=== PATIENT | female | born 1955 | race Caucasian/White ===

== ENCOUNTER → 2020-01-24 12:54 | Outpatient (BNVA) | payer MEDICAID, SELFPAY | PROVIDERS: PCP Family Medicine; Referring Provider Family Medicine; Visit Provider Student in an Organized Health Care Education/Training Program | DX: M81.0 Age-related osteoporosis without current pathological fracture (principal) | CPT/HCPCS: 96402; 99212 ==

== ENCOUNTER 2020-01-28 13:35 | Outpatient (REF) | payer MEDICAID, SELFPAY ==
--- NOTE | 2020-01-28 13:49 | XR_ITS ---
EXAMINATION: BILATERAL HIP X-RAY CLINICAL INFORMATION: Age-related osteoporosis without current pathology COMPARISON: None TECHNIQUE: 2 views of each hip FINDINGS: Left: Bone alignment is normal. No fracture or dislocation is seen. The joint space is normal. Soft tissues are normal. Right: Bone alignment is normal. No fracture or dislocation is seen. The joint space is normal. Soft tissues are normal. XR/XR hip RT min 2V IMPRESSION: Unremarkable exam.
--- NOTE | 2020-01-28 13:49 | XR_ITS ---
EXAMINATION: BILATERAL HIP X-RAY CLINICAL INFORMATION: Age-related osteoporosis without current pathology COMPARISON: None TECHNIQUE: 2 views of each hip FINDINGS: Left: Bone alignment is normal. No fracture or dislocation is seen. The joint space is normal. Soft tissues are normal. Right: Bone alignment is normal. No fracture or dislocation is seen. The joint space is normal. Soft tissues are normal. XR/XR hip LT min 2V IMPRESSION: Unremarkable exam.
[2020-01-28 15:20] LABS: Alanine Aminotransferase 19 U/L (0-31); Albumin Level 4.1 g/dL (3.5-5.0); Alkaline Phosphatase 86 U/L (39-117); Anion Gap 12 (12-20); Aspartate Amino Transferase 18 U/L (5-31); Bilirubin Total 0.4 mg/dL (0.0-1.0); Blood Urea Nitrogen 14 mg/dL (9-16); Calcium 8.8 mg/dL (8.4-10.2); Carbon Dioxide 25 mmol/L (22-29); Chloride 107 mmol/L (96-108); Estimated Glomerular Filt Rate > 60; Glucose Random 86 mg/dL (60-115); Potassium 3.9 mmol/l (3.3-5.1); Sodium 140 mmol/L (135-145)
== END 2020-01-28 13:36 | disposition home or self-care (01) ==
LOC: HO.LAB 13:35
PROVIDERS: PCP Family Medicine; Visit Provider Student in an Organized Health Care Education/Training Program
DX: M81.0 Age-related osteoporosis without current pathological fracture (principal)
CPT/HCPCS: 73502; 80053

== ENCOUNTER 2020-01-31 13:03 | Outpatient (REF) | payer MEDICAID, SELFPAY ==
--- NOTE | 2020-01-31 13:08 | MM_ITS ---
EXAMINATION: BONE DENSITOMETRY CLINICAL INDICATION: Osteoporosis. COMPARISON: Previous BD dated 12/22/2017 and baseline BD dated 07/04/2009. TECHNIQUE: Using a Z Plane DXA System (software version: 13.1) manufactured by [employer], dual-energy x-ray absorptiometry was performed of the lumbar spine and left hip. The images are of good technical quality. Summary results are attached. FINDINGS: AP SPINE L1-L4: Current: BMD 0.996 g/cm2, Z-score 0.0, T-score -1.5, osteopenia, 0.2% decrease from previous, 0.0% change from baseline (<5% change is not significant). Prior: BMD 0.998 g/cm2. Baseline: BMD 0.996 g/cm2. LEFT FEMUR, NECK: Current: BMD 0.748 g/cm2, Z-score -0.7, T-score -2.1, osteopenia. Prior: BMD 0.680 g/cm2. Baseline: BMD 0.749 g/cm2. LEFT FEMUR, TOTAL: Current: BMD 0.811 g/cm2, Z-score -0.4, T-score -1.6, osteopenia, 4.6% increase from previous, 0.0% change from baseline (<5% change is not significant). Prior: BMD 0.775 g/cm2. Baseline: BMD 0.811 g/cm2. IDENTIFIED RISK FACTORS: Osteoporosis. HISTORY OF FRACTURE: None listed. MEDICATIONS: Calcium, vitamin D, Prolia. MM/XR DEXA axial skeleton IMPRESSION: 1. DIAGNOSIS: Osteopenia based on the lowest T-score value of -2.1 in the femoral neck applying World Health Organization criteria. 2. 10-YEAR FRACTURE RISK PREDICTION, FRAX: Major osteoporotic fracture (clinical spine, forearm, hip or shoulder) 6.0%. Hip fracture 0.9%. 3. Treatment Recommendations: NOF guidelines recommend consideration for treatment in postmenopausal women and men age 50 and older presenting with the following: -A hip or vertebral (clinical or morphometric) fracture. -T-score less than or equal to -2.5 at the femoral neck or spine after appropriate evaluation to exclude secondary causes. -Low bone mass at the hip or spine and a 10-year fracture probability by FRAX of greater than or equal to 3% for hip fracture or greater than or equal to 20% for major osteoporotic fracture based on the [place] adapted WHO algorithm. 4. Other Recommendations: All treatment decisions require clinical judgment and consideration of individual patient factors, including patient preferences, comorbidities, previous drug use, risk factors not captured in the FRAX model (e.g. frailty, falls, vitamin D deficiency, increased bone turnover, interval significant decline in bone density) and possible under or overestimation of fracture risk by FRAX. Additional medical evaluation for secondary cause of low bone mineral density may be appropriate. FUTURE SCAN RECOMMENDATION: People with diagnosed cases of osteoporosis or at high risk for fracture should have regular bone mineral density tests. For patients eligible for Medicare, routine testing is allowed once every 2 years. The testing frequency can be increased to one year for patients who have rapidly progressing disease, those who are receiving or discontinuing medical therapy to restore bone mass, or have additional risk factors.
== END 2020-01-31 13:04 | disposition home or self-care (01) ==
LOC: HO.MAMMO 13:03
PROVIDERS: PCP Family Medicine; Visit Provider Student in an Organized Health Care Education/Training Program
DX: M81.0 Age-related osteoporosis without current pathological fracture (principal)
CPT/HCPCS: 77080

== ENCOUNTER 2020-02-05 07:02 | Day surgery (SDC) | payer MEDICAID, SELFPAY ==
[2020-01-31 11:41] VITALS: BMI 27.3
--- NOTE | 2020-02-04 10:37 | P.CONAN_ITS ---
Documented by User: Maria Elena Lopezney 02/04/20 10:39 HPI - Anesthesia Eval Consult details Narrative: 64yo F for Upper Endoscopy and Colonoscopy PMFSH Past Medical History Medical History Anxiety Benign neoplastic disease Cyst of Bartholin's gland duct Depression Gastritis GERD (gastroesophageal reflux disease) HIV (human immunodeficiency virus infection) Hypertension Myositis Osteoporosis Renal calculi Surgical History Surgical History Hx of appendectomy Hx of cholecystectomy Hx of colonoscopy Hx of tubal ligation Social History Social History Alcohol intake: never Smoking Status: Former smoker Smoking Quit Date: 2009 Use of substances other than those prescribed or required for medical reasons: No Advance Directives: No Advance Directives Information Provided: No Advance Directives on File: No Meds Allergies Allergy/AdvReac Type Severity Reaction Status Date / Time No Known Allergies Allergy Verified 01/24/20 13:02 Home Medications Medication Instructions Recorded Confirmed Type amlodipine 5 mg tablet 5 mg PO DAILY 01/24/20 01/31/20 History bictegravir 50 mg-emtricitabine 1 tab PO QPM 01/24/20 01/31/20 History 200 mg-tenofovir alafenam 25 mg tablet carvedilol 3.125 mg tablet 3.125 mg PO DAILY tab 01/24/20 01/31/20 History cyclobenzaprine 10 mg tablet 10 mg PO BEDTIME PRN 01/24/20 01/31/20 History denosumab 60 mg/mL subcutaneous 60 mg SUBCUT [id number] 01/24/20 01/31/20 History syringe multivitamin 1 tab PO DAILY 01/24/20 01/31/20 History omeprazole 20 mg capsule,delayed 20 mg PO DAILY 01/24/20 01/31/20 History release acetaminophen [Mapap Arthritis 650 mg PO Q8H PRN 01/31/20 01/31/20 History Pain] albuterol sulfate 0.63 mg INHALATION Q4-6H PRN 01/31/20 01/31/20 History albuterol sulfate 2 puff INHALATION Q4-6H PRN 01/31/20 01/31/20 History Exam Exam Date and Time: February 04, 2020 1037 Height,Weight and Vital Signs: Height 5 ft 1 in Weight 65.771 kg Pertinent Lab Results Pertinent Lab Results: Laboratory Tests 01/28/20 13:44 Sodium 140 Potassium 3.9 Chloride 107 Carbon Dioxide 25 BUN 14 Creatinine 0.75 Assessment and Plan Assessment Anesthesia Assessment: Chart Reviewed Documented by User: Rodri Matos MD 02/05/20 08:02 [facility] Past Medical History Medical History Anxiety Benign neoplastic disease Cyst of Bartholin's gland duct Depression Gastritis GERD (gastroesophageal reflux disease) HIV (human immunodeficiency virus infection) Hypertension Myositis Osteoporosis Renal calculi Surgical History Surgical History Hx of appendectomy Hx of cholecystectomy Hx of colonoscopy Hx of tubal ligation Social History Social History Alcohol intake: never Smoking Status: Former smoker Smoking Quit Date: 2009 Use of substances other than those prescribed or required for medical reasons: No Advance Directives: No Advance Directives Information Provided: No Advance Directives on File: No Meds Allergies Allergy/AdvReac Type Severity Reaction Status Date / Time No Known Allergies Allergy Verified 01/24/20 13:02 Home Medications Medication Instructions Recorded Confirmed Type amlodipine 5 mg tablet 5 mg PO DAILY 01/24/20 01/31/20 History bictegravir 50 mg-emtricitabine 1 tab PO QPM 01/24/20 01/31/20 History 200 mg-tenofovir alafenam 25 mg tablet carvedilol 3.125 mg tablet 3.125 mg PO DAILY tab 01/24/20 01/31/20 History cyclobenzaprine 10 mg tablet 10 mg PO BEDTIME PRN 01/24/20 01/31/20 History denosumab 60 mg/mL subcutaneous 60 mg SUBCUT [id number] 01/24/20 01/31/20 History syringe multivitamin 1 tab PO DAILY 01/24/20 01/31/20 History omeprazole 20 mg capsule,delayed 20 mg PO DAILY 01/24/20 01/31/20 History release acetaminophen [Mapap Arthritis 650 mg PO Q8H PRN 01/31/20 01/31/20 History Pain] albuterol sulfate 0.63 mg INHALATION Q4-6H PRN 01/31/20 01/31/20 History albuterol sulfate 2 puff INHALATION Q4-6H PRN 01/31/20 01/31/20 History Exam Airway Mallampati Class: II TM Dist: >3cm Neck ROM: Full Loose/Missing/Broken Teeth: No Heart: rrr Lungs: nl Other: ao Assessment and Plan Assessment Anesthesia Assessment: Anesthesia Plan Discussed and Chart Reviewed Final Anesthetic Review NPO: Yes ASA Class: III Final Preanesthetic Review: No Changes in Pt Med Stat, Meds/Allgs Chart Reviewed, Consent Obtained/Reviewed and Anes Risks/Benef Reviewed Patient Risk: Low Procedure Risk: Low Anesthetic Plan Anesthetic Plan: MAC: Disposition: Standard PACU
[2020-02-05] MEDS: Lactated Ringers 1,000 ML 100 ML IVCONT (07:05)
[2020-02-05 07:15] VITALS: BP 121/68; PULSE 102; RESP 16; TEMP 36.2; O2SAT 96
--- NOTE | 2020-02-05 08:04 | MHC.SHP ---
Pre-Procedural Eval Section B Chief Complaint: Gastro-Esophageal Reflux Details of Present Illness: gerd,screening Relevant Family History (Specify if Yes): No Relevant Social History: None Present Medications: None Medical History: No relevant PMH History of Previous Operations: No relevant previous surgery Allergies: Allergies Allergy/AdvReac Type Severity Reaction Status Date / Time No Known Allergies Allergy Verified 01/24/20 13:02 Review of Systems Sugical H&P ROS: Negative: Constitution, Cardiovascular, Respiratory, Neurological, Psychiatric, Hem-Onc, Allergic/Immunologic, Gastrointestinal, Genitourinary, Musculoskeletal, Integumentary, Endocrine and Eyes/Ears/Nose/Throat Exam Surgical H&P Exam: Normal: HEENT, Normal: Heart, Normal: Lungs, Normal: Extremities, Normal: Abdomen, Normal: Skin and Normal: Neurological Plan Diagnosis/Plan: Unchanged Patient has been examined and remains a candidate for the planned procedure
[2020-02-05 08:41] VITALS: BP 99/46; PULSE 85; RESP 13; TEMP 36.4; O2SAT 97
--- NOTE | 2020-02-05 08:48 | PM.OP ---
Brief Operative Note Date of Service: 02/05/20 Pre-op diagnosis: GERD, change in bowels Post-op diagnosis: same Procedure: EGD colonoscopy Surgeon: Micah Olsen Anesthesia: MAC Estimated blood loss (mL): 5 Pathology: other (biopsies antrum, egj, sigmoid, polyps cecum and 45cm) Condition: stable Disposition: PACU
[2020-02-05 08:56] VITALS: BP 119/65; PULSE 73; RESP 15; TEMP 36.4; O2SAT 97
--- NOTE | 2020-02-05 09:12 | OP_ITS ---
SURGEON: Micah Olsen MD INDICATIONS: Gastroesophageal reflux disease without esophagitis and dysphagia, change in bowel function, rectal pain. PREOPERATIVE DIAGNOSIS: POSTOPERATIVE DIAGNOSIS: PROCEDURE PERFORMED: 1. Upper endoscopy with biopsy. 2. Colonoscopy to the terminal ileum with snare polypectomy and biopsy. ESTIMATED BLOOD LOSS: COMPLICATIONS: ANESTHESIA: ASSISTANTS: SPECIMENS: MEDICATIONS: Monitored anesthesia care. DESCRIPTION OF PROCEDURE: History and physical performed. The risks and benefits of the procedure were explained to the patient. Informed consent was obtained. The patient was placed in left lateral decubitus position. The Olympus video gastroscope was introduced into the esophagus, stomach, and duodenum. Examination was performed and the scope was removed. She was repositioned for colonoscopy. Digital rectal exam was performed and was found to be normal. The Olympus pediatric video colonoscope was introduced into the rectum and advanced to the cecum without difficulty. The cecum was identified by transillumination, palpation, and identification of the ileocecal valve. Examination was performed and the scope was removed. She tolerated both procedures well and returned to recovery area in stable condition. FINDINGS: UPPER ENDOSCOPY: 1. Esophagus: The esophagus showed very mild distal esophagitis and a small hiatal hernia. There was no stricture. There was no evidence of Jessica infection. Biopsies were obtained from the EG junction. 2. Stomach: The stomach showed no evidence of masses, ulcers, or polyps. Antral biopsies were obtained to rule out H. pylori. 3. Duodenum: The bulb and second portion were normal. COLONOSCOPY: The terminal ileum was normal. The visualized colonic mucosa was within normal limits without evidence of masses or ulcers. Two polyps were identified. The first was located at the ileocecal valve and measured 6 mm. This was removed with a snare and recovered via suction. The second was located at 45 cm and measured less than 5 mm. This was removed with a biopsy forceps. Random sigmoid biopsies were obtained. Retroflexed examination was normal. IMPRESSION: 1. Gastroesophageal reflux disease with esophagitis. 2. Colon polyps. RECOMMENDATION: Follow up the biopsy results. MD HARJEET Bradshaw/FRANCISCO / [id number]
== END 2020-02-05 09:50 | disposition home or self-care (01) ==
PROVIDERS: PCP Family Medicine; Visit Provider Internal Medicine Gastroenterology
PROC: (CPT 43239; principal; 2020-02-05 08:10)
DX: K21.00 Gastro-esophageal reflux disease with esophagitis, without bleeding (principal); K29.50 Unspecified chronic gastritis without bleeding; K44.9 Diaphragmatic hernia without obstruction or gangrene; R19.8 Other specified symptoms and signs involving the digestive system and abdomen; K62.89 Other specified diseases of anus and rectum; D12.6 Benign neoplasm of colon, unspecified; D12.0 Benign neoplasm of cecum; R58 Hemorrhage, not elsewhere classified; I10 Essential (primary) hypertension; Z21 Asymptomatic human immunodeficiency virus [HIV] infection status; Z79.899 Other long term (current) drug therapy; Z90.49 Acquired absence of other specified parts of digestive tract
CPT/HCPCS: 43239; 45380; 45385; 88305; 88342

== ENCOUNTER 2020-02-21 15:59 | Outpatient (REF) | payer MEDICAID, SELFPAY ==
[2020-02-21 17:23] LABS: C Reactive Protein 0.24 mg/dL (< or = 0.50); Rheumatoid Factor < 15.0 IU/mL (<15.0)
[2020-02-21 17:52] LABS: Erythrocyte Sedimentation Rate 10 MM/HR (0-20)
[2020-02-22 13:53] LABS: Anti Nuclear Antibody Screen NEGATIVE (NEGATIVE)
== END 2020-02-21 16:00 | disposition home or self-care (01) ==
LOC: HO.LAB 15:59
PROVIDERS: PCP Family Medicine; Visit Provider Registered Nurse
DX: R20.0 Anesthesia of skin (principal); R20.2 Paresthesia of skin
CPT/HCPCS: 36415; 85652; 86038; 86039; 86140; 86431

== ENCOUNTER 2020-04-14 10:15 | Outpatient (REF) | payer MEDICAID, SELFPAY ==
[2020-04-14 10:38] LABS: MANUAL DIFF FLAG NO
[2020-04-14 10:43] LABS: Basophils Percent Auto 0.2 % (0-2); Eosinophils Absolute Auto 0.1 X10*3/uL (0.0-0.4); Eosinophils Percent Auto 1.4 % (0-4); Hematocrit 41.8 % (37-47); Hemoglobin 14.1 g/dl (12.0-16.0); Imm Gran Abs Auto 0.01 X10*3/uL (0.00-0.03); Imm Gran Pct Auto 0.2 % (0.0-0.4); Lymphocytes Absolute Auto 2.3 X10*3/uL (1.2-4.9); Lymphocytes Percent Auto 35.2 % (20-40); Mean Corpuscular HGB Conc 33.7 g/dl (31.0-35.0); Mean Corpuscular Volume 91.9 fL (80-98); Mean Platelet Volume 9.9 fL (9.4-12.3); Monocytes Absolute Auto 0.4 X10*3/uL (0.1-1.2); Monocytes Percent Auto 6.8 % (2-11); Neutrophils Absolute Auto 3.6 X10*3/uL (2.0-8.3); Neutrophils Percent Auto 56.2 % (45-73); Platelet Count 296 X10*3/uL (160-400); Red Blood Count 4.55 X10*6/uL (4.20-5.50); Red Cell Distribution Width 12.1 % (11.0-16.0); White Blood Count 6.4 X10*3/uL (4.8-10.8)
[2020-04-14 11:19] LABS: Alanine Aminotransferase 18 U/L (0-31); Alkaline Phosphatase 79 U/L (39-117); Aspartate Amino Transferase 19 U/L (5-31); Bilirubin Total 0.6 mg/dL (0.0-1.0); Blood Urea Nitrogen 16 mg/dL (9-16); Calcium 8.9 mg/dL (8.4-10.2); Estimated Glomerular Filt Rate > 60; Glucose Random 98 mg/dL (60-115); Total Protein 6.9 g/dL (6.5-8.0)
[2020-04-14 11:28] LABS: Anion Gap 12 (12-20); Carbon Dioxide 26 mmol/L (22-29); Chloride 107 mmol/L (96-108); Sodium 141 mmol/L (135-145)
[2020-04-14 14:22] LABS: Syphilis Screen Nonreactive (Nonreactive)
[2020-04-15 14:22] LABS: Absolute CD3 Count 1536 cells/uL (840-3060); Absolute CD4 Count 1055 cells/uL (490-1740); Absolute CD8 Count 552 cells/uL (180-1170); Absolute Lymphocytes 2214 cells/uL (850-3900); CD4 CD8 Ratio 1.91 (0.86-5.00); Percent CD3 Cells 69 % (57-85); Percent CD4 Cells 48 % (30-61); Percent CD8 Cells 25 % (12-42)
[2020-04-16 22:37] LABS: HIV RNA PCR Qn Copies <20 NOT DETECTED copies/mL (NOT DETECTED); HIV RNA PCR Qn Log Copies <1.30 NOT DETECTED (NOT DETECTED)
[2020-04-17 17:57] LABS: TS Negative Control Passed; TS Panel A 0; TS Panel B 2; TS Positive Control Passed; TSpotTB Negative (SeeBelow)
== END 2020-04-14 10:16 | disposition home or self-care (01) ==
LOC: HO.LAB 10:15
PROVIDERS: PCP Family Medicine; Visit Provider Family Medicine
DX: B20 Human immunodeficiency virus [HIV] disease (principal)
CPT/HCPCS: 36415; 80053; 85025; 86359; 86360; 86481; 86780; 87536

== ENCOUNTER 2020-06-24 12:38 | Outpatient (REF) | payer MEDICAID, SELFPAY ==
[2020-06-24 13:15] LABS: COVID-19 Test Negative (Negative); IDNOW Serial# 55D5AD1C
== END 2020-06-24 12:39 | disposition home or self-care (01) ==
LOC: HO.LAB 12:38
PROVIDERS: Visit Provider Internal Medicine
DX: Z20.822 Contact with and (suspected) exposure to COVID-19 (principal)
CPT/HCPCS: 36415; 87635; C9803

== ENCOUNTER 2020-07-22 12:57 | Outpatient (REF) | payer MEDICAID, SELFPAY ==
[2020-07-22 14:38] LABS: Alanine Aminotransferase 20 U/L (0-31); Albumin Level 4.3 g/dL (3.5-5.0); Alkaline Phosphatase 102 U/L (39-117); Anion Gap 12 (12-20); Aspartate Amino Transferase 18 U/L (5-31); Bilirubin Total 0.3 mg/dL (0.0-1.0); Blood Urea Nitrogen 16 mg/dL (9-16); Calcium 10.2 mg/dL (8.4-10.2); Carbon Dioxide 29 mmol/L (22-29); Chloride 106 mmol/L (96-108); Estimated Glomerular Filt Rate > 60; Glucose Random 84 mg/dL (60-115); Potassium 4.3 mmol/L (3.3-5.1); Sodium 143 mmol/L (135-145); Total Protein 7.5 g/dL (6.5-8.0)
[2020-07-26 14:07] LABS: Vitamin D 25-OH, D2 <4 ng/mL; Vitamin D 25-OH, D3 34 ng/mL; Vitamin D 25-OH, Total 34 ng/mL (30-100)
== END 2020-07-22 12:58 | disposition home or self-care (01) ==
LOC: HO.LAB 12:57
PROVIDERS: PCP Family Medicine; Visit Provider Student in an Organized Health Care Education/Training Program
DX: M81.0 Age-related osteoporosis without current pathological fracture (principal); B20 Human immunodeficiency virus [HIV] disease; I10 Essential (primary) hypertension; F41.9 Anxiety disorder, unspecified; K21.9 Gastro-esophageal reflux disease without esophagitis; Z79.899 Other long term (current) drug therapy; Z87.891 Personal history of nicotine dependence
CPT/HCPCS: 36415; 80053; 82306; 96372; 99212; J0897

== ENCOUNTER → 2020-07-28 09:17 | Outpatient (REF) | payer MEDICAID, SELFPAY ==
--- NOTE | ~2020-07-28 | NM_ITS ---
Lexiscan Myocardial perfusion study Indication: Chest pain, assess for coronary disease and ischemia Technique: The patient was brought in for a Lexiscan perfusion study on 07/28/2020 and was injected 0.4 mg of Lexiscan intravenously. Within a minute of this injection 25 mCi of sestamibi was given intravenously. Images were obtained using the SPECT gamma camera interlaced with the gating device. Images were obtained in supine position. Resting perfusion study was performed on 07/29/2020. Patient was administered 25 mCi of sestamibi intravenously at rest. Images were then obtained in supine position. Total DLP 88mGy-cm. Images were processed with the software and compared side to side in short axis, horizontal long axis and vertical long axis views. Findings: Raw acquisition was reviewed. The stress perfusion study showed no significant perfusion abnormality. Both uncorrected as well as CT attenuation corrected images were reviewed. The gated study shows normal LV systolic function with calculated LVEF of > 70%. LV cavity is normal in size. The gated study shows normal wall thickening and contraction of segments. Resting study shows no significant perfusion abnormality. Gating at rest reveals normal wall motion with ejection fraction at > 70%. The findings are consistent with no reversible or fixed perfusion abnormality. NM/NM citlalli perf SPECT rest & str Impression: 1. Myocardial perfusion imaging study shows normal myocardial perfusion. No evidence of any ischemia or infarction. 2. Gated LVEF is > 70% during stress and rest. 3. Transient ischemic dilatation not present. EKG component of the test reported separately.
--- NOTE | 2020-07-28 09:30 | CA_ITS ---
Acquisition Time: 2020-07-28 09:47:08 Total Exercise Time: 00:02:00 Test Indications: HTN Medications: SEE CHART Protocol: LEXISCAN Max HR: 112 BPM 71% of Pred: 157 BPM Max BP: 128/074 mmHG Max Work Load: 1.0 METS Pharmacological stress test using Lexiscan while sitting and kicking her feet. Pt tolerated well, reports mild chest thightness after Lexiscan injection that resolves in recovery. EKG with no arrhythmias, non-diagnostic for ischemia. Nuclear images to follow. Normotensive response to test. Test reviewed with Dr. Hewitt. Referred By: Reji Jo Overread By: Trina Mar NP
== END ==
LOC: HO.CARD 09:17
PROVIDERS: Visit Provider Internal Medicine Cardiovascular Disease
DX: R07.9 Chest pain, unspecified (principal)
CPT/HCPCS: 78452; 93016; 93017; 93018; A9500; J0280; J2785

== ENCOUNTER 2020-10-17 11:08 | Outpatient (REF) | payer MEDICAID, SELFPAY ==
[2020-10-17 12:08] LABS: MANUAL DIFF FLAG NO
[2020-10-17 12:15] LABS: Basophils Percent Auto 0.3 % (0-2); Eosinophils Absolute Auto 0.1 X10*3/uL (0.0-0.4); Eosinophils Percent Auto 1.4 % (0-4); Hematocrit 42.5 % (37-47); Hemoglobin 14.4 g/dl (12.0-16.0); Imm Gran Abs Auto 0.01 X10*3/uL (0.00-0.03); Imm Gran Pct Auto 0.1 % (0.0-0.4); Lymphocytes Absolute Auto 2.2 X10*3/uL (1.2-4.9); Lymphocytes Percent Auto 31.2 % (20-40); Mean Corpuscular HGB Conc 33.9 g/dl (31.0-35.0); Mean Corpuscular Hemoglobin 30.8 pg (27.0-33.0); Mean Platelet Volume 10.2 fL (9.4-12.3); Monocytes Absolute Auto 0.4 X10*3/uL (0.1-1.2); Monocytes Percent Auto 6.2 % (2-11); Neutrophils Absolute Auto 4.2 X10*3/uL (2.0-8.3); Neutrophils Percent Auto 60.8 % (45-73); Platelet Count 289 X10*3/uL (160-400); Red Blood Count 4.67 X10*6/uL (4.20-5.50); Red Cell Distribution Width 12.2 % (11.0-16.0); White Blood Count 6.9 X10*3/uL (4.8-10.8)
[2020-10-17 12:27] LABS: Alanine Aminotransferase 19 U/L (0-31); Albumin Level 3.9 g/dL (3.5-5.0); Alkaline Phosphatase 91 U/L (39-117); Anion Gap 13 (12-20); Aspartate Amino Transferase 19 U/L (5-31); Bilirubin Total 0.3 mg/dL (0.0-1.0); Blood Urea Nitrogen 16 mg/dL (9-16); Carbon Dioxide 23 mmol/L (22-29); Chloride 108 mmol/L (96-108); Cholesterol 207 mg/dL; Estimated Glomerular Filt Rate > 60; Glucose Random 104 mg/dL (60-115); HDL Cholesterol 50 mg/dL; LDL Cholesterol Calculated 109 mg/dl; Potassium 3.9 mmol/L (3.3-5.1); Sodium 140 mmol/L (135-145); Total Protein 6.9 g/dL (6.5-8.0); Triglycerides 243 mg/dL
[2020-10-17 13:18] LABS: Glucose Urine UA NEG (NEG); Leukocyte Esterase Urine NEG (NEG); Nitrite Urine NEG (NEG); Urine Blood NEG (NEG); Urine Ketones NEG (NEG); Urine Protein NEG (NEG-TRACE)
[2020-10-17 13:21] LABS: Appearance Urine HAZY; Color Urine YELLOW
[2020-10-17 15:01] LABS: CT PCR NOT DETECTED (Not Detect.); NG PCR NOT DETECTED (Not Detect.)
[2020-10-18 22:17] LABS: HCV Log PCR <1.18 NOT DETECTED Log IU/mL (NOT DETECTED); HepC Viral Load <15 NOT DETECTED IU/mL (NOT DETECTED)
[2020-10-20 14:26] LABS: Absolute CD3 Count 1391 cells/uL (840-3060); Absolute CD4 Count 982 cells/uL (490-1740); Absolute CD8 Count 501 cells/uL (180-1170); Absolute Lymphocytes 2013 cells/uL (850-3900); CD4 CD8 Ratio 1.96 (0.86-5.00); Percent CD3 Cells 69 % (57-85); Percent CD4 Cells 49 % (30-61); Percent CD8 Cells 25 % (12-42)
[2020-10-21 11:51] LABS: HIV RNA PCR Qn Copies 25 copies/mL (NOT DETECTED)
== END 2020-10-17 11:09 | disposition home or self-care (01) ==
LOC: HO.LAB 11:08
PROVIDERS: PCP Family Medicine; Visit Provider Internal Medicine Infectious Disease
DX: B20 Human immunodeficiency virus [HIV] disease (principal)
CPT/HCPCS: 80053; 80061; 81003; 85025; 86359; 86360; 87491; 87522; 87536; 87591

== ENCOUNTER 2020-10-20 12:16 | Outpatient (REF) | payer MEDICAID, SELFPAY ==
--- NOTE | ~2020-10-20 | MM_ITS ---
EXAMINATION: MM SCREENING DIGITAL BREAST TOMOSYNTHESIS, BILATERAL CLINICAL INFORMATION: Screening. Asymptomatic. The lifetime risk of breast cancer based on the Tyrer-Cuzick Model is 4%. COMPARISON: Mammography: 10/15/2019, 10/09/2018, 09/22/2017 TECHNIQUE: Digital breast tomosynthesis is performed in both the craniocaudal and mediolateral oblique views along with computer-aided detection (CAD). Synthesized 2D images are generated from the tomosynthesis. FINDINGS: There are scattered areas of fibroglandular density (ACR BI-RADS breast composition Category b). Breast tissue composition borders on heterogeneously dense. Proximal pattern is similar to prior study. There is a stable smooth 1 cm mass mid central 3:00 left breast. There is no interval significant mass or architectural abnormality or abnormal calcifications. The axilla and skin contours are unremarkable. MM/MM tomosynthesis screening BI IMPRESSION: No significant changes from prior studies. ASSESSMENT: BI-RADS 2: Benign RECOMMENDATION: Routine annual mammography screening. This patient's information was entered into a reminder system with a target due date for their next mammogram.
== END 2020-10-20 12:17 | disposition home or self-care (01) ==
LOC: HO.MAMMO 12:16
PROVIDERS: PCP Family Medicine; Visit Provider Family Medicine
DX: Z12.31 Encounter for screening mammogram for malignant neoplasm of breast (principal)
CPT/HCPCS: 77063; 77067

== ENCOUNTER 2020-12-17 08:40 | Outpatient (REF) | payer MEDICAID, SELFPAY ==
[2020-12-17 09:43] LABS: Estimated Average Glucose 100 mg/dL; Hemoglobin A1c % 5.1 %
[2020-12-17 09:50] LABS: Anion Gap 9 (12-20); Blood Urea Nitrogen 11 mg/dL (9-16); Calcium 8.9 mg/dL (8.4-10.2); Carbon Dioxide 28 mmol/L (22-29); Chloride 107 mmol/L (96-108); Estimated Glomerular Filt Rate > 60; Glucose Random 88 mg/dL (60-115); Potassium 4.4 mmol/L (3.3-5.1); Sodium 140 mmol/L (135-145)
[2020-12-17 10:11] LABS: TSH reflex Free T4 1.58 uIU/mL (0.32-4.0)
[2020-12-17 10:43] LABS: Folate > 20.0 ng/mL (> or = 4.0); Vitamin B12 551 pg/mL (200-900)
== END 2020-12-17 08:41 | disposition home or self-care (01) ==
LOC: HO.LAB 08:40
PROVIDERS: Absent Provider Family Medicine; PCP Family Medicine; Visit Provider Internal Medicine
DX: R20.0 Anesthesia of skin (principal); R20.2 Paresthesia of skin
CPT/HCPCS: 36415; 80048; 82607; 82746; 83036; 84443

== ENCOUNTER → 2021-01-20 12:53 | Outpatient (BNVA) | payer MEDICAID, SELFPAY | PROVIDERS: PCP Family Medicine; Visit Provider Nurse Practitioner Family | DX: M81.0 Age-related osteoporosis without current pathological fracture (principal) | CPT/HCPCS: 96372; 99212; J0897 ==

== ENCOUNTER 2021-02-11 08:40 | Outpatient (REF) | payer MEDICAID, SELFPAY ==
--- NOTE | 2021-02-11 08:43 | EMG_ITS ---
A 65-year-old woman with more than 1 year history of pain, numbness, and tingling in both hands. She has a history of hypertension and takes amlodipine and carvedilol. PHYSICAL EXAMINATION: On examination, she is alert and oriented with normal intellectual functions. Cranial nerves II through XII are normal. Muscle tone and strength are normal in all 4 extremities. No Tinel or Phalen sign. IMPRESSION: Rule out carpal tunnel syndrome. Nerve conduction EMG study: Normal electrodiagnostic study of both upper extremities. No evidence of carpal tunnel syndrome or nerve entrapment. Normal EMG of the right C5-T1 innervated muscles. MD PHIL Arambula/FRANCISCO / [id number]
== END 2021-02-11 08:41 | disposition home or self-care (01) ==
LOC: HO.NEURO 08:40
PROVIDERS: Visit Provider Internal Medicine
DX: G56.03 Carpal tunnel syndrome, bilateral upper limbs (principal)
CPT/HCPCS: 95885; 95913

== ENCOUNTER 2021-04-28 09:03 | Outpatient (REF) | payer MEDICAID, SELFPAY ==
[2021-04-28 09:30] LABS: MANUAL DIFF FLAG NO
[2021-04-28 10:14] LABS: Basophils Percent Auto 0.3 % (0-2); Eosinophils Absolute Auto 0.1 X10*3/uL (0.0-0.4); Eosinophils Percent Auto 1.6 % (0-4); Hematocrit 43.2 % (37.0-47.0); Hemoglobin 14.4 g/dl (12.0-16.0); Imm Gran Abs Auto 0.02 X10*3/uL (0.00-0.03); Imm Gran Pct Auto 0.3 % (0.0-0.4); Lymphocytes Absolute Auto 2.5 X10*3/uL (1.2-4.9); Lymphocytes Percent Auto 35.8 % (20-40); Mean Corpuscular HGB Conc 33.3 g/dl (31.0-35.0); Mean Corpuscular Hemoglobin 30.4 pg (27.0-33.0); Mean Corpuscular Volume 91.1 fL (80.0-98.0); Mean Platelet Volume 10.1 fL (9.4-12.3); Monocytes Absolute Auto 0.5 X10*3/uL (0.1-1.2); Monocytes Percent Auto 6.6 % (2-11); Neutrophils Absolute Auto 3.9 x10*3/uL (2.0-8.3); Neutrophils Percent Auto 55.4 % (45-73); Platelet Count 292 X10*3/uL (160-400); Red Blood Count 4.74 X10*6/uL (4.20-5.50); Red Cell Distribution Width 12.3 % (11.0-16.0)
[2021-04-28 11:03] LABS: Alanine Aminotransferase 29 U/L (0-31); Albumin Level 3.9 g/dL (3.5-5.0); Alkaline Phosphatase 86 U/L (39-117); Anion Gap 13 (12-20); Aspartate Amino Transferase 23 U/L (5-31); Bilirubin Total 0.4 mg/dL (0.0-1.0); Blood Urea Nitrogen 11 mg/dL (9-16); Calcium 9.1 mg/dL (8.4-10.2); Carbon Dioxide 25 mmol/L (22-29); Chloride 108 mmol/L (96-108); Estimated Glomerular Filt Rate > 60; Glucose Random 96 mg/dL (60-115); Potassium 4.2 mmol/L (3.3-5.1); Sodium 142 mmol/L (135-145)
[2021-04-29 12:51] LABS: Absolute CD3 Count 1805 cells/uL (840-3060); Absolute CD4 Count 1230 cells/uL (490-1740); Absolute CD8 Count 707 cells/uL (180-1170); Absolute Lymphocytes 2610 cells/uL (850-3900); CD4 CD8 Ratio 1.74 (0.86-5.00); Percent CD3 Cells 69 % (57-85); Percent CD4 Cells 47 % (30-61); Percent CD8 Cells 27 % (12-42)
[2021-05-02 14:06] LABS: HIV RNA PCR Qn Copies <20 Copies/mL; HIV RNA PCR Qn Log Copies <1.30 Log cps/mL
== END 2021-04-28 09:04 | disposition home or self-care (01) ==
LOC: HO.LAB 09:03
PROVIDERS: Absent Provider Family Medicine; PCP Family Medicine; Visit Provider Internal Medicine
DX: B20 Human immunodeficiency virus [HIV] disease (principal)
CPT/HCPCS: 36415; 80053; 85025; 86359; 86360; 87536

== ENCOUNTER → 2021-08-25 12:42 | Outpatient (BNVA) | payer MEDICARE, MEDICAID, SELFPAY | PROVIDERS: PCP Family Medicine; Visit Provider Nurse Practitioner Family | DX: M81.0 Age-related osteoporosis without current pathological fracture (principal) | CPT/HCPCS: 96372; J0897 ==

== ENCOUNTER 2021-10-19 12:16 | Outpatient (REF) | payer MEDICARE, MEDICAID, SELFPAY ==
[2021-10-19 13:46] LABS: Blood Urea Nitrogen 11 mg/dL (9-16); Estimated Glomerular Filt Rate > 60
== END 2021-10-19 12:17 | disposition home or self-care (01) ==
LOC: HO.LAB 12:16
PROVIDERS: PCP Family Medicine; Visit Provider Family Medicine
DX: N20.0 Calculus of kidney (principal)
CPT/HCPCS: 36415; 82565; 84520

== ENCOUNTER 2021-10-21 13:04 | Outpatient (REF) | payer MEDICARE, MEDICAID, SELFPAY ==
--- NOTE | ~2021-10-21 | MM_ITS ---
EXAMINATION: MM SCREENING DIGITAL BREAST TOMOSYNTHESIS, BILATERAL CLINICAL INFORMATION: Screening. Asymptomatic. The lifetime risk of breast cancer based on the Tyrer-Cuzick Model is 4%. COMPARISON: Mammography: 10/20/2020, 10/15/2019, 10/09/2018 TECHNIQUE: Digital breast tomosynthesis is performed in both the craniocaudal and mediolateral oblique views along with computer-aided detection (CAD). Synthesized 2D images are generated from the tomosynthesis. FINDINGS: The breasts are heterogeneously dense, which may obscure small masses (ACR BI-RADS breast composition Category c). There are no significant masses, abnormal calcifications, or other abnormalities. There is a chronic smooth nodule central 3:00 left breast around 1 cm. No developing density. The axilla and skin contours are unremarkable. MM/MM tomosynthesis screening BI IMPRESSION: No mammographic evidence of malignancy. ASSESSMENT: BI-RADS 2: Benign RECOMMENDATION: Routine annual mammography screening. This patient's information was entered into a reminder system with a target due date for their next mammogram.
== END 2021-10-21 13:05 | disposition home or self-care (01) ==
LOC: HO.MAMMO 13:04
PROVIDERS: PCP Family Medicine; Visit Provider Family Medicine
DX: Z12.31 Encounter for screening mammogram for malignant neoplasm of breast (principal)
CPT/HCPCS: 77063; 77067

== ENCOUNTER 2021-10-22 13:17 | Outpatient (REF) | payer MEDICARE, MEDICAID, SELFPAY ==
--- NOTE | ~2021-10-22 | CT_ITS ---
EXAMINATION: CT ABDOMEN AND PELVIS WITH CONTRAST CLINICAL INFORMATION: Lower abdominal pain. COMPARISON: Previous CT of the abdomen and pelvis most recent December 2017, pelvic ultrasound May 2019 and abdominal ultrasound 2018. TECHNIQUE: Multidetector volumetric images were obtained from the superior aspect of the liver through the pubic symphysis following administration 85 mL of Omnipaque 350 intravenous contrast. Sagittal and coronal reformatted images were obtained on the technologist's workstation. Oral contrast: Yes This CT examination was performed using dose optimization techniques as appropriate, variously including the following: *Automated exposure control *Adjustment of mA and/or kV according to patient size (this includes techniques or standardized protocols for targeted exams where dose is matched to indication/reason for exam; i.e. extremities or head) *Use of iterative reconstruction technique DLP: 311 mGy-cm FINDINGS: LUNG BASES: The visualized lung bases are unremarkable. LIVER, GALLBLADDER, AND BILIARY TREE: The liver is normal in size, shape, and attenuation. There is a small 3 mm low-attenuation lesion high in the dome of the liver axial image 9 series 3. This is not seen on prior noncontrast enhanced CT scans. This is difficult to characterize due to small size but probably represents a small cyst. PANCREAS: Unremarkable. SPLEEN: Unremarkable. ADRENAL GLANDS: Unremarkable. KIDNEYS AND URETERS: The kidneys are normal in size, shape, and attenuation. No hydronephrosis, hydroureter, or calculi seen. No perinephric stranding. BLADDER: Unremarkable. GASTROINTESTINAL TRACT: The small and large bowel are unremarkable. The appendix is not seen. The stomach is unremarkable. ABDOMINAL WALL: Small umbilical hernia containing fat. LYMPH NODES: Normal. VASCULAR: Unremarkable. PELVIC VISCERA: There is a fibroid uterus. OSSEOUS STRUCTURES: Unremarkable. CT/CT abdomen pelvis w con IMPRESSION: Fibroid uterus. Probable small liver cyst. Fleischner guidelines were followed.
[2021-10-22] MEDS: iohexoL 350 MG/ML 100 ML INFUS..BTL IV (15:48)
[2021-10-22] MEDS: Barium Sulfate Oral (Berry) 450 ML ORAL.SUSP 900 ML PO (15:49)
== END 2021-10-22 13:18 | disposition home or self-care (01) ==
LOC: HO.CT 13:17
PROVIDERS: PCP Family Medicine; Visit Provider Internal Medicine
DX: R10.30 Lower abdominal pain, unspecified (principal)
CPT/HCPCS: 74177; Q9967

== ENCOUNTER → 2022-02-24 10:42 | Outpatient (BNVA) | payer MEDICARE, MEDICAID, SELFPAY | PROVIDERS: PCP Family Medicine; Visit Provider Nurse Practitioner Family | DX: M81.0 Age-related osteoporosis without current pathological fracture (principal) | CPT/HCPCS: 96372; J0897 ==

== ENCOUNTER 2022-03-05 09:03 | Outpatient (REF) | payer MEDICARE, MEDICAID, SELFPAY ==
--- NOTE | ~2022-03-05 | FL_ITS ---
EXAMINATION: FL BARIUM SWALLOW CLINICAL INFORMATION: Obesity, dysphagia. COMPARISON: None. TECHNIQUE: Barium swallow examination is performed using fluoroscopic evaluation in addition to multiple fluoroscopic spot views. The patient is imaged both upright and prone and using both thick and thin sulfate along with effervescent granules. Fluoroscopy time: 2.1 minutes DAP: 9.630 Gycm2 Images: 67 FINDINGS: Normal antegrade flow of thick barium and turkey-coated barium in upright view without any obstruction, narrowing or stricture. The course, caliber and the esophagus are normal. On placing patient supine, prone lying and oral administration of thin barium, there is normal propagation of bolus from the oral cavity through the pharynx and esophagus and into the stomach. There is a small sliding hiatal hernia with mild gastroesophageal reflux. FL/FL barium swallow IMPRESSION: Small sliding hiatal hernia with mild gastroesophageal reflux.
== END 2022-03-05 09:04 | disposition home or self-care (01) ==
LOC: HO.XRAY 09:03
PROVIDERS: Visit Provider Internal Medicine Gastroenterology
DX: Z01.818 Encounter for other preprocedural examination (principal); E66.9 Obesity, unspecified; R13.10 Dysphagia, unspecified
CPT/HCPCS: 74220

== ENCOUNTER 2022-08-18 10:27 | Outpatient (REF) | payer MEDICARE, MEDICAID, SELFPAY ==
[2022-08-18 12:08] LABS: Alanine Aminotransferase 22 U/L (0-31); Albumin Level 4.1 g/dL (3.5-5.0); Alkaline Phosphatase 104 U/L (39-117); Anion Gap 12 (12-20); Aspartate Amino Transferase 22 U/L (5-31); Bilirubin Total 0.5 mg/dL (0.0-1.0); Blood Urea Nitrogen 11 mg/dL (9-16); Calcium 9.7 mg/dL (8.4-10.2); Carbon Dioxide 26 mmol/L (22-29); Chloride 109 mmol/L (96-108); Estimated Glomerular Filt Rate > 60; Glucose Random 89 mg/dL (60-115); Phosphorus 2.5 mg/dL (2.7-4.5); Potassium 4.3 mmol/L (3.3-5.1); Sodium 143 mmol/L (135-145); Total Protein 7.3 g/dL (6.5-8.0)
[2022-08-18 12:24] LABS: Vitamin D 25-OH Total 51.9 ng/mL (>30)
== END 2022-08-18 10:28 | disposition home or self-care (01) ==
LOC: HO.LAB 10:27
PROVIDERS: PCP Family Medicine; Visit Provider Nurse Practitioner Family
DX: M81.0 Age-related osteoporosis without current pathological fracture (principal)
CPT/HCPCS: 36415; 80053; 82306; 84100

== ENCOUNTER 2022-08-19 08:27 | Outpatient (REF) | payer MEDICARE, MEDICAID, SELFPAY ==
--- NOTE | ~2022-08-19 | MM_ITS ---
EXAMINATION: BONE DENSITOMETRY CLINICAL INDICATION: Age-related osteoporosis without current pathological fracture. COMPARISON: Previous BD dated 01/31/2020 and baseline BD dated 07/04/2009. TECHNIQUE: Using a [employer] DXA System (software version: 13.1) manufactured by [employer], dual-energy x-ray absorptiometry was performed of the lumbar spine and left hip. The images are of good technical quality. Summary results are attached. FINDINGS: AP SPINE L1-L4: Current: BMD 1.058 g/cm2, Z-score 0.5, T-score -1.0, normal, 6.2% increase from previous, 6.2% increase from baseline (<5% change is not significant). Prior: BMD 0.996 g/cm2. Baseline: BMD 0.996 g/cm2. LEFT FEMUR, NECK: Current: BMD 0.709 g/cm2, Z-score -0.9, T-score -2.4, osteopenia. Prior: BMD 0.748 g/cm2. Baseline: BMD 0.749 g/cm2. LEFT FEMUR, TOTAL: Current: BMD 0.754 g/cm2, Z-score -0.8, T-score -2.0, osteopenia, 7.0% decrease from previous, 7.0% decrease from baseline (<5% change is not significant). Prior: BMD 0.811 g/cm2. Baseline: BMD 0.811 g/cm2. IDENTIFIED RISK FACTORS: Menopause, osteoporosis. HISTORY OF FRACTURE: None listed. MEDICATIONS: Calcium supplements or multivitamin, vitamin D, Prolia. MM/XR DEXA axial skeleton IMPRESSION: 1. DIAGNOSIS: Osteopenia based on the lowest T-score value of -2.4 in the femoral neck applying World Health Organization criteria. 2. 10-YEAR FRACTURE RISK PREDICTION, FRAX: Not performed in this patient on estrogen or bone building treatments. 3. Treatment Recommendations: NOF guidelines recommend consideration for treatment in postmenopausal women and men age 50 and older presenting with the following: -A hip or vertebral (clinical or morphometric) fracture. -T-score less than or equal to -2.5 at the femoral neck or spine after appropriate evaluation to exclude secondary causes. -Low bone mass at the hip or spine and a 10-year fracture probability by FRAX of greater than or equal to 3% for hip fracture or greater than or equal to 20% for major osteoporotic fracture based on the [place] adapted WHO algorithm. 4. Other Recommendations: All treatment decisions require clinical judgment and consideration of individual patient factors, including patient preferences, comorbidities, previous drug use, risk factors not captured in the FRAX model (e.g. frailty, falls, vitamin D deficiency, increased bone turnover, interval significant decline in bone density) and possible under or overestimation of fracture risk by FRAX. Additional medical evaluation for secondary cause of low bone mineral density may be appropriate. FUTURE SCAN RECOMMENDATION: People with diagnosed cases of osteoporosis or at high risk for fracture should have regular bone mineral density tests. For patients eligible for Medicare, routine testing is allowed once every 2 years. The testing frequency can be increased to one year for patients who have rapidly progressing disease, those who are receiving or discontinuing medical therapy to restore bone mass, or have additional risk factors.
== END 2022-08-19 08:28 | disposition home or self-care (01) ==
LOC: HO.MAMMO 08:27
PROVIDERS: PCP Family Medicine; Visit Provider Nurse Practitioner Family
DX: Z13.820 Encounter for screening for osteoporosis (principal); Z78.0 Asymptomatic menopausal state; M81.0 Age-related osteoporosis without current pathological fracture
CPT/HCPCS: 77080

== ENCOUNTER → 2022-08-26 11:09 | Outpatient (BNVA) | payer MEDICARE, MEDICAID, SELFPAY | PROVIDERS: PCP Family Medicine; Visit Provider Internal Medicine Rheumatology | DX: M81.0 Age-related osteoporosis without current pathological fracture (principal) | CPT/HCPCS: 96372; 99211; J0897 ==

== ENCOUNTER 2022-10-27 12:58 | Outpatient (REF) | payer MEDICARE, MEDICAID, SELFPAY | END 2022-10-27 12:59 | disposition home or self-care (01) | LOC: HO.MAMMO 12:58 | PROVIDERS: PCP Family Medicine; Visit Provider Family Medicine | DX: Z12.31 Encounter for screening mammogram for malignant neoplasm of breast (principal) | CPT/HCPCS: 77063; 77067 ==

== ENCOUNTER → 2022-10-27 13:15 | Outpatient (BNV) | payer MEDICARE, MEDICAID, SELFPAY | PROVIDERS: PCP Family Medicine; Visit Provider Radiology Diagnostic Radiology | DX: Z12.31 Encounter for screening mammogram for malignant neoplasm of breast (principal) | CPT/HCPCS: 77063; 77067 ==

== ENCOUNTER 2022-11-17 14:37 | Outpatient (REF) | payer MEDICARE, MEDICAID, SELFPAY ==
--- NOTE | ~2022-11-17 | XR_ITS ---
EXAMINATION: XR LUMBOSACRAL SPINE CLINICAL INFORMATION: Low back pain radiating to both legs COMPARISON: CT abdomen and pelvis 10/22/2021; lumbar radiographs 01/29/2016 TECHNIQUE: 5 views of the lumbosacral spine. FINDINGS: The vertebral bodies and posterior elements are normal. The disc spaces are preserved and the vertebral alignment is normal. The paraspinal soft tissues are normal. There is a probable an enostosis in the left superior lateral L2 vertebral body. XR/XR lumbar spine 4V min IMPRESSION: Unremarkable examination. EXAMINATION: XR BILATERAL HIPS WITH AP PELVIS CLINICAL INFORMATION: Back pain radiating to both lower extremities COMPARISON: Abdominal CT 10/22/2021, hip radiographs 01/28/2020 TECHNIQUE: AP view of the pelvis and and AP and frog lateral views of each hip were obtained. FINDINGS: No fracture. Hip joint spaces are maintained. Alignment is anatomic. Sacroiliac joints and pubic symphysis are normal. No abnormal soft tissue calcifications. IMPRESSION: Normal pelvis and hips.
--- NOTE | ~2022-11-17 | US_ITS ---
EXAMINATION: US VENOUS ULTRASOUND WITH DOPPLER LOWER EXTREMITY, LEFT CLINICAL INFORMATION: Left leg edema evaluate for DVT COMPARISON: None available. TECHNIQUE: Ultrasound of the deep veins is performed from the hip to the calf with compression sonography and color and pulse Doppler assessment. Spectral analysis with color-flow imaging is performed. FINDINGS: There is normal venous compression and respiratory variation and augmented flow. The visualized common femoral vein, superficial femoral vein, profunda femoral vein, popliteal vein, and the trifurcation region shows no evidence of deep venous thrombosis. There is no significant popliteal fossa cyst. If the patient's symptoms persist, followup ultrasound in 5 days 7 days might be of value to exclude proximal propagation from a non-visualized calf vein. US/US venous duplex LE IMPRESSION: No DVT demonstrated in the left lower extremity.
--- NOTE | ~2022-11-17 | XR_ITS ---
EXAMINATION: XR LUMBOSACRAL SPINE CLINICAL INFORMATION: Low back pain radiating to both legs COMPARISON: CT abdomen and pelvis 10/22/2021; lumbar radiographs 01/29/2016 TECHNIQUE: 5 views of the lumbosacral spine. FINDINGS: The vertebral bodies and posterior elements are normal. The disc spaces are preserved and the vertebral alignment is normal. The paraspinal soft tissues are normal. There is a probable an enostosis in the left superior lateral L2 vertebral body. XR/XR hip BI w PEL1V IMPRESSION: Unremarkable examination. EXAMINATION: XR BILATERAL HIPS WITH AP PELVIS CLINICAL INFORMATION: Back pain radiating to both lower extremities COMPARISON: Abdominal CT 10/22/2021, hip radiographs 01/28/2020 TECHNIQUE: AP view of the pelvis and and AP and frog lateral views of each hip were obtained. FINDINGS: No fracture. Hip joint spaces are maintained. Alignment is anatomic. Sacroiliac joints and pubic symphysis are normal. No abnormal soft tissue calcifications. IMPRESSION: Normal pelvis and hips.
== END 2022-11-17 14:38 | disposition home or self-care (01) ==
LOC: HO.US 14:37
PROVIDERS: Absent Provider Family Medicine; PCP Family Medicine; Visit Provider Emergency Medicine
DX: M54.50 Low back pain, unspecified (principal); M79.604 Pain in right leg; M79.605 Pain in left leg; M25.551 Pain in right hip; M25.552 Pain in left hip; M25.472 Effusion, left ankle; R80.0 Isolated proteinuria
CPT/HCPCS: 72110; 73521; 93971

== ENCOUNTER 2022-11-22 12:45 | Outpatient (REF) | payer MEDICARE, MEDICAID, SELFPAY ==
[2022-11-22 14:33] LABS: Anion Gap 9 (12-20); Blood Urea Nitrogen 12 mg/dL (9-16); Calcium 9.3 mg/dL (8.4-10.2); Carbon Dioxide 26 mmol/L (22-29); Chloride 111 mmol/L (96-108); Estimated Glomerular Filt Rate > 60; Glucose Random 96 mg/dL (60-115); Potassium 3.7 mmol/L (3.3-5.1); Sodium 142 mmol/L (135-145)
[2022-11-28 15:29] LABS: Vitamin D 25-OH, D2 <4 ng/mL; Vitamin D 25-OH, D3 42 ng/mL; Vitamin D 25-OH, Total 42 ng/mL (30-100)
== END 2022-11-22 12:46 | disposition home or self-care (01) ==
LOC: HO.LAB 12:45
PROVIDERS: PCP Family Medicine; Visit Provider Internal Medicine Rheumatology
DX: M81.0 Age-related osteoporosis without current pathological fracture (principal)
CPT/HCPCS: 36415; 80048; 82306

== ENCOUNTER 2022-11-29 14:06 | Outpatient (AMB) | payer MEDICARE, MEDICAID, SELFPAY ==
--- NOTE | 2022-11-29 14:58 | MHC.OFFVIS ---
Intake Vital Signs 11/29/22 14:59 Weight 150 lb 9.211 oz BP 136/72 Blood Pressure Location Lt brachial Position Sitting Pulse 73 Pulse Source Pulse Oximeter Temp 97.7 F Temp Source Skin Pulse Oximetry (%) 98 Oxygen Delivery Method Room Air Intake Visit Reasons: Osteoporosis Intake Note: Patient here to follow up on osteoporosis. Would like to discuss continuation of prolia injections. 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 Name: Danielle [id number] Information Interpreted: clinical only Allergies No Known Allergies Allergy (Verified 11/29/22 15:01) Medication List - Last Reconciled 11/29/22 by Shahram Bush MD acetaminophen ER (Mapap Arthritis Pain) 650 mg PO Q8H PRN albuterol sulfate 90 mcg/actuation 2 puffs inhalation Q4-6H PRN albuterol sulfate 0.63 mg inhalation Q4-6H PRN amlodipine 5 mg PO DAILY [id number] ala 50-200-25 mg (Biktarvy) 1 tab PO QPM carvedilol 6.25 mg PO DAILY cyclobenzaprine 10 mg PO BEDTIME PRN denosumab (Prolia) 60 mg subcut [id number] dicyclomine 10 mg PO Q6H PRN duloxetine 20 mg PO BID esomeprazole magnesium 20 mg PO DAILY fluticasone propionate 50 mcg/actuation sprays intranasal multivitamin (One Daily Multivitamin tablet) 1 tab PO DAILY omeprazole 20 mg PO DAILY HPI HPI Comments History of Present Illness Details The patient returns for evaluation of her osteoporosis and fibromyalgia. She continues to receive Prolia injections every 6 months and they have been without complications. She was be due again in mid February for the next injection. She remains with multiple areas of pain attributed to fibromyalgia. It seems most of her discomfort is in the lower back region with radiation to the buttocks and lateral hips. This is worse when she stands up for a while or walks. She does take acetaminophen for this with questionable improvement. She also uses cyclobenzaprine at night. She thinks the primary doctor started her on something new but is not exactly sure what it is. It starts with the letters DU so we are thinking it may be duloxetine. It does not sound like she had any trials of Lyrica or gabapentin in the past. PFSH Medical History (Updated 11/29/22 @ 16:00 by Shahram Bush MD) Benign neoplastic disease Myositis Cyst of Bartholin's gland duct Renal calculi Gastritis Anxiety Hypertension HIV (human immunodeficiency virus infection) Depression GERD (gastroesophageal reflux disease) Osteoporosis Surgical History Hx of tubal ligation Hx of cholecystectomy Hx of colonoscopy Hx of appendectomy Social History (Updated 11/29/22 @ 15:03 by ASHANTI Mcghee) Alcohol intake: former Patient Tobacco Use Status: Former Tobacco user Years Smoked: quit 11 years ago Review of Systems Const Details: Some fatigue. Negative for appetite change, weight change, fever, chills, malaise Eyes Details: Occasional headache. Negative for vision change, dry eyes and dizziness GI Details: Occasional heartburn. Negative nausea, abdominal pain, bowel changes, diarrhea, constipation and bloody stool. Endo Details: Negative for polyuria and polydypsia Shilo/Lymph Details: Negative for excessive bruising or bleeding. Physical Exam Vital Signs: Last Vital Signs Temp 97.7 F 11/29/22 14:59 Pulse 73 11/29/22 14:59 BP 136/72 11/29/22 14:59 Pulse Ox 98 11/29/22 14:59 Oxygen Delivery Method Room Air 11/29/22 14:59 APPEARANCE: Patient in no acute distress EYES no redness, pupils equal and reactive to light, eyelids normal. No temporal artery tenderness, redness or swelling EXTREMITIES: No edema, no calf tenderness, normal peripheral pulses. NEURO: Oriented and alert x3. No focal weakness. Reflexes symmetric. Gait normal. SKIN: No inflammatory or neoplastic lesions. Normal color and turgor JOINT EXAM:.?? Cervical Spine:.? Full range of motion without pain; no tenderness. Thoracic Spine:.? No scoliosis.? No tenderness on palpation. Lumbar Spine:.? Alignment normal.? Mild lumbar pain with flexion at 60 degrees with some paraspinal muscle tenderness. Chest Wall:.? No tenderness, swelling, increased warmth or erythema. Hands:.? Normal pain-free range of motion without tenderness, swelling, increased warmth or erythema. Able to make a full fist and has a good memorial mason strength. Wrists:.? Normal pain-free range of motion without tenderness, swelling, increased warmth or erythema. Elbows:. Normal pain-free range of motion without tenderness, swelling, increased warmth or erythema. Shoulders:.?? Full range of motion with slight discomfort at the extremes of motion. There is minimal anterior and trapezial tenderness but no adenopathy, weakness, swelling, increased warmth or erythema. Hips:? Right: Mild lumbar, lateral and groin pain with the extremes of normal flexion, internal rotation or external rotation. Left: Slight lateral and buttock pain with extremes of internal and external rotation. No groin pain with motion. No adenopathy or tenderness in the groin. Hip bursa: Mild bilateral trochanteric tenderness. Knees:.?? Normal pain-free range of motion with mild patellofemoral crepitus but no effusion, tenderness, swelling, increased warmth or erythema.? Ankles:.? Normal pain-free range of motion without tenderness. There is some bogginess medially in both medial ankles. No increased warmth or erythema. Feet:.? Normal pain-free range of motion without tenderness, swelling, increased warmth or erythema. Tender points:.? Mild tenderness to digital palpation at the both trapezius, both, lateral epicondyle, both knees, greater trochanter area bilaterally. ? Results Reviewed Results Reviewed: Laboratory Tests 02/21/20 16:12 ESR 10 Rheumatoid Factor < 15.0 ERIC Screen NEGATIVE [place] [id number] XRay Report Signed Patient: Ana Grimm MR#: [id number] : 1955 Acct:[id number] Age/Sex: 67 / F ADM Date: 11/17/[address]: Ravi Villalobos NP Ordering Physician: RAVI VILLALOBOS NP Date of Service: 11/17/22 Procedure(s): XR lumbar spine 4V min Accession Number(s): [id number] cc: Adele Brooks MD; RAVI VILLALOBOS NP~ EXAMINATION: XR LUMBOSACRAL SPINE CLINICAL INFORMATION: Low back pain radiating to both legs COMPARISON: CT abdomen and pelvis 10/22/2021; lumbar radiographs 01/29/2016 TECHNIQUE: 5 views of the lumbosacral spine. FINDINGS: The vertebral bodies and posterior elements are normal. The disc spaces are preserved and the vertebral alignment is normal. The paraspinal soft tissues are normal. There is a probable an enostosis in the left superior lateral L2 vertebral body. XR/XR lumbar spine 4V min IMPRESSION: Unremarkable examination. EXAMINATION: XR BILATERAL HIPS WITH AP PELVIS CLINICAL INFORMATION: Back pain radiating to both lower extremities COMPARISON: Abdominal CT 10/22/2021, hip radiographs 01/28/2020 TECHNIQUE: AP view of the pelvis and and AP and frog lateral views of each hip were obtained. FINDINGS: No fracture. Hip joint spaces are maintained. Alignment is anatomic. Sacroiliac joints and pubic symphysis are normal. No abnormal soft tissue calcifications. IMPRESSION: Normal pelvis and hips. Dictated By: Da Allen MD Signed By: <Electronically signed by Da Allen MD in OV> Assessment & Plan Assessment & Plan (1) Osteoporosis: Comment: Alendronate [id number], stopped due to GERD 12/2018 T score fem neck -2.6, Prolia started Code(s): M81.0 - Age-related osteoporosis without current pathological fracture Qualifiers: Osteoporosis type: age-related Presence of current pathological fracture: without current pathological fracture Qualified Code(s): M81.0 - Age-related osteoporosis without current pathological fracture (2) Lumbar degenerative disc disease: Code(s): M51.36 - Other intervertebral disc degeneration, lumbar region (3) Fibromyalgia: Code(s): M79.7 - Fibromyalgia Plan The patient seems to be tolerating the Prolia so we will set her up for another injection in February. That will be preceded by a BMP to check her calcium and creatinine and a vitamin D level. Her overall pain syndrome fits with fibromyalgia but there is significant more pain up in the lower back with standing or walking. The LS spine films showed some minimal signs of degenerative disease but I suspect she has more disc disease that is not evident on that study. The picture is more of a spinal stenosis type picture with pain down the legs with walking. I suggested referral to Pain Management to see if they might consider epidural corticosteroids but she did not want to go that route. She says she wants to go with the recent medicine prescribed by the primary doctor. I would presume that was duloxetine. That could be increased if tolerated up to 90 mg a day to see if they might be some improvement in her pain syndrome. One could also add some gabapentin 100 mg to 300 mg t.i.d. in gradually increasing doses. Light aerobic activity is encouraged. We will see her before her next Prolia injection. Orders: Orders Basic Metabolic Panel Today M81.0 - Age-related osteoporosis without current pathological fracture Vitamin D 25-OH (D2 and D3) Today M81.0 - Age-related osteoporosis without current pathological fracture Coding Level of Care Code Est Pt Level 3 (83612) Diagnoses Age-related osteoporosis without current pathological fracture M81.0 Osteoporosis type: age-related Presence of current pathological fracture: without current pathological fracture Lumbar degenerative disc disease M51.36 Fibromyalgia M79.7
[2022-11-29 14:59] VITALS: BP 136/72; PULSE 73; TEMP 36.5; O2SAT 98
== END 2022-11-29 15:32 | disposition home or self-care (01) ==
PROVIDERS: PCP Family Medicine; Visit Provider Internal Medicine Rheumatology
DX: M81.0 Age-related osteoporosis without current pathological fracture (principal); M51.36 Other intervertebral disc degeneration, lumbar region; M79.7 Fibromyalgia
CPT/HCPCS: 99213

== ENCOUNTER → 2022-11-29 14:06 | Outpatient (BNVA) | payer MEDICARE, MEDICAID, SELFPAY | PROVIDERS: PCP Family Medicine; Visit Provider Internal Medicine Rheumatology | DX: M81.0 Age-related osteoporosis without current pathological fracture (principal); M51.36 Other intervertebral disc degeneration, lumbar region; M79.7 Fibromyalgia | CPT/HCPCS: 99212 ==

== ENCOUNTER 2023-01-17 | Outpatient (REF) | payer MEDICARE, MEDICAID, SELFPAY | END 2023-01-17 00:01 | disposition home or self-care (01) | LOC: HO.LNP | PROVIDERS: Visit Provider Advanced Practice Midwife | DX: B20 Human immunodeficiency virus [HIV] disease (principal) | CPT/HCPCS: 88112 ==

== ENCOUNTER 2023-01-17 13:08 | Emergency (ER) | payer MEDICARE, MEDICAID, SELFPAY ==
--- NOTE | 2023-01-17 13:15 | ED_ITS ---
HPI - General Adult General Chief complaint: Abdominal Pain Stated complaint: bacteria in stomach? Related Data Home Medications Medication Instructions Recorded Confirmed amlodipine 5 mg tablet 5 mg PO DAILY 01/24/20 11/29/22 bictegravir 50 mg-emtricitabine 1 tab PO QPM 01/24/20 11/29/22 200 mg-tenofovir alafenam 25 mg tablet (Biktarvy) cyclobenzaprine 10 mg tablet 10 mg PO BEDTIME PRN Muscle Spasm 01/24/20 11/29/22 denosumab 60 mg/mL subcutaneous 60 mg subcut [id number] 01/24/20 11/29/22 syringe (Prolia) multivitamin (One Daily 1 tab PO DAILY 01/24/20 11/29/22 Multivitamin tablet) omeprazole 20 mg capsule,delayed 20 mg PO DAILY 01/24/20 11/29/22 release acetaminophen 650 mg 650 mg PO Q8H PRN Pain 01/31/20 11/29/22 tablet,extended release (Mapap Arthritis Pain) albuterol sulfate 0.63 mg/3 mL 0.63 mg inhalation Q4-6H PRN 01/31/20 11/29/22 solution for nebulization Shortness Of Breath Or Wheezing albuterol sulfate 90 mcg/actuation 2 puff inhalation Q4-6H PRN 01/31/20 11/29/22 aerosol inhaler Shortness Of Breath Or Wheezing carvedilol 6.25 mg tablet 6.25 mg PO DAILY 11/26/22 11/29/22 dicyclomine 10 mg capsule 10 mg PO Q6H PRN 11/26/22 11/29/22 esomeprazole magnesium 20 mg 20 mg PO DAILY 11/26/22 11/29/22 capsule,delayed release fluticasone propionate 50 spray intranasal 11/26/22 11/29/22 mcg/actuation nasal spray,suspension duloxetine 20 mg capsule,delayed 20 mg PO BID 11/29/22 11/29/22 release Allergies Allergy/AdvReac Type Severity Reaction Status Date / Time No Known Allergies Allergy Verified 11/29/22 15:01 [facility] Past Medical History Medical History (Updated 02/25/23 @ 01:54 by Hubert Ley) Benign neoplastic disease Myositis Cyst of Bartholin's gland duct Renal calculi Gastritis Anxiety Hypertension HIV (human immunodeficiency virus infection) Depression GERD (gastroesophageal reflux disease) Osteoporosis Surgical History Hx of tubal ligation Hx of cholecystectomy Hx of colonoscopy Hx of appendectomy Social History Social History (Updated 11/29/22 @ 15:03 by ASHANTI Mcghee) Alcohol intake: former Patient Tobacco Use Status: Former Tobacco user Years Smoked: quit 11 years ago Physical Exam ED Vital Signs: BMI result Body Mass Index 28.0 Course Course Course Narrative: JASMEET- 67 year old female presents for evaluation of left upper abdominal pain, nausea and diarrhea for the last 3 days after drinking spoiled milk. Plan for labs, UA Medical Decision Making Lab Data 01/17/23 13:51 01/17/23 13:51 Labs: Lab Results 01/17/23 01/17/23 Range/Units 13:51 14:14 WBC 6.4 (4.8-10.8) X10*3/uL RBC 4.95 (4.20-5.50) X10*6/uL Hgb 14.8 (12.0-16.0) g/dl Hct 44.4 (37.0-47.0) % MCV 89.7 (80.0-98.0) fL MCH 29.9 (27.0-33.0) pg MCHC 33.3 (31.0-35.0) g/dl RDW 12.4 (11.0-16.0) % Plt Count 307 (160-400) X10*3/uL MPV 9.6 (9.4-12.3) fL Immature Gran % (Auto) 0.5 H (0.0-0.4) % Neut % (Auto) 55.6 (45-73) % Lymph % (Auto) 37.7 (20-40) % [place] % (Auto) 5.1 (2-11) % Eos % (Auto) 0.8 (0-4) % Baso % (Auto) 0.3 (0-2) % Lymph # (Auto) 2.4 (1.2-4.9) X10*3/uL [place] # (Auto) 0.3 (0.1-1.2) X10*3/uL Eos # (Auto) 0.1 (0.0-0.4) X10*3/uL Baso # (Auto) 0.0 (0.0-0.2) X10*3/uL Abs Immat Gran (auto) 0.03 (0.00-0.03) X10*3/uL Absolute Neuts (auto) 3.6 (2.0-8.3) x10*3/uL Absolute Nucleated RBC 0.000 (0.0-0.012) X10*3/uL Nucleated RBC % (auto) 0.0 (0.0-0.2) /100WBC Sodium 142 (135-145) mmol/L Potassium 3.2 L (3.3-5.1) mmol/L Chloride 109 H (96-108) mmol/L Carbon Dioxide 26 (22-29) mmol/L Anion Gap 10 L (12-20) BUN 9 (9-16) mg/dL Creatinine 0.78 (0.5-1.4) mg/dL Estim Creat Clear Calc 62.1 Estimated GFR > 60 Random Glucose 150 H (60-115) mg/dL Calcium 8.7 D (8.4-10.2) mg/dL Total Bilirubin 0.6 (0.0-1.0) mg/dL AST 20 (5-31) U/L ALT 17 (0-31) U/L Alkaline Phosphatase 83 (39-117) U/L Total Protein 7.1 (6.5-8.0) g/dL Albumin 4.0 (3.5-5.0) g/dL Lipase 12 (8-78) U/L Urine Color Yellow Urine Appearance Clear Urine pH 5.5 (5.0-9.0) Ur Specific [place] 1.025 (1.005-1.025) Urine Protein Negative (Neg-Trace) mg/dL Urine Glucose (UA) Negative (Negative) mg/dL Urine Ketones Trace (Negative) mg/dL Urine Blood Trace H (Negative) Urine Nitrite Negative (Negative) Ur Leukocyte Esterase Negative (Negative) Urine RBC 0-2 (0-2) /HPF Urine WBC 0-5 (0-5) /HPF Ur Squamous Epith Cells 6-10 (0-2) /HPF Urine Bacteria 1+ (None Seen) Hyaline Casts 3-5 (0-2) /LPF Discharge Plan Discharge Clinical Impression: Abdominal pain Patient Disposition: Left W/O Completing Treatment Prescriptions: No Action albuterol sulfate 0.63 mg/3 mL Solution For Nebulization 0.63 mg INHALATION Q4-6H PRN (Reason: Shortness Of Breath Or Wheezing) acetaminophen [Mapap Arthritis Pain] 650 mg Tablet Extended Release 650 mg PO Q8H PRN (Reason: Pain) albuterol sulfate 90 mcg/actuation Hfa Aerosol Inhaler 2 puff INHALATION Q4-6H PRN (Reason: Shortness Of Breath Or Wheezing) Prolia 60 mg/mL syringe 60 mg subcut [id number] cyclobenzaprine 10 mg tablet 10 mg PO BEDTIME PRN (Reason: Muscle Spasm) amlodipine 5 mg tablet 5 mg PO DAILY Biktarvy 50-200-25 mg tablet 1 tab PO QPM multivitamin [One Daily Multivitamin] Tablet 1 tab PO DAILY omeprazole 20 mg capsule,delayed release(DR/EC) 20 mg PO DAILY carvedilol 6.25 mg tablet 6.25 mg PO DAILY esomeprazole magnesium 20 mg capsule,delayed release(DR/EC) 20 mg PO DAILY dicyclomine 10 mg capsule 10 mg PO Q6H PRN fluticasone propionate 50 mcg/actuation spray,suspension intranasal duloxetine 20 mg capsule,delayed release(DR/EC) 20 mg PO BID Discharge Date/Time: 01/17/23 19:30
[2023-01-17 13:16] VITALS: BP 154/56; PULSE 88; RESP 18; TEMP 36.8; O2SAT 98; BMI 28.0
[2023-01-17 13:58] LABS: MANUAL DIFF FLAG NO
[2023-01-17 14:00] LABS: Basophils Percent Auto 0.3 % (0-2); Eosinophils Absolute Auto 0.1 X10*3/uL (0.0-0.4); Eosinophils Percent Auto 0.8 % (0-4); Hematocrit 44.4 % (37.0-47.0); Hemoglobin 14.8 g/dl (12.0-16.0); Imm Gran Abs Auto 0.03 X10*3/uL (0.00-0.03); Imm Gran Pct Auto 0.5 % (0.0-0.4); Lymphocytes Absolute Auto 2.4 X10*3/uL (1.2-4.9); Lymphocytes Percent Auto 37.7 % (20-40); Mean Corpuscular HGB Conc 33.3 g/dl (31.0-35.0); Mean Corpuscular Hemoglobin 29.9 pg (27.0-33.0); Mean Corpuscular Volume 89.7 fL (80.0-98.0); Mean Platelet Volume 9.6 fL (9.4-12.3); Monocytes Absolute Auto 0.3 X10*3/uL (0.1-1.2); Monocytes Percent Auto 5.1 % (2-11); Neutrophils Absolute Auto 3.6 x10*3/uL (2.0-8.3); Neutrophils Percent Auto 55.6 % (45-73); Platelet Count 307 X10*3/uL (160-400); Red Blood Count 4.95 X10*6/uL (4.20-5.50); Red Cell Distribution Width 12.4 % (11.0-16.0); White Blood Count 6.4 X10*3/uL (4.8-10.8)
[2023-01-17 14:23] LABS: Alanine Aminotransferase 17 U/L (0-31); Alkaline Phosphatase 83 U/L (39-117); Anion Gap 10 (12-20); Aspartate Amino Transferase 20 U/L (5-31); Bilirubin Total 0.6 mg/dL (0.0-1.0); Blood Urea Nitrogen 9 mg/dL (9-16); Calcium 8.7 mg/dL (8.4-10.2); Carbon Dioxide 26 mmol/L (22-29); Chloride 109 mmol/L (96-108); Creatinine Clr Calc Pharmacy 62.1; Estimated Glomerular Filt Rate > 60; Glucose Random 150 mg/dL (60-115); Lipase 12 U/L (8-78); Potassium 3.2 mmol/L (3.3-5.1); Sodium 142 mmol/L (135-145); Total Protein 7.1 g/dL (6.5-8.0)
[2023-01-17 14:25] LABS: Appearance Urine Clear; Color Urine Yellow; Glucose Urine UA Negative (Negative); Leukocyte Esterase Urine Negative (Negative); Nitrite Urine Negative (Negative); PH 5.5 (5.0-9.0); Specific Gravity - Urine 1.025 (1.005-1.025); UMIC TRIGGER UACC YES; Urine Blood Trace (Negative); Urine Ketones Trace mg/dL (Negative); Urine Protein Negative (Neg-Trace)
[2023-01-17 14:28] LABS: Bacteria Urine 1+ (None Seen); RBC Urine 0-2 /HPF (0-2); WBC Urine 0-5 /HPF (0-5)
== END 2023-01-17 19:30 | disposition left against medical advice (07) ==
LOC: HO.ED 19:46
PROVIDERS: Physician Assistant; Emergency Provider Emergency Medicine; PCP Family Medicine
DX: R10.12 Left upper quadrant pain (principal); R11.2 Nausea with vomiting, unspecified; R19.7 Diarrhea, unspecified; Z79.899 Other long term (current) drug therapy
CPT/HCPCS: 36415; 80053; 81001; 83690; 85025; 88112; 88142; 99282; 99283

== ENCOUNTER 2023-01-17 18:21 | Outpatient (REF) | payer MEDICARE, MEDICAID, SELFPAY | END 2023-01-17 18:22 | disposition home or self-care (01) | LOC: HO.HHCLNP 18:21 | PROVIDERS: Visit Provider Advanced Practice Midwife | DX: Z13.89 Encounter for screening for other disorder (principal) | CPT/HCPCS: 88142 ==

== ENCOUNTER 2023-01-21 11:42 | Outpatient (REF) | payer MEDICARE, MEDICAID, SELFPAY ==
[2023-01-21 13:19] LABS: MANUAL DIFF FLAG NO
[2023-01-21 13:34] LABS: Basophils Percent Auto 0.5 % (0-2); Eosinophils Absolute Auto 0.1 X10*3/uL (0.0-0.4); Eosinophils Percent Auto 1.1 % (0-4); Hematocrit 46.3 % (37.0-47.0); Hemoglobin 15.5 g/dl (12.0-16.0); Imm Gran Abs Auto 0.01 X10*3/uL (0.00-0.03); Imm Gran Pct Auto 0.2 % (0.0-0.4); Lymphocytes Absolute Auto 2.8 X10*3/uL (1.2-4.9); Lymphocytes Percent Auto 42.2 % (20-40); Mean Corpuscular HGB Conc 33.5 g/dl (31.0-35.0); Mean Corpuscular Hemoglobin 30.3 pg (27.0-33.0); Mean Corpuscular Volume 90.6 fL (80.0-98.0); Mean Platelet Volume 10.6 fL (9.4-12.3); Monocytes Absolute Auto 0.4 X10*3/uL (0.1-1.2); Neutrophils Absolute Auto 3.3 x10*3/uL (2.0-8.3); Platelet Count 331 X10*3/uL (160-400); Red Blood Count 5.11 X10*6/uL (4.20-5.50); Red Cell Distribution Width 12.4 % (11.0-16.0); White Blood Count 6.5 X10*3/uL (4.8-10.8)
[2023-01-21 13:51] LABS: Alanine Aminotransferase 15 U/L (0-31); Albumin Level 4.1 g/dL (3.5-5.0); Alkaline Phosphatase 88 U/L (39-117); Anion Gap 9 (12-20); Aspartate Amino Transferase 20 U/L (5-31); Bilirubin Total 0.5 mg/dL (0.0-1.0); Blood Urea Nitrogen 11 mg/dL (9-16); Calcium 9.3 mg/dL (8.4-10.2); Carbon Dioxide 29 mmol/L (22-29); Chloride 108 mmol/L (96-108); Estimated Glomerular Filt Rate > 60; Glucose Random 120 mg/dL (60-115); Potassium 3.4 mmol/L (3.3-5.1); Sodium 143 mmol/L (135-145); Total Protein 7.4 g/dL (6.5-8.0)
[2023-01-23 11:13] LABS: Absolute CD3 Count 1991 cells/uL (840-3060); Absolute CD4 Count 1408 cells/uL (490-1740); Absolute CD8 Count 772 cells/uL (180-1170); Absolute Lymphocytes 2855 cells/uL (850-3900); CD4 CD8 Ratio 1.82 (0.86-5.00); Percent CD3 Cells 70 % (57-85); Percent CD4 Cells 49 % (30-61); Percent CD8 Cells 27 % (12-42)
[2023-01-24 12:08] LABS: TS Negative Control Passed; TS Panel A 0; TS Panel B 1; TS Positive Control Passed; TSpotTB Negative (Negative)
[2023-01-24 15:24] LABS: HIV RNA PCR Qn Copies 166 copies/mL (NOT DETECTED); HIV RNA PCR Qn Log Copies 2.22 (NOT DETECTED)
== END 2023-01-21 11:43 | disposition home or self-care (01) ==
LOC: HO.HHCL 11:42
PROVIDERS: Visit Provider Internal Medicine
DX: B20 Human immunodeficiency virus [HIV] disease (principal)
CPT/HCPCS: 36415; 80053; 85025; 86359; 86360; 86481; 87536

== ENCOUNTER 2023-01-27 12:20 | Outpatient (REF) | payer MEDICARE, MEDICAID, SELFPAY | END 2023-01-27 12:21 | disposition home or self-care (01) | LOC: HO.LNP 12:20 | PROVIDERS: Visit Provider Internal Medicine | DX: R10.13 Epigastric pain (principal) | CPT/HCPCS: 87338 ==

== ENCOUNTER 2023-03-18 10:12 | Outpatient (REF) | payer MEDICARE, MEDICAID, SELFPAY ==
[2023-03-18 12:10] LABS: Anion Gap 10 (12-20); Blood Urea Nitrogen 14 mg/dL (9-16); Calcium 9.3 mg/dL (8.4-10.2); Carbon Dioxide 27 mmol/L (22-29); Chloride 110 mmol/L (96-108); Estimated Glomerular Filt Rate > 60; Glucose Random 87 mg/dL (60-115); Potassium 3.7 mmol/L (3.3-5.1); Sodium 143 mmol/L (135-145)
[2023-03-23 12:53] LABS: Vitamin D 25-OH, D2 <4 ng/mL; Vitamin D 25-OH, D3 44 ng/mL; Vitamin D 25-OH, Total 44 ng/mL (30-100)
== END 2023-03-18 10:13 | disposition home or self-care (01) ==
LOC: HO.LAB 10:12
PROVIDERS: PCP Family Medicine; Visit Provider Internal Medicine Rheumatology
DX: M81.0 Age-related osteoporosis without current pathological fracture (principal)
CPT/HCPCS: 36415; 80048; 82306

== ENCOUNTER 2023-03-31 13:56 | Outpatient (AMB) | payer MEDICARE, MEDICAID, SELFPAY ==
[2023-03-31 14:05] VITALS: BP 106/70; PULSE 93; TEMP 36.1; O2SAT 97; BMI 27.9
--- NOTE | 2023-03-31 14:05 | MHC.OFFVIS ---
Intake Vital Signs 03/31/23 14:05 Height 5 ft 1 in Weight 147 lb 7.828 oz BMI 27.9 BP 106/70 Blood Pressure Location Lt brachial Position Sitting Pulse 93 Pulse Source Pulse Oximeter Temp 97 F Temp Source Skin Pulse Oximetry (%) 97 Intake Visit Reasons: Follow up/PROLIA INJECTION Intake Note: Patient last seen 11/29/[address] Bush, presents today for follow up and test results. Prolia injection due today, Buy and Bill. c-o right sided neck pain, upper extremity limited ROM Market Research Coordinator Required: Yes Market Research Coordinator Language: Helper Coordinator Name: Odell [id number] Accompanied by: Self / Same As Patient Allergies No Known Allergies Allergy (Verified 03/31/23 14:08) HPI HPI Comments History of Present Illness Details Ms. Perez 67 yoF returns for evaluation of her osteoporosis and fibromyalgia. She continues to receive Prolia injections every 6 months and they have been without complications. She remains with multiple areas of pain attributed to fibromyalgia. It seems most of her discomfort is in the lower back region with radiation to the buttocks and lateral hips. This is worse when she stands up for a while or walks. She does take acetaminophen for this with questionable improvement. She also uses cyclobenzaprine at night. She also takes duloxetine. [facility] Medical History (Updated 04/04/23 @ 08:49 by JOHN Garcia-) Right shoulder pain Benign neoplastic disease Myositis Cyst of Bartholin's gland duct Renal calculi Gastritis Anxiety Hypertension HIV (human immunodeficiency virus infection) Depression GERD (gastroesophageal reflux disease) Osteoporosis Surgical History Hx of tubal ligation Hx of cholecystectomy Hx of colonoscopy Hx of appendectomy Social History Alcohol intake: former Patient Tobacco Use Status: Former Tobacco user Years Smoked: quit 11 years ago Review of Systems Const All systems reviewed & are unremarkable except as noted in HPI and below Physical Exam Vital Signs: Last Vital Signs Temp 97 F 03/31/23 14:05 Pulse 93 03/31/23 14:05 BP 106/70 03/31/23 14:05 Pulse Ox 97 03/31/23 14:05 BMI result Body Mass Index 27.9 APPEARANCE: Patient in no acute distress, groomed and nourished EYES no redness No temporal artery tenderness, redness or swelling EXTREMITIES: No edema, no calf tenderness, normal peripheral pulses. NEURO: Oriented and alert x3. No focal weakness. Reflexes symmetric. Gait normal. SKIN: No inflammatory or neoplastic lesions. Normal color and turgor JOINT EXAM:.?? Cervical Spine:.? Full range of motion without pain; no tenderness. Thoracic Spine:.? No scoliosis.? No tenderness on palpation. Lumbar Spine:.? Alignment normal.? Mild lumbar pain with flexion at 60 degrees with some paraspinal muscle tenderness. Chest Wall:.? No tenderness, swelling, increased warmth or erythema. Hands:.? Normal pain-free range of motion without tenderness, swelling, increased warmth or erythema. Able to make a full fist and has a good wheel installer strength. Wrists:.? Normal pain-free range of motion without tenderness, swelling, increased warmth or erythema. Elbows:. Normal pain-free range of motion without tenderness, swelling, increased warmth or erythema. Shoulders:.?? Full range of motion with slight discomfort at the extremes of motion. There is minimal anterior and trapezial tenderness but no adenopathy, weakness, swelling, increased warmth or erythema. Hips:? Right: Mild lumbar, lateral and groin pain with the extremes of normal flexion, internal rotation or external rotation. Left: Slight lateral and buttock pain with extremes of internal and external rotation. No groin pain with motion. No adenopathy or tenderness in the groin. Hip bursa: Mild bilateral trochanteric tenderness. Knees:.?? Normal pain-free range of motion with mild patellofemoral crepitus but no effusion, tenderness, swelling, increased warmth or erythema.? Ankles:.? Normal pain-free range of motion without tenderness. There is some bogginess medially in both medial ankles. No increased warmth or erythema. Feet:.? Normal pain-free range of motion without tenderness, swelling, increased warmth or erythema. Tender points:.? Mild tenderness to digital palpation at the both trapezius, both, lateral epicondyle, both knees, greater trochanter area bilaterally. Office Meds Prolia 60 mg/mL subcutaneous syringe Performing Provider: JACOBO Garcia Performing Location: [facility] [place] Rheumatology Administered by: RUDY GarciaBC on 03/31/23 11:21 Dose Route Admin Location Dispensed Lot Number Expiration Date NDC Tin Whiz Machine Operator 60 mg subcut 1 mL Results Reviewed Results Reviewed: Laboratory Tests 03/18/23 10:21 BUN 14 Creatinine 0.76 Estimated GFR > 60 Calcium 9.3 25-OH Vitamin D Total 44 Assessment & Plan Assessment & Plan (1) Osteoporosis: Comment: Alendronate , stopped due to GERD 12/2018 T score fem neck -2.6, Prolia started Code(s): M81.0 - Age-related osteoporosis without current pathological fracture Qualifiers: Osteoporosis type: age-related Presence of current pathological fracture: without current pathological fracture Qualified Code(s): M81.0 - Age-related osteoporosis without current pathological fracture (2) Fibromyalgia: Code(s): M79.7 - Fibromyalgia (3) Right shoulder pain: Code(s): M25.511 - Pain in right shoulder Qualifiers: Chronicity: chronic Qualified Code(s): M25.511 - Pain in right shoulder; G89.29 - Other chronic pain Plan #Osteoporosis:Ms. Perez 67 yoF seems to be tolerating the Prolia and is due for one today. We will also order BMP to check her calcium and creatinine and a vitamin D level for next visit #Right Shoulder Pain:She describes pain times one month. decreased ROM on exam. I think Ibuprofen 600 mg will be helpful. I will obtain xrays if not improved with Ibuprofen X 1MONTH #Fibromyalgia:Her overall pain syndrome fits with fibromyalgia but there is significant more pain up in the lower back with standing or walking. The LS spine films showed some minimal signs of degenerative disease but I suspect she has more disc disease that is not evident on that study. The picture is more of a spinal stenosis type picture with pain down the legs with walking. She does not want epidural corticosteroids. She continues with duloxetine and Tylenol ER. Light aerobic activity is encouraged. fOLLOW-UP 1 MONTH Orders: Orders Calcium 6 Months M81.0 - Age-related osteoporosis without current pathological fracture AMB Denosumab Injection Practice Supplied 03/31/23 M81.0 - Age-related osteoporosis without current pathological fracture Creatinine 6 Months M81.0 - Age-related osteoporosis without current pathological fracture Basic Metabolic Panel 6 Months M81.0 - Age-related osteoporosis without current pathological fracture XR shoulder RT min 2V 03/31/23 M25.511 - Pain in right shoulder Medications: New ibuprofen 600 mg PO Q8H 30 tabs 0RF pain 10 days M25.511 - Pain in right shoulder Coding Level of Care Code Est Pt Level 3 (07576) Diagnoses Age-related osteoporosis without current pathological fracture M81.0 Osteoporosis type: age-related Presence of current pathological fracture: without current pathological fracture Fibromyalgia M79.7 Chronic right shoulder pain M25.511; G89.29 Chronicity: chronic
== END 2023-03-31 15:22 | disposition home or self-care (01) ==
PROVIDERS: PCP Family Medicine; Visit Provider Nurse Practitioner Family
DX: M81.0 Age-related osteoporosis without current pathological fracture (principal); M79.7 Fibromyalgia; M25.511 Pain in right shoulder; G89.29 Other chronic pain
CPT/HCPCS: 99213

== ENCOUNTER 2023-03-31 13:56 | Outpatient (REF) | payer MEDICARE, MEDICAID, SELFPAY ==
--- NOTE | ~2023-03-31 | XR_ITS ---
EXAMINATION: XR SHOULDER, RIGHT CLINICAL INFORMATION: Pain in right shoulder, decreased range of motion COMPARISON: None available. TECHNIQUE: AP external rotation, Grashey, scapular Y, and axillary views of the right shoulder. FINDINGS: The bones and soft tissues are normal. No fracture. Glenohumeral and acromioclavicular alignment is anatomic with normal glenohumeral joint space. Minimal degenerative change of the acromioclavicular joint. No abnormal soft tissue calcifications. XR/XR shoulder RT min 2V IMPRESSION: Minimal degenerative change of the acromioclavicular joint.
== END 2023-03-31 13:57 | disposition home or self-care (01) ==
LOC: HO.XRAY 13:56
PROVIDERS: PCP Family Medicine; Visit Provider Nurse Practitioner Family
DX: M25.511 Pain in right shoulder (principal); M81.0 Age-related osteoporosis without current pathological fracture; M79.7 Fibromyalgia; G89.29 Other chronic pain
CPT/HCPCS: 73030; 96372; 99212; J0897

== ENCOUNTER 2023-04-14 12:47 | Outpatient (REF) | payer MEDICARE, MEDICAID, SELFPAY | END 2023-04-14 12:48 | disposition home or self-care (01) | LOC: HO.LNP 12:47 | PROVIDERS: PCP Family Medicine; Visit Provider Obstetrics & Gynecology | DX: N84.1 Polyp of cervix uteri (principal) | CPT/HCPCS: 57500; 88305; 99202 ==

== ENCOUNTER 2023-04-14 12:47 | Outpatient (AMB) | payer MEDICARE, MEDICAID, SELFPAY ==
--- NOTE | 2023-04-14 13:02 | A.OFFVIS_ITS ---
Intake Vital Signs 04/14/23 13:06 Height 5 ft 1 in Weight 148 lb BMI 28.0 BP 120/70 Intake Visit Reasons: Cervical polyp Water Pump Assembler Required: Yes Water Pump Assembler Language: Tan Room Supervisor Name: Allie Gomez Information Interpreted: non-clinical & clinical Affiliate Marketing Coordinator: Affiliate Marketing Coordinator Present (Allie) Allergies No Known Allergies Allergy (Verified 04/14/23 13:11) Is last menstrual period known: No Post menopausal: Yes Patient : No HPI HPI Comments History of Present Illness Details The patient is referred from [facility] for endocervical polyp identified on pelvic exam. No history of vaginal bleeding or any other concerns. Last co testing was in 02/03 was negative [facility] Medical History Right shoulder pain Benign neoplastic disease Myositis Cyst of Bartholin's gland duct Renal calculi Gastritis Anxiety Hypertension HIV (human immunodeficiency virus infection) Depression GERD (gastroesophageal reflux disease) Osteoporosis Surgical History Hx of tubal ligation Hx of cholecystectomy Hx of colonoscopy Hx of appendectomy Social History Alcohol intake: former Patient Tobacco Use Status: Former Tobacco user Years Smoked: quit 11 years ago Patient : No Female Reproductive History Menstrual Age of Menarche: 14 control method: permanent sterilization Total pregnancies: 4 Full term: 3 Number of Living Children: 3 Ab induced: 1 Date of last pap smear: 01/18/23 (negative) Date of Mammogram: 10/27/22 Date of last Bone Density Screenin01/31/20 Review of Systems Const All systems reviewed & are unremarkable except as noted in HPI and below Physical Exam Vital Signs: Last Vital Signs BP 120/70 04/14/23 13:06 BMI result Body Mass Index 28.0 General: Yes no CVA tenderness External Female Exam: normal external appearance and normal appearance of the urethra Speculum Exam - Vagina: normal appearance of the vagina, normal palpation, no lesions and no masses Speculum Exam - Cervix: normal appearance of the cervix, normal palpation, no lesions, no masses, nontender and Other cervical findings present (Endocervical polyp) Bimanual exam- vagina & uterus: normal bimanual exam, normal palpation, uterine size normal, normal palpation, uterine shape normal, No Cervical tenderness present and non-tender Bimanual Exam- Adnexa, other: normal adnexae Back/Spine/Pelvis Back: no CVA tenderness Office Procedures GREASE RENDERER Biopsy Before the procedure was started, discussed with the patient the procedure technique, alternatives & all the risks associated with the procedure including but not limited to: bleeding , infection, uterine perforation, injury to bladder, vessels, bowels, possible need for transfusion with all its risks, and others. All questions were answered, the patient verbalized understanding and signed the consent. Urine test done in the office was negative Using a long Maki Clamp the endocervical polyp was grasped and twisted around till it came off, hemostasis was secured using pressure. The patient tolerated the procedure well. Instructions were given to the patient to call if bleeding, temp>100.4 occur. The patient verbalized understanding and agreed with the plan. This note was generated with a voice recognition program. Some errors may have been overlooked during the review of this note. Sometimes these errors may affect the content or meaning of a given sentence. 35180-Wdvecb of Cervix Procedure code (CPT) selection complete Assessment & Plan Assessment & Plan (1) Endocervical polyp: Code(s): N84.1 - Polyp of cervix uteri Plan: Discussed with the patient the finding on pelvic exam showing endocervical polyp, recommended endocervical polypectomy, the patient agreed, polypectomy done see procedure Orders: Orders AMB GREASE RENDERER Biopsy Today N84.1 - Polyp of cervix uteri Coding Level of Care Code New Pt Level 3 (04006) Procedure Only Diagnoses Endocervical polyp N84.1 CPT Codes GREASE RENDERER Biopsy - CPT: 71465-Fqaerm of Cervix ([id number])
[2023-04-14 13:06] VITALS: BP 120/70; BMI 28.0
== END 2023-04-14 13:33 | disposition home or self-care (01) ==
LOC: HO.HWS 12:47
PROVIDERS: PCP Family Medicine; Visit Provider Obstetrics & Gynecology
DX: N84.1 Polyp of cervix uteri (principal)
CPT/HCPCS: 57500; 99203

== ENCOUNTER 2023-05-05 13:39 | Outpatient (AMB) | payer MEDICARE, MEDICAID, SELFPAY ==
--- NOTE | 2023-05-05 13:53 | MHC.OFFVIS ---
Intake Vital Signs 05/05/23 13:54 Height 5 ft 1 in Weight 148 lb BMI 28.0 BP 122/72 Intake Visit Reasons: biopsy results Heater Mechanic Required: Yes Heater Mechanic Language: Cellular Equipment Repairer Name: Allie BURRELL Information Interpreted: non-clinical & clinical Accompanied by: Self / Same As Patient Allergies No Known Allergies Allergy (Verified 05/05/23 13:56) Post menopausal: Yes HPI HPI Comments History of Present Illness Details Presenting post endocervical polypectomy with no complaints. The Pathology showed the following: Benign cervical/endocervical polyp with endocervical glandular cysts and abundant mucus. [facility] Medical History Right shoulder pain Benign neoplastic disease Myositis Cyst of Bartholin's gland duct Renal calculi Gastritis Anxiety Hypertension HIV (human immunodeficiency virus infection) Depression GERD (gastroesophageal reflux disease) Osteoporosis Surgical History Hx of tubal ligation Hx of cholecystectomy Hx of colonoscopy Hx of appendectomy Social History Alcohol intake: former Patient Tobacco Use Status: Former Tobacco user Years Smoked: quit 11 years ago Female Reproductive History Menstrual Age of Menarche: 14 Review of Systems Const All systems reviewed & are unremarkable except as noted in HPI and below Reports as per HPI and Reports no additional complaints GI Reports no additional complaints Reports no additional complaints Physical Exam Vital Signs: Last Vital Signs BP 122/72 05/05/23 13:54 BMI result Body Mass Index 28.0 Assessment & Plan Assessment & Plan (1) Endocervical polyp: Comment: Status post polypectomy Code(s): N84.1 - Polyp of cervix uteri Plan: Discussed with the patient the results of the pathology, all questions answered, the patient verbalized understanding. Coding Level of Care Code Est Pt Level 3 (08098) Diagnoses Endocervical polyp N84.1
[2023-05-05 13:54] VITALS: BP 122/72; BMI 28.0
== END 2023-05-05 14:04 | disposition home or self-care (01) ==
LOC: HO.HWS 13:44
PROVIDERS: PCP Family Medicine; Visit Provider Obstetrics & Gynecology
DX: N84.1 Polyp of cervix uteri (principal)
CPT/HCPCS: 99213

== ENCOUNTER → 2023-05-05 13:39 | Outpatient (BNVA) | payer MEDICARE, MEDICAID, SELFPAY | PROVIDERS: PCP Family Medicine; Visit Provider Obstetrics & Gynecology | DX: N84.1 Polyp of cervix uteri (principal) | CPT/HCPCS: 99212 ==

== ENCOUNTER 2023-06-16 12:00 | Outpatient (RCR) | payer MEDICARE, MEDICAID, SELFPAY ==
[2023-05-16 14:54] VITALS: BP 146/68; PULSE 82
--- NOTE | 2023-05-18 09:09 | MHC.PT.EP ---
[facility] [place] Office [place] Office [place] Office [address] Edwin Melgar [address] [phone] F: [phone] F: [phone] F: [phone] F: [phone] Physical Therapy Plan of Care Date of Evaluation: 05/16/23 Date of Surgery: Diagnosis: R shoulder px Assessment: Ana is a pleasant 67 yo female presenting to skilled physical therapy evaluation and treatment with c/o R shoulder and neck pain. Pt reports gradual onset of anterior R shoulder/neck stabbing px beginning ~2 months ago. She reports intermittent radicular numbness/tingling to R hand along with worsening fibromyalgia s/s since new px onset. Pt received R shoulder x-rays on 03/31/23, indicating minimal AC jt degeneration. Pt has the most functional difficulty with sleeping, reaching OH/behind back, ADLs, and household activities. Upon evaluation, pt presents with pain, decreased cervical/R shoulder ROM, and decreased UE/quality technician fiberglass strength. Pt demonstrates postural deficits contributing to decreased periscapular stability, along with significant R UE guarding and fear-avoidance tendencies placing her at risk for developing adhesive capsulitis. Pt may benefit from cervical spine imaging due to reports of recent hand weakness and reports of dropping items in combination with gross radicular s/s that do not follow a specific myotomal pattern. Ana would benefit from skilled PT services to centralize s/s, increase shoulder/cervical ROM, and provide postural re-education for improved functional mobility toward PLOF. Pt is recommended to attend PT 2x/week for 4 weeks. Frequency and Duration: The patient will be seen 2x/week for 4 weeks Short Term Goals: Pt will demonstrate independence with initial HEP through teach-back method showing proper adherence to PT Pt will increase R shoulder ROM by 10 deg in all planes of motion Pt will report no radicular s/s inferior to R elbow for 1 consecutive week, indicating centralization of s/s Academic Tutor Goals: Pt will achieve pain-free R shoulder and cervical ROM WFL, allowing sleep without interruption Pt will achieve 5/5 R shoulder strength, allowing for improved functional reaching Pt will report no radicular s/s inferior to R shoulder for 1 consecutive week, indicating centralization of s/s Pt will improve functional mobility as noted through increased postural awareness throughout activity Treatment Plan: Modalities to reduce pain, spasms and effusion. Manual therapy to restore motion and function. Therapeutic exercise to improve strength and flexibility. Neuromuscular re-education for posture and balance. Therapeutic activities to return to functional activities of daily living. Electronically signed by: Erika العراقي, PT, DPT Please sign and return to therapist. Thank you for your referral.
--- NOTE | 2023-06-16 14:04 | MHC.PT.DC ---
[facility] [place] Office [place] Office [place] Office [address] Edwin Melgar [address] [phone] F: [phone] F: [phone] F: [phone] F: [phone] Physical Therapy Discharge Report Diagnosis: R shoulder px Date of Surgery: Date of Evaluation: 05/16/23 Date of Discharge: 06/16/23 Treatments to Date: 7 Cancellations to Date: No Shows to Date: Discharge Status: Improved Function Independent with HEP Discharge Summary: Pt has made good progress since SOC. She has had a decrease in pain, improvement in ROM and improvement in strength. She is I with HEP. Pt is being D/C from PT to HEP at this time. Provided pt with printed, updated copy of HEP and green theraband and pt verbalized understanding. Pt reports no further questions or concerns for PT at this time Electronically signed by: Erika العراقي, PT, DPT Please sign and return to therapist. Thank you for your referral.
== END 2023-06-16 14:05 | disposition home or self-care (01) ==
LOC: HO.PT 12:00
PROVIDERS: PCP Family Medicine; Visit Provider Nurse Practitioner Family
DX: M25.511 Pain in right shoulder (principal); G89.29 Other chronic pain
CPT/HCPCS: 97110; 97112; 97140; 97162

== ENCOUNTER 2023-08-09 10:05 | Outpatient (REF) | payer MEDICARE, MEDICAID, SELFPAY ==
[2023-08-09 11:42] LABS: MANUAL DIFF FLAG NO
[2023-08-09 11:52] LABS: Basophils Percent Auto 0.2 % (0-2); Eosinophils Absolute Auto 0.1 X10*3/uL (0.0-0.4); Eosinophils Percent Auto 1.7 % (0-4); Hemoglobin 15.9 g/dl (12.0-16.0); Imm Gran Abs Auto 0.03 X10*3/uL (0.00-0.03); Imm Gran Pct Auto 0.5 % (0.0-0.4); Lymphocytes Absolute Auto 2.4 X10*3/uL (1.2-4.9); Lymphocytes Percent Auto 37.6 % (20-40); Mean Corpuscular HGB Conc 33.1 g/dl (31.0-35.0); Mean Corpuscular Hemoglobin 30.5 pg (27.0-33.0); Mean Platelet Volume 10.4 fL (9.4-12.3); Monocytes Absolute Auto 0.4 X10*3/uL (0.1-1.2); Monocytes Percent Auto 5.6 % (2-11); Neutrophils Absolute Auto 3.4 x10*3/uL (2.0-8.3); Neutrophils Percent Auto 54.4 % (45-73); Platelet Count 312 X10*3/uL (160-400); Red Blood Count 5.22 X10*6/uL (4.20-5.50); Red Cell Distribution Width 12.6 % (11.0-16.0); White Blood Count 6.3 X10*3/uL (4.8-10.8)
[2023-08-09 12:04] LABS: Alanine Aminotransferase 16 U/L (0-31); Albumin Level 4.2 g/dL (3.5-5.0); Alkaline Phosphatase 88 U/L (39-117); Anion Gap 11 (12-20); Aspartate Amino Transferase 19 U/L (5-31); Bilirubin Total 0.5 mg/dL (0.0-1.0); Blood Urea Nitrogen 12 mg/dL (9-16); Calcium 9.1 mg/dL (8.4-10.2); Carbon Dioxide 27 mmol/L (22-29); Chloride 109 mmol/L (96-108); Estimated Glomerular Filt Rate > 60; Glucose Random 93 mg/dL (60-115); Potassium 3.8 mmol/L (3.3-5.1); Sodium 143 mmol/L (135-145); Total Protein 7.6 g/dL (6.5-8.0)
[2023-08-09 14:15] LABS: CT PCR NOT DETECTED (Not Detect.); NG PCR NOT DETECTED (Not Detect.)
[2023-08-10 09:01] LABS: ~HepC Num1 0.16 S/CO (0.00-0.79); ~Hepatitis C Antibody Nonreactive (Nonreactive)
[2023-08-10 09:11] LABS: Syphilis Screen Nonreactive (Nonreactive)
[2023-08-12 04:09] LABS: Absolute CD3 Count 1642 cells/uL (840-3060); Absolute CD4 Count 1203 cells/uL (490-1740); Absolute CD8 Count 559 cells/uL (180-1170); Absolute Lymphocytes 2427 cells/uL (850-3900); CD4 CD8 Ratio 2.15 (0.86-5.00); Percent CD3 Cells 68 % (57-85); Percent CD4 Cells 50 % (30-61); Percent CD8 Cells 23 % (12-42)
[2023-08-12 14:38] LABS: HIV RNA PCR Qn Copies NOT DETECTED copies/mL (NOT DETECTED); HIV RNA PCR Qn Log Copies NOT DETECTED (NOT DETECTED)
== END 2023-08-09 10:06 | disposition home or self-care (01) ==
LOC: HO.HHCL 10:05
PROVIDERS: Visit Provider Internal Medicine
DX: B20 Human immunodeficiency virus [HIV] disease (principal); E78.5 Hyperlipidemia, unspecified; Z20.2 Contact with and (suspected) exposure to infections with a predominantly sexual mode of transmission
CPT/HCPCS: 0353U; 36415; 80053; 85025; 86359; 86360; 86780; 86803; 87536

== ENCOUNTER 2023-08-30 07:35 | Outpatient (REF) | payer MEDICARE, MEDICAID, SELFPAY ==
--- NOTE | ~2023-08-30 | FL_ITS ---
EXAMINATION: XR FLUOROSCOPY UPPER GI WITH AIR CLINICAL INFORMATION: Reflux. Dysphagia COMPARISON: 03/05/2022, 06/07/2018. TECHNIQUE: Fluoroscopic air contrast upper GI examination was performed utilizing standard techniques with thin and thick barium and effervescent granules. Numerous spot images were obtained. FINDINGS: Lateral cine images of the oropharynx and hypopharynx demonstrate normal swallow mechanism with normal epiglottic inversion and soft palate elevation. No tracheal penetration, glottic or subglottic aspiration identified. No nasopharyngeal reflux present. Hypopharyngeal structures appear normal without evidence of mass or diverticulum. There was no significant cricopharyngeal achalasia. Dual and single contrast images of the esophagus demonstrate patulous caliber, normal contour, and mildly granular appearing mucosal pattern in the distal one half. No evidence of mass, or large ulcerations identified. Not well visualized, is a probable Schatzki's ring (RF1-13, 226/242). Esophageal peristalsis was normal. The patient swallowed the barium tablet without any difficulty. The tablet passed into the stomach without any stasis. A small type I hiatal hernia is present. Gastroesophageal reflux is seen up to the midesophagus. Dual contrast and single contrast images of the stomach demonstrated normal contour without evidence of mass or large ulceration. Mild prominence of the areae gastricae mucosal markings may indicate mild gastritis. Antral folds appear mildly prominent. Contrast freely passed into the gastric antrum and duodenal bulb without delay. Single and air-contrast images of the duodenal bulb demonstrate no abnormality. The duodenal sweep has a normal appearance, course, and mucosal fold appearance. No malrotation. The imaged proximal jejunum has a normal fold pattern and caliber. There is rapid transit of the barium column, with the right colon opacified at the examination. There are cholecystectomy clips present. FLUOROSCOPY TIME: 4 minutes 22 seconds Number of Spot Images: 12 Number of Cine: 14 DOSE AREA PRODUCT: 2263 uGy-m2 (microgray-meter squared) FL/FL barium swallow with air IMPRESSION: 1. Mildly patulous esophagus. 13 mm barium tablet passed without issue. 2. Small type I hiatal hernia. 3. Mild to moderate gastroesophageal reflux. Findings of granular appearing mucosa within the distal one half of the esophagus, suggesting erosive esophagitis. 4. Above findings which may indicate mild gastritis. 5. Rapid transit of the barium column, with the right colon opacified at the mid examination. Etiology is unknown. Correlate for history of any cathartics. Small bowel mucosa appears normal. This procedure was performed by Hubert Alanis PA-C, and supervised by Dr. Dia
== END 2023-08-30 07:36 | disposition home or self-care (01) ==
LOC: HO.XRAY 07:35
PROVIDERS: Visit Provider Internal Medicine Gastroenterology
DX: K21.9 Gastro-esophageal reflux disease without esophagitis (principal)
CPT/HCPCS: 74221

== ENCOUNTER → 2023-08-30 07:38 | Outpatient (BNV) | payer MEDICARE, MEDICAID, SELFPAY | PROVIDERS: Visit Provider Physician Assistant Surgical | DX: R13.10 Dysphagia, unspecified (principal); K21.9 Gastro-esophageal reflux disease without esophagitis | CPT/HCPCS: 74246 ==

== ENCOUNTER 2023-09-26 08:07 | Outpatient (REF) | payer MEDICARE, MEDICAID, SELFPAY ==
[2023-09-26 09:13] LABS: Calcium 9.1 mg/dL (8.4-10.2)
[2023-09-26 09:18] LABS: Anion Gap 11 (12-20); Blood Urea Nitrogen 13 mg/dL (9-16); Carbon Dioxide 28 mmol/L (22-29); Chloride 110 mmol/L (96-108); Cholesterol 255 mg/dL (<200); Estimated Glomerular Filt Rate > 60; Glucose Random 96 mg/dL (60-115); HDL Cholesterol 66 mg/dL (>40); LDL Cholesterol Calculated 164 mg/dL (<100); Sodium 145 mmol/L (135-145); Triglycerides 128 mg/dL (<150)
== END 2023-09-26 08:08 | disposition home or self-care (01) ==
LOC: HO.LAB 08:07
PROVIDERS: Absent Provider Nurse Practitioner Family; PCP Family Medicine; Visit Provider Family Medicine
DX: Z01.419 Encounter for gynecological examination (general) (routine) without abnormal findings (principal); E78.5 Hyperlipidemia, unspecified; M81.0 Age-related osteoporosis without current pathological fracture
CPT/HCPCS: 36415; 80048; 80061; 82310; G0101

== ENCOUNTER 2023-09-26 12:41 | Outpatient (AMB) | payer MEDICARE, MEDICAID, SELFPAY ==
[2023-09-26 13:11] VITALS: BP 122/70; BMI 28.0
--- NOTE | 2023-09-26 13:11 | MHC.OFFVIS ---
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 No complaints. Last Pap was done 02/03 no Pap, preceded by normal Pap smear in 2015 and 2014 Last Mammogram was BI-RADS 1 in 11/03 Last Colonoscopy was done in 01/31 Last DEXA scan was done in 11/03, there was no evidence of osteoporosis PFSH Medical History Right shoulder pain Benign neoplastic disease Myositis Cyst of Bartholin's gland duct Renal calculi Gastritis Anxiety Hypertension HIV (human immunodeficiency virus infection) Depression GERD (gastroesophageal reflux disease) Osteoporosis Surgical History Hx of tubal ligation Hx of cholecystectomy Hx of colonoscopy Hx of appendectomy Social History Alcohol intake: former Patient Tobacco Use Status: Former Tobacco user Years Smoked: quit 11 years ago Female Reproductive History Menstrual Age of Menarche: 14 control method: permanent sterilization Date of last pap smear: 01/18/23 Date of Mammogram: 10/27/22 Physical Exam Vital Signs: Last Vital Signs BP 122/70 09/26/23 13:11 BMI result Body Mass Index 28.0 Assessment & Plan Assessment & Plan (1) Well woman exam: Code(s): Z01.419 - Encounter for gynecological examination (general) (routine) without abnormal findings Category: Medical Plan: Co testing not indicated this year Counseled the patient about the recommended dietary allowance of 1200 mg of Calcium & 800 IU of vitamin D. Mammogram ordered. The patient was instructed to ask her GI when she is next due for her screening colonoscopy . The patient was instructed to perform monthly self-breast exams and to schedule a 2 week DEXA scan follow-up appointment and an annual exam in a year; All questions answered and the patient verbalized understanding. Orders: Orders MM tomosynthesis screening BI Today Z12.31 - Encounter for screening mammogram for malignant neoplasm of breast Coding Level of Care Code Est Pt Prev Care >65y(33516) Diagnoses Well woman exam Z01.419
== END 2023-09-26 13:39 | disposition home or self-care (01) ==
LOC: HO.HWS 12:41
PROVIDERS: PCP Family Medicine; Visit Provider Obstetrics & Gynecology
DX: Z01.419 Encounter for gynecological examination (general) (routine) without abnormal findings (principal)
CPT/HCPCS: G0101

== ENCOUNTER 2023-09-27 06:28 | Day surgery (SDC) | payer MEDICARE, MEDICAID, SELFPAY ==
--- NOTE | 2023-09-26 11:56 | HO.ANESPROP2 ---
Documented by User: Maria Elena Day NP 09/26/23 11:56 HPI - Anesthesia Eval Consult details Narrative: 68yo F for Upper Endoscopy PMFSH Active Problems Active Problems: All Active Problems Endocervical polyp (Acute) Right shoulder pain (Acute) Fibromyalgia (Acute) Lumbar degenerative disc disease (Acute) Hypertension (Acute) HIV (human immunodeficiency virus infection) (Acute) Osteoporosis (Acute) Past Medical History Medical History Right shoulder pain Benign neoplastic disease Myositis Cyst of Bartholin's gland duct Renal calculi Gastritis Anxiety Hypertension HIV (human immunodeficiency virus infection) Depression GERD (gastroesophageal reflux disease) Osteoporosis Surgical History Surgical History Hx of tubal ligation Hx of cholecystectomy Hx of colonoscopy Hx of appendectomy Social History Social History Alcohol intake: former Patient Tobacco Use Status: Former Tobacco user Years Smoked: quit 11 years ago Use of substances other than those prescribed or required for medical reasons: No Are you DNR?: No Advance Directives: No Advance Directives Information Provided: Yes Meds Allergies Allergy/AdvReac Type Severity Reaction Status Date / Time No Known Allergies Allergy Verified 09/27/23 07:14 Home Medications ?Medication ?Instructions ?Recorded ?Confirmed ?Last Taken ?Type amlodipine 5 mg tablet 5 mg PO DAILY 01/24/20 09/27/23 Unknown History bictegravir 50 mg-emtricitabine 1 tab PO QPM 01/24/20 09/27/23 Unknown History 200 mg-tenofovir alafenam 25 mg tablet (Biktarvy) denosumab 60 mg/mL subcutaneous 60 mg subcut [id number] 01/24/20 09/27/23 Unknown History syringe (Prolia) multivitamin (One Daily 1 tab PO DAILY 01/24/20 09/27/23 Unknown History Multivitamin tablet) acetaminophen 650 mg 650 mg PO Q8H PRN Pain 01/31/20 09/27/23 Unknown History tablet,extended release (Mapap Arthritis Pain) albuterol sulfate 0.63 mg/3 mL 0.63 mg inhalation Q4-6H PRN 01/31/20 09/27/23 Unknown History solution for nebulization Shortness Of Breath Or Wheezing albuterol sulfate 90 mcg/actuation 2 puff inhalation Q4-6H PRN 01/31/20 09/27/23 Unknown History aerosol inhaler Shortness Of Breath Or Wheezing esomeprazole magnesium 20 mg 20 mg PO DAILY 11/26/22 11/29/22 Unknown History capsule,delayed release Exam Pertinent Lab Results Pertinent Lab Results: Laboratory Tests 08/09/23 09/26/23 10:07 08:17 WBC 6.3 Hgb 15.9 Hct 48.0 H Plt Count 312 Sodium 145 Potassium 4.0 Chloride 110 H Carbon Dioxide 28 BUN 13 Creatinine 0.80 Assessment and Plan Assessment Anesthesia Assessment: Chart Reviewed Documented by User: Rodri Matos MD 09/27/23 08:19 PMF Past Medical History Medical History Right shoulder pain Benign neoplastic disease Myositis Cyst of Bartholin's gland duct Renal calculi Gastritis Anxiety Hypertension HIV (human immunodeficiency virus infection) Depression GERD (gastroesophageal reflux disease) Osteoporosis Family History Family history of problems with anesthesia: No Surgical History Surgical History Hx of tubal ligation Hx of cholecystectomy Hx of colonoscopy Hx of appendectomy History of Problems with Anesthesia: No Social History Social History Alcohol intake: former Patient Tobacco Use Status: Former Tobacco user Years Smoked: quit 11 years ago Use of substances other than those prescribed or required for medical reasons: No Are you DNR?: No Advance Directives: No Advance Directives Information Provided: Yes Meds Allergies Allergy/AdvReac Type Severity Reaction Status Date / Time No Known Allergies Allergy Verified 09/27/23 07:14 Home Medications ?Medication ?Instructions ?Recorded ?Confirmed ?Last Taken ?Type amlodipine 5 mg tablet 5 mg PO DAILY 01/24/20 09/27/23 Unknown History bictegravir 50 mg-emtricitabine 1 tab PO QPM 01/24/20 09/27/23 Unknown History 200 mg-tenofovir alafenam 25 mg tablet (Biktarvy) denosumab 60 mg/mL subcutaneous 60 mg subcut [id number] 01/24/20 09/27/23 Unknown History syringe (Prolia) multivitamin (One Daily 1 tab PO DAILY 01/24/20 09/27/23 Unknown History Multivitamin tablet) acetaminophen 650 mg 650 mg PO Q8H PRN Pain 01/31/20 09/27/23 Unknown History tablet,extended release (Mapap Arthritis Pain) albuterol sulfate 0.63 mg/3 mL 0.63 mg inhalation Q4-6H PRN 01/31/20 09/27/23 Unknown History solution for nebulization Shortness Of Breath Or Wheezing albuterol sulfate 90 mcg/actuation 2 puff inhalation Q4-6H PRN 01/31/20 09/27/23 Unknown History aerosol inhaler Shortness Of Breath Or Wheezing esomeprazole magnesium 20 mg 20 mg PO DAILY 11/26/22 11/29/22 Unknown History capsule,delayed release Exam Airway Mallampati Class: III TM Dist: >3cm Neck ROM: Full Loose/Missing/Broken Teeth: Yes Assessment and Plan Assessment Anesthesia Assessment: Anesthesia Plan Discussed Final Anesthetic Review Family History of Problems with Anesthesia: No History of Problems with Anesthesia: No NPO: Yes ASA Class: III Final Preanesthetic Review: No Changes in Pt Med Stat, Meds/Allgs Chart Reviewed, Consent Obtained/Reviewed and Anes Risks/Benef Reviewed Patient Risk: Intermediate Procedure Risk: Low Anesthetic Plan Anesthetic Plan: MAC: Disposition: Standard PACU
[2023-09-27 07:18] VITALS: BP 150/75; PULSE 82; RESP 18; TEMP 36.1; O2SAT 97; BMI 28.3
[2023-09-27] MEDS: Lactated Ringers 1,000 ML 100 ML IVCONT (07:42)
--- NOTE | 2023-09-27 08:28 | MHC.SHP ---
Pre-Procedural Eval Section A - 24 Hr Update-Section A only Date of Service: 09/27/23 Section B - Complete if H&P > 30 days Chief Complaint: Ulcer of esophagus without bleeding Details of Present Illness: see H&P no changes Relevant Family History (Specify if Yes): No Present Medications: see Short Stay Collaborative assessment Medical History: No relevant PMH History of Previous Operations: No relevant previous surgery Allergies: Allergies Allergy/AdvReac Type Severity Reaction Status Date / Time No Known Allergies Allergy Verified 09/27/23 07:14 Review of Systems Sugical H&P ROS: Negative: Constitution, Cardiovascular, Respiratory, Neurological, Psychiatric, Hem-Onc, Allergic/Immunologic, Gastrointestinal, Genitourinary, Musculoskeletal, Integumentary, Endocrine and Eyes/Ears/Nose/Throat Exam Surgical H&P Exam: Normal: HEENT, Normal: Heart, Normal: Lungs, Normal: Extremities, Normal: Abdomen, Normal: Skin and Normal: Neurological Plan Diagnosis/Plan: Unchanged I have reviewed the history and physical and performed a pertinent physical examination on my patient. No changes have occurred unless specified. Time Spent With Patient Time: Total time managing care of this patient today ____ minutes.
[2023-09-27 08:51] VITALS: BP 99/40; PULSE 83; RESP 17; TEMP 36.6; O2SAT 94
[2023-09-27 09:00] VITALS: BP 110/55; PULSE 75; RESP 15; O2SAT 97
--- NOTE | 2023-09-27 09:14 | OP_ITS ---
DATE OF SERVICE: 09/27/2023 SURGEON: Micah Olsen MD INDICATIONS: Abnormal upper GI series. PREOPERATIVE DIAGNOSIS: POSTOPERATIVE DIAGNOSIS: PROCEDURE PERFORMED: Upper endoscopy with biopsy. ESTIMATED BLOOD LOSS: COMPLICATIONS: ANESTHESIA: Monitored anesthesia care. ASSISTANTS: SPECIMENS: DESCRIPTION OF PROCEDURE: A history and physical performed, the risks and benefits of the procedure were explained to the patient. Informed consent was obtained. The patient was placed in left lateral decubitus position. The Olympus video gastroscope was introduced into the esophagus, stomach, and duodenum. Examination was performed. The scope was removed. She tolerated the procedure well and was taken to the recovery in stable condition. FINDINGS: Esophagus. The esophagus was normal. There was no esophagitis. The EG junction was slightly irregular. This was biopsied. There was a small sliding hiatal hernia. Stomach. The stomach showed no evidence of masses or ulcers. There were multiple benign-appearing polyps in the body and fundus consistent with fundic gland polyps. Duodenum. The bulb and second portion were normal. Antral biopsies were obtained to evaluate for H pylori. IMPRESSION: Normal upper endoscopy. RECOMMENDATIONS: Follow up with the biopsy results. MD HARJEET Bradshaw/GIULIAL / [id number]
[2023-09-27 09:15] VITALS: BP 128/72; PULSE 77; RESP 16; TEMP 36.6; O2SAT 96
== END 2023-09-27 09:41 | disposition home or self-care (01) ==
PROVIDERS: PCP Family Medicine; Visit Provider Internal Medicine Gastroenterology
PROC: 0DJ08ZZ Inspection of Upper Intestinal Tract, Via Natural or Artificial Opening Endoscopic (ICD-10-PCS; CPT 43235; principal; 2023-09-27 08:20)
DX: R10.13 Epigastric pain (principal); K31.7 Polyp of stomach and duodenum; K21.9 Gastro-esophageal reflux disease without esophagitis; K44.9 Diaphragmatic hernia without obstruction or gangrene; N20.0 Calculus of kidney; I10 Essential (primary) hypertension; B20 Human immunodeficiency virus [HIV] disease; M60.9 Myositis, unspecified; F41.8 Other specified anxiety disorders; Z79.899 Other long term (current) drug therapy; Z98.890 Other specified postprocedural states; Z87.891 Personal history of nicotine dependence
CPT/HCPCS: 43239; 88305; 88313; 88342; J2704

== ENCOUNTER 2023-10-06 09:24 | Outpatient (AMB) | payer MEDICARE, MEDICAID, SELFPAY ==
--- NOTE | 2023-10-06 09:27 | MHC.OFFVIS ---
Vital Signs 10/06/23 09:36 Height 5 ft 1 in Weight 150 lb 5.684 oz BMI 28.4 BP 122/74 Blood Pressure Location Lt brachial Position Sitting Respiration 16 Pulse 91 Pulse Source Pulse Oximeter Pulse Oximetry (%) 95 Oxygen Delivery Method Room Air Intake Visit Reasons: Osteoporosis with Prolia Injection Intake Note: Patient presents for Osteoporosis and Prolia Injection. Feeling much more pain and numbness on right side of body from neck to the knee. Allergies No Known Allergies Allergy (Verified 10/06/23 09:35) Medication List - Last Reconciled 10/06/23 by Noni Oro MD acetaminophen ER (Mapap Arthritis Pain) 650 mg PO Q8H PRN albuterol sulfate 90 mcg/actuation 2 puffs inhalation Q4-6H PRN albuterol sulfate 0.63 mg inhalation Q4-6H PRN amlodipine 5 mg PO DAILY nlqsbhxur-[id number]-ebnlkfp ala 50-200-25 mg (Biktarvy) 1 tab PO QPM denosumab (Prolia) 60 mg subcut [id number] esomeprazole magnesium 20 mg PO DAILY ibuprofen 600 mg PO Q8H 10 days multivitamin (One Daily Multivitamin tablet) 1 tab PO DAILY HPI Comments Details: This is a 68-year-old female with osteoporosis presents for follow-up. This is her 1st visit with me. Patient states that been having right-sided neck pain with radiation to both upper extremities, worse on the right. She also has numbness affecting her right leg. She stated that she has had physical therapy for her neck without much improvement. she is here for Prolia injection as well PFSH Medical History Right shoulder pain Benign neoplastic disease Myositis Cyst of Bartholin's gland duct Renal calculi Gastritis Anxiety Hypertension HIV (human immunodeficiency virus infection) Depression GERD (gastroesophageal reflux disease) Osteoporosis Surgical History Hx of tubal ligation Hx of cholecystectomy Hx of colonoscopy Hx of appendectomy Social History Alcohol intake: former Patient Tobacco Use Status: Former Tobacco user Years Smoked: quit 11 years ago Female Reproductive History Menstrual Age of Menarche: 14 Review of Systems ENT Reports neck pain Musc Reports neck pain, Reports numbness and Reports radiating pain into limb Neuro Reports numbness Physical Exam Vital Signs: Last Vital Signs Pulse 91 10/06/23 09:36 Resp 16 10/06/23 09:36 BP 122/74 10/06/23 09:36 Pulse Ox 95 10/06/23 09:36 Oxygen Delivery Method Room Air 10/06/23 09:36 BMI result Body Mass Index 28.4 Const General: cooperative, healthy appearing, comfortable and no acute distress Nutritional Appearance: overweight Limitations: no limitations HEENT Head: Yes normocephalic and Yes atraumatic Mouth: moist mucous membranes Resp Effort & Inspection: normal respiratory effort and able to speak in complete sentences Skin General skin exam: no rashes or lesions noted Extrem Other: Normal range of motion of neck in all directions Negative Spurling's test bilaterally Positive Durkan's test bilaterally and negative Tinel sign bilaterally Office Meds Prolia 60 mg/mL subcutaneous syringe Performing Provider: Noni Oro MD Performing Location: [facility] [place] Rheumatology Administered by: Carmen Abarca RN on 10/06/23 09:55 Dose Route Admin Location Dispensed Lot Number Expiration Date [facility] [place] 60 mg subcut left upper extremity 1 mL [id number] 11/11/25 11167-192-56 AMGEN Comments: Consent for signed. Pt tolerated well. Pt denies any adverse reactions to previous injections. Assessment & Plan Assessment & Plan (1) Osteoporosis: Comment: Alendronate , stopped due to GERD 12/2018 T score fem neck -2.6, Prolia started Code(s): M81.0 - Age-related osteoporosis without current pathological fracture Category: Medical Qualifiers: Osteoporosis type: age-related Presence of current pathological fracture: without current pathological fracture Qualified Code(s): M81.0 - Age-related osteoporosis without current pathological fracture Plan: This is a 68-year-old female with osteoporosis who presents for follow-up. Is her 1st visit with me. She is here for Prolia injection. Patient received Prolia injection in clinic today. Next Prolia injection 03/2024. Plan to repeat DEXA 08/2024 Check vitamin-D level before next visit (2) Cervical radiculopathy: Code(s): M54.12 - Radiculopathy, cervical region Category: Medical Plan: Right-sided neck pain with intermittent radiation to both upper extremities associated with numbness. Will check a neck x-ray. Patient did not improve with PT. Will refer patient to pain management (3) Bilateral hand numbness: Code(s): R20.0 - Anesthesia of skin Category: Medical Plan: Check bilateral upper extremity EMG/NCV to evaluate for CTS/radiculopathy Plan I spent 26 minutes reviewing patient's chart, evaluating patient, ordering diagnostic workup, counseling patient and documenting in the chart Orders: Orders XR cervical spine 4V Today M54.2 - Cervicalgia Basic Metabolic Panel 6 Months M81.0 - Age-related osteoporosis without current pathological fracture Collagen Type I C-Telopeptide 6 Months M81.0 - Age-related osteoporosis without current pathological fracture NE electromyogram (EMG) Today R20.0 - Anesthesia of skin AMB Denosumab Injection Practice Supplied Today M81.0 - Age-related osteoporosis without current pathological fracture Vitamin D 25-OH (D2 and D3) 6 Months E55.9 - Vitamin D deficiency, unspecified Referrals Pain Management Referral M54.12 - Radiculopathy, cervical region Medications: New Prolia (denosumab) 60 mg subcut ONCE 1 mL 0RF NS M81.0 - Age-related osteoporosis without current pathological fracture Coding Level of Care Code Est Pt Level 4 (24883) Diagnoses Age-related osteoporosis without current pathological fracture M81.0 Osteoporosis type: age-related Presence of current pathological fracture: without current pathological fracture Cervical radiculopathy M54.12 Bilateral hand numbness R20.0
[2023-10-06 09:36] VITALS: BP 122/74; PULSE 91; RESP 16; O2SAT 95; BMI 28.4
== END 2023-10-06 09:55 | disposition home or self-care (01) ==
PROVIDERS: PCP Family Medicine; Visit Provider Student in an Organized Health Care Education/Training Program
DX: M81.0 Age-related osteoporosis without current pathological fracture (principal); M54.12 Radiculopathy, cervical region; R20.0 Anesthesia of skin
CPT/HCPCS: 99214

== ENCOUNTER 2023-10-06 09:24 | Outpatient (REF) | payer MEDICARE, MEDICAID, SELFPAY ==
--- NOTE | ~2023-10-06 | XR_ITS ---
EXAMINATION: XR CERVICAL SPINE CLINICAL INFORMATION: Cervicalgia. COMPARISON: None available. TECHNIQUE: 5 views of the cervical spine were obtained. FINDINGS: Vertebral body heights are maintained. There is minimal posterior subluxation of C4 over C5 and of C5 over C6. Moderate disc space narrowing is noted at C5-C6 and C6-C7 with marginal endplate osteophytes. Multilevel bilateral facet arthropathy, left greater than right. Atlantoaxial distance is normal. No evidence of prevertebral soft tissue swelling. The airway is patent. Moderate left neural foraminal stenosis is noted at C3-C4, C4-C5. Severe left neural foraminal stenosis at C5-C6 and [id number] left neural foraminal stenosis at C6-C7. Moderate right neural foraminal stenosis is noted from C3 to C7. No evidence of cervical ribs. Open-mouth view is unremarkable. Visualized lung apices are unremarkable. XR/XR cervical spine 4V IMPRESSION: Diffuse cervical spondylosis, with bilateral neural foraminal stenosis at multiple levels, left greater than right. Severe left neural foraminal stenosis is noted at C5-C6.
== END 2023-10-06 09:25 | disposition home or self-care (01) ==
LOC: HO.XRAY 09:24
PROVIDERS: PCP Family Medicine; Visit Provider Student in an Organized Health Care Education/Training Program
DX: M81.0 Age-related osteoporosis without current pathological fracture (principal); M54.2 Cervicalgia; M54.12 Radiculopathy, cervical region; R20.0 Anesthesia of skin
CPT/HCPCS: 72050; 96372; 99212; J0897

== ENCOUNTER 2023-10-14 10:32 | Outpatient (REF) | payer MEDICARE, MEDICAID, SELFPAY ==
--- NOTE | 2023-10-14 10:35 | EMG_ITS ---
Chief complaint: Right-sided neck pain, bilateral hand numbness right worse than left Reason for referral: Evaluate for Carpal Tunnel Syndrome versus radiculopathy Referred by: Dr. Oro Procedure done: Bilateral upper extremities NCS/EMG Precautions and/or limitations: None The limb temperature was monitored continuously and remained between 32-36 degrees C during the performance of the NCS. Nerve Conduction Studies Anti Sensory Summary Table ?Stim Site NR Onset (ms) Norm Onset (ms) Peak (ms) Norm Peak (ms) O-P Amp (?V) Norm O-P Amp Site1 Site2 Delta-0 (ms) Dist (cm) Jett (m/s) Norm Jett (m/s) Left Median Anti Sensory (2nd Digit) Wrist ? 2.8 3.6 <3.6 32.8 >10 Wrist 2nd Digit 2.8 14.0 50 Right Median Anti Sensory (2nd Digit) Wrist ? 3.0 4.0 <3.6 25.9 >10 Wrist 2nd Digit 3.0 14.0 47 Right Radial Anti Sensory (Thumb) Forearm ? 1.5 2.0 <3.1 22.1 Forearm Thumb 1.5 0.0 Left Ulnar Anti Sensory (5th Digit) Wrist ? 2.3 2.9 <3.7 15.5 >15.0 Wrist 5th Digit 2.3 14.0 61 Right Ulnar Anti Sensory (5th Digit) Wrist ? 2.1 2.9 <3.7 27.0 >15.0 Wrist 5th Digit 2.1 14.0 67 Motor Summary Table ?Stim Site NR Onset (ms) Norm Onset (ms) O-P Amp (mV) Norm O-P Amp iAmp (mV) Amp (1st) (%) Site1 Site2 Delta-0 (ms) Dist (cm) Jett (m/s) Norm Jett (m/s) Left Median Motor (Abd Poll Brev) Wrist ? 3.8 <3.9 8.9 >4.5 10.1 100.0 Elbow Wrist 3.5 21.5 61 >45 Elbow ? 7.3 8.4 9.6 94.4 Right Median Motor (Abd Poll Brev) Wrist ? 4.1 <3.9 11.8 >4.5 13.8 100.0 Elbow Wrist 3.5 20.0 57 >45 Elbow ? 7.6 11.8 13.7 100.0 Left Ulnar Motor (Abd Dig Minimi) Wrist ? 2.4 <3.0 5.0 >5 6.4 100.0 B Elbow Wrist 2.9 19.0 66 >45 B Elbow ? 5.3 4.5 5.8 90.0 A Elbow B Elbow 1.7 10.0 59 >45 A Elbow ? 7.0 4.3 5.6 86.0 Right Ulnar Motor (Abd Dig Minimi) Wrist ? 2.5 <3.0 7.6 >5 8.8 100.0 B Elbow Wrist 3.2 18.0 56 >45 B Elbow ? 5.7 6.9 8.0 90.8 A Elbow B Elbow 1.3 10.0 77 >45 A Elbow ? 7.0 6.7 7.9 88.2 Comparison Summary Table ?Stim Site NR Peak (ms) Norm Peak (ms) P-T Amp (?V) Site1 Site2 Delta-P (ms) Norm Delta (ms) Left Median/Radial Dig I Comparison (Digit 1 - 10cm) Median ? 2.8 <2.9 217.0 Median Radial 0.6 Radial ? 2.2 <2.8 24.1 EMG ?Side Muscle Nerve Root Ins Act Fibs Psw Amp Dur Poly Recrt Int Pat Comment Right 1stDorInt Ulnar C8-T1 Nml Nml Nml Nml Nml 0 Nml Complete Right FlexCarRad Median C6-7 Nml Nml Nml Nml Nml 0 Nml Complete Right Biceps Musculocut C5-6 Nml Nml Nml Nml Nml 0 Nml Complete Right Triceps Radial C6-7-8 Nml Nml Nml Nml Nml 0 Nml Complete Right Deltoid Axillary C5-6 Nml Nml Nml Nml Nml 0 Nml Complete Left 1stDorInt Ulnar C8-T1 Nml Nml Nml Nml Nml 0 Nml Complete Left FlexCarRad Median C6-7 Nml Nml Nml Nml Nml 0 Nml Complete Left Biceps Musculocut C5-6 Nml Nml Nml Nml Nml 0 Nml Complete Left Triceps Radial C6-7-8 Nml Nml Nml Nml Nml 0 Nml Complete Left Deltoid Axillary C5-6 Nml Nml Nml Nml Nml 0 Nml Complete FINDINGS: Right median motor nerve showed prolonged distal latency, normal amplitude and normal conduction velocity. Right median sensory nerve showed prolonged peak latencies. Interlatency difference between left median and radial sensory nerves was 0.6. All other nerves tested were within normal. Concentric needle EMG was performed in selected muscles of the bilateral upper extremities. Study did not reveal signs of electric abnormalities as shown in the table above. IMPRESSION: 1. This is an abnormal study. 2. There is electrodiagnostic evidence for right moderate-severe and left borderline/mild median neuropathy at the wrist, consistent with carpal tunnel syndrome. 3. There is no electrodiagnostic evidence for ulnar neuropathy, brachial plexopathy, or cervical radiculopathy. Thank you for your kind referral. Lore Kaur MD, WILI Board Certified, [place] [employer] and Rehabilitation (ABPMR) Board Certified, [place] Board of Electrodiagnostic Medicine (ABEM) CODIN 59040 x 2 MTDD
== END 2023-10-14 10:33 | disposition home or self-care (01) ==
LOC: HO.NEURO 10:32
PROVIDERS: PCP Family Medicine; Visit Provider Student in an Organized Health Care Education/Training Program
DX: R20.0 Anesthesia of skin (principal)
CPT/HCPCS: 95886; 95911

== ENCOUNTER → 2023-10-14 10:35 | Outpatient (BNV) | payer MEDICARE, MEDICAID, SELFPAY | PROVIDERS: PCP Family Medicine; Visit Provider Physical Medicine & Rehabilitation | DX: G56.03 Carpal tunnel syndrome, bilateral upper limbs (principal) | CPT/HCPCS: 95886; 95911 ==

== ENCOUNTER 2023-10-19 08:25 | Outpatient (REF) | payer MEDICARE, MEDICAID, SELFPAY ==
[2023-10-19 10:21] LABS: Alanine Aminotransferase 14 U/L (0-31); Albumin Level 4.2 g/dL (3.5-5.0); Alkaline Phosphatase 114 U/L (39-117); Aspartate Amino Transferase 17 U/L (5-31); Bilirubin Direct 0.2 mg/dL (0.0-0.5); Bilirubin Total 0.5 mg/dL (0.0-1.0); Cholesterol 147 mg/dL (<200); HDL Cholesterol 56 mg/dL (>40); LDL Cholesterol Calculated 66 mg/dL (<100); Total Protein 7.4 g/dL (6.5-8.0); Triglycerides 127 mg/dL (<150)
== END 2023-10-19 08:26 | disposition home or self-care (01) ==
LOC: HO.LAB 08:25
PROVIDERS: PCP Family Medicine; Visit Provider Family Medicine
DX: E78.5 Hyperlipidemia, unspecified (principal)
CPT/HCPCS: 36415; 80061; 80076

== ENCOUNTER 2023-10-24 13:42 | Outpatient (AMB) | payer MEDICARE, MEDICAID, SELFPAY ==
--- NOTE | 2023-10-24 13:54 | MHC.OFFVIS ---
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 Neck pain radiates into bilateral upper extremities, on the left to the elbow and all fingers and on the right to the wrist and right thumb, 2nd and 3rd fingers. Neck pain is worse with flexion and extension and left lateral rotation. Patient reports cervicogenic headaches and muscle spasms in both of her neck and shoulder muscles. Reports bilateral hand pain and paresthesias with repetitive hand activities. She was referred to us by Rheumatology services. Patient completed physical therapy in April 2023 at [facility] with minimal improvement. She recently completed cervical spine x-ray and neurodiagnostic studies with pending referral to Hand Surgery services for bilateral CTS. Cervical spine xray showed diffuse cervical spondylosis, with bilateral neural foraminal stenosis at multiple levels, left greater than right. Severe left neural foraminal stenosis is noted at C5-C6. Pain affects her daily activities and functioning, sleep, mood, and social interactions. Denies previous spine injections or surgery. Pain is rated 10/10 in the morning, 8/10 lifting or pulling, minimal pain when no movement. Denies any fever, chills, dizziness, visual disturbances, shortness of breath, chest pain, gait disturbance, foot drop, bladder or bowel dysfunction or saddle anesthesia. Location: Neck, right shoulder, bilateral hand numbness, right>left Duration: Chronic pain, worsening for >1 year Characteristics of symptom or complaint: Aching, tingling, sharp, shooting, stabbing, tiring, heavy, sore Aggravating or associated factors: Movements, lifting, pulling, cold weather, pain interferes w/ ADLs/sleep Relieving factors: Ibuprofen, rest, heat therapy, shaking hands Treatment: PT, massage, xrays, EMG/NVC [facility] Medical History (Updated 10/24/23 @ 14:46 by JOHN Lopez) Right shoulder pain Benign neoplastic disease Myositis Cyst of Bartholin's gland duct Renal calculi Gastritis Anxiety Hypertension HIV (human immunodeficiency virus infection) Depression GERD (gastroesophageal reflux disease) Osteoporosis Surgical History Hx of tubal ligation Hx of cholecystectomy Hx of colonoscopy Hx of appendectomy Social History Alcohol intake: former Patient Tobacco Use Status: Former Tobacco user Years Smoked: quit 11 years ago Female Reproductive History Menstrual Age of Menarche: 14 Review of Systems Const All systems reviewed & are unremarkable except as noted in HPI and below Physical Exam Vital Signs: Last Vital Signs Pulse 76 10/24/23 14:01 BP 125/60 10/24/23 14:01 Pulse Ox 98 10/24/23 14:01 Oxygen Delivery Method Room Air 10/24/23 14:01 BMI result Body Mass Index 28.2 General: Appears afebrile. Alert and oriented. Mood and affect appropriate. Follows and participates in conversation appropriately. Respiratory effort is unlabored. No cough. Able to transition from sit to stand unassisted. Ambulates with bilaterally normal heel strike and toe off. Neck Other: Patient with mildly decreased cervical ROM in all planes/especially with left lateral rotation. Reports increased pain with cervical extension and flexion. Spurling compression test negative. Pain is unchanged by Spurling maneuver with retraction. Elvey's tension test positive bilaterally, with radiation of pain from neck to wrist to thumb, 2-3rd fingers on right, neck to left shoulder and elbow and all fingers on the left. Lhermitte's test was negative. DTR intact, +1 bilaterally. Patient demonstrated 5/5 left and 4/5 right motor strength of bilateral upper extremities. 2 + radial pulses. Significant tightness throughout left upper trapezius as well as TTP throughout bilateral upper trapezius muscles. No paravertebral tenderness over facet joints bilaterally. Repetitive wrist flexion or hand elevation reproduces moderate pain, right>left. 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 Able to make fists bilaterally. +Phalen's test on the right. Neck: Yes normal visual inspection, Yes no lymphadenopathy, Yes supple, No anterior neck swelling, Yes no JVD, No prominent supraclavicular fat pad and Yes prominent dorsocervical fat pad General: Yes no CVA tenderness Back/Spine/Pelvis Back: no CVA tenderness Cervical Spine: loss of normal cervical lordosis, cervical muscular tenderness, pain with cervical ROM, cervical spasm, No Cervical spine tenderness and No step off deformity Thoracic/Lumbar Spine: thoracic and lumbar spine normal to inspection, pain with thoraco-lumbar ROM, No thoracic spinal tenderness and lumbar spinal tenderness at L4 and at L5 Extrem General: Yes capillary refill normal, Yes no clubbing, cyanosis or edema and Yes no calf tenderness Right upper extremity: shoulder/upper arm Details: normal to inspection, tenderness Location: of the A-C joint and over the biceps tendon and normal ROM; no swelling Left upper extremity: shoulder/upper arm Details: inspection abnormal and normal ROM; no tenderness and no swelling Results Reviewed Results Reviewed: NE electromyogram (EMG); NE nerve conduction velocity 10/14/23 IMPRESSION: 1. This is an abnormal study. 2. There is electrodiagnostic evidence for right moderate-severe and left borderline/mild median neuropathy at the wrist, consistent with carpal tunnel syndrome. 3. There is no electrodiagnostic evidence for ulnar neuropathy, brachial plexopathy, or cervical radiculopathy. XR CERVICAL SPINE 10/06/23 CLINICAL INFORMATION: Cervicalgia. COMPARISON: None available. TECHNIQUE: 5 views of the cervical spine were obtained. FINDINGS: Vertebral body heights are maintained. There is minimal posterior subluxation of C4 over C5 and of C5 over C6. Moderate disc space narrowing is noted at C5-C6 and C6-C7 with marginal endplate osteophytes. Multilevel bilateral facet arthropathy, left greater than right. Atlantoaxial distance is normal. No evidence of prevertebral soft tissue swelling. The airway is patent. Moderate left neural foraminal stenosis is noted at C3-C4, C4-C5. Severe left neural foraminal stenosis at C5-C6 and [id number] left neural foraminal stenosis at C6-C7. Moderate right neural foraminal stenosis is noted from C3 to C7. No evidence of cervical ribs. Open-mouth view is unremarkable. Visualized lung apices are unremarkable. IMPRESSION: Diffuse cervical spondylosis, with bilateral neural foraminal stenosis at multiple levels, left greater than right. Severe left neural foraminal stenosis is noted at C5-C6. XR SHOULDER, RIGHT 03/31/23 CLINICAL INFORMATION: Pain in right shoulder, decreased range of motion COMPARISON: None available. TECHNIQUE: AP external rotation, Grashey, scapular Y, and axillary views of the right shoulder. FINDINGS: The bones and soft tissues are normal. No fracture. Glenohumeral and acromioclavicular alignment is anatomic with normal glenohumeral joint space. Minimal degenerative change of the acromioclavicular joint. No abnormal soft tissue calcifications. IMPRESSION: Minimal degenerative change of the acromioclavicular joint. MM/XR DEXA axial skeleton 08/19/22 IMPRESSION: 1. DIAGNOSIS: Osteopenia based on the lowest T-score value of -2.4 in the femoral neck applying World Health Organization criteria. Assessment & Plan Assessment & Plan (1) Neural foraminal stenosis of cervical spine: Code(s): M48.02 - Spinal stenosis, cervical region Category: Medical (2) Cervical spondylosis: Code(s): M47.812 - Spondylosis without myelopathy or radiculopathy, cervical region Category: Medical (3) Bilateral carpal tunnel syndrome: Code(s): G56.03 - Carpal tunnel syndrome, bilateral upper limbs Category: Medical (4) Fibromyalgia: Code(s): M79.7 - Fibromyalgia Category: Medical (5) Right shoulder pain: Code(s): M25.511 - Pain in right shoulder Category: Medical Qualifiers: Chronicity: chronic Qualified Code(s): M25.511 - Pain in right shoulder; G89.29 - Other chronic pain Plan MRI of the cervical spine to assess for neural integrity and compression and follow up on recent xray findings. Pending Hand Surgery evaluation for bilateral CTS per recent Neurodiagnostic studies. Continue Tylenol, NSAIDs, heat therapy, avoid pain producing activities. Discussed importance of good posture, adequate hydration, gentle stretching exercises, sleep hygiene, and well-balanced diet. Script provided for gabapentin for neuropathic pain. Side effects and precautions discussed with patient and family. All questions and concerns have been answered and patient agreed with the treatment plan. Follow-up for MRI results and sooner as needed. Orders: Orders MR cervical spine wo con 10/24/23 M47.812 - Spondylosis without myelopathy or radiculopathy, cervical region, M48.02 - Spinal stenosis, cervical region, M54.12 - Radiculopathy, cervical region Medications: New gabapentin 300 mg PO BEDTIME 30 caps 0RF pain 30 days G56.03 - Carpal tunnel syndrome, bilateral upper limbs, M48.02 - Spinal stenosis, cervical region, M79.7 - Fibromyalgia Coding Level of Care Code New Pt Level 4 (68169) Diagnoses Neural foraminal stenosis of cervical spine M48.02 Cervical spondylosis M47.812 Bilateral carpal tunnel syndrome G56.03 Fibromyalgia M79.7 Chronic right shoulder pain M25.511; G89.29 Chronicity: chronic
[2023-10-24 14:01] VITALS: BP 125/60; PULSE 76; O2SAT 98; BMI 28.2
== END 2023-10-24 15:00 | disposition home or self-care (01) ==
PROVIDERS: PCP Family Medicine; Visit Provider Nurse Practitioner Family
DX: M48.02 Spinal stenosis, cervical region (principal); M47.812 Spondylosis without myelopathy or radiculopathy, cervical region; G56.03 Carpal tunnel syndrome, bilateral upper limbs; M79.7 Fibromyalgia; M25.511 Pain in right shoulder; G89.29 Other chronic pain
CPT/HCPCS: 99204; 99214

== ENCOUNTER → 2023-10-24 13:42 | Outpatient (BNVA) | payer MEDICARE, MEDICAID, SELFPAY | PROVIDERS: PCP Family Medicine; Visit Provider Nurse Practitioner Family | DX: M48.02 Spinal stenosis, cervical region (principal); M47.812 Spondylosis without myelopathy or radiculopathy, cervical region; M79.7 Fibromyalgia; M25.511 Pain in right shoulder; G56.03 Carpal tunnel syndrome, bilateral upper limbs; G89.29 Other chronic pain | CPT/HCPCS: 99202 ==

== ENCOUNTER 2023-11-02 12:35 | Outpatient (REF) | payer MEDICARE, MEDICAID, SELFPAY ==
--- NOTE | ~2023-11-02 | MM_ITS ---
EXAMINATION: MM SCREENING DIGITAL BREAST TOMOSYNTHESIS, BILATERAL CLINICAL INFORMATION: Screening. Asymptomatic. COMPARISON: Mammography: Comparison is made with available priors. TECHNIQUE: Digital breast tomosynthesis is performed in both the craniocaudal and mediolateral oblique views along with computer-aided detection (CAD). Synthesized 2D images are generated from the tomosynthesis. FINDINGS: There are scattered areas of fibroglandular density (ACR BI-RADS breast composition Category b). Bilateral circumscribed oval masses which wax and wane consistent with benign fibrocystic changes. There are no significant masses, abnormal calcifications, or other abnormalities. MM/MM tomosynthesis screening BI IMPRESSION: No mammographic evidence of malignancy. ASSESSMENT: BI-RADS BI-RADS 2 - Benign Findings RECOMMENDATION: Routine annual mammography screening. 1 year F/U This examination should not preclude the clinical evaluation of a suspicious palpable abnormality. This patient's information was entered into a reminder system with a target due date for their next mammogram. Electronically signed by: Maria Guadalupe Graham DO 11/30/2023 09:17 PM EDT
== END 2023-11-02 12:36 | disposition home or self-care (01) ==
LOC: HO.MAMMO 12:35
PROVIDERS: PCP Family Medicine; Visit Provider Family Medicine
DX: Z12.31 Encounter for screening mammogram for malignant neoplasm of breast (principal)
CPT/HCPCS: 77063; 77067

== ENCOUNTER → 2023-11-02 13:00 | Outpatient (BNV) | payer MEDICARE, MEDICAID, SELFPAY | PROVIDERS: PCP Family Medicine; Visit Provider Internal Medicine | DX: Z12.31 Encounter for screening mammogram for malignant neoplasm of breast (principal) | CPT/HCPCS: 77063; 77067 ==

== ENCOUNTER 2023-11-22 10:41 | Outpatient (AMB) | payer MEDICARE, MEDICAID, SELFPAY ==
--- NOTE | 2023-11-22 11:10 | MHC.OFFVIS ---
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 Patient reports numbness and tingling that is constant and daily, making it difficult to bilingual operator and squeeze. She reports she has a hard time opening jars or bottles. Denies locking on finger. Patient states her left hand is worse. Has tried braces for many years and uses them PRN. Denies any prior injuries or surgeries to the hands. 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 She complains of numbness in the median nerve distribution, L>R. She complains of constant tingling, worse with daily activites. She says she is limited in her ability to bilingual operator things due to her numbness. She denies any prior treatment options but has been wearing wrist braces prn for several years. She has Fibromyalgia & cervical stenosis. She follows with pain management for this. She has HIV & is on medication for this, and she says that she is ?undetectable?. [facility] Medical History (Updated 11/22/23 @ 11:40 by Dustin Red) Right shoulder pain Benign neoplastic disease Myositis Cyst of Bartholin's gland duct Renal calculi Gastritis Anxiety Hypertension HIV (human immunodeficiency virus infection) Depression GERD (gastroesophageal reflux disease) Osteoporosis Surgical History Hx of tubal ligation Hx of cholecystectomy Hx of colonoscopy Hx of appendectomy Social History (Updated 11/22/23 @ 11:38 by ASHANTI Mireles) Alcohol intake: former Patient Tobacco Use Status: Former Tobacco user Years Smoked: quit 11 years ago Current occupational status: disabled Current occupation: rt handed Female Reproductive History Menstrual Age of Menarche: 14 Review of Systems Const All systems reviewed & are unremarkable except as noted in HPI and below Physical Exam Vital Signs: BMI result Body Mass Index 28.2 Const General: cooperative, healthy appearing and no acute distress Orientation/consciousness: patient oriented x3 HEENT Head: Yes normocephalic and Yes atraumatic Eyes EOM: EOMs intact bilaterally Resp Effort & Inspection: normal respiratory effort and able to speak in complete sentences Cardio Jugular venous distension: no JVD Skin General skin exam: turgor normal Rashes: no rashes Neuro General: patient oriented x3 Extrem Other: Evaluation of Bilateral Upper Extremity: The patient is alert, oriented, and in no acute distress Neuro: Decreased sensation in the median nerve distribution bilaterally. Normal sensation to the ulnar nerve distribution No thenar or intrinsic wasting Good APB muscle belly firing and good finger cross Vascular: Cap refill brisk ROM: She can make a fist and extend all her digits No locking or catching Skin: No lacerations or abrasions. General: No Ecchymosis. No Erythema or evidence of infection. Nerve Conduction Study IMPRESSION: 1. This is an abnormal study. 2. There is electrodiagnostic evidence for right moderate-severe and left borderline/mild median neuropathy at the wrist, consistent with carpal tunnel syndrome. 3. There is no electrodiagnostic evidence for ulnar neuropathy, brachial plexopathy, or cervical radiculopathy. Lore Kaur MD, WILI 10/14/23 Psych Appearance: grossly normal Affect: normal affect Attitude: cooperative Assessment & Plan Assessment & Plan (1) Carpal tunnel syndrome of right wrist: Code(s): G56.01 - Carpal tunnel syndrome, right upper limb Category: Medical (2) Carpal tunnel syndrome of left wrist: Code(s): G56.02 - Carpal tunnel syndrome, left upper limb Category: Medical (3) HIV (human immunodeficiency virus infection): Comment: on tx Code(s): B20 - Human immunodeficiency virus [HIV] disease Category: Medical (4) Fibromyalgia: Code(s): M79.7 - Fibromyalgia Category: Medical Plan Assessment & Plan: 1. Left carpal tunnel syndrome, mild with constant tingling, worse with daily activities 2. Right carpal tunnel syndrome, moderate-severe with constant tingling, worse with daily activities I educated her about this condition I discussed operative and non-operative treatment options The patient would like to proceed with surgery, beginning with her left side We can discuss treatment for her right side when she has recovered from surgery The risks and benefits of operative treatment were discussed with the patient and the patient wishes to proceed with surgery. These risks include, but are not limited to risk of damage to blood vessels, nerves, tendons, infection, recurrence, incomplete relief of preoperative symptoms, persistent pain, possible need for further surgery and the risks associated with regional blocks and anesthesia. The plan is to take the patient to the operating room sometime in the next few weeks for the following procedures: 1. Left carpal tunnel release, under local All of the preoperative paperwork including the consent was reviewed today. All the patient's questions were answered. The patient understands that they will be contacted by our clinic scheduler soon to schedule this procedure She denies Diabetes, blood thinners, asthma, heart, lung, kidney issues She has Fibromyalgia & HIV, and is on medication for this and reports it is now ?undetectable? Scribed for Anabela Musa MD by Dustin Red, outside medical sales representative, on 11/22/23 at 11:50 AM, EST. Coding Level of Care Code New Pt Level 4 (33612) Diagnoses Carpal tunnel syndrome of right wrist G56.01 Carpal tunnel syndrome of left wrist G56.02 HIV (human immunodeficiency virus infection) B20 Fibromyalgia M79.7
[2023-11-22 11:29] VITALS: BMI 28.2
== END 2023-11-22 12:00 | disposition home or self-care (01) ==
PROVIDERS: PCP Family Medicine; Visit Provider Orthopaedic Surgery
DX: G56.03 Carpal tunnel syndrome, bilateral upper limbs (principal); B20 Human immunodeficiency virus [HIV] disease; M79.7 Fibromyalgia
CPT/HCPCS: 99204

== ENCOUNTER → 2023-11-22 10:41 | Outpatient (BNVA) | payer MEDICARE, MEDICAID, SELFPAY | PROVIDERS: PCP Family Medicine; Visit Provider Orthopaedic Surgery | DX: G56.03 Carpal tunnel syndrome, bilateral upper limbs (principal); M79.7 Fibromyalgia; B20 Human immunodeficiency virus [HIV] disease | CPT/HCPCS: 99202 ==

== ENCOUNTER 2023-12-24 14:16 | Outpatient (REF) | payer MEDICARE, MEDICAID, SELFPAY ==
--- NOTE | ~2023-12-24 | MR_ITS ---
EXAMINATION: MR CERVICAL SPINE WITHOUT CONTRAST CLINICAL INFORMATION: Radiculopathy, spondylosis COMPARISON: Cervical spine x-ray on 10/06/2023 TECHNIQUE: MRI of the cervical spine was obtained using routine sequences without contrast. FINDINGS: Alignment is maintained. Vertebral body heights are preserved. Bone marrow is unremarkable in signal. The posterior fossa is unremarkable in signal. The cervical spinal cord is unremarkable in signal. Prevertebral and paraspinal soft tissues are unremarkable. SIGNIFICANT FINDINGS BY LEVEL: C2-C3: No disc bulge or herniation. No significant spinal canal or foraminal stenosis. C3-C4: Mild disc bulge. No significant spinal canal or foraminal stenosis. C4-C5: Mild disc bulge. No significant spinal canal or foraminal stenosis. C5-C6: Disc bulge eccentric to the left resulting in effacement of the ventral thecal sac and moderate left foraminal stenosis and mild right foraminal stenosis C6-C7: Broad-based disc bulge resulting in effacement of the ventral thecal sac and mild bilateral foraminal stenosis C7-T1: No disc bulge or herniation. No significant spinal canal or foraminal stenosis. MR/MR cervical spine wo con IMPRESSION: Degenerative disease of the cervical spine most prominent at C5-C6 where there is moderate left foraminal stenosis and mild right foraminal stenosis. Electronically signed by: Molly Briggs MD 12/24/2023 08:04 PM EDT
== END 2023-12-24 14:17 | disposition home or self-care (01) ==
LOC: HO.MRI 14:16
PROVIDERS: PCP Family Medicine; Visit Provider Nurse Practitioner Family
DX: M54.12 Radiculopathy, cervical region (principal); M48.02 Spinal stenosis, cervical region; M47.812 Spondylosis without myelopathy or radiculopathy, cervical region
CPT/HCPCS: 72141

== ENCOUNTER 2024-01-13 13:14 | Outpatient (AMB) | payer MEDICARE, MEDICAID, SELFPAY ==
--- NOTE | 2024-01-13 13:15 | MHC.OFFVIS ---
Vital Signs 01/13/24 13:23 Height 5 ft 1 in Weight 149 lb BMI 28.2 BP 140/66 H Blood Pressure Location Lt brachial Position Sitting Respiration 16 Pulse 88 Pulse Source Pulse Oximeter Pulse Oximetry (%) 97 Oxygen Delivery Method Room Air Intake Visit Reasons: Follow up MRI results Intake Note: Patient comes in to discuss MRI results. She is accompanied by sister Lula. Reports pain 4/10. Engineering Technician Required: Yes Engineering Technician Services: Engineering Technician Offered & Declined Engineering Technician Name: Patient sister Lula Accompanied by: Sister Allergies No Known Allergies Allergy (Verified 11/22/23 11:38) HPI Comments Details: Patient presents today for follow up to discuss cervical spine MRI results. Denies any recent cough, cold, infection, fever or other significant changes in medical history since last office visit. PRIOR: Patient is a pleasant 68-year-old Citizen Of [place]-speaking female is history of osteoporosis (on Prolia since July 2018), osteopenia (per bone scan 2022), h/o HIV (on HAART therapy), fibromyalgia, right shoulder pain, chronic low back pain and left hip pain, anxiety and depression, presents today for initial evaluation of right-sided neck pain with bilateral hand numbness, right worse than left. Neck pain radiates into bilateral upper extremities, on the left to the elbow and all fingers and on the right to the wrist and right thumb, 2nd and 3rd fingers. Neck pain is worse with flexion and extension and left lateral rotation. Patient reports cervicogenic headaches and muscle spasms in both of her neck and shoulder muscles. Reports bilateral hand pain and paresthesias with repetitive hand activities. She was referred to us by Rheumatology services. Patient completed physical therapy in April 2023 at [facility] with minimal improvement. She recently completed cervical spine x-ray and neurodiagnostic studies with pending referral to Hand Surgery services for bilateral CTS. Cervical spine xray showed diffuse cervical spondylosis, with bilateral neural foraminal stenosis at multiple levels, left greater than right. Severe left neural foraminal stenosis is noted at C5-C6. Pain affects her daily activities and functioning, sleep, mood, and social interactions. Denies previous spine injections or surgery. Pain is rated 10/10 in the morning, 8/10 lifting or pulling, minimal pain when no movement. Denies any fever, chills, dizziness, visual disturbances, shortness of breath, chest pain, gait disturbance, foot drop, bladder or bowel dysfunction or saddle anesthesia. Location: Neck, right shoulder, bilateral hand numbness, right>left Duration: Chronic pain, worsening for >1 year Characteristics of symptom or complaint: Aching, tingling, sharp, shooting, stabbing, tiring, heavy, sore Aggravating or associated factors: Movements, lifting, pulling, cold weather, pain interferes w/ ADLs/sleep Relieving factors: Ibuprofen, rest, heat therapy, shaking hands Treatment: PT, massage, xrays, EMG/NVC [facility] Medical History Right shoulder pain Benign neoplastic disease Myositis Cyst of Bartholin's gland duct Renal calculi Gastritis Anxiety Hypertension HIV (human immunodeficiency virus infection) Depression GERD (gastroesophageal reflux disease) Osteoporosis Surgical History Hx of tubal ligation Hx of cholecystectomy Hx of colonoscopy Hx of appendectomy Social History Alcohol intake: former Patient Tobacco Use Status: Former Tobacco user Years Smoked: quit 11 years ago Current occupational status: disabled Current occupation: rt handed Female Reproductive History Menstrual Age of Menarche: 14 Review of Systems Const All systems reviewed & are unremarkable except as noted in HPI and below Physical Exam Vital Signs: Last Vital Signs Pulse 88 01/13/24 13:23 Resp 16 01/13/24 13:23 BP 140/66 H 01/13/24 13:23 Pulse Ox 97 01/13/24 13:23 Oxygen Delivery Method Room Air 01/13/24 13:23 BMI result Body Mass Index 28.2 General: Appears afebrile. Alert and oriented. Mood and affect appropriate. Follows and participates in conversation appropriately. Respiratory effort is unlabored. No cough. Able to transition from sit to stand unassisted. Ambulates with bilaterally normal heel strike and toe off. Neck Other: Patient with mildly decreased cervical ROM in all planes/especially with left lateral rotation. Reports increased pain with cervical extension and flexion. Spurling compression test negative. Pain is unchanged by Spurling maneuver with retraction. Elvey's tension test positive bilaterally, with radiation of pain from neck to wrist to thumb, 2-3rd fingers on right, neck to left shoulder and elbow and all fingers on the left. Lhermitte's test was negative. DTR intact, +1 bilaterally. Patient demonstrated 5/5 left and 4/5 right motor strength of bilateral upper extremities. 2 + radial pulses. Significant tightness throughout left upper trapezius as well as TTP throughout bilateral upper trapezius muscles. No paravertebral tenderness over facet joints bilaterally. Repetitive wrist flexion or hand elevation reproduces moderate pain, right>left. 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 Able to make fists bilaterally. +Phalen's test on the right. Neck: Yes normal visual inspection, Yes no lymphadenopathy, Yes supple, No anterior neck swelling, Yes no JVD, No prominent supraclavicular fat pad and Yes prominent dorsocervical fat pad General: Yes no CVA tenderness Back/Spine/Pelvis Back: no CVA tenderness Cervical Spine: loss of normal cervical lordosis, cervical muscular tenderness, pain with cervical ROM, cervical spasm, No Cervical spine tenderness and No step off deformity Thoracic/Lumbar Spine: thoracic and lumbar spine normal to inspection, pain with thoraco-lumbar ROM, No thoracic spinal tenderness and lumbar spinal tenderness at L4 and at L5 Extrem General: Yes capillary refill normal, Yes no clubbing, cyanosis or edema and Yes no calf tenderness Right upper extremity: shoulder/upper arm Details: normal to inspection, tenderness Location: of the A-C joint and over the biceps tendon and normal ROM; no swelling Left upper extremity: shoulder/upper arm Details: inspection abnormal and normal ROM; no tenderness and no swelling Results Reviewed Results Reviewed: NE electromyogram (EMG); NE nerve conduction velocity 10/14/23 IMPRESSION: 1. This is an abnormal study. 2. There is electrodiagnostic evidence for right moderate-severe and left borderline/mild median neuropathy at the wrist, consistent with carpal tunnel syndrome. 3. There is no electrodiagnostic evidence for ulnar neuropathy, brachial plexopathy, or cervical radiculopathy. XR CERVICAL SPINE 10/06/23 CLINICAL INFORMATION: Cervicalgia. FINDINGS: Vertebral body heights are maintained. There is minimal posterior subluxation of C4 over C5 and of C5 over C6. Moderate disc space narrowing is noted at C5-C6 and C6-C7 with marginal endplate osteophytes. Multilevel bilateral facet arthropathy, left greater than right. Atlantoaxial distance is normal. No evidence of prevertebral soft tissue swelling. The airway is patent. Moderate left neural foraminal stenosis is noted at C3-C4, C4-C5. Severe left neural foraminal stenosis at C5-C6 and [id number] left neural foraminal stenosis at C6-C7. Moderate right neural foraminal stenosis is noted from C3 to C7. No evidence of cervical ribs. Open-mouth view is unremarkable. Visualized lung apices are unremarkable. IMPRESSION: Diffuse cervical spondylosis, with bilateral neural foraminal stenosis at multiple levels, left greater than right. Severe left neural foraminal stenosis is noted at C5-C6. XR SHOULDER, RIGHT 03/31/23 CLINICAL INFORMATION: Pain in right shoulder, decreased range of motion FINDINGS: The bones and soft tissues are normal. No fracture. Glenohumeral and acromioclavicular alignment is anatomic with normal glenohumeral joint space. Minimal degenerative change of the acromioclavicular joint. No abnormal soft tissue calcifications. IMPRESSION: Minimal degenerative change of the acromioclavicular joint. MM/XR DEXA axial skeleton 08/19/22 IMPRESSION: 1. DIAGNOSIS: Osteopenia based on the lowest T-score value of -2.4 in the femoral neck applying World Health Organization criteria. MR CERVICAL SPINE WITHOUT CONTRAST 12/25/23 CLINICAL INFORMATION: Radiculopathy, spondylosis COMPARISON: Cervical spine x-ray on 10/06/2023 FINDINGS: Alignment is maintained. Vertebral body heights are preserved. Bone marrow is unremarkable in signal. The posterior fossa is unremarkable in signal. The cervical spinal cord is unremarkable in signal. Prevertebral and paraspinal soft tissues are unremarkable. SIGNIFICANT FINDINGS BY LEVEL: C2-C3: No disc bulge or herniation. No significant spinal canal or foraminal stenosis. C3-C4: Mild disc bulge. No significant spinal canal or foraminal stenosis. C4-C5: Mild disc bulge. No significant spinal canal or foraminal stenosis. C5-C6: Disc bulge eccentric to the left resulting in effacement of the ventral thecal sac and moderate left foraminal stenosis and mild right foraminal stenosis C6-C7: Broad-based disc bulge resulting in effacement of the ventral thecal sac and mild bilateral foraminal stenosis C7-T1: No disc bulge or herniation. No significant spinal canal or foraminal stenosis. IMPRESSION: Degenerative disease of the cervical spine most prominent at C5-C6 where there is moderate left foraminal stenosis and mild right foraminal stenosis. Assessment & Plan Assessment & Plan (1) Neural foraminal stenosis of cervical spine: Code(s): M48.02 - Spinal stenosis, cervical region Category: Medical (2) Cervical spondylosis: Code(s): M47.812 - Spondylosis without myelopathy or radiculopathy, cervical region Category: Medical (3) Bilateral carpal tunnel syndrome: Code(s): G56.03 - Carpal tunnel syndrome, bilateral upper limbs Category: Medical (4) Fibromyalgia: Code(s): M79.7 - Fibromyalgia Category: Medical (5) Carpal tunnel syndrome of right wrist: Code(s): G56.01 - Carpal tunnel syndrome, right upper limb Category: Medical (6) Carpal tunnel syndrome of left wrist: Code(s): G56.02 - Carpal tunnel syndrome, left upper limb Category: Medical Plan MRI of the cervical spine imaging results and interventional treatments for axial and radicular neck symptoms were discussed with patient today. Schedule Bilateral Diagnostic C4-C5-C6 MBB with local and fluoroscopy for potential RFA or Sprint PNS trial if positive response to injections. Expectations, risks and benefits were reviewed. Patient is aware she will be contacted to schedule this procedure. Follow up with Hand Specialist as planned for pending carpal tunnel release procedure. Continue Tylenol, NSAIDs, heat therapy, avoid pain producing activities. Discussed importance of good posture, adequate hydration, gentle stretching exercises, sleep hygiene, and well-balanced diet. All questions and concerns have been answered and patient agreed with the treatment plan. Follow-up after injections and sooner as needed. Coding Level of Care Code Est Pt Level 4 (96692) Complex EM visit Add On G2211 Diagnoses Neural foraminal stenosis of cervical spine M48.02 Cervical spondylosis M47.812 Bilateral carpal tunnel syndrome G56.03 Fibromyalgia M79.7 Carpal tunnel syndrome of right wrist G56.01 Carpal tunnel syndrome of left wrist G56.02
[2024-01-13 13:23] VITALS: BP 140/66; PULSE 88; RESP 16; O2SAT 97; BMI 28.2
== END 2024-01-13 14:07 | disposition home or self-care (01) ==
LOC: HO.PMC 13:14
PROVIDERS: PCP Family Medicine; Visit Provider Nurse Practitioner Family
DX: M48.02 Spinal stenosis, cervical region (principal); M47.812 Spondylosis without myelopathy or radiculopathy, cervical region; G56.03 Carpal tunnel syndrome, bilateral upper limbs; M79.7 Fibromyalgia
CPT/HCPCS: 99214; G2211

== ENCOUNTER → 2024-01-13 13:14 | Outpatient (BNVA) | payer MEDICARE, MEDICAID, SELFPAY | PROVIDERS: PCP Family Medicine; Visit Provider Nurse Practitioner Family | DX: M48.02 Spinal stenosis, cervical region (principal); M47.812 Spondylosis without myelopathy or radiculopathy, cervical region; M79.7 Fibromyalgia; G56.03 Carpal tunnel syndrome, bilateral upper limbs | CPT/HCPCS: 99212 ==

== ENCOUNTER 2024-01-25 12:59 | Outpatient (REF) | payer MEDICARE, MEDICAID, SELFPAY ==
[2024-01-25 16:16] LABS: MANUAL DIFF FLAG NO
[2024-01-25 16:19] LABS: Appearance Urine Clear; Color Urine Yellow; Glucose Urine UA Negative (Negative); Leukocyte Esterase Urine Negative (Negative); Nitrite Urine Negative (Negative); Specific Gravity - Urine 1.015 (1.005-1.025); Urine Blood Negative (Negative); Urine Ketones Negative (Negative); Urine Protein Negative (Neg-Trace)
[2024-01-25 16:22] LABS: Bacteria Urine None Seen (None Seen); Hyaline Casts Urine 0-2 /LPF (0-2); RBC Urine 0-2 /HPF (0-2); Squamous Epithelial Cell Urine 0-2 /HPF (0-2); WBC Urine 0-5 /HPF (0-5)
[2024-01-25 16:36] LABS: Basophils Percent Auto 0.4 % (0-2); Eosinophils Absolute Auto 0.1 X10*3/uL (0.0-0.4); Eosinophils Percent Auto 1.5 % (0-4); Hematocrit 44.3 % (37.0-47.0); Hemoglobin 14.5 g/dl (12.0-16.0); Imm Gran Abs Auto 0.02 X10*3/uL (0.00-0.03); Imm Gran Pct Auto 0.3 % (0.0-0.4); Lymphocytes Absolute Auto 2.6 X10*3/uL (1.2-4.9); Lymphocytes Percent Auto 38.2 % (20-40); Mean Corpuscular HGB Conc 32.7 g/dl (31.0-35.0); Mean Corpuscular Volume 91.7 fL (80.0-98.0); Mean Platelet Volume 10.5 fL (9.4-12.3); Monocytes Absolute Auto 0.5 X10*3/uL (0.1-1.2); Monocytes Percent Auto 7.6 % (2-11); Neutrophils Absolute Auto 3.5 x10*3/uL (2.0-8.3); Platelet Count 300 X10*3/uL (160-400); Red Blood Count 4.83 X10*6/uL (4.20-5.50); Red Cell Distribution Width 12.5 % (11.0-16.0); White Blood Count 6.7 X10*3/uL (4.8-10.8)
[2024-01-25 16:53] LABS: Alanine Aminotransferase 17 U/L (0-31); Albumin Level 3.8 g/dL (3.5-5.0); Alkaline Phosphatase 82 U/L (39-117); Anion Gap 13 (12-20); Aspartate Amino Transferase 23 U/L (5-31); Bilirubin Total 0.3 mg/dL (0.0-1.0); Blood Urea Nitrogen 15 mg/dL (9-16); Calcium 9.6 mg/dL (8.4-10.2); Carbon Dioxide 26 mmol/L (22-29); Chloride 108 mmol/L (96-108); Estimated Glomerular Filt Rate > 60; Glucose Random 88 mg/dL (60-115); Potassium 4.6 mmol/L (3.3-5.1); Sodium 142 mmol/L (135-145); Total Protein 7.2 g/dL (6.5-8.0)
[2024-01-27 08:58] LABS: HIV RNA PCR Qn Copies 390 copies/mL (NOT DETECTED); HIV RNA PCR Qn Log Copies 2.59 (NOT DETECTED)
[2024-01-28 04:58] LABS: TS Negative Control Passed; TS Panel A 0; TS Panel B 0; TS Positive Control Passed; TSpotTB Negative (Negative)
[2024-01-30 22:44] LABS: Absolute CD3 Count 1854 cells/uL (840-3060); Absolute CD4 Count 1332 cells/uL (490-1740); Absolute CD8 Count 671 cells/uL (180-1170); Absolute Lymphocytes 2577 cells/uL (850-3900); CD4 CD8 Ratio 1.98 (0.86-5.00); Percent CD3 Cells 72 % (57-85); Percent CD4 Cells 52 % (30-61); Percent CD8 Cells 26 % (12-42)
== END 2024-01-25 13:00 | disposition home or self-care (01) ==
LOC: HO.HHCL 12:59
PROVIDERS: Visit Provider Internal Medicine
DX: Z21 Asymptomatic human immunodeficiency virus [HIV] infection status (principal)
CPT/HCPCS: 36415; 80053; 81001; 85025; 86359; 86360; 86481; 87536

== ENCOUNTER 2024-03-01 11:18 | Outpatient (REF) | payer MEDICARE, MEDICAID, SELFPAY ==
[2024-03-01 13:43] LABS: Estimated Glomerular Filt Rate > 60
[2024-03-02 13:49] LABS: HIV RNA PCR Qn Copies 41 copies/mL (NOT DETECTED); HIV RNA PCR Qn Log Copies 1.61 (NOT DETECTED)
== END 2024-03-01 11:19 | disposition home or self-care (01) ==
LOC: HO.HHCL 11:18
PROVIDERS: Nurse Practitioner Family; Visit Provider Internal Medicine
DX: Z21 Asymptomatic human immunodeficiency virus [HIV] infection status (principal); M81.0 Age-related osteoporosis without current pathological fracture
CPT/HCPCS: 36415; 82565; 87536

== ENCOUNTER 2024-03-20 13:19 | Inpatient (IN) | payer MEDICARE, MEDICAID, SELFPAY ==
--- NOTE | ~2024-03-20 | CT_ITS ---
EXAMINATION: CT CERVICAL SPINE WITHOUT CONTRAST CLINICAL INFORMATION: Chronic posterior neck pain. COMPARISON: No prior CT. Correlated to MRI dated December 24, 2023. TECHNIQUE: Contiguous axial images through the cervical spine using 3 mm collimation with bone and soft tissue algorithm. Sagittal and coronal reformatted images acquired. This CT examination was performed using dose optimization techniques as appropriate, variously including the following: *Automated exposure control *Adjustment of mA and/or kV according to patient size (this includes techniques or standardized protocols for targeted exams where dose is matched to indication/reason for exam; i.e. extremities or head) *Use of iterative reconstruction technique. Total dose: 302 mGy centimeter FINDINGS: Craniocervical junction is intact. C1 is intact. C2 is intact. C3 is intact. C4 is intact. C5 is intact. C6 is intact. C7 is intact. Grade 1 retrolisthesis C5-6 likely degenerative. Marginal osteophyte formation, endplate sclerosis, subchondral cyst formation and decreased intervertebral disc height at C5-6 and C6-7 levels. Reverse curvature apex at C5. Indications of the nuchal ligament at C4-5. Dystrophic calcification at the posterior aspect of the posterior spinous processes of C7. Facet joint hypertrophy bilaterally, C5-6 and C6-7 levels. No gross prevertebral compartment hematoma. Multiple punctate calcifications in the palatine tonsils and the left vallecula. CT/CT cervical spine wo IV con IMPRESSION: Multilevel spondylosis, C5-6 and C6-7 resulting in grade 1 retrolisthesis C5-6 without acute fracture. Tonsillith, bilateral palatine tonsils. Fleischner guidelines were followed. Electronically signed by: Marco Antonio Delgado MD 03/20/2024 02:19 PM [facility]
--- NOTE | ~2024-03-20 | MR_ITS ---
EXAMINATION: MR BRAIN WITHOUT CONTRAST CLINICAL INFORMATION: Dizziness. Vertigo-like. Concerning acute stroke. COMPARISON: Correlated to CT brain and CT angiogram head dated March 20, 2024. TECHNIQUE: MRI of the brain was obtained using routine sequences without contrast. FINDINGS: No restricted diffusion. No acute intracranial hemorrhage, mass effect, midline shift, hydrocephalus or herniation. Lord-white matter differentiation is normal. Bilateral, multifocal, patchy and punctate, deep periventricular white matter hyperintense T2 FLAIR signal abnormality involving centrum semiovale and ramos radiata. Old lacunar infarcts in the basal ganglia and ramos radiata. Posterior cranial fossa contents demonstrated no acute intracranial hemorrhage or mass effect. Flow-void signal within the main cerebral vessels is normal. Sellar/suprasellar region is normal. Craniocervical junction is normal. Midline structures are normal. There is a questionable 7 mm intra-axial isointense T1 and T2 FLAIR round signal within the medial aspect of the left precentral gyrus. MR/MR head/brain wo con IMPRESSION: No acute stroke/nonhemorrhagic ischemia. Small vessel occlusive disease. Questionable 7 mm intra-axial lesion, medial left precentral gyrus. Recommend IV contrast enhanced MRI brain.. Electronically signed by: Marco Antonio Delgado MD 03/22/2024 09:59 AM EST
--- NOTE | ~2024-03-20 | CT_ITS ---
CLINICAL HISTORY: YUSUF, blurred visio, gait ataxia r o clot, aneurysm CT angiography head and neck with contrast. 3D Postprocessing. Comparison: None Findings: Aortic arch and cervical great vessels are patent. Intracranial arteries are patent. No aneurysm, dissection, or occlusion. Mild narrowing of the mid left posterior cerebral artery. No abnormal intracranial enhancement. The visualized thyroid gland is unremarkable. No cervical mass or fluid collection. Lung apices clear. No acute fracture. IMPRESSION: Patent head and neck CTA. This document has been electronically signed by: Lazarus Vega MD, PHD on 03/21/2024 00:28:56
--- NOTE | ~2024-03-20 | MR_ITS ---
EXAMINATION: MR BRAIN WITH CONTRAST CLINICAL INFORMATION: Dizziness, vertigo. Rule out posterior stroke COMPARISON: MRI brain performed earlier on 10/31/2024. TECHNIQUE: MRI of the brain was obtained using routine sequences with contrast. Intravenous contrast: 7 mL of gadavist was injected FINDINGS: The area of concern along the left frontal precentral gyrus exhibits no focal enhancement, mass effect or edema. There is no intra-axial or extra-axial mass or enhancement seen. Normal enhancement of major vascular structures are seen. MR/MR head/brain w con IMPRESSION: No abnormal enhancement seen in the intraparenchymal and extraparenchymal soft tissues. Especially no focal abnormal exams enhancement seen in the left precentral frontal gyrus. Electronically signed by: Yeyo Collado MD 03/22/2024 04:15 PM [facility]
--- NOTE | ~2024-03-20 | CT_ITS ---
EXAMINATION: CT HEAD WITHOUT CONTRAST CLINICAL INFORMATION: Headache dizziness blurry vision since 03/10 COMPARISON: CT brain dated 06/11/2018. TECHNIQUE: Contiguous axial imaging was performed from the skull base to vertex without intravenous administration of contrast. This CT examination was performed using dose optimization techniques as appropriate, variously including the following: *Automated exposure control *Adjustment of mA and/or kV according to patient size (this includes techniques or standardized protocols for targeted exams where dose is matched to indication/reason for exam; i.e. extremities or head) *Use of iterative reconstruction technique DLP: 646 mGy-cm FINDINGS: Bony calvarium is intact. Skull base is intact. No acute intracranial hemorrhage, mass effect, midline shift, hydrocephalus or herniation. Lord-white matter differentiation is normal. Posterior cranial fossa contents demonstrated no gross hemorrhage or mass effect. Sellar/suprasellar region demonstrated no gross masses. Calcified plaques in the cavernous segments both ICA. No air-fluid levels in the included paranasal sinuses. Tympanic cavities and mastoid cells are aerated. No lytic or blastic lesions. No gross masses in the intraconal or extraconal compartments of the orbits.. CT/CT head/brain wo IV con IMPRESSION: No acute intracranial hemorrhage or acute brain abnormality by CT. Electronically signed by: Marco Antonio Delgado MD 03/20/2024 02:12 PM [facility]
[2024-03-20 13:26] VITALS: BP 171/89; PULSE 115; RESP 18; TEMP 36.6; O2SAT 95; BMI 28.4
--- NOTE | 2024-03-20 13:34 | ECG_ITS ---
Test Reason : DIZZINESS Blood Pressure : */* mmHG Vent. Rate : 98 BPM Atrial Rate : 98 BPM P-R Int : 156 ms QRS Dur : 78 ms QT Int : 356 ms P-R-T Axes : 55 0 24 degrees QTcB Int : 454 ms Normal sinus rhythm Possible Left atrial enlargement Inferior infarct , age undetermined Abnormal ECG When compared with ECG of 07-Sep-2019 14:02, No significant changes seen Referred By: Alvarez Parker Electronically Signed By: MERLIN DIMAS
--- NOTE | 2024-03-20 13:36 | ED.GENADULT ---
HPI - General Adult General Chief complaint: General Medical Stated complaint: Blurry vision, Headache, Weakness Time Seen by Provider: 03/20/24 19:47 Source: patient Mode of arrival: ambulatory Limitations: language barrier (Malawian speaking only [facility] assistant child care teacher used) History of Present Illness ED Provider: Dr. Lorenzo Dubon HPI narrative: 68-year-old female with a history of hypertension, fibromyalgia, HIV, chronic neck pain who presents emergency department for evaluation of dizziness, feeling off balance, blurred vision x2 days and neck pain times months. Patient states that her problems started on 03/13/2024. She states that time she was having pain on the right side of her head, face, neck and right shoulder. Says she was having difficulty opening her mouth and chewing. She went to see your her dentist and was told that she had a tooth infection on the right and was started on amoxicillin. Patient states that after taking the amoxicillin for proximally 4 days she started to feel worse. She went to the [facility] and was advised to stop taking antibiotics. Two days she was felt dizzy and balance. She states she was having difficulty walking secondary to being off balance. She was also complaining of a right-sided headache and blurred vision. She states that the blurred vision is intermittent and seems to come on with the dizziness. Related Data Home Medications ?Medication ?Instructions ?Recorded ?Confirmed bictegravir 50 mg-emtricitabine 1 tab PO DAILY 01/24/20 03/20/24 200 mg-tenofovir alafenam 25 mg tablet (Biktarvy) albuterol sulfate 90 mcg/actuation 2 puff inhalation Q4-6H PRN 01/31/20 03/20/24 aerosol inhaler Shortness Of Breath Or Wheezing omeprazole 40 mg capsule,delayed 40 mg PO DAILY 10/24/23 03/20/24 release atorvastatin 20 mg tablet 20 mg PO DAILY 03/20/24 03/20/24 carvedilol 3.125 mg tablet 3.125 mg PO BID 03/20/24 03/20/24 chlorhexidine gluconate 0.12 % 15 ml PO BID 03/20/24 03/20/24 mouthwash cholecalciferol (vitamin D3) 25 25 mcg PO DAILY 03/20/24 03/20/24 mcg (1,000 unit) tablet losartan 25 mg tablet 25 mg PO DAILY 03/20/24 03/20/24 ondansetron 4 mg disintegrating 4 mg PO Q8H PRN Nausea And Vomiting 03/20/24 03/20/24 tablet Allergies Allergy/AdvReac Type Severity Reaction Status Date / Time No Known Allergies Allergy Verified 03/20/24 13:33 Review of Systems Review of Systems: Yes all other systems are reviewed and are negative [facility] Past Medical History Medical History Right shoulder pain Benign neoplastic disease Myositis Cyst of Bartholin's gland duct Renal calculi Gastritis Anxiety Hypertension HIV (human immunodeficiency virus infection) Depression GERD (gastroesophageal reflux disease) Osteoporosis Surgical History Hx of tubal ligation Hx of cholecystectomy Hx of colonoscopy Hx of appendectomy Social History Social History Household Members: None Housing: Apartment Do you presently have visiting nurse or other home services: No Alcohol intake: never Patient Tobacco Use Status: Former Tobacco user Years Smoked: quit 11 years ago Second Hand Smoke Exposure: No Current occupational status: disabled Current occupation: rt handed Physical Exam ED Vital Signs: Vital Signs - 24 hr 03/20/24 13:26 03/20/24 19:32 03/20/24 21:01 Temperature 97.8 F 98.3 F Pulse Rate 115 H 88 76 Respiratory Rate 18 18 Blood Pressure 171/89 H 164/66 H 162/77 H Pulse Oximetry 95 98 Oxygen Delivery Method Room Air Room Air 03/20/24 21:03 03/20/24 21:04 03/20/24 23:14 Temperature 97.8 F Pulse Rate 81 84 83 Respiratory Rate 16 Blood Pressure 170/79 H 160/79 H 160/71 H Pulse Oximetry 96 Oxygen Delivery Method Room Air 03/21/24 01:14 Temperature 97.8 F Pulse Rate 83 Respiratory Rate 16 Blood Pressure 151/71 H Pulse Oximetry 96 Oxygen Delivery Method Room Air BMI result Body Mass Index 28.4 Vital signs revealed an elevated blood pressure of 171/80 Exam: General: Awake, alert in no distress Head: Normocephalic, atraumatic no tenderness palpation over the temporal areas of her scalp EENT: PERRL, Lids normal, sclera normal, conjunctiva normal, nose normal , ears normal, throat without erythema or exudates Neck: Supple, no adenopathy, patient does have tenderness palpation of her right trapezius muscle and right shoulder with spasm of the right trapezius muscle Lung: breath sounds symmetric, no wheezing, rales or rhonchi Chest: symmetric movement, nontender Heart: regular rate and rhythm, normal S1, S2 no murmurs or rubs Abdomen: soft, non-tender, nondistended, normal bowel sounds Back: no vertebral tenderness, no CVAT Extremities: no deformities, moves all extremities symmetrically Neuro: General Awake, alert, oriented, normal speech Cranial nerves: cranial nerves intact Strength: Patient was able to hold all extremities up against gravity, strain is diminished but symmetric bilaterally Cerebellar: Good [id number]-finger, normal rapid finger movement, normal heel to lie[place]rman. Patient's gait is abnormal and ataxic, she had to hold onto the bed and wall in order to walk Psych: Pleasant, cooperative NIH Stroke Scale Internal: Initial- Upon Arrival Level of Consciousness: Alert Level of Consciousness Questions: Answers both questions correctly Level of Consciousness Commands: Performs both tasks correctly Best Gaze: Normal Visual: No visual loss Facial Palsy: Normal Motor Arm (Right): No drift Motor Arm (Left): No drift Motor Leg (Right): No drift Motor Leg (Left): No drift Limb Ataxia: Absent Sensory: Normal Best Language: No aphasia Dysarthia: Normal Extinction and Inattention: No abnormality Score: 0 Course Course Course Narrative: RME: 68-year-old female presents to ED for headache, dizziness described as a room spinning and blurry vision since March 10 of last year. Patient denies any head trauma. Patient denied any slurred speech, facial droop, loss of vision or paralysis of extremities. NIH score is 0. Labs imaging EKG ordered. Medications Administered Generic Name Dose Route Start Last Admin Trade Name Freq PRN Reason Stop Dose Admin Atorvastatin Calcium 20 mg 03/21/24 09:00 03/21/24 07:36 Atorvastatin Calcium 20 Mg Tablet PO 20 mg DAILY RADHA Administration Bictegravir/Emtricitabine/Tenofovir 1 tab 03/21/24 09:00 03/21/24 08:32 Bictegrav/Emtricit/Tenofov Ala Tablet PO 1 tab DAILY RADHA Administration Calcium Carbonate 750 mg 03/21/24 01:40 03/21/24 07:36 Calcium Carbonate 750 Mg Tab.Chew PO 750 mg Q4H PRN Administration Heartburn Carvedilol 3.125 mg 03/21/24 09:00 03/21/24 07:40 Carvedilol 3.125 Mg Tablet PO Not Given BID [facility] Protocol Losartan Potassium 25 mg 03/21/24 09:00 03/21/24 07:37 Losartan Potassium 25 Mg Tablet PO 25 mg DAILY RADHA Administration Protocol Meclizine HCl 12.5 mg 03/21/24 09:00 03/21/24 07:37 Meclizine Hcl 12.5 Mg Tablet PO 12.5 mg TID [facility] Administration Omeprazole 40 mg 03/21/24 06:30 03/21/24 06:34 Omeprazole 40 Mg Capsule.Dr PO Not Given DAILY@0630 [facility] Sodium Chloride 3 ml 03/21/24 08:00 03/21/24 07:37 0.9 % Sodium Chloride Flush 3 Ml Syringe IVFLUSH 3 ml QSHIFT [facility] Administration Vitamin D 25 mcg 03/21/24 09:00 03/21/24 07:36 Cholecalciferol (Vitamin D3) 25 Mcg Tablet PO 25 mcg DAILY [facility] Administration Discontinued Medications Generic Name Dose Route Start Last Admin Trade Name Freq PRN Reason Stop Dose Admin Acetaminophen 975 mg 03/21/24 01:39 03/21/24 01:47 Acetaminophen 325 Mg Tablet PO 03/21/24 01:40 975 mg ONCE STA Administration Cyclobenzaprine HCl 5 mg 03/21/24 01:42 03/21/24 02:41 Cyclobenzaprine Hcl 5 Mg Tablet PO 03/21/24 01:43 5 mg ONCE STA Administration Iohexol 70 ml 03/20/24 23:35 03/20/24 23:36 Iohexol 350 Mg/Ml 100 Ml Infus..Btl IV 03/20/24 23:36 70 ml ONCE ONE Administration Ketorolac Tromethamine 15 mg 03/21/24 01:39 03/21/24 01:47 Ketorolac Tromethamine 15 Mg/Ml Vial IVPUSH 03/21/24 01:40 15 mg ONCE STA Administration Meclizine HCl 50 mg 03/21/24 01:39 03/21/24 01:47 Meclizine Hcl 25 Mg Tablet PO 01/08/25 01:40 50 mg ONCE STA Administration Medical Decision Making Medical Decision Making [facility] Narrative: 68-year-old female with a history of hypertension, fibromyalgia, HIV, chronic neck pain who presents emergency department for evaluation of dizziness, feeling off balance, blurred vision x2 days and neck pain times months. Patient's vital signs revealed an elevated blood pressure of 171/89 and elevated heart rate of 115. Patient had no tenderness palpation over her temporal region of her scalp. She did have tenderness and spasm of the right trapezius muscle and tenderness palpation of her right shoulder. Neurologic exam was concerning for gait ataxia. Differential diagnosis: ?Includes but is not limited to cerebellar stroke, vertigo, giant cell arteritis, electrolyte abnormalities, Course: 21:05 My independent interpretation patient's laboratory evaluation is as follows: CBC was normal. CMP was normal. Troponin was below detectable limits. CRP was normal at 0.21. Given the normal CRP . ESR is pending collection I doubt the patient has giant cell arteritis it is she was no temporal artery tenderness.CT scan of the head without contrast revealed no acute findings. CT scan of the neck was consistent with spondylosis/DJD. The patient's ataxia and blurred vision in his concerning for possible cerebellar stroke and the patient will need admission for further evaluation. I did discuss the patient's presentation over tiger text with the covering hospitalist, Dr. Garnica. She requested a CT angiogram of the head and neck for further evaluation. Also she was concerned about the patient's blurred vision. The patient told me that the blurred vision is associated with her dizziness. I did order a visual acuity on the patient. Patient was admission will be put on hold until these studies are available care. Therefore at the end of my shift, the patient's care was turned over to my colleague, Dr. Chandler. Admission/Observation Consideration of admission/observation: Escalation of care including admission/observation considered (Yes) Consult Healthcare Provider Management of the patient was discussed with: Hospitalist (Dr. Garnica) Lab Data [facility] Lab Attestation statement: I reviewed the patient's lab results. 03/21/24 04:34 03/21/24 04:34 Labs: Lab Results 03/20/24 03/20/24 Range/Units 14:42 22:34 WBC 7.2 (4.8-10.8) X10*3/uL RBC 4.90 (4.20-5.50) X10*6/uL Hgb 15.0 (12.0-16.0) g/dl Hct 44.4 (37.0-47.0) % MCV 90.6 (80.0-98.0) fL MCH 30.6 (27.0-33.0) pg MCHC 33.8 (31.0-35.0) g/dl RDW 12.3 (11.0-16.0) % Plt Count 303 (160-400) X10*3/uL MPV 9.7 (9.4-12.3) fL Immature Gran % (Auto) 0.3 (0.0-0.4) % Neut % (Auto) 57.6 (45-73) % Lymph % (Auto) 34.6 (20-40) % [place] % (Auto) 6.4 (2-11) % Eos % (Auto) 0.8 (0-4) % Baso % (Auto) 0.3 (0-2) % Lymph # (Auto) 2.5 (1.2-4.9) X10*3/uL [place] # (Auto) 0.5 (0.1-1.2) X10*3/uL Eos # (Auto) 0.1 (0.0-0.4) X10*3/uL Baso # (Auto) 0.0 (0.0-0.2) X10*3/uL Abs Immat Gran (auto) 0.02 (0.00-0.03) X10*3/uL Absolute Neuts (auto) 4.1 (2.0-8.3) x10*3/uL Absolute Nucleated RBC 0.000 (0.0-0.012) X10*3/uL Nucleated RBC % (auto) 0.0 (0.0-0.2) /100WBC ESR 7 (0-20) MM/HR PT 10.8 L (10.9-12.4) SEC INR 0.9 (0.9-1.1) APTT 32.6 (26.0-36.8) SEC Sodium 144 (135-145) mmol/L Potassium 4.0 (3.3-5.1) mmol/L Chloride 109 H (96-108) mmol/L Carbon Dioxide 28 (22-29) mmol/L Anion Gap 11 L (12-20) BUN 17 H (9-16) mg/dL Creatinine 0.76 (0.5-1.4) mg/dL Estim Creat Clear Calc 63.4 Estimated GFR > 60 Random Glucose 98 (60-115) mg/dL Calcium 9.7 (8.4-10.2) mg/dL Magnesium 2.2 (1.6-2.6) mg/dL Total Bilirubin 0.3 (0.0-1.0) mg/dL AST 24 (5-31) U/L ALT 20 (0-31) U/L Alkaline Phosphatase 94 (39-117) U/L Troponin I High Sens < 2.7 (<3.5-17.0) ng/L C-Reactive Protein 0.21 (< or = 0.50) mg/dL Total Protein 7.6 (6.5-8.0) g/dL Albumin 4.2 (3.5-5.0) g/dL Urine Color Yellow Urine Appearance Clear Urine pH 5.5 (5.0-9.0) Ur Specific [place] 1.020 (1.005-1.025) Urine Protein Negative (Neg-Trace) mg/dL Urine Glucose (UA) Negative (Negative) mg/dL Urine Ketones Trace (Negative) mg/dL Urine Blood Negative (Negative) Urine Nitrite Negative (Negative) Ur Leukocyte Esterase Negative (Negative) Urine RBC 0-2 (0-2) /HPF Urine WBC 0-5 (0-5) /HPF Ur Squamous Epith Cells 0-2 (0-2) /HPF Urine Bacteria None Seen (None Seen) Hyaline Casts 0-2 (0-2) /LPF Radiology Impression Discussion of test interpretation with radiology: I have reviewed the radiologist's reading. Radiologist Impression: CT cervical spine wo IV con IMPRESSION: Multilevel spondylosis, C5-6 and C6-7 resulting in grade 1 retrolisthesis C5-6 without acute fracture. Tonsillith, bilateral palatine tonsils. Fleischner guidelines were followed. Electronically signed by: Marco Antonio Delgado MD 03/20/2024 02:[address] head/brain wo IV con IMPRESSION: No acute intracranial hemorrhage or acute brain abnormality by CT. Electronically signed by: Marco Antonio Delgado MD 03/20/2024 02:12 PM External Record Review External record reviewed: Office record Chronic Conditions Patient?s care impacted by: Hypertension and Other (HIV) Discharge Plan Discharge Clinical Impression: Ataxia, Blurred vision Patient Disposition: Admitted As Inpatient Interventions: Admission Worksheet (ED) Last Done: 03/21/24 04:55 Discharge Date/Time: 03/21/24 06:44
[2024-03-20 14:48] LABS: MANUAL DIFF FLAG NO
[2024-03-20 14:49] LABS: Basophils Percent Auto 0.3 % (0-2); Eosinophils Absolute Auto 0.1 X10*3/uL (0.0-0.4); Eosinophils Percent Auto 0.8 % (0-4); Hematocrit 44.4 % (37.0-47.0); Imm Gran Abs Auto 0.02 X10*3/uL (0.00-0.03); Imm Gran Pct Auto 0.3 % (0.0-0.4); Lymphocytes Absolute Auto 2.5 X10*3/uL (1.2-4.9); Lymphocytes Percent Auto 34.6 % (20-40); Mean Corpuscular HGB Conc 33.8 g/dl (31.0-35.0); Mean Corpuscular Hemoglobin 30.6 pg (27.0-33.0); Mean Corpuscular Volume 90.6 fL (80.0-98.0); Mean Platelet Volume 9.7 fL (9.4-12.3); Monocytes Absolute Auto 0.5 X10*3/uL (0.1-1.2); Monocytes Percent Auto 6.4 % (2-11); Neutrophils Absolute Auto 4.1 x10*3/uL (2.0-8.3); Neutrophils Percent Auto 57.6 % (45-73); Platelet Count 303 X10*3/uL (160-400); Red Cell Distribution Width 12.3 % (11.0-16.0); White Blood Count 7.2 X10*3/uL (4.8-10.8)
[2024-03-20 14:56] LABS: INTERNATIONAL NORM RATIO 0.9 (0.9-1.1); Prothrombin Time 10.8 SEC (10.9-12.4)
[2024-03-20 14:58] LABS: Partial Thromboplastin Time 32.6 SEC (26.0-36.8)
[2024-03-20 15:27] LABS: Alanine Aminotransferase 20 U/L (0-31); Albumin Level 4.2 g/dL (3.5-5.0); Alkaline Phosphatase 94 U/L (39-117); Anion Gap 11 (12-20); Aspartate Amino Transferase 24 U/L (5-31); Bilirubin Total 0.3 mg/dL (0.0-1.0); Blood Urea Nitrogen 17 mg/dL (9-16); Calcium 9.7 mg/dL (8.4-10.2); Carbon Dioxide 28 mmol/L (22-29); Chloride 109 mmol/L (96-108); Creatinine Clr Calc Pharmacy 63.4; Estimated Glomerular Filt Rate > 60; Glucose Random 98 mg/dL (60-115); Magnesium 2.2 mg/dL (1.6-2.6); Sodium 144 mmol/L (135-145); Total Protein 7.6 g/dL (6.5-8.0)
[2024-03-20 15:28] LABS: Troponin-I High Sensitivity < 2.7 ng/L (<3.5-17.0)
[2024-03-20 19:32] VITALS: BP 164/66; PULSE 88; RESP 18; TEMP 36.8; O2SAT 98
[2024-03-20 20:31] LABS: C Reactive Protein 0.21 mg/dL (< or = 0.50)
[2024-03-20 21:01] VITALS: BP 162/77; PULSE 76
[2024-03-20 21:03] VITALS: BP 170/79; PULSE 81
[2024-03-20 21:04] VITALS: BP 160/79; PULSE 84
--- NOTE | 2024-03-20 21:53 | PHA.MEDREC ---
Pharmacy Consult ? Medication Reconciliation Pharmacy has completed the medication reconciliation.
[2024-03-20 22:41] LABS: Appearance Urine Clear; Color Urine Yellow; Glucose Urine UA Negative (Negative); Leukocyte Esterase Urine Negative (Negative); Nitrite Urine Negative (Negative); PH 5.5 (5.0-9.0); Urine Blood Negative (Negative); Urine Ketones Trace mg/dL (Negative); Urine Protein Negative (Neg-Trace)
[2024-03-20 22:46] LABS: Bacteria Urine None Seen (None Seen); Hyaline Casts Urine 0-2 /LPF (0-2); RBC Urine 0-2 /HPF (0-2); Squamous Epithelial Cell Urine 0-2 /HPF (0-2); WBC Urine 0-5 /HPF (0-5)
[2024-03-20 23:14] VITALS: BP 160/71; PULSE 83; RESP 16; TEMP 36.6; O2SAT 96
[2024-03-20 23:17] LABS: Erythrocyte Sedimentation Rate 7 MM/HR (0-20)
[2024-03-20] MEDS: iohexoL 350 MG/ML 100 ML INFUS..BTL 70 ML IV (23:36)
[2024-03-21] VITALS (11 sets, daily range): BP systolic 120–151; BP diastolic 57–71; PULSE 70–104; RESP 14–18; TEMP 36–36.7; O2SAT 93–98; BMI 28.4
--- NOTE | 2024-03-21 01:43 | P.HPHOSP_ITS ---
History of Present Illness Date of Service: 03/21/24 Attending physician on admission: Jonel Can Chief Complaint: Headache and dizziness Ana Sparks is a 68 years old woman with past medical history significant for hyperlipidemia, hypertension and HIV presents to the emergency department complaining of one-week history of severe posterior neck and shoulder pain associated with dizziness (spinning sensation) upon changing of positions and loss of balance. She also reported some associated intermittent blurry vision and nausea without events of vomiting. She did not report fevers chills. She denied double vision, focal weakness, loss of consciousness, speech difficulty or palpitations. Patient mentioned that last week she developed toothache for which she was receiving treatment with antibiotics. The antibiotic was stopped because she was developing dizziness. She currently denied having toothache. Did not report any acute cardiopulmonary, gastrointestinal genitourinary symptoms. She denied tobacco smoking or alcohol abuse. She denied history of strokes or diabetes. In the ED, she was found to have hypertension (max 171/89). Last blood pressure is 151/71. Blood workup including CBC, CRP and CMP are unremarkable. Head CT scan without contrast showed no acute intracranial abnormality. Head and neck CTA showed patent vessels. ECG showed normal sinus rhythm with a heart rate of 98 bpm w/o ischemic changes. ED tx: None. Review of Systems 2 Review of Systems: All 12 systems were reviewed and normal except as noted in HPI. [facility] Medical History Right shoulder pain Benign neoplastic disease Myositis Cyst of Bartholin's gland duct Renal calculi Gastritis Anxiety Hypertension HIV (human immunodeficiency virus infection) Depression GERD (gastroesophageal reflux disease) Osteoporosis Surgical History Hx of tubal ligation Hx of cholecystectomy Hx of colonoscopy Hx of appendectomy Social History Alcohol intake: never Patient Tobacco Use Status: Former Tobacco user Years Smoked: quit 11 years ago Smoked in Last 30 Days: No Use of substances other than those prescribed or required for medical reasons: No Advance Directives: No Advance Directives Information Provided: Yes Current occupational status: disabled Current occupation: rt handed Meds Allergies Allergy/AdvReac Type Severity Reaction Status Date / Time No Known Allergies Allergy Verified 03/20/24 13:33 Active Medications: Current Medications Acetaminophen (Acetaminophen 325 Mg Tablet) 975 mg PO Q6H PRN PRN Reason: Pain, Mild 1-3,fever,headache Calcium Carbonate (Calcium Carbonate 750 Mg Tab.Chew) 750 mg PO Q4H PRN PRN Reason: Heartburn Magnesium Hydroxide (Milk Of Magnesia 30 Ml Oral.Susp) 30 ml PO DAILY PRN PRN Reason: Constipation Melatonin (Melatonin 3 Mg Tablet) 6 mg PO BEDTIME PRN PRN Reason: Insomnia Ondansetron HCl (Ondansetron Hcl 4 Mg/2 Ml Vial) 4 mg IVPUSH Q8H PRN PRN Reason: Nausea and Vomiting Sodium Chloride (0.9 % Sodium Chloride Flush 3 Ml Syringe) [facility]ations ?Medication ?Instructions ?Recorded ?Confirmed ?Last Taken ?Type bictegravir 50 mg-emtricitabine 1 tab PO DAILY 01/24/20 03/20/24 Unknown History 200 mg-tenofovir alafenam 25 mg tablet (Biktarvy) albuterol sulfate 90 mcg/actuation 2 puff inhalation Q4-6H PRN 01/31/20 03/20/24 Unknown History aerosol inhaler Shortness Of Breath Or Wheezing omeprazole 40 mg capsule,delayed 40 mg PO DAILY 10/24/23 03/20/24 Unknown History release atorvastatin 20 mg tablet 20 mg PO DAILY 03/20/24 03/20/24 Unknown History carvedilol 3.125 mg tablet 3.125 mg PO BID 03/20/24 03/20/24 Unknown History chlorhexidine gluconate 0.12 % 15 ml PO BID 03/20/24 03/20/24 Unknown History mouthwash cholecalciferol (vitamin D3) 25 25 mcg PO DAILY 03/20/24 03/20/24 Unknown History mcg (1,000 unit) tablet losartan 25 mg tablet 25 mg PO DAILY 03/20/24 03/20/24 Unknown History ondansetron 4 mg disintegrating 4 mg PO Q8H PRN Nausea And Vomiting 03/20/24 03/20/24 Unknown History tablet Physical Exam 2 Vital Signs and Narrative: Vital Signs: Last Vital Signs Temp 97.8 F 03/21/24 01:14 Pulse 83 03/21/24 01:14 Resp 16 03/21/24 01:14 BP 151/71 H 03/21/24 01:14 Pulse Ox 96 03/21/24 01:14 O2 Del Method Room Air 03/21/24 01:14 BMI result Body Mass Index 28.4 Constitutional - Awake and Alert, No apparent distress. Pleasant. Cooperative. HEENT - PERRL, EOMI Heart - RRR, No murmurs. Lungs - Normal lung expansion, Normal respiratory effort, No respiratory distress, CTA bilaterally Abdomen - NT / ND; +BS; No rebound or guarding Extremities - no calf tenderness bilaterally, no swelling Musculoskeletal - Normal inspection, normal ROM Skin - Warm/Dry Neurological - Alert & oriented x3, CN II-XII in tact, 5/5 strength BUE and BLE. No nystagmus. Psychological - Appropriate affect Results Labs 03/20/24 14:42 03/20/24 14:42 Labs: Laboratory Results - last 24 hr 03/20/24 03/20/24 14:42 22:34 MCV 90.6 MCH 30.6 MCHC 33.8 RDW 12.3 Plt Count 303 MPV 9.7 Immature Gran % (Auto) 0.3 Neut % (Auto) 57.6 Lymph % (Auto) 34.6 [place] % (Auto) 6.4 Eos % (Auto) 0.8 Baso % (Auto) 0.3 Lymph # (Auto) 2.5 [place] # (Auto) 0.5 Eos # (Auto) 0.1 Baso # (Auto) 0.0 Abs Immat Gran (auto) 0.02 Absolute Neuts (auto) 4.1 Absolute Nucleated RBC 0.000 Nucleated RBC % (auto) 0.0 ESR 7 PT 10.8 L INR 0.9 APTT 32.6 Anion Gap 11 L Estim Creat Clear Calc 63.4 Estimated GFR > 60 Random Glucose 98 Calcium 9.7 Magnesium 2.2 Total Bilirubin 0.3 AST 24 ALT 20 Alkaline Phosphatase 94 Troponin I High Sens < 2.7 C-Reactive Protein 0.21 Total Protein 7.6 Albumin 4.2 Urine Color Yellow Urine Appearance Clear Urine pH 5.5 Ur Specific [place] 1.020 Urine Protein Negative Urine Glucose (UA) Negative Urine Ketones Trace Urine Blood Negative Urine Nitrite Negative Ur Leukocyte Esterase Negative Urine RBC 0-2 Urine WBC 0-5 Ur Squamous Epith Cells 0-2 Urine Bacteria None Seen Hyaline Casts 0-2 Imaging Radiologist's Impressions: Impressions Cervical Spine CT 03/20/24 13:39 IMPRESSION: Multilevel spondylosis, C5-6 and C6-7 resulting in grade 1 retrolisthesis C5-6 without acute fracture. Tonsillith, bilateral palatine tonsils. Fleischner guidelines were followed. Electronically signed by: Marco Antonio Delgado MD 03/20/2024 02:19 PM EST RP Head CT 03/20/24 13:44 IMPRESSION: No acute intracranial hemorrhage or acute brain abnormality by CT. Electronically signed by: Marco Antonio Delgado MD 03/20/2024 02:12 PM EST RP Assessment and Plan (1) Vertigo: Status: Acute (2) Headache: Qualifiers: Headache type: unspecified Headache chronicity pattern: acute headache Intractability: not intractable Qualified Code(s): R51.9 - Headache, unspecified Status: Acute (3) Neck pain: Status: Acute Plan Ana Sparks is a 68 y/o presents with: * Dizziness, vertigo-like. Suspecting BPPV, occurs with head position changes. Rule out posterior stroke. Keep in observation under hospitalist service. Telemetry. Fall precautions. Brain MRI w/o contrast. Symptomatic therapy with Antivert. Check RSV/COVID/Flu. * Blurry vision, intermittent. Denied having blurry vision at this time. * Posterior headache + neck pain, likely muscular. Start treatment with Flexeril, Toradol IV and Tylenol. * Hyperlipidemia. Atorvastatin. * HIV. Continue Bictergrav/Emtricit/Tenofov. * Essential hypertension. Continue losartan and carvedilol. Quality Stroke Does the patient have a stroke diagnosis?: No VTE Prior VTE?: No VTE Risk Level:: Medical - moderate - high VTE Device Contraindication: Treatment Not Indicated VTE Drug Contraindication: Treatment Not Indicated
[2024-03-21] MEDS: Ketorolac Tromethamine 15 MG/ML VIAL IVPUSH (01:47)
[2024-03-21] MEDS: Meclizine HCl 25 MG TABLET 50 MG PO (01:47)
[2024-03-21] MEDS: Acetaminophen 325 MG TABLET 975 MG PO ×2 (01:47→20:16)
[2024-03-21] MEDS: Cyclobenzaprine HCl 5 MG TABLET PO (02:41)
[2024-03-21 03:36] LABS: Influenza A PCR NEGATIVE (Negative); Influenza B PCR NEGATIVE (Negative); Resp Syncy Virus RNA Qual PCR NEGATIVE (Negative); SARS COV2 PCR INHOUSE NEGATIVE (Negative)
[2024-03-21] MEDS: Calcium Carbonate 750 MG TAB.CHEW PO ×2 (03:59→07:36)
--- NOTE | 2024-03-21 04:39 | PC.NURSE ---
pt is 68 y/o female, norwegian speaking only, who presents from home with dizziness, neck pain, feeling off balance for a couple months and blurred vision x 2 days. Pt denies any head trauma, any slurred speech, facial droop, loss of vision or paralysis of extremities. NIH score is 0. Pt is a&o x4, able to make her needs known, and uses bedside commode with 1 assist. Pt has 20G IV in RAC and has been medicated per mar. pt being admitted for r/o stroke and MRI in the am. Imaging report: CT angiography head and neck with contrast. 3D Postprocessing. Findings: Aortic arch and cervical great vessels are patent. Intracranial arteries are patent. No aneurysm, dissection, or occlusion. Mild narrowing of the mid left posterior cerebral artery. No abnormal intracranial enhancement. The visualized thyroid gland is unremarkable. No cervical mass or fluid collection. Lung apices clear. No acute fracture. IMPRESSION: Patent head and neck CTA. CT cervical spine wo IV con IMPRESSION: Multilevel spondylosis, C5-6 and C6-7 resulting in grade 1 retrolisthesis C5-6 without acute fracture. Tonsillith, bilateral palatine tonsils. CT head/brain wo IV con IMPRESSION: No acute intracranial hemorrhage or acute brain abnormality by CT.
[2024-03-21 04:52] LABS: MANUAL DIFF FLAG NO
[2024-03-21 04:56] LABS: Basophils Percent Auto 0.2 % (0-2); Eosinophils Absolute Auto 0.1 X10*3/uL (0.0-0.4); Eosinophils Percent Auto 1.5 % (0-4); Hematocrit 40.9 % (37.0-47.0); Hemoglobin 13.8 g/dl (12.0-16.0); Imm Gran Abs Auto 0.02 X10*3/uL (0.00-0.03); Imm Gran Pct Auto 0.2 % (0.0-0.4); Lymphocytes Absolute Auto 3.2 X10*3/uL (1.2-4.9); Lymphocytes Percent Auto 35.9 % (20-40); Mean Corpuscular HGB Conc 33.7 g/dl (31.0-35.0); Mean Corpuscular Hemoglobin 30.2 pg (27.0-33.0); Mean Corpuscular Volume 89.5 fL (80.0-98.0); Monocytes Absolute Auto 0.7 X10*3/uL (0.1-1.2); Monocytes Percent Auto 7.6 % (2-11); Neutrophils Absolute Auto 4.8 x10*3/uL (2.0-8.3); Neutrophils Percent Auto 54.6 % (45-73); Platelet Count 270 X10*3/uL (160-400); Red Blood Count 4.57 X10*6/uL (4.20-5.50); Red Cell Distribution Width 12.2 % (11.0-16.0); White Blood Count 8.9 X10*3/uL (4.8-10.8)
[2024-03-21 05:12] LABS: Anion Gap 9 (12-20); Blood Urea Nitrogen 13 mg/dL (9-16); Calcium 8.7 mg/dL (8.4-10.2); Carbon Dioxide 24 mmol/L (22-29); Chloride 111 mmol/L (96-108); Creatinine Clr Calc Pharmacy 59.4; Estimated Glomerular Filt Rate > 60; Glucose Random 90 mg/dL (60-115); Potassium 3.3 mmol/L (3.3-5.1); Sodium 141 mmol/L (135-145)
[2024-03-21] MEDS: Cholecalciferol (Vitamin D3) 25 MCG TABLET PO (07:36)
[2024-03-21] MEDS: Atorvastatin Calcium 20 MG TABLET PO (07:36)
[2024-03-21] MEDS: Losartan Potassium 25 MG TABLET PO (07:37)
[2024-03-21] MEDS: 0.9 % Sodium Chloride Flush 3 ML SYRINGE IVFLUSH ×3 (07:37→20:16)
[2024-03-21] MEDS: Meclizine HCl 12.5 MG TABLET PO ×2 (07:37→20:16)
[2024-03-21] MEDS: Bictegrav/Emtricit/Tenofov Ala TABLET 1 TAB PO (08:32)
--- NOTE | 2024-03-21 15:21 | MHC.CM.PN ---
PATO 03/21/23, EMR PAMELA, PT W/DIZZINESS, CM MET W/PT VIA [employer], PT LIVES ALONE, REPORTS SHE IS FULLY INDEP AND DENIES USE OF DME/SERVICES, HOME NO SERVICES IS GOAL. PT VERIFIES PCP ON FILE IS CORRECT AND PT HAS BEEN EDUCATED ON AND DECLINES TO COMPLETE A HCP AT THIS TIME.
--- NOTE | 2024-03-21 15:43 | HO.PM.IMPN ---
Subjective Subjective Date of Service: 03/21/24 Interval History: dizziness /bppv Review of Systems symptoms seems to be improving Physical Exam Vital Signs: Vital Signs: Last Vital Signs Temp 97.8 F 03/21/24 15:14 Pulse 91 03/21/24 15:14 Resp 18 03/21/24 15:14 BP 137/62 03/21/24 15:14 Pulse Ox 93 03/21/24 15:14 O2 Del Method Room Air 03/21/24 15:14 BMI result Body Mass Index 28.4 Appearance: Alert.? Oriented X3.? cvs: rrr, [id number]. res: clear to auscultation ,no rhonchii or wheezing abd: no rebound or guarding ,nt, bs present. ext pulses present , no cyanosis . neuro: axo3 , nonfocal. Objective Data Active Medications Acetaminophen (Acetaminophen 325 Mg Tablet) 975 mg PO Q6H PRN PRN Reason: Pain, Mild 1-3,fever,headache Atorvastatin Calcium (Atorvastatin Calcium 20 Mg Tablet) 20 mg PO DAILY [facility] Last Admin: 03/21/24 07:36 Dose: 20 mg Documented By: KALPANA Bictegravir/Emtricitabine/Tenofovir (Bictegrav/Emtricit/Tenofov Ala Tablet) 1 tab PO DAILY [facility] Last Admin: 03/21/24 08:32 Dose: 1 tab Documented By: KALPANA Calcium Carbonate (Calcium Carbonate 750 Mg Tab.Chew) 750 mg PO Q4H PRN PRN Reason: Heartburn Last Admin: 03/21/24 07:36 Dose: 750 mg Documented By: KALPANA Carvedilol (Carvedilol 3.125 Mg Tablet) 3.125 mg PO BID [facility]; Protocol Last Admin: 03/21/24 07:40 Dose: Not Given Documented By: KALPANA Non-Admin Reason: Patient Refused Losartan Potassium (Losartan Potassium 25 Mg Tablet) 25 mg PO DAILY [facility]; Protocol Last Admin: 03/21/24 07:37 Dose: 25 mg Documented By: KALPANA Magnesium Hydroxide (Milk Of Magnesia 30 Ml Oral.Susp) 30 ml PO DAILY PRN PRN Reason: Constipation Meclizine HCl (Meclizine Hcl 12.5 Mg Tablet) 12.5 mg PO TID [facility] Last Admin: 03/21/24 07:37 Dose: 12.5 mg Documented By: KALPANA Melatonin (Melatonin 3 Mg Tablet) 6 mg PO BEDTIME PRN PRN Reason: Insomnia Omeprazole (Omeprazole 40 Mg Capsule.Dr) 40 mg PO DAILY@0630 [facility] Last Admin: 03/21/24 06:34 Dose: Not Given Documented By: ZEN Non-Admin Reason: Patient Refused Ondansetron HCl (Ondansetron Hcl 4 Mg/2 Ml Vial) 4 mg IVPUSH Q8H PRN PRN Reason: Nausea and Vomiting Sodium Chloride (0.9 % Sodium Chloride Flush 3 Ml Syringe) 3 ml IVFLUSH QSHIFT [facility] Last Admin: 03/21/24 07:37 Dose: 3 ml Documented By: KALPANA Vitamin D (Cholecalciferol (Vitamin D3) 25 Mcg Tablet) 25 mcg PO DAILY [facility] Last Admin: 03/21/24 07:36 Dose: 25 mcg Documented By: KALPANA Labs 03/21/24 04:34 03/21/24 04:34 Labs: Laboratory Results - last 24 hr 03/20/24 03/20/24 03/21/24 14:42 22:34 02:56 MCV MCH MCHC RDW Plt Count MPV Immature Gran % (Auto) Neut % (Auto) Lymph % (Auto) [place] % (Auto) Eos % (Auto) Baso % (Auto) Lymph # (Auto) [place] # (Auto) Eos # (Auto) Baso # (Auto) Abs Immat Gran (auto) Absolute Neuts (auto) Absolute Nucleated RBC Nucleated RBC % (auto) ESR 7 Anion Gap Estim Creat Clear Calc Estimated GFR Random Glucose Calcium C-Reactive Protein 0.21 Urine Color Yellow Urine Appearance Clear Urine pH 5.5 Ur Specific [place] 1.020 Urine Protein Negative Urine Glucose (UA) Negative Urine Ketones Trace Urine Blood Negative Urine Nitrite Negative Ur Leukocyte Esterase Negative Urine RBC 0-2 Urine WBC 0-5 Ur Squamous Epith Cells 0-2 Urine Bacteria None Seen Hyaline Casts 0-2 Influenza Type A (PCR) NEGATIVE Influenza Type B (PCR) NEGATIVE RSV RNA Qual (PCR) NEGATIVE SARS-CoV-2 RNA (RT-PCR) NEGATIVE 03/21/24 04:34 MCV 89.5 MCH 30.2 MCHC 33.7 RDW 12.2 Plt Count 270 MPV 10.0 Immature Gran % (Auto) 0.2 Neut % (Auto) 54.6 Lymph % (Auto) 35.9 [place] % (Auto) 7.6 Eos % (Auto) 1.5 Baso % (Auto) 0.2 Lymph # (Auto) 3.2 [place] # (Auto) 0.7 Eos # (Auto) 0.1 Baso # (Auto) 0.0 Abs Immat Gran (auto) 0.02 Absolute Neuts (auto) 4.8 Absolute Nucleated RBC 0.000 Nucleated RBC % (auto) 0.0 ESR Anion Gap 9 L Estim Creat Clear Calc 59.4 Estimated GFR > 60 Random Glucose 90 Calcium 8.7 D C-Reactive Protein Urine Color Urine Appearance Urine pH Ur Specific [place] Urine Protein Urine Glucose (UA) Urine Ketones Urine Blood Urine Nitrite Ur Leukocyte Esterase Urine RBC Urine WBC Ur Squamous Epith Cells Urine Bacteria Hyaline Casts Influenza Type A (PCR) Influenza Type B (PCR) RSV RNA Qual (PCR) SARS-CoV-2 RNA (RT-PCR) Assessment and Plan (1) Vertigo: Status: Acute Plan 68 y/o presents with: Dizziness, vertigo-like. Suspecting BPPV, occurs with head position changes. Brain MRI w/o contrast pending Check RSV/COVID/Flu-negative Symptomatic therapy with Antivert. Posterior headache + neck pain, likely muscular. improved with flexril/toradol added ibuprofen. Hyperlipidemia. Atorvastatin. HIV. Continue Bictergrav/Emtricit/Tenofov. Essential hypertension. Continue losartan and carvedilol dizziness/vertiago -workup with mri pending. Quality Stroke Does the patient have a stroke diagnosis?: No VTE Prior VTE?: No VTE Risk Level:: Medical - moderate - high VTE Device Contraindication: Treatment Not Indicated VTE Drug Contraindication: Treatment Not Indicated
[2024-03-22 03:29] VITALS: BP 120/58; PULSE 84; RESP 18; TEMP 36; O2SAT 92
[2024-03-22] MEDS: Omeprazole 40 MG CAPSULE.DR PO (06:04)
[2024-03-22 07:37] VITALS: BP 140/65; PULSE 75; RESP 18; TEMP 36.4; O2SAT 94
[2024-03-22] MEDS: Bictegrav/Emtricit/Tenofov Ala TABLET 1 TAB PO (09:35)
[2024-03-22] MEDS: Meclizine HCl 12.5 MG TABLET PO ×2 (09:35→15:32)
[2024-03-22] MEDS: Cholecalciferol (Vitamin D3) 25 MCG TABLET PO (09:36)
[2024-03-22] MEDS: Losartan Potassium 25 MG TABLET PO (09:36)
[2024-03-22] MEDS: 0.9 % Sodium Chloride Flush 3 ML SYRINGE IVFLUSH ×2 (09:36→15:33)
[2024-03-22 11:05] VITALS: BP 150/76; PULSE 100; RESP 16; TEMP 36.4; O2SAT 97
--- NOTE | 2024-03-22 12:34 | MHC.CM.PN ---
Pt has been medically cleared for DC, she talisha go home via private transport, plan is self care.
[2024-03-22] MEDS: gadobutroL 7.5 ML VIAL IVPUSH (13:42)
[2024-03-22] MEDS: carvediloL 3.125 MG TABLET PO (14:03)
--- NOTE | 2024-03-22 15:08 | PM.NEUROCN ---
History of Present Illness Data of Consult Service Date: 03/22/24 Primary Care Provider: Adele Brooks MD [facility] Reason for consult: Headache and dizzy 68 years old woman with past medical history significant for hyperlipidemia, hypertension and HIV presents to the emergency department complaining of one-week history of severe posterior neck and shoulder pain associated with dizziness (spinning sensation) upon changing of positions and loss of balance. She said that these symptoms were going on for a year and she had seen a doctor in the past but was not given any medicine. During last couple of weeks this symptoms got worse. There was no recent cold or flu-like illness fever or chills. She had a scan done that apparently revealed a possible abnormality and this consultation was requested. I reviewed her MRI of brain with and without contrast. Review of Systems Review of Systems: No recent cold or flu-like illness no seizure-like episode PMFSH Past Medical History Medical History Right shoulder pain Benign neoplastic disease Myositis Cyst of Bartholin's gland duct Renal calculi Gastritis Anxiety Hypertension HIV (human immunodeficiency virus infection) Depression GERD (gastroesophageal reflux disease) Osteoporosis Surgical History Surgical History Hx of tubal ligation Hx of cholecystectomy Hx of colonoscopy Hx of appendectomy Social History Social History Household Members: None Housing: Apartment Do you presently have visiting nurse or other home services: No Alcohol intake: never Patient Tobacco Use Status: Former Tobacco user Years Smoked: quit 11 years ago Smoked in Last 30 Days: No Patient Interested in Nicotine Replacement: No Patient Given Instructions on How to Stop Smoking: No Second Hand Smoke Exposure: No Use of substances other than those prescribed or required for medical reasons: No Currently Displaying Signs/Symptoms of Drug Intoxication Withdrawal: No Any prior treatment program specific to substance use: No Have you been hit, kicked, punched, or otherwise hurt by someone within the past year? If so, by whom?: No Do you feel safe in your current relationship?: No Current Relationship Is there a partner from a previous relationship who is making you feel unsafe now?: No Are you made to feel afraid or neglected: No Advance Directives: No Advance Directives Information Provided: Yes Advance Directives on File: No Do you have a plan to hurt others: No Plan Recently lost weight without trying: No Eating poorly because of decreased appetite: No Nutrition Risks: No Nutritional Risk Patient : No : No Poor oral hygiene: No service: No Current occupational status: disabled Current occupation: rt handed Meds Allergies Allergy/AdvReac Type Severity Reaction Status Date / Time No Known Allergies Allergy Verified 03/20/24 13:33 Active Medications: Current Medications Acetaminophen (Acetaminophen 325 Mg Tablet) 975 mg PO Q6H PRN PRN Reason: Pain, Mild 1-3,fever,headache Last Admin: 03/21/24 20:16 Dose: 975 mg Atorvastatin Calcium (Atorvastatin Calcium 20 Mg Tablet) 20 mg PO DAILY [facility] Last Admin: 03/22/24 09:36 Dose: Not Given Bictegravir/Emtricitabine/Tenofovir (Bictegrav/Emtricit/Tenofov Ala Tablet) 1 tab PO DAILY [facility] Last Admin: 03/22/24 09:35 Dose: 1 tab Calcium Carbonate (Calcium Carbonate 750 Mg Tab.Chew) 750 mg PO Q4H PRN PRN Reason: Heartburn Last Admin: 03/21/24 07:36 Dose: 750 mg Carvedilol (Carvedilol 3.125 Mg Tablet) 3.125 mg PO BID [facility]; Protocol Last Admin: 03/22/24 09:36 Dose: Not Given Ibuprofen (Ibuprofen 400 Mg Tablet) 400 mg PO Q6H PRN PRN Reason: Pain, Moderate(Pain Scale 4-6) Losartan Potassium (Losartan Potassium 25 Mg Tablet) 25 mg PO DAILY [facility]; Protocol Last Admin: 03/22/24 09:36 Dose: 25 mg Magnesium Hydroxide (Milk Of Magnesia 30 Ml Oral.Susp) 30 ml PO DAILY PRN PRN Reason: Constipation Meclizine HCl (Meclizine Hcl 12.5 Mg Tablet) 12.5 mg PO TID [facility] Last Admin: 03/22/24 09:35 Dose: 12.5 mg Melatonin (Melatonin 3 Mg Tablet) 6 mg PO BEDTIME PRN PRN Reason: Insomnia Omeprazole (Omeprazole 40 Mg Capsule.Dr) 40 mg PO DAILY@0630 [facility] Last Admin: 03/22/24 06:04 Dose: 40 mg Ondansetron HCl (Ondansetron Hcl 4 Mg/2 Ml Vial) 4 mg IVPUSH Q8H PRN PRN Reason: Nausea and Vomiting Sodium Chloride (0.9 % Sodium Chloride Flush 3 Ml Syringe) 3 ml IVFLUSH QSHIFT [facility] Last Admin: 03/22/24 09:36 Dose: 3 ml Vitamin D (Cholecalciferol (Vitamin D3) 25 Mcg Tablet) 25 mcg PO DAILY [facility] Last Admin: 03/22/24 09:36 Dose: 25 mcg Home Medications ?Medication ?Instructions ?Recorded ?Confirmed ?Last Taken ?Type bictegravir 50 mg-emtricitabine 1 tab PO DAILY 01/24/20 03/20/24 Unknown History 200 mg-tenofovir alafenam 25 mg tablet (Biktarvy) albuterol sulfate 90 mcg/actuation 2 puff inhalation Q4-6H PRN 01/31/20 03/20/24 Unknown History aerosol inhaler Shortness Of Breath Or Wheezing omeprazole 40 mg capsule,delayed 40 mg PO DAILY 10/24/23 03/20/24 Unknown History release atorvastatin 20 mg tablet 20 mg PO DAILY 03/20/24 03/20/24 Unknown History carvedilol 3.125 mg tablet 3.125 mg PO BID 03/20/24 03/20/24 Unknown History chlorhexidine gluconate 0.12 % 15 ml PO BID 03/20/24 03/20/24 Unknown History mouthwash cholecalciferol (vitamin D3) 25 25 mcg PO DAILY 03/20/24 03/20/24 Unknown History mcg (1,000 unit) tablet losartan 25 mg tablet 25 mg PO DAILY 03/20/24 03/20/24 Unknown History ondansetron 4 mg disintegrating 4 mg PO Q8H PRN Nausea And Vomiting 03/20/24 03/20/24 Unknown History tablet Physical Exam Vital Signs: Vital Signs: Last Vital Signs Temp 97.6 F 03/22/24 11:05 Pulse 100 03/22/24 11:05 Resp 16 03/22/24 11:05 BP 150/76 H 03/22/24 11:05 Pulse Ox 97 03/22/24 11:05 O2 Del Method Room Air 03/22/24 11:05 BMI result Body Mass Index 28.4 Neuro: Other: She he is alert and awake with normal spontaneity of speech fluency comprehension and affect. Into was performed with the help of an hourly sign language interpreter. There was no sign of distress. Face was symmetrical. Visual escoto are full. There was no focal weakness. Results Labs 03/21/24 04:34 03/21/24 04:34 Labs: [id number] chronic microvascular ischemic type of changes were noted on brain MRI. No enhancing lesion was seen. Assessment and Plan (1) Headache: Qualifiers: Headache type: unspecified Headache chronicity pattern: acute headache Intractability: not intractable Qualified Code(s): R51.9 - Headache, unspecified Status: Acute Chronic headache and dizziness syndrome. It might be related to the medication she was taking, especially anti-retroviral. Migraine is another possibility. Iatrogenic headaches are not easy to treat. I suggest starting her on topiramate 25 mg at night to see if that would help. She has microvascular disease that was not unusual for her diagnosis. I do not see any significant lesion or enhancing lesion otherwise. Procedures Date of Service Date of Service: 03/22/24
[2024-03-22 15:19] VITALS: BP 140/78; PULSE 108; RESP 18; TEMP 36.8; O2SAT 93
--- NOTE | 2024-03-22 16:25 | P.DS_ITS ---
DS: Providers Provider Date of Service: 03/22/24 Date of admission: 03/22/24 14:37 Date of discharge: 03/22/24 Primary care physician: Adele Brooks MD Consults: 03/22/24 11:16 Consult to Neurology Routine Consulting Provider: [facility] Reason for consultation: dizziness /vertiago/ brain lesion Has provider been notified: No Attending physician on discharge: Thai Hernandez Discharging clinician: Thai Hernandez DS: Diagnosis Discharge Diagnosis (1) Headache: Status: Acute DS: Summary Hospital Course Hospital Course: HPI:68 years old woman with past medical history significant for hyperlipidemia, hypertension and HIV presents to the emergency department complaining of one- week history of severe posterior neck and shoulder pain associated with dizziness (spinning sensation) upon changing of positions and loss of balance. She also reported some associated intermittent blurry vision and nausea without events of vomiting. She did not report fevers chills. She denied double vision, focal weakness, loss of consciousness, speech difficulty or palpitations. Patient mentioned that last week she developed toothache for which she was receiving treatment with antibiotics. The antibiotic was stopped because she was developing dizziness. She currently denied having toothache. Did not report any acute cardiopulmonary, gastrointestinal genitourinary symptoms. She denied tobacco smoking or alcohol abuse. She denied history of strokes or diabetes. In the ED, she was found to have hypertension (max 171/89). Last blood pressure is 151/71. Blood workup including CBC, CRP and CMP are unremarkable. Head CT scan without contrast showed no acute intracranial abnormality. Head and neck CTA showed patent vessels. ECG showed normal sinus rhythm with a heart rate of 98 bpm w/o ischemic changes. Hospital course: patient came with dizziness Dizziness, vertigo-like : recieved meclizine ,flexril,toradol-symptoms improved,seen by neurology mri with and w/o contrast reviewed -No enhancing lesion was seen. : patient has possible Chronic headache and dizziness syndrome. It might be related to the medication she was taking, especially anti-retroviral. Migraine is another possibility. Iatrogenic headaches are not easy to treat. neuro suggestedstarting her on topiramate 25 mg at night to see if that would help. She has microvascular disease that was not unusual for her diagnosis. as per neurology revciew: do not see any significant lesion or enhancing lesion otherwise. plan: trial topiramate 25 mg at night to see if that would help. Follow-up with PCP and Neurology outpatient. Above management discussed with the patient in detail length she understand and in agreement with the above plan, time spent 40 minutes . Time Attestation Total time managing care of this patient today: 40 mintues. Discharge Coordination Time (in mins): 40 min Quality: Safe Use of Opioids Does Pt have an Active Cancer Diagnosis on the Problem List?: No Quality: Stroke Does the patient have a stroke diagnosis?: No Physical Exam Vital Signs: Vital Signs: Last Vital Signs Temp 98.2 F 03/22/24 15:19 Pulse 108 H 03/22/24 15:19 Resp 18 03/22/24 15:19 BP 140/78 H 03/22/24 15:19 Pulse Ox 93 03/22/24 15:19 O2 Del Method Room Air 03/22/24 15:19 BMI result Body Mass Index 28.4 Appearance: Alert.? Oriented X3.? cvs: rrr, [id number]. res: clear to auscultation ,no rhonchii or wheezing abd: no rebound or guarding ,nt, bs present. ext pulses present , no cyanosis . neuro: axo3 , nonfocal. DS: Data Imaging Chest x-ray: Radiologist's impression: ITS Impressions Cervical Spine CT 03/20/24 13:39 IMPRESSION: Multilevel spondylosis, C5-6 and C6-7 resulting in grade 1 retrolisthesis C5-6 without acute fracture. Tonsillith, bilateral palatine tonsils. Fleischner guidelines were followed. Electronically signed by: Marco Antonio Delgado MD 03/20/2024 02:19 PM EST RP Head CT 03/20/24 13:44 IMPRESSION: No acute intracranial hemorrhage or acute brain abnormality by CT. Electronically signed by: Marco Antonio Delgado MD 03/20/2024 02:12 PM EST RP Brain MRI 03/21/24 18:02 IMPRESSION: No acute stroke/nonhemorrhagic ischemia. Small vessel occlusive disease. Questionable 7 mm intra-axial lesion, medial left precentral gyrus. Recommend IV contrast enhanced MRI brain.. Electronically signed by: Marco Antonio Delgado MD 03/22/2024 09:59 AM EST RP Brain MRI 03/22/24 13:10 IMPRESSION: No abnormal enhancement seen in the intraparenchymal and extraparenchymal soft tissues. Especially no focal abnormal exams enhancement seen in the left precentral frontal gyrus. Electronically signed by: Yeyo Collado MD 03/22/2024 04:15 PM EST Discharge Plan Discharge Anticipated Discharge Date/Time: 03/22/24 15:20 Patient Disposition: Home, Self-Care Discharge Diagnosis: Chronic headache and dizziness syndrome Referrals: Adele Brooks MD [Primary Care Provider] - 1 Week Discharge Medications: New topiramate 25 mg Tablet 25 mg PO BEDTIME Qty: 30 0RF Continued albuterol sulfate 90 mcg/actuation Hfa Aerosol Inhaler 2 puff INHALATION Q4-6H PRN (Reason: Shortness Of Breath Or Wheezing) atorvastatin 20 mg tablet 20 mg PO DAILY carvedilol 3.125 mg tablet 3.125 mg PO BID losartan 25 mg tablet 25 mg PO DAILY chlorhexidine gluconate 0.12 % mouthwash 15 ml PO BID cholecalciferol (vitamin D3) 25 mcg (1,000 unit) tablet 25 mcg PO DAILY ondansetron 4 mg tablet,disintegrating 4 mg PO Q8H PRN (Reason: Nausea And Vomiting) Biktarvy 50-200-25 mg tablet 1 tab PO DAILY omeprazole 40 mg capsule,delayed release(DR/EC) 40 mg PO DAILY Discharge Orders: Discharge Order (Routine); Ordered 03/22/24 Ordered By: Thai Hernandez Diet: Advance to usual diet Activity on Discharge: As tolerated Stand Alone Forms: Patient Portal Discharge page Print Language: Greenlandic Care Plan Goals: patient came with dizziness Dizziness, vertigo-like :seen by neurology mri reviewed -No enhancing lesion was seen. : patient has possible Chronic headache and dizziness syndrome. It might be related to the medication she was taking, especially anti-retroviral. Migraine is another possibility. Iatrogenic headaches are not easy to treat. neuro suggestedstarting her on topiramate 25 mg at night to see if that would help. She has microvascular disease that was not unusual for her diagnosis. as per neurology revciew: do not see any significant lesion or enhancing lesion otherwise. Health Concerns: as above. Plan of Treatment: added ibuprofen for ms pain toprimate 25 mg qhs limited supply follow up outpatient with pcp and neurology. Assessment: as above.
== END 2024-03-22 15:00 | disposition home or self-care (01) | DRG 103 ==
LOC: HO.ED 22:23 → HO.EDOVER 03-21 01:46 → HO.IMC 03-21 04:53
PROVIDERS: Emergency Medicine Emergency Medical Services; Physician Assistant; Admitting Provider Internal Medicine; Emergency Provider Internal Medicine; PCP Family Medicine; Visit Provider Internal Medicine
DX: R51.9 Headache, unspecified (principal); E78.5 Hyperlipidemia, unspecified; I10 Essential (primary) hypertension; R42 Dizziness and giddiness; Z21 Asymptomatic human immunodeficiency virus [HIV] infection status; Z20.822 Contact with and (suspected) exposure to COVID-19
CPT/HCPCS: 0241U; 36415; 70450; 70496; 70498; 70551; 70552; 72125; 80048; 80053; 81001; 83735; 84484; 85025; 85610; 85652; 85730; 86140; 93005; 97161; 99222; 99285; A9585; J1885; Q9967

== ENCOUNTER → 2024-03-20 13:34 | Outpatient (BNV) | payer MEDICARE, MEDICAID, SELFPAY | PROVIDERS: PCP Family Medicine; Visit Provider Radiology Diagnostic Radiology | DX: M54.2 Cervicalgia (principal); R51.9 Headache, unspecified; R42 Dizziness and giddiness; H53.9 Unspecified visual disturbance | CPT/HCPCS: 70450; 72125 ==

== ENCOUNTER → 2024-03-20 13:34 | Outpatient (BNV) | payer MEDICARE, MEDICAID, SELFPAY | PROVIDERS: Emergency Provider Emergency Medicine Emergency Medical Services; PCP Family Medicine; Visit Provider Internal Medicine | DX: R94.31 Abnormal electrocardiogram [ECG] [EKG] (principal) | CPT/HCPCS: 93010 ==

== ENCOUNTER 2024-03-21 01:40 | Outpatient (BNV) | payer MEDICARE, MEDICAID, SELFPAY | END 2024-03-21 07:00 | PROVIDERS: Admitting Provider Internal Medicine; Emergency Provider Internal Medicine; PCP Family Medicine; Visit Provider Radiology Diagnostic Radiology | DX: R42 Dizziness and giddiness (principal) | CPT/HCPCS: 70551 ==

== ENCOUNTER → 2024-03-21 01:40 | Outpatient (BNV) | payer MEDICARE, MEDICAID, SELFPAY | PROVIDERS: Admitting Provider Internal Medicine; Emergency Provider Internal Medicine; PCP Family Medicine; Visit Provider Internal Medicine | DX: R51.9 Headache, unspecified (principal) | CPT/HCPCS: 99222; 99239; 99499 ==

== ENCOUNTER → 2024-03-22 13:10 | Outpatient (BNV) | payer MEDICARE, MEDICAID, SELFPAY | PROVIDERS: Admitting Provider Internal Medicine; Emergency Provider Internal Medicine; PCP Family Medicine; Visit Provider Radiology Diagnostic Radiology | DX: R42 Dizziness and giddiness (principal) | CPT/HCPCS: 70552 ==

== ENCOUNTER → 2024-03-22 14:37 | Outpatient (BNV) | payer MEDICARE, MEDICAID, SELFPAY | PROVIDERS: Admitting Provider Internal Medicine; Emergency Provider Internal Medicine; PCP Family Medicine; Visit Provider Psychiatry & Neurology Neurology | DX: G44.59 Other complicated headache syndrome (principal) | CPT/HCPCS: 99222 ==

== ENCOUNTER 2024-04-13 11:11 | Outpatient (REF) | payer MEDICARE, MEDICAID, SELFPAY ==
[2024-04-18 15:24] LABS: Vitamin D 25-OH, D2 <4 ng/mL; Vitamin D 25-OH, D3 36 ng/mL; Vitamin D 25-OH, Total 36 ng/mL (30-100)
== END 2024-04-13 11:12 | disposition home or self-care (01) ==
LOC: HO.LAB 11:11
PROVIDERS: Visit Provider Student in an Organized Health Care Education/Training Program
DX: E55.9 Vitamin D deficiency, unspecified (principal)
CPT/HCPCS: 36415; 82306

== ENCOUNTER 2024-04-14 07:52 | Outpatient (REF) | payer MEDICARE, MEDICAID, SELFPAY ==
[2024-04-14 08:49] LABS: Alanine Aminotransferase 22 U/L (0-31); Albumin Level 4.1 g/dL (3.5-5.0); Alkaline Phosphatase 91 U/L (39-117); Anion Gap 13 (12-20); Aspartate Amino Transferase 20 U/L (5-31); Bilirubin Direct 0.2 mg/dL (0.0-0.5); Bilirubin Total 0.7 mg/dL (0.0-1.0); Blood Urea Nitrogen 14 mg/dL (9-16); Carbon Dioxide 24 mmol/L (22-29); Chloride 110 mmol/L (96-108); Cholesterol 192 mg/dL (<200); Estimated Glomerular Filt Rate > 60; Glucose Random 93 mg/dL (60-115); HDL Cholesterol 56 mg/dL (>40); LDL Cholesterol Calculated 101 mg/dL (<100); Potassium 3.7 mmol/L (3.3-5.1); Sodium 143 mmol/L (135-145); Total Protein 7.6 g/dL (6.5-8.0); Triglycerides 176 mg/dL (<150)
[2024-04-14 10:06] LABS: Microalbum/Creatinine Ratio Ur 6.6 ug/mg cr (<30)
[2024-04-18 14:57] LABS: Collagen Type I C-Telopeptide 413 pg/mL (see note)
== END 2024-04-14 07:53 | disposition home or self-care (01) ==
LOC: HO.LAB 07:52
PROVIDERS: Absent Provider Student in an Organized Health Care Education/Training Program; PCP Family Medicine; Visit Provider Family Medicine
DX: M81.0 Age-related osteoporosis without current pathological fracture (principal); I10 Essential (primary) hypertension
CPT/HCPCS: 36415; 80048; 80061; 80076; 82043; 82523; 82570

== ENCOUNTER 2024-04-17 14:44 | Outpatient (AMB) | payer MEDICARE, MEDICAID, SELFPAY ==
--- NOTE | 2024-04-17 14:49 | A.OFFVIS_ITS ---
Vital Signs 04/17/24 14:57 Height 5 ft 1 in Weight 151 lb 0.266 oz BMI 28.5 BP 144/82 H Blood Pressure Location Rt brachial Position Sitting Respiration 18 Pulse 87 Pulse Source Pulse Oximeter Pulse Oximetry (%) 97 Oxygen Delivery Method Room Air Intake Visit Reasons: Osteoporosis follow up &prolia inj Intake Note: Patient presents for Osteoporosis follow up and Prolia injection. Furnace Attendant Required: Yes Furnace Attendant Language: Chief Inspector Services: Furnace Attendant Offered & Declined Furnace Attendant Name: Lula Castillo Information Interpreted: non-clinical & clinical Voip Network Technician: Voip Network Technician offered & declined Accompanied by: Sister Allergies No Known Allergies Allergy (Verified 04/17/24 14:54) Medication List - Last Reconciled 04/17/24 by Sharifa Funez MD albuterol sulfate 90 mcg/actuation 2 puffs inhalation Q4-6H PRN atorvastatin 20 mg PO DAILY fermrmdaj-qnlacybh-cgnkhff ala 50-200-25 mg (Biktarvy) 1 tab PO DAILY chlorhexidine gluconate 0.12% 15 mL PO BID cholecalciferol (vitamin D3) 25 mcg PO DAILY losartan 25 mg PO DAILY ondansetron 4 mg PO Q8H PRN topiramate 25 mg PO BEDTIME HPI Comments Details: Patient is a 68-year-old female with HIV on Biktarvy, hyperlipidemia, hypertension, osteoporosis and fibromyalgia here today for follow up. Interval History: Patient last seen 10/06/[address] Oro. At that time she was complaining of right-sided neck pain with radiation to both upper extremities worse on the right. She was status post physical therapy for her neck without much improvement and she received her Prolia injection. She was sent to pain management Today patient reports whole-body pain especially involving her neck radiating down to her hands as previously mentioned. She also complains of bilateral hand pain and bilateral elbow pain. Rheumatologic History: Osteoporosis: Alendronate [id number], stopped due to GERD 12/2018 T score fem neck -2.6, Prolia started Fibromyalgia Current Rheumatology Medication(s): Prolia 60 mg every 6 months SC REPLACED BY [facility] Medical History (Updated 04/17/24 @ 15:59 by Sharifa Funez MD) Polyarticular osteoarthritis Encounter for monitoring denosumab therapy Right shoulder pain Benign neoplastic disease Myositis Cyst of Bartholin's gland duct Renal calculi Gastritis Anxiety Hypertension HIV (human immunodeficiency virus infection) Depression GERD (gastroesophageal reflux disease) Osteoporosis Surgical History Hx of tubal ligation Hx of cholecystectomy Hx of colonoscopy Hx of appendectomy Social History Household Members: None Housing: Apartment Do you presently have visiting nurse or other home services: No Alcohol intake: never Patient Tobacco Use Status: Former Tobacco user Years Smoked: quit 11 years ago Second Hand Smoke Exposure: No service: No Current occupational status: disabled Current occupation: rt handed Female Reproductive History Menstrual Age of Menarche: 14 Review of Systems Const Details: Review of Systems Constitutional: Denies fever, chills, weight loss ENT: Denies vision changes, eye pain or eye redness, dental caries, dry mouth GI: Denies nausea, vomiting, diarrhea, abdominal pain, change in BM Pulm: Denies SOB, HINTON, hemoptysis, wheezing Cards: Denies chest pain, palpitations Skin: Denies Raynaud's, rash, nail changes, photosensitivity, SURGICAL INSTRUMENTS INSPECTOR: Denies headaches, weakness, paresthesias, recurrent falls MSK: as per HPI All other systems reviewed and are unremarkable except noted above Physical Exam Vital Signs: Last Vital Signs Pulse 87 04/17/24 14:57 Resp 18 04/17/24 14:57 BP 144/82 H 04/17/24 14:57 Pulse Ox 97 04/17/24 14:57 Oxygen Delivery Method Room Air 04/17/24 14:57 BMI result Body Mass Index 28.5 Vital signs reviewed Physical Examination CONSTITUITIONAL Patient alert and cooperative. Well appearing and in no apparent painful distress HEENT Conjunctiva and sclera clear. ?Pupils equal round and reactive to light. ?No lymphadenopathy. ? CHEST/RESPIRATORY SYSTEM Normal respiratory effort and able to speak in complete sentences. ?Clear to auscultation bilaterally. ?No crackles, rales, rhonchi, wheezes heard. CARDIAC SYSTEM Regular rate and rhythm. ?S1 and S2 heard no murmurs. ?Radial pulses intact bilaterally MSK Hands: ?Good preparation operator strength bilaterally. No deformities noted. ?No synovitis noted to the MCPs, PIPs or DIPs. ?No tenderness to palpation of these joints. Prominent Heberden's nodes noted. Wrists: ?Full range of motion at the wrists without pain. ?No tenderness to palpation or synovitis noted to the wrists. Elbows: Full range of motion without pain. No tenderness, weakness, swelling, increased warmth or erythema. Shoulders: Decreased range of motion with active and passive movement. Tenderness to palpation of bilateral AC joints. Unable to move the arm past 90 degrees. Hips: Full range of motion without pain. Hip bursa: No tenderness to palpation Knees: ?Full range of motion. ?No tenderness, swelling, increased warmth or erythema.?No effusion or crepitations Ankles: Full range of motion. ?No tenderness, swelling, increased warmth or erythema.? Feet: ?Negative squeeze test. ?No tenderness to palpation or swelling of the MTPs. Tender points:?No tenderness to palpation of the bilateral trapezius, supraspinatus, greater trochanters, anterior costochondral junctions, bilateral gluteal areas, bilateral suboccipital muscle insertions SKIN Skin intact without rashes. Office Meds Prolia 60 mg/mL subcutaneous syringe Performing Provider: Sharifa Funez MD Performing Location: [facility] Administered by: Ivonne Young RN on 04/17/24 15:16 Dose Route Admin Location Dispensed Lot Number Expiration Date [facility] Glass Production Machine Operator 60 mg subcut Left posterior arm 1 mL [id number] 10/11/26 20570-991-46 AMGEN Comments: Patient arrived along with her daughter who is interpreting for the patient. She has had no adverse reactions to previous and is in her usual state of health and feeling well today. Injection given in left posterior arm and pt tolerated injection well. No adverse effects noted. Reinforced the importance of taking Vitamin D regularly. Pt and daughter expressed understanding and ongoing compliance with plan. All questions answered to patient's expressed satisfaction. It was a pleasure to participate in this patient's care. Results Reviewed Results Reviewed: Laboratory Tests 02/21/20 03/20/24 03/21/24 16:12 22:34 04:34 WBC 8.9 RBC 4.57 Hgb 13.8 Hct 40.9 Plt Count 270 ESR 7 Sodium Potassium Chloride Carbon Dioxide BUN Creatinine Random Glucose Calcium Total Bilirubin Direct Bilirubin AST ALT Alkaline Phosphatase Rheumatoid Factor < 15.0 ERIC Screen NEGATIVE 04/14/24 08:04 WBC RBC Hgb Hct Plt Count ESR Sodium 143 Potassium 3.7 Chloride 110 H Carbon Dioxide 24 BUN 14 Creatinine 0.72 Random Glucose 93 Calcium 9.0 D Total Bilirubin 0.7 Direct Bilirubin 0.2 AST 20 ALT 22 Alkaline Phosphatase 91 Rheumatoid Factor ERIC Screen C spine CT 03/2024 FINDINGS: Craniocervical junction is intact. C1 is intact. C2 is intact. C3 is intact. C4 is intact. C5 is intact. C6 is intact. C7 is intact. Grade 1 retrolisthesis C5-6 likely degenerative. Marginal osteophyte formation, endplate sclerosis, subchondral cyst formation and decreased intervertebral disc height at C5-6 and C6-7 levels. Reverse curvature apex at C5. Indications of the nuchal ligament at C4-5. Dystrophic calcification at the posterior aspect of the posterior spinous processes of C7. Facet joint hypertrophy bilaterally, C5-6 and C6-7 levels. No gross prevertebral compartment hematoma. Multiple punctate calcifications in the palatine tonsils and the left vallecula. C Spine MRI 12/24/23 FINDINGS: Alignment is maintained. Vertebral body heights are preserved. Bone marrow is unremarkable in signal. The posterior fossa is unremarkable in signal. The cervical spinal cord is unremarkable in signal. Prevertebral and paraspinal soft tissues are unremarkable. SIGNIFICANT FINDINGS BY LEVEL: C2-C3: No disc bulge or herniation. No significant spinal canal or foraminal stenosis. C3-C4: Mild disc bulge. No significant spinal canal or foraminal stenosis. C4-C5: Mild disc bulge. No significant spinal canal or foraminal stenosis. C5-C6: Disc bulge eccentric to the left resulting in effacement of the ventral thecal sac and moderate left foraminal stenosis and mild right foraminal stenosis C6-C7: Broad-based disc bulge resulting in effacement of the ventral thecal sac and mild bilateral foraminal stenosis C7-T1: No disc bulge or herniation. No significant spinal canal or foraminal stenosis. DEXA 08/2022 FINDINGS: AP SPINE L1-L4: Current: BMD 1.058 g/cm2, Z-score 0.5, T-score -1.0, normal, 6.2% increase from previous, 6.2% increase from baseline (<5% change is not significant). Prior: BMD 0.996 g/cm2. Baseline: BMD 0.996 g/cm2. LEFT FEMUR, NECK: Current: BMD 0.709 g/cm2, Z-score -0.9, T-score -2.4, osteopenia. Prior: BMD 0.748 g/cm2. Baseline: BMD 0.749 g/cm2. LEFT FEMUR, TOTAL: Current: BMD 0.754 g/cm2, Z-score -0.8, T-score -2.0, osteopenia, 7.0% decrease from previous, 7.0% decrease from baseline (<5% change is not significant). Prior: BMD 0.811 g/cm2. Baseline: BMD 0.811 g/cm2. Assessment & Plan Assessment & Plan (1) Osteoporosis: Comment: Alendronate [id number], stopped due to GERD 12/2018 T score fem neck -2.6, Prolia started DEXA 08/2022: AP spine -1.0, Left femur neck -2.4, Left femur total -2.0 Code(s): M81.0 - Age-related osteoporosis without current pathological fracture Category: Medical Qualifiers: Osteoporosis type: age-related Presence of current pathological fracture: without current pathological fracture Qualified Code(s): M81.0 - Age- related osteoporosis without current pathological fracture Plan: #Osteoporosis Patient with osteoporosis without pathological fracture. Status post Prolia injection today. Plan - Continue vitamin D supplementation - Encourage weight bearing exercises and stretches - RTC 6 months - Labs before visit: CMP, Vitamin D (2) Fibromyalgia: Code(s): M79.7 - Fibromyalgia Category: Medical Plan: #Fibromyalgia Symptoms stable today no evidence of tender points but patient does report whole-body pains. Discussed the importance stretching and activity with patient Of note patient did have bilateral tender medial epicondyles consistent with medial epicondylitis and I discussed that this is likely related to her lack of stretching and recommended stretching for this. I also recommended topical diclofenac that can be applied to the areas. Plan - Topical diclofenac to desired areas - Light movement and exercise (3) Polyarticular osteoarthritis: Code(s): M15.9 - Polyosteoarthritis, unspecified Category: Medical Plan: #Polyarticular OA Patient with polyarticular OA which is contributing to her widespread pains. I discussed this with her and recommended topical diclofenac up to 4 times a day for the affected joints Plan - Topical diclofenac 1% qid (4) Encounter for monitoring denosumab therapy: Code(s): Z51.81 - Encounter for therapeutic drug level monitoring; Z79.620 - terminal operations supervisor (current) use of immunosuppressive biologic Category: Medical Plan: #Long-term use of Denosumab Discussed with patient the risks and benefits of denosumab (Prolia) for the management of their osteoporosis Benefits include improved bone density, decreased fracture risk Risks include rapid bone loss if denosumab stopped, osteonecrosis of the jaw especially in patients with poor oral hygiene/diabetes/use of glucocorticoids/age greater than 65 years, atypical femoral fractures, injection site reactions. Mild increased risk of infections due to RANKL on T helper cells, increased risk of hypocalcemia especially in CKD patients Keep vitamin-D at least 35 ng/mL Advised to delay non emergent dental procedures to toward the end of the 6 month cycle and if they plan to stop denosumab would need to continue antiresorptive to maintain the effects of denosumabe Plan I spent 20 minutes reviewing the record and labs, taking a history, examining the patient, discussing the treatment plan and documenting in the medical record Orders: Orders AMB Denosumab Injection Practice Supplied Today M81.0 - Age-related osteoporosis without current pathological fracture Comprehensive Met. Panel 6 Months E55.9 - Vitamin D deficiency, unspecified, M81.0 - Age-related osteoporosis without current pathological fracture, Z51.81 - Encounter for therapeutic drug level monitoring, Z79.620 - terminal operations supervisor (current) use of immunosuppressive biologic Vitamin D 25-OH Total 6 Months E55.9 - Vitamin D deficiency, unspecified, M81.0 - Age-related osteoporosis without current pathological fracture, Z51.81 - Encounter for therapeutic drug level monitoring, Z79.620 - residential (current) use of immunosuppressive biologic Collagen Type I C-Telopeptide 6 Months E55.9 - Vitamin D deficiency, unspecified, M81.0 - Age-related osteoporosis without current pathological fracture, Z51.81 - Encounter for therapeutic drug level monitoring, Z79.620 - residential (current) use of immunosuppressive biologic Coding Level of Care Code Est Pt Level 3 (71833) Diagnoses Age-related osteoporosis without current pathological fracture M81.0 Osteoporosis type: age-related Presence of current pathological fracture: without current pathological fracture Fibromyalgia M79.7 Polyarticular osteoarthritis M15.9 Encounter for monitoring denosumab therapy Z51.81; Z79.620
[2024-04-17 14:57] VITALS: BP 144/82; PULSE 87; RESP 18; O2SAT 97; BMI 28.5
== END 2024-04-17 15:33 | disposition home or self-care (01) ==
PROVIDERS: PCP Family Medicine; Visit Provider Student in an Organized Health Care Education/Training Program
DX: M81.0 Age-related osteoporosis without current pathological fracture (principal); M79.7 Fibromyalgia; M15.9 Polyosteoarthritis, unspecified; Z51.81 Encounter for therapeutic drug level monitoring; Z79.620 Long term (current) use of immunosuppressive biologic
CPT/HCPCS: 99213

== ENCOUNTER → 2024-04-17 14:44 | Outpatient (BNVA) | payer MEDICARE, MEDICAID, SELFPAY | PROVIDERS: PCP Family Medicine; Visit Provider Student in an Organized Health Care Education/Training Program | DX: M81.0 Age-related osteoporosis without current pathological fracture (principal); M79.7 Fibromyalgia; M15.9 Polyosteoarthritis, unspecified; Z51.81 Encounter for therapeutic drug level monitoring; Z79.620 Long term (current) use of immunosuppressive biologic | CPT/HCPCS: 96372; 99212; J0897 ==

== ENCOUNTER 2024-04-19 06:39 | Outpatient (REF) | payer MEDICARE, MEDICAID, SELFPAY ==
--- NOTE | ~2024-04-19 | FL_ITS ---
EXAMINATION: FL GUIDANCE ONLY HISTORY: M54.2 - Cervicalgia COMPARISON: None available. TECHNIQUE: Fluoroscopy time: Less than 1 minute. Cumulative Dose: 0.346 mGy. DAP: [id number] [id number] Images: 1. FINDINGS: A single fluoroscopic spot film of the cervical spine in the lateral projection was obtained. No needle or hardware is identified. FL/FL guidance in treatment room IMPRESSION: Fluoroscopy during procedure. Please see procedure report for additional information. Electronically signed by: Juan Manuel Javier MD 04/19/2024 01:14 PM MARION CLEMENT
== END 2024-04-19 06:40 | disposition home or self-care (01) ==
LOC: CF 06:39
PROVIDERS: Visit Provider Internal Medicine
DX: M47.812 Spondylosis without myelopathy or radiculopathy, cervical region (principal); Z53.29 Procedure and treatment not carried out because of patient's decision for other reasons
CPT/HCPCS: 64490; J2795; Q9967

== ENCOUNTER → 2024-04-19 12:04 | Outpatient (AMB) | payer MEDICARE, MEDICAID, SELFPAY ==
--- NOTE | 2024-04-19 12:15 | A.OFFVIS_ITS ---
Vital Signs 04/19/24 12:16 Height 5 ft 1 in Weight 151 lb BMI 28.5 BP 144/66 H Blood Pressure Location Lt brachial Position Sitting Pulse 95 Pulse Source Pulse Oximeter Pulse Oximetry (%) 95 Oxygen Delivery Method Room Air Intake Visit Reasons: BILATERAL DIAGNOSTIC C4, C5, C6 MBB Foreign Broadcast Specialist Services: Foreign Broadcast Specialist Offered & Declined Foreign Broadcast Specialist Name: Sister interpreted Lula Information Interpreted: non-clinical & clinical Allergies No Known Allergies Allergy (Verified 04/19/24 12:16) Medication List - Last Reconciled 04/19/24 by Emiliana Houston, ELECTRICAL PRODUCTS SALES ENGINEER albuterol sulfate 90 mcg/actuation 2 puffs inhalation Q4-6H PRN atorvastatin 20 mg PO DAILY hsfexvcdh-vyhecqtm-kjkwbpr ala 50-200-25 mg (Biktarvy) 1 tab PO DAILY chlorhexidine gluconate 0.12% 15 mL PO BID cholecalciferol (vitamin D3) 25 mcg PO DAILY losartan 25 mg PO DAILY ondansetron 4 mg PO Q8H PRN HPI HPI BILATERAL DIAGNOSTIC C4, C5, C6 MBB: Details: Patient presented for scheduled diagnostic cervical medial branch blocks. Procedure was attempted and needles were placed overlying the C4 and C5 articular pillars. At this point the patient requested the procedure be aborted due to discomfort associated with the needle placement. The needles were removed and the patient was discharged in stable condition. [facility] Medical History (Updated 04/17/24 @ 15:59 by Sharifa Funez MD) Polyarticular osteoarthritis Encounter for monitoring denosumab therapy Right shoulder pain Benign neoplastic disease Myositis Cyst of Bartholin's gland duct Renal calculi Gastritis Anxiety Hypertension HIV (human immunodeficiency virus infection) Depression GERD (gastroesophageal reflux disease) Osteoporosis Surgical History Hx of tubal ligation Hx of cholecystectomy Hx of colonoscopy Hx of appendectomy Social History Household Members: None Housing: Apartment Do you presently have visiting nurse or other home services: No Alcohol intake: never Patient Tobacco Use Status: Former Tobacco user Years Smoked: quit 11 years ago Second Hand Smoke Exposure: No service: No Current occupational status: disabled Current occupation: rt handed Female Reproductive History Menstrual Age of Menarche: 14 Physical Exam Vital Signs: Last Vital Signs Pulse 95 04/19/24 12:16 BP 144/66 H 04/19/24 12:16 Pulse Ox 95 04/19/24 12:16 Oxygen Delivery Method Room Air 04/19/24 12:16 BMI result Body Mass Index 28.5 Assessment & Plan Assessment & Plan (1) Cervical spondylosis: Code(s): M47.812 - Spondylosis without myelopathy or radiculopathy, cervical region Category: Medical Plan Patient unable to tolerate procedural discomfort. Procedure aborted upon patient request. Follow-up in clinic as needed to discuss next steps. Orders: Orders FL guidance in treatment room Today M54.2 - Cervicalgia, R51.9 - Headache, unspecified Coding Level of Care Code Est Pt Level 2 (30341) Diagnoses Cervical spondylosis M47.812
== END | disposition home or self-care (01) ==
PROVIDERS: PCP Family Medicine; Visit Provider Internal Medicine
DX: M47.812 Spondylosis without myelopathy or radiculopathy, cervical region (principal)
CPT/HCPCS: 64490

== ENCOUNTER 2024-04-23 08:46 | Outpatient (AMB) | payer MEDICARE, MEDICAID, SELFPAY ==
--- NOTE | 2024-04-23 08:49 | MHC.OFFVIS ---
Vital Signs 04/23/24 08:53 Height 5 ft 1 in Weight 148 lb BMI 28.0 BP 142/65 H Blood Pressure Location Lt brachial Position Sitting Pulse 103 H Pulse Source Pulse Oximeter Intake Visit Reasons: s/p bilateral cervical MBB Intake Note: Pain today 04/23 Prenatal Genetic Counselor Required: Yes Prenatal Genetic Counselor Language: Green Building Engineer Services: Prenatal Genetic Counselor Offered & Declined Prenatal Genetic Counselor Name: Sister Pat Accompanied by: Friend Allergies No Known Allergies Allergy (Verified 04/23/24 08:54) HPI Comments Details: Patient presents today to assess response diagnostic bilateral C4-C5-C6 MBB on 04/19/[address] Matos. Unfortunately patient was not able to complete injections due to pain and procedure was cancelled. She reports her axial neck pain has been minimal. Reports increased right shoulder pain with limited range range of motion, difficulty with overhead reaches or lifting. She also suffers from carpal tunnel syndrome, worse on the left but declined surgery. Patient is interested to undergo right shoulder steroid injection with oral Ativan. Patient also reports dizziness and vertigo with intermittent loss of balance. She was admitted last month with dizziness and was seen by Neurology. Her brain MRI showed no enhancing lesion. She was started on topiramate for chronic headaches with minimal relief. Patient is interested to undergo Vestibular therapy. Denies any recent cough, cold, infection, fever or any other significant changes in medical history since last office visit. PRIOR: Patient is a pleasant 68-year-old Latvian-speaking female is history of osteoporosis (on Prolia since July 2018), osteopenia (per bone scan 2022), h/o HIV (on HAART therapy), fibromyalgia, right shoulder pain, chronic low back pain and left hip pain, anxiety and depression, presents today for initial evaluation of right-sided neck pain with bilateral hand numbness, right worse than left. Neck pain radiates into bilateral upper extremities, on the left to the elbow and all fingers and on the right to the wrist and right thumb, 2nd and 3rd fingers. Neck pain is worse with flexion and extension and left lateral rotation. Patient reports cervicogenic headaches and muscle spasms in both of her neck and shoulder muscles. Reports bilateral hand pain and paresthesias with repetitive hand activities. She was referred to us by Rheumatology services. Patient completed physical therapy in April 2023 at [facility] with minimal improvement. She recently completed cervical spine x-ray and neurodiagnostic studies with pending referral to Hand Surgery services for bilateral CTS. Cervical spine xray showed diffuse cervical spondylosis, with bilateral neural foraminal stenosis at multiple levels, left greater than right. Severe left neural foraminal stenosis is noted at C5-C6. Pain affects her daily activities and functioning, sleep, mood, and social interactions. Denies previous spine injections or surgery. Pain is rated 10/10 in the morning, 8/10 lifting or pulling, minimal pain when no movement. Denies any fever, chills, dizziness, visual disturbances, shortness of breath, chest pain, gait disturbance, foot drop, bladder or bowel dysfunction or saddle anesthesia. Location: Neck, right shoulder, bilateral hand numbness, right>left Duration: Chronic pain, worsening for >1 year Characteristics of symptom or complaint: Aching, tingling, sharp, shooting, stabbing, tiring, heavy, sore Aggravating or associated factors: Movements, lifting, pulling, cold weather, pain interferes w/ ADLs/sleep Relieving factors: Ibuprofen, rest, heat therapy, shaking hands Treatment: PT, massage, xrays, EMG/NVC [facility] Medical History Polyarticular osteoarthritis Encounter for monitoring denosumab therapy Right shoulder pain Benign neoplastic disease Myositis Cyst of Bartholin's gland duct Renal calculi Gastritis Anxiety Hypertension HIV (human immunodeficiency virus infection) Depression GERD (gastroesophageal reflux disease) Osteoporosis Surgical History Hx of tubal ligation Hx of cholecystectomy Hx of colonoscopy Hx of appendectomy Social History Household Members: None Housing: Apartment Do you presently have visiting nurse or other home services: No Alcohol intake: never Patient Tobacco Use Status: Former Tobacco user Years Smoked: quit 11 years ago Second Hand Smoke Exposure: No service: No Current occupational status: disabled Current occupation: rt handed Female Reproductive History Menstrual Age of Menarche: 14 Review of Systems Const All systems reviewed & are unremarkable except as noted in HPI and below Physical Exam Vital Signs: Last Vital Signs Pulse 103 H 04/23/24 08:53 BP 142/65 H 04/23/24 08:53 BMI result Body Mass Index 28.0 General: Appears afebrile. Alert and oriented. Mood and affect appropriate. Follows and participates in conversation appropriately. Respiratory effort is unlabored. No cough. Wears face mask. Able to transition from sit to stand unassisted. Ambulates with bilaterally normal heel strike and toe off. Eyes General: appearance normal, both eyes and all related structures Visual Escoto: normal visual escoto by confrontation Pupils: Equal, round and reactive pupils present Neck Other: Limited neck range of motion due to pain. Neck: Yes normal visual inspection, Yes no lymphadenopathy, Yes supple, No anterior neck swelling, Yes no JVD, No prominent supraclavicular fat pad and Yes prominent dorsocervical fat pad Back/Spine/Pelvis Cervical Spine: loss of normal cervical lordosis, cervical muscular tenderness, pain with cervical ROM, cervical spasm, No Cervical spine tenderness and No step off deformity Thoracic/Lumbar Spine: thoracic and lumbar spine normal to inspection, pain with thoraco-lumbar ROM, No thoracic spinal tenderness and lumbar spinal tenderness at L4 and at L5 Neuro Cranial nerves: Yes Equal, round and reactive pupils present Extrem General: Yes capillary refill normal, Yes no clubbing, cyanosis or edema and Yes no calf tenderness Right upper extremity: shoulder/upper arm Details: normal to inspection, tenderness Location: of the A-C joint and over the biceps tendon and normal ROM; no swelling Left upper extremity: shoulder/upper arm (Limited ROM due to pain.) Details: inspection abnormal and crepitus; no tenderness, no swelling and no unsual warmth Results Reviewed Results Reviewed: NE electromyogram (EMG); NE nerve conduction velocity 10/14/23 IMPRESSION: 1. This is an abnormal study. 2. There is electrodiagnostic evidence for right moderate-severe and left borderline/mild median neuropathy at the wrist, consistent with carpal tunnel syndrome. 3. There is no electrodiagnostic evidence for ulnar neuropathy, brachial plexopathy, or cervical radiculopathy. XR CERVICAL SPINE 10/06/23 CLINICAL INFORMATION: Cervicalgia. FINDINGS: Vertebral body heights are maintained. There is minimal posterior subluxation of C4 over C5 and of C5 over C6. Moderate disc space narrowing is noted at C5-C6 and C6-C7 with marginal endplate osteophytes. Multilevel bilateral facet arthropathy, left greater than right. Atlantoaxial distance is normal. No evidence of prevertebral soft tissue swelling. The airway is patent. Moderate left neural foraminal stenosis is noted at C3-C4, C4-C5. Severe left neural foraminal stenosis at C5-C6 and dzlvyloc-bm-vgfvge left neural foraminal stenosis at C6-C7. Moderate right neural foraminal stenosis is noted from C3 to C7. No evidence of cervical ribs. Open-mouth view is unremarkable. Visualized lung apices are unremarkable. IMPRESSION: Diffuse cervical spondylosis, with bilateral neural foraminal stenosis at multiple levels, left greater than right. Severe left neural foraminal stenosis is noted at C5-C6. XR SHOULDER, RIGHT 03/31/23 CLINICAL INFORMATION: Pain in right shoulder, decreased range of motion FINDINGS: The bones and soft tissues are normal. No fracture. Glenohumeral and acromioclavicular alignment is anatomic with normal glenohumeral joint space. Minimal degenerative change of the acromioclavicular joint. No abnormal soft tissue calcifications. IMPRESSION: Minimal degenerative change of the acromioclavicular joint. MM/XR DEXA axial skeleton 08/19/22 IMPRESSION: 1. DIAGNOSIS: Osteopenia based on the lowest T-score value of -2.4 in the femoral neck applying World Health Organization criteria. MR CERVICAL SPINE WITHOUT CONTRAST 12/25/23 CLINICAL INFORMATION: Radiculopathy, spondylosis COMPARISON: Cervical spine x-ray on 10/06/2023 FINDINGS: Alignment is maintained. Vertebral body heights are preserved. Bone marrow is unremarkable in signal. The posterior fossa is unremarkable in signal. The cervical spinal cord is unremarkable in signal. Prevertebral and paraspinal soft tissues are unremarkable. SIGNIFICANT FINDINGS BY LEVEL: C2-C3: No disc bulge or herniation. No significant spinal canal or foraminal stenosis. C3-C4: Mild disc bulge. No significant spinal canal or foraminal stenosis. C4-C5: Mild disc bulge. No significant spinal canal or foraminal stenosis. C5-C6: Disc bulge eccentric to the left resulting in effacement of the ventral thecal sac and moderate left foraminal stenosis and mild right foraminal stenosis C6-C7: Broad-based disc bulge resulting in effacement of the ventral thecal sac and mild bilateral foraminal stenosis C7-T1: No disc bulge or herniation. No significant spinal canal or foraminal stenosis. IMPRESSION: Degenerative disease of the cervical spine most prominent at C5-C6 where there is moderate left foraminal stenosis and mild right foraminal stenosis. Assessment & Plan Assessment & Plan (1) Cervical spondylosis: Code(s): M47.812 - Spondylosis without myelopathy or radiculopathy, cervical region Category: Medical (2) Neck pain: Code(s): M54.2 - Cervicalgia Category: Medical (3) Vertigo: Code(s): R42 - Dizziness and giddiness Category: Medical (4) Dizziness: Code(s): R42 - Dizziness and giddiness Category: Medical (5) Right shoulder pain: Code(s): M25.511 - Pain in right shoulder Category: Medical Qualifiers: Chronicity: chronic Qualified Code(s): M25.511 - Pain in right shoulder; G89.29 - Other chronic pain (6) Osteoarthritis of right shoulder: Code(s): M19.011 - Primary osteoarthritis, right shoulder Category: Medical (7) Fibromyalgia: Code(s): M79.7 - Fibromyalgia Category: Medical Plan Patient was not able to tolerate diagnostic cervical medial branch blocks last week due to pain and discomfort associated with injections. She reports minimal neck pain today. Patient is interested in PT and establishing home exercise program. For chronic right shoulder pain, we will proceed with Right intra-articular shoulder steroid injection with local, oral Ativan and US guidance. Expectations, risks and benefits were reviewed. Patient is aware she will be contacted to schedule this procedure. Continue Tylenol, NSAIDs, heat therapy, avoid pain producing activities. Discussed importance of good posture, adequate hydration, gentle stretching exercises, sleep hygiene, and well-balanced diet. Referral to PT for Vestribular therapy for ongoing dizziness and vertigo with occasional loss of balance. All questions and concerns have been answered and patient agreed with the treatment plan. Follow-up after injections and sooner as needed. Orders: Orders PT Evaluation and Treatment Today M47.812 - Spondylosis without myelopathy or radiculopathy, cervical region, M54.2 - Cervicalgia PT Evaluation and Treatment Today R42 - Dizziness and giddiness Coding Level of Care Code Est Pt Level 4 (16129) Complex EM visit Add On G2211 Diagnoses Cervical spondylosis M47.812 Neck pain M54.2 Vertigo R42 Dizziness R42 Chronic right shoulder pain M25.511; G89.29 Chronicity: chronic Osteoarthritis of right shoulder M19.011 Fibromyalgia M79.7
[2024-04-23 08:53] VITALS: BP 142/65; PULSE 103; BMI 28.0
== END 2024-04-23 09:17 | disposition home or self-care (01) ==
PROVIDERS: PCP Family Medicine; Visit Provider Nurse Practitioner Family
DX: M47.812 Spondylosis without myelopathy or radiculopathy, cervical region (principal); M54.2 Cervicalgia; R42 Dizziness and giddiness; M25.511 Pain in right shoulder; G89.29 Other chronic pain; M19.011 Primary osteoarthritis, right shoulder; M79.7 Fibromyalgia
CPT/HCPCS: 99214; G2211

== ENCOUNTER → 2024-04-23 08:46 | Outpatient (BNVA) | payer MEDICARE, MEDICAID, SELFPAY | PROVIDERS: PCP Family Medicine; Visit Provider Nurse Practitioner Family | DX: M47.812 Spondylosis without myelopathy or radiculopathy, cervical region (principal); R42 Dizziness and giddiness; M19.011 Primary osteoarthritis, right shoulder; M79.7 Fibromyalgia; G89.29 Other chronic pain | CPT/HCPCS: 99212 ==

== ENCOUNTER 2024-05-07 11:50 | Outpatient (AMB) | payer MEDICARE, MEDICAID, SELFPAY ==
--- NOTE | 2024-05-07 12:13 | MHC.OFFVIS ---
Vital Signs 05/07/24 12:15 Height 5 ft 1 in Weight 150 lb BMI 28.3 BP 140/75 H Blood Pressure Location Lt brachial Position Sitting Pulse 91 Pulse Oximetry (%) 96 Oxygen Delivery Method Room Air Intake Visit Reasons: Intrarticular shoulder inj Sanding Machine Operator Or Tender Required: Yes Sanding Machine Operator Or Tender Services: Sanding Machine Operator Or Tender Offered & Declined Sanding Machine Operator Or Tender Name: Lula - sister Information Interpreted: non-clinical & clinical Allergies No Known Allergies Allergy (Verified 05/07/24 12:14) Medication List - Last Reconciled 05/07/24 by Emiliana Houston, RADIAL DRILL OPERATOR FOR PLASTIC albuterol sulfate 90 mcg/actuation 2 puffs inhalation Q4-6H PRN atorvastatin 20 mg PO DAILY snotovkue-vbwdegja-ymfyqvz ala 50-200-25 mg (Biktarvy) 1 tab PO DAILY chlorhexidine gluconate 0.12% 15 mL PO BID cholecalciferol (vitamin D3) 25 mcg PO DAILY diclofenac sodium 1% topical losartan 25 mg PO DAILY ondansetron 4 mg PO Q8H PRN PFSH Medical History Polyarticular osteoarthritis Encounter for monitoring denosumab therapy Right shoulder pain Benign neoplastic disease Myositis Cyst of Bartholin's gland duct Renal calculi Gastritis Anxiety Hypertension HIV (human immunodeficiency virus infection) Depression GERD (gastroesophageal reflux disease) Osteoporosis Surgical History Hx of tubal ligation Hx of cholecystectomy Hx of colonoscopy Hx of appendectomy Social History Household Members: None Housing: Apartment Do you presently have visiting nurse or other home services: No Alcohol intake: never Patient Tobacco Use Status: Former Tobacco user Years Smoked: quit 11 years ago Second Hand Smoke Exposure: No service: No Current occupational status: disabled Current occupation: rt handed Female Reproductive History Menstrual Age of Menarche: 14 Physical Exam Vital Signs: Last Vital Signs Pulse 91 05/07/24 12:15 BP 140/75 H 05/07/24 12:15 Pulse Ox 96 05/07/24 12:15 Oxygen Delivery Method Room Air 05/07/24 12:15 BMI result Body Mass Index 28.3 Office Procedures AMB Joint Injection/Aspiration Joint Injection/Aspiration Primary Site: right shoulder (GH and AC joint) Prep: site was prepped using sterile technique Injected: 20 mg of (in GH and AC joint, each), Kenalog, with 1 mL of (ropivacaine 0.25%) and in the joint (both joints) Approach Used: posterolateral Procedure: The patient tolerated the procedure well Coding Details: US images saved - Acromioclavicular with ultrasound guidance - Glenohumeral with ultrasound guidance Procedure code (CPT) selection complete Assessment & Plan Assessment & Plan (1) Osteoarthritis of right shoulder: Code(s): M19.011 - Primary osteoarthritis, right shoulder Category: Medical (2) Acromioclavicular joint arthritis: Code(s): M19.019 - Primary osteoarthritis, unspecified shoulder Category: Medical Plan Patient is status post GH and AC joint injections under US. Patient tolerated procedure well and was discharged home in stable condition with discharge instructions. All questions were answered. Coding Level of Care Code Procedure Only Diagnoses Osteoarthritis of right shoulder M19.011 Acromioclavicular joint arthritis M19.019 CPT Codes Coding - Joint 6: 09519 - Acromioclavicular with ultrasound guidance ([id number]) Coding - Joint 8: 43370 - Glenohumeral with ultrasound guidance ([id number])
[2024-05-07 12:15] VITALS: BP 140/75; PULSE 91; O2SAT 96; BMI 28.3
--- OUTSIDE RECORDS SUMMARY | 2024-05-07 13:41 | XMS_ITS ---
Author Organization [facility] Address [address] [place] [address] Care Team Providers Care Dredge Master Name Role Phone Adele Brooks MD Primary Care Provider Negrita asadilamarcello Olsen Jr, Micah Unavailable REASON FOR VISIT barium swallow Encounters Encounter Location Date Provider Diagnosis [facility] [address] [place] [address] 09/01/2023 Micah Olsen Jr PLAN OF TREATMENT Next Appt Details Provider Name:Micah low Jr, 11/19/2024 01:35:00 PM, [address], [address], [place], [address],
--- OUTSIDE RECORDS SUMMARY | 2024-05-07 13:41 | XMS_ITS ---
Author Organization [facility] Address [address] [place] [address] Care Team Providers Care Matlab Developer Name Role Phone Adele Brooks MD Primary Care Provider Negrita asadilamarcello Olsen Jr, Micah Unavailable REASON FOR VISIT Abdominal pain/ one yr office recall Encounters Encounter Location Date Provider Diagnosis [facility] [address] [place] [address] 09/30/2023 Micah Olsen Jr PLAN OF TREATMENT Next Appt Details Provider Name:Micah low Jr, 11/19/2024 01:35:00 PM, [address], [address], [place], [address],
--- OUTSIDE RECORDS SUMMARY | 2024-05-07 13:41 | XMS_ITS ---
Author Organization [facility] Address [address] [place] [address] Care Team Providers Care Coiler Operator Name Role Phone Adele Brooks MD Primary Care Provider Negrita asadilamarcello Olsen Jr, Micah Unavailable [phone] REASON FOR VISIT erosive esophagitis Encounters Encounter Location Date Provider Diagnosis [facility] [address] [place], [place] [id number] 09/27/2023 Micah Olsen Jr Abn findings-GI tract R93.3 ASSESSMENTS Encounter Date Diagnosis Assessment Notes Treatment Notes Treatment Clinical Notes 09/27/2023 Abn findings-GI tract (ICD-10 - R93.3) PLAN OF TREATMENT Next Appt Details Provider Name:Micah low Jr, 11/19/2024 01:35:00 PM, [address], [address], [place], [address],
--- OUTSIDE RECORDS SUMMARY | 2024-05-07 13:41 | XMS_ITS | Patient Health Record ---
Author Organization [facility] Address [address] [place] [address] Care Team Providers Care Cane Pusher Name Role Phone Hawkeye Adele UMAÑA Primary Care Provider Negrita Micah Shirley Jr Unavailable ALLERGIES No Known Allergies RESULTS Component Value Reference Range Notes FL barium swallow with air Reviewed date:09/01/2023 10:49:43 AM Interpretation: Performing Lab: Notes/Report: [facility] [address] [place] [address] Fluoroscopy Report Signed Patient: Robert Grimm MR# : [id number] : 1955 Acct:[id number] Age/Sex: 68 / F ADM Date: 08/30/23 Loc: AISHWARYA Attending Dr: Micah Olsen MD Ordering Physician: Micah Olsen MD Date of Service: 08/30/23 Procedure(s): FL barium swallow with air Accession Number(s): [id number] cc: Micah Olsen MD EXAMINATION: XR FLUOROSCOPY UPPER GI WITH AIR CLINICAL INFORMATION: Reflux. Dysphagia COMPARISON: 03/05/2022, 06/07/2018. TECHNIQUE: Fluoroscopic air contrast upper GI examination was performed utilizing standard techniques with thin and thick barium and effervescent granules. Numerous spot images were obtained. FINDINGS: Lateral cine images of the oropharynx and hypopharynx demonstrate normal swallow mechanism with normal epiglottic inversion and soft palate elevation. No tracheal penetration, glottic or subglottic aspiration identified. No nasopharyngeal reflux present. Hypopharyngeal structures appear normal without evidence of mass or diverticulum. There was no significant cricopharyngeal achalasia. Dual and single contrast images of the esophagus demonstrate patulous caliber, normal contour, and mildly granular appearing mucosal pattern in the distal one half. No evidence of mass, or large ulcerations identified. Not well visualized, is a probable Schatzki's ring (RF1-13, 226/242). Esophageal peristalsis was normal. The patient swallowed the barium tablet without any difficulty. The tablet passed into the stomach without any stasis. A small type I hiatal hernia is present. Gastroesophageal reflux is seen up to the midesophagus. Dual contrast and single contrast images of the stomach demonstrated normal contour without evidence of mass or large ulceration. Mild prominence of the areae gastricae mucosal markings may indicate mild gastritis. Antral folds appear mildly prominent. Contrast freely passed into the gastric antrum and duodenal bulb without delay. Single and air-contrast images of the duodenal bulb demonstrate no abnormality. The duodenal sweep has a normal appearance, course, and mucosal fold appearance. No malrotation. The imaged proximal jejunum has a normal fold pattern and caliber. There is rapid transit of the barium column, with the right colon opacified at the examination. There are cholecystectomy clips present. FLUOROSCOPY TIME: 4 minutes 22 seconds Number of Spot Images: 12 Number of Cine: 14 DOSE AREA PRODUCT: 2263 uGy-m2 (microgray-meter squared) FL/FL barium swallow with air IMPRESSION: 1. Mildly patulous esophagus. 13 mm barium tablet passed without issue. 2. Small type I hiatal hernia. 3. Mild to moderate gastroesophageal reflux. Findings of granular appearing mucosa within the distal one half of the esophagus, suggesting erosive esophagitis. 4. Above findings which may indicate mild gastritis. 5. Rapid transit of the barium column, with the right colon opacified at the mid examination. Etiology is unknown. Correlate for history of any cathartics. Small bowel mucosa appears normal. This procedure was performed by Hubert Alanis PA-C, and supervised by Dr. Dia Dictated By: Hubert Alanis Signed By: <Electronically signed by Hubert Alanis in OV> 08/31/230 <Electronically signed by Mahendra Dia MD in OV> 08/31/23 165 DD/ 0820 TD/TT: Psychotherapist: Pathology Reviewed date:09/30/2023 09:20:37 AM Interpretation: Performing Lab:[facility], [address] [place] [address], [place] [address] Notes/Report: REASON FOR REFERRAL No Information MEDICATIONS Medication SIG (Take, Route, Frequency, Duration) Notes Start Date End Date Status Flonase 50 MCG/DOSE 1 spray in each nost ril Nasally Once a day for 30 day(s) Active Omeprazole 40 MG TOME 1 CAPSULA POR V IA ORAL TODOS LOS GASPAR 30 MINUTOS BEFORE MORNING MEAL FOR 30 DAYS for 90 Active Tylenol PRN Active Albuterol Sulfate HFA Active Albuterol Sulfate Ac tive Calcium & Vit D3 Bone Health Active Prolia 60 MG/ML as directed Subcutan eous 1 injection every 6 months Active Biktarvy 50-200-25 MG TOME NEGRITA TABLETA T ODOS LOS D? Oral Once a day Active Cyclobenzaprine HCl 10 MG 1 tablet as ne eded Orally Three times a day Active amLODIPine Besylate 2.5 MG 1 tablet Oral ly Once a day Active IMMUNIZATIONS Vaccine Route Administration Date Status Comme nts Influenza Unknown 12/21/2017 Administered Influenza Unknown 12/19/2019 Administered Influenza Unknown 01/13/2022 Administered SOCIAL HISTORY Tobacco Use: Social History Observation Description Date Details (start date - stop date) Former Smoker NA - NA Sex Assigned At : Social History Observation Description Sex Assigned At Unknown Tobacco Use/Smoking Question Answer Notes Patient is a former smoker How long has it been since you last smoked? > 10 years Alcohol Screen Question Answer Notes Did you have a drink containing alcohol in the p ast year? No Points 0 Interpretation Negative PROBLEMS Problem Type ICD Code Onset Dates Problem Status W/U Status Risk SNOMED Code Notes Problem Colon cancer screening (Z12.11) Active confirmed 525540661 Problem Generalized abdominal pain (R10.84) Active confirmed 796292154 Problem Rectal pain (K62.89) Active confirmed 59852655 Problem Dysphagia, unspecified type (R13.10) Active confirmed 36282580 Problem GERD without esophagitis (K21.9) Active confirmed 827614492 Problem Change in bowel function (R19.8) Active confirmed 10701177 VITAL SIGNS Blood pressure diastolic 00 mm Hg 08/25/2023 Height 61 in 08/25/2023 Blood pressure systolic 00 mm Hg 08/25/2023 Weight 150 lbs 08/25/2023 BMI 28.34 kg/m2 08/25/2023 Encounters Encounter Location Date Provider Diagnosis [facility] Outpatient [address] [place], [place] [phone] 09/27/2023 Micah Olsen Jr Abn findings-GI tract R93.3 [facility] [address] [facility] [address] [facility] [address] [facility] [address] [place] [address] 08/25/2023 Micah Olsen Jr GERD without esophagitis K21.9 [facility] [address] [facility] [address] [place] [address] 09/01/2023 Micah Olsen Jr [facility] [address] [place] [address] 09/30/2023 Micah Olsen Jr ASSESSMENTS Encounter Date Diagnosis Assessment Notes Treatment Notes Treatment Clinical Notes 09/27/2023 Abn findings-GI tract (ICD-10 - R93.3) 08/25/2023 GERD without esophagitis (ICD-10 - K21.9) PLAN OF TREATMENT Pending Test Test Name Order Date LIVER PROFILE 03/10/2022 LIPASE 03/10/2022 CRP 03/10/2022 CBC w/o DIFF 03/10/2022 SED RATE (ESR) 03/10/2022 XR BARIUM SWALLOW-ESOPHAGUS 07/21/2011 XR BARIUM SWALLOW-ESOPHAGUS 05/24/2018 XR BARIUM SWALLOW-ESOPHAGUS 01/20/2022 XR BARIUM SWALLOW-ESOPHAGUS 08/25/2023 Future Test Test Name Order Date COLONOSCOPY 07/21/2011 UPPER GI ENDOSCOPY 08/02/2012 UPPER GI ENDOSCOPY 04/01/2017 COLONOSCOPY 04/01/2017 UPPER GI ENDOSCOPY 01/02/2020 COLONOSCOPY 01/02/2020 Next Appt Details Provider Name:Micah low Jr, 11/19/2024 01:35:00 PM, [address] [facility], [address], [place], [address], Insurance Providers Payer Name Payer Address Payer Phone Subscriber Number Group Number Insured Name Patient Relationship to Insured Coverage Start Date Coverage End Date MEDICARE OF [place] [address] [place] [address] [id number] ROBERT CARIAS Self - patient is the insured MEDICAID OF [facility] [address] [place] [address] [id number] ROBERT CARIAS Self - patient is the insured MEDICAL (GENERAL) HISTORY Medical History History ICD Code Gastroesophageal reflux dise ase, EGD 02/05/20, no H. pylori or Rosenberg's esophagus. Anxiety/depression HIV infection hypertension kidney stones myositis Colonoscopy 02/01/20, tubular adenomas x 2, five-year followup Surgical History Surgery Date(Month/Year) appendectomy 06/01/2012 cholecystectomy 06/01/2012 tubal ligation 06/01/2012 left breast lumpectomy 1995
== END 2024-05-07 12:56 | disposition home or self-care (01) ==
PROVIDERS: PCP Family Medicine; Visit Provider Internal Medicine
DX: M19.011 Primary osteoarthritis, right shoulder (principal); M19.019 Primary osteoarthritis, unspecified shoulder
CPT/HCPCS: 20606; 20611

== ENCOUNTER → 2024-05-07 11:50 | Outpatient (BNVA) | payer MEDICARE, MEDICAID, SELFPAY | PROVIDERS: PCP Family Medicine; Visit Provider Internal Medicine | DX: M19.011 Primary osteoarthritis, right shoulder (principal) | CPT/HCPCS: 20606; 20611 ==

== ENCOUNTER 2024-07-23 10:07 | Outpatient (REF) | payer OTHER, SELFPAY ==
--- OUTSIDE RECORDS SUMMARY | 2024-07-23 10:33 | XMS_ITS ---
Author Organization [facility] Address [address] [place] [address] Care Team Providers Care Real Estate Assistant Name Role Phone Adele Brooks MD Primary Care Provider Negrita vailamarcello Olsen Jr, Micah Unavailable [phone] REASON FOR VISIT barium swallow Encounters Encounter Location Date Provider Diagnosis [facility] [address] [place] [address] 09/01/2023 Micah Olsen Jr Plan Of Treatment Next Appt Details Provider Name:Micah low Jr, 11/19/2024 01:35:00 PM, [address], [address], [place], [address], Progress Notes * ANGELITO CARIASB:[birth year] (68 yo F)Acc No.[id number]:09/01/2023 Patient:?ROBERT CARIAS :1955???Age:68 Y???Sex:Female Address:[address] , [place] [address] * true * Date:? Generated for Printi roberto/Nader/eTransmitting on:?07/23/2024 10:33 AM EDT
--- OUTSIDE RECORDS SUMMARY | 2024-07-23 10:34 | XMS_ITS ---
Author Organization [facility] Address [address] [place] [address] Care Team Providers Care Ultrasonographer Name Role Phone Adele Brooks MD Primary Care Provider Negrita asadilamarcello Olsen Jr, Micah Unavailable REASON FOR VISIT Abdominal pain/ one yr office recall Encounters Encounter Location Date Provider Diagnosis [facility] [address] [place] [address] 09/30/2023 Micah Olsen Jr Plan Of Treatment Next Appt Details Provider Name:Micah low Jr, 11/19/2024 01:35:00 PM, [address], [address], [place], [address], Progress Notes * ANNE CARIASADOB:[birth year] (68 yo F)Acc No.[id number]:09/30/2023 Patient:?ROBERT CARIAS :1955???Age:68 Y???Sex:Female Address:[address] , [place] [address] * true * Date:? Generated for Printi roberto/Nader/eTransmitting on:?07/23/2024 09:17 AM EDT
--- OUTSIDE RECORDS SUMMARY | 2024-07-23 10:34 | XMS_ITS | Patient Health Record ---
Author Organization [facility] Address [address] [place] [address] Care Team Providers Care Instrument Maker Name Role Phone Cecilia Adele UMAÑA Primary Care Provider Negrita Micah Shirley Jr Unavailable [phone] Allergies No Known Allergies Results Component Value Reference Range Notes FL barium swallow with air Reviewed date:09/01/2023 10:49:43 AM Interpretation: Performing Lab: Notes/Report: [facility] [address] [place] [address] Fluoroscopy Report Signed Patient: Ana Grimm MR# : [id number] : 1955 Acct:[id number] Age/Sex: 68 / F ADM Date: 08/30/23 Loc: AISHWARYA Attending Dr: Micah Olsen MD Ordering Physician: Micah Olsen MD Date of Service: 08/30/23 Procedure(s): FL barium swallow with air Accession Number(s): [id number] cc: Micah Olsen MD EXAMINATION: XR FLUOROSCOPY [...] <Electronically signed by Hubert Alanis in OV> 08/31/23 1650 <Electronically signed by Mahendra Dia MD in OV> 08/31/23 165 DD/ 0820 TD/TT: Driver Salesman: [address] [address] Fluoroscopy Report Signed Patient: Ana Grimm MR# : [id number] : 1955 Acct:[id number] Age/Sex: 68 / F ADM Date: 08/30/23 Loc: HO.XRAY Attending Dr: Deena Olsen MD Ordering Physician: Micah Olsen MD Date of Service: 08/30/23 Procedure(s): FL bar ium swallow with air Accession Number(s): [id number] cc: Micah Olsen MD EXAMINATION: XR FLUOROSCOPY UPPER GI WITH AIR CLINICAL INFORMATION: Reflux. Dysphagia COMPARISON: 03/05/2022, 06/07/2018. TECHNIQUE: Fluoroscopic air con trast upper GI examination was performed utilizing standard techniques with thin and thick barium and effervescent granules. Numerous s pot images were obtained. FINDINGS: Lateral cine images of the oropharynx and hypopharynx demonstrate normal swallow mecha nism with normal epiglottic inversion and soft palate elevation. No tracheal penetration, glottic or subglottic aspiration identifie d. No nasopharyngeal reflux present. Hypopharyngeal structures appear no rmal without evidence of mass or diverticulum. There was no signifi cant cricopharyngeal achalasia. Dual and single cont rast images of the esophagus demonstrate patulous caliber, normal cont our, and mildly granular appearing mucosal pattern in the distal one stevens lf. No evidence of mass, or large ulcerations identified. Not well visualized, is a probable Schatzki's ring (RF1-13, 226/242). Esophageal peristalsis was normal. The patient swallowed the barium tablet withou t any difficulty. The tablet passed into the stomach without any stasis. A small type I hiata l hernia is present. Gastroesophageal reflux is seen up to the midesophagus. Dual contrast and si ngle contrast images of the stomach demonstrated normal contour witho ut evidence of mass or large ulceration. Mild prominence of the ar eae gastricae mucosal markings may indicate mild gastritis. Antral fo lds appear mildly prominent. Contrast freely passed into the gastric ant rum and duodenal bulb without delay. Single and air-contr ast images of the duodenal bulb demonstrate no abnormality. The duo denal sweep has a normal appearance, course, and mucosal fold appeara nce. No malrotation. The imaged proximal jejunum has a normal fold pa ttern and caliber. There is rapid transit of the barium column, with the right colon opacified at the examination. There are cholecyste ctomy clips present. FLUOROSCOPY TIME: 4 minutes 22 seconds Number of Spot Images: 12 Number of Cine: 14 DOSE AREA PRODUCT: 2263 uGy-m2 (microgr ay-meter squared) F L/FL barium swallow with air IMPRESSION: 1. Mildly patulous e sophagus. 13 mm barium tablet passed without issue. 2. Small type I hiatal hernia. 3. Mild to moderate gastroesophageal reflux. Findings of granular appearing mucosa wit hin the distal one half of the esophagus, suggesting erosive esophagitis. 4. Above findings wh ich may indicate mild gastritis. 5. Rapid transit of the barium column, with the right colon opacified at the mid examinati on. Etiology is unknown. Correlate for history of any cathartics. Smal l bowel mucosa appears normal. This procedure was p erformed by Hubert Alanis PA-C, and supervised by Dr. Dia Dictated By: Hubert Alanis Signed By: <Electron icalllevar signed by Hubert Alanis in OV> 08/31/23 1650 <Electronically sign ed by Mahendra Dia MD in OV> 08/31/23 1653 DD/ 0820 TD/TT: Driver Salesman: Pathology Reviewed date:09/30/2023 09:20:37 AM Interpretation: Performing Lab:[facility], [address] [place] [address] Notes/Report: Name: Julián rossAna Age/Sex: 68/F : 1955 Unit#: [id number] Attend Dr: Micah Olsen MD Re09/27/23 Status : [facility] Location: [facility] Disch: SPEC : [id number] RECD : 09/27/23 STATUS: YANDEL LANE NUM: [id number] KRISTOPHER: 09/27/[address] [facility] [address]: Micah Olsen MD ENTERED: 09/27/23 50 SP TYPE: Surgical OTHR DR: Adele Brooks MD ORDERED: HE Stain/6, Gross Micro L4/2, IHC, Special st. 2/2, H. pylori, AB/PAS/2 Diagnosis A. Stomach, antrum, biopsy: Antral-type mucosa with moderate chronic inactive inflammation; no Hel icobacter organisms seen. B. EG junction, biopsy: - Cardiac-type mucos a with moderate chronic inactive inflammation; no intestinal metaplasia seen. - Active esophagitis (few eosinophils). Clinical History Pre-Op Dx: Ulcer of esophagus without bleeding Post-Op Dx: Normal EGD Microscopic Description A, B. Microscopic se ctions examined. No metaplastic changes are seen, supported by AB/PAS stains (A and B); no Helicobacter organisms are seen, supported by H. pylori immunostain (A). Material Received A. Antral bx's B. EG junction Gross Description Received in two parts. Part A: Received in formalin labeled ?antral bx's? are 2 de león-pink irregular and rectangular tissue fragments sandoval suring 0.25 and 0.3 cm, submitted in toto in a cassette labeled A. Part B: Received in formalin labeled ?EG junction? are 5 obrien-pink irregular and rectangular tissue f ragments ranging from 0.15-0.3 cm, submitted in toto in a cassette labeled B. CEDS Special studies orde red and performed: Immunostain for H. pylori on A; AB/PAS stains on A and B CONTINUED ON NEXT PAGE Name: Ana Victor Age/Sex: 68/F : 1955 Unit#: [id number] Attend Dr: Micah Olsen MD Re09/27/23 Status : [facility] Location: [facility] Disch: SPEC : [id number] RECD : 09/27/23 STATUS: YANDEL RERene NUM: [id number] KRISTOPHER: 09/27/[address] [facility] [address]: Micah Olsen MD ENTERED: 09/27/23-09 50 SP TYPE: Surgical OTHR DR: Adele Brooks MD ORDERED: HE Stain/6, Gross Micro L4/2, IHC, Special st. 2/2, H. pylori, AB/PAS/2 Copies To: Adele Brooks MD [address] [address] Micah Olsen MD [facility] [address] [place] [address] Signed (si gnature on file) Chaitanya Price MD 09/29/23911 END OF REPORT Reason For Referral No Information Medications Medication SIG (Take, Route, Frequency, Duration) Notes [...] tablet Oral ly Once a day Active Immunizations Vaccine Route Administration Date Status Comme nts Influenza Unknown 12/21/2017 Administered Influenza Unknown 12/19/2019 Administered Influenza Unknown 01/13/2022 Administered Social History Tobacco Use: Social History Observation Description Date Details (start date - stop date) Former Smoker NA - NA Tobacco Use/Smoking Question Answer Notes Patient is a former smoker How long has it been since you last smoked? > 10 years Alcohol Screen Question Answer Notes Did you have a drink containing alcohol in the p ast year? No Points 0 Interpretation Negative Problems Problem Type SNOMED Code ICD Code Onset Dates Problem Status W/U Status Risk Notes Problem 394431770 Colon cancer screening (Z12.11) Active confirmed Problem 283841181 Generalized abdominal pain (R10.84) Active confirmed Problem 60375234 Rectal pain (K62.89) Active confirmed Problem 66674119 Dysphagia, unspecified type (R13.10) Active confirmed Problem 733883355 GERD without esophagitis (K21.9) Active confirmed Problem 49067465 Change in bowel function (R19.8) Active confirmed Vital Signs Blood pressure diastolic 00 mm Hg 08/25/2023 Height 61 in 08/25/2023 Blood pressure systolic 00 mm Hg 08/25/2023 Weight 150 lbs 08/25/2023 BMI 28.34 kg/m2 08/25/2023 Encounters Encounter Location Date Provider Diagnosis [facility] Out[facility] [address] [place] [phone] 09/27/2023 Micah Olsen Jr Abn findings-GI tract R93.3 [facility] [address] [place] [address] 08/25/2023 Micah Olsen Jr GERD without esophagitis K21.9 [facility] [address] [place] [address] 09/01/2023 Micah Olsen Jr [facility] [address] [place] [address] 09/30/2023 Micah Olsen Jr Assessments Encounter Date Diagnosis (ICD Code) Assessment Notes Treatment Notes Treatment Clinical Notes Section Notes 09/27/2023 Abn findings-GI tract (ICD-10 - R93.3) 08/25/2023 GERD without esophagitis (ICD-10 - K21.9) We discussed her symptoms today. We have recommended she begin using omeprazole 40 mg daily on a regular basis. She will continue this. A barium swallow will be obtained with a tablet to assess for her mechanics of swallowing. She may need further evaluation with upper endoscopy pending these results. We discussed this today. Plan Of Treatment Pending Test Test Name Order Date LIVER [...] COLONOSCOPY 01/02/2020 Next Appt Details Provider Name:Micah iqbald , 11/19/2024 01:35:00 PM, [address], [address], [place], [address], Insurance Providers Payer Name Payer Address Payer Phone Subscriber Number Group Number Insured Name Patient Relationship to Insured Coverage Start Date Coverage End Date [place] [address] [place] [address] [id number] ANA CARIAS Self - patient is the insured MEDICAID [facility] [address] [place] [address] [id number] CARIASANA Ross Self - patient is the insured Medical (General) History Medical History History ICD Code Gastroesophageal reflux dise ase, EGD 02/05/20, no H. pylori or Rosenberg's esophagus. Anxiety/depression HIV infection hypertension kidney stones myositis Colonoscopy 02/01/20, tubular adenomas x 2, five-year followup Surgical History Surgery Date(Month/Year) appendectomy 06/01/2012 cholecystectomy 06/01/2012 tubal ligation 06/01/2012 left breast lumpectomy 1995
--- OUTSIDE RECORDS SUMMARY | 2024-07-23 10:34 | XMS_ITS ---
Author Organization [facility] Address [address] [place] [address] Care Team Providers Care Mobile Equipment Servicer Name Role Phone Cecilia UMAÑA, Adele Primary Care Provider Negrita asadilaMicah Sun Jr Unavailable REASON FOR VISIT erosive esophagitis Encounters Encounter Location Date Provider Diagnosis [facility] [address] [place], [place] [phone] 09/27/2023 Micah Olsen Jr Abn findings-GI tract R93.3 Assessments Encounter Date Diagnosis (ICD Code) Assessment Notes Treatment Notes Treatment Clinical Notes Section Notes 09/27/2023 Abn findings-GI tract (ICD-10 - R93.3) Plan Of Treatment Next Appt Details Provider Name:Micah low Jr, 11/19/2024 01:35:00 PM, [address], [address], [place], [address], Progress Notes * ANNE CARIASADOB:[birth year] (68 yo F)Acc No.[id number]:09/27/2023 EGD/MAC Patient:?ROBERT CARIAS Provider:?Micah Olsen MD :1955???Age:68 Y???Sex:Female D ate:09/27/2023 Address:[address] [place] [address] , [place], [place] Pcp:Adele Brooks MD Subjective: * Chief Complaints: * ???1. Erosive esophagitis. * Medical History:? Objective: * Vitals:? Assessment: * Assessment: 1.?Abn findings-GI tract - R 93.3 (Primary)??? Plan: * Treatment: * Procedure Codes:?20371 COLON OSCOPY AND BIOPSY * * The named appointment provid er may or may not be the originator of this progress note, and it is not deemed complete until electronically signed by the appointment provider. Sign off status: Pending * Provider:?Micah Olsen MD Date:?0 09/27/2023 Generated for Chelsey mejia/Nader/Laurenitting on:?07/23/2024 10:33 AM EDT
[2024-07-23 11:45] LABS: MANUAL DIFF FLAG NO
[2024-07-23 11:51] LABS: Basophils Percent Auto 0.3 % (0-2); Eosinophils Absolute Auto 0.1 X10*3/uL (0.0-0.4); Eosinophils Percent Auto 1.2 % (0-4); Hemoglobin 14.6 g/dl (12.0-16.0); Imm Gran Abs Auto 0.02 X10*3/uL (0.00-0.03); Imm Gran Pct Auto 0.3 % (0.0-0.4); Lymphocytes Absolute Auto 2.5 X10*3/uL (1.2-4.9); Mean Corpuscular HGB Conc 33.2 g/dl (31.0-35.0); Mean Corpuscular Hemoglobin 30.3 pg (27.0-33.0); Mean Corpuscular Volume 91.3 fL (80.0-98.0); Mean Platelet Volume 11.1 fL (9.4-12.3); Monocytes Absolute Auto 0.4 X10*3/uL (0.1-1.2); Monocytes Percent Auto 5.6 % (2-11); Neutrophils Absolute Auto 3.5 x10*3/uL (2.0-8.3); Neutrophils Percent Auto 54.6 % (45-73); Platelet Count 270 X10*3/uL (160-400); Red Blood Count 4.82 X10*6/uL (4.20-5.50); Red Cell Distribution Width 12.4 % (11.0-16.0); White Blood Count 6.5 X10*3/uL (4.8-10.8)
[2024-07-23 12:13] LABS: Alanine Aminotransferase 27 U/L (0-31); Albumin Level 3.8 g/dL (3.5-5.0); Anion Gap 12 (12-20); Aspartate Amino Transferase 19 U/L (5-31); Bilirubin Total 0.3 mg/dL (0.0-1.0); Blood Urea Nitrogen 19 mg/dL (9-16); Calcium 8.9 mg/dL (8.4-10.2); Carbon Dioxide 26 mmol/L (22-29); Chloride 109 mmol/L (96-108); Estimated Glomerular Filt Rate > 60; Glucose Random 99 mg/dL (60-115); Potassium 3.6 mmol/L (3.3-5.1); Sodium 143 mmol/L (135-145); Total Protein 6.8 g/dL (6.5-8.0)
[2024-07-23 12:16] LABS: Alkaline Phosphatase 86 U/L (39-117)
[2024-07-24 07:36] LABS: ~HepC Num1 0.15 S/CO (0.00-0.79); ~Hepatitis C Antibody Nonreactive (Nonreactive)
[2024-07-24 14:09] LABS: HIV RNA PCR Qn Copies 110 copies/mL (NOT DETECTED); HIV RNA PCR Qn Log Copies 2.04 (NOT DETECTED)
[2024-07-27 15:14] LABS: Absolute CD3 Count 1679 cells/uL (840-3060); Absolute CD4 Count 1185 cells/uL (490-1740); Absolute CD8 Count 639 cells/uL (180-1170); Absolute Lymphocytes 2489 cells/uL (850-3900); CD4 CD8 Ratio 1.85 (0.86-5.00); Percent CD3 Cells 67 % (57-85); Percent CD4 Cells 48 % (30-61); Percent CD8 Cells 26 % (12-42)
== END 2024-07-23 10:08 | disposition home or self-care (01) ==
LOC: HO.HHCL 10:07
PROVIDERS: Visit Provider Internal Medicine
DX: Z21 Asymptomatic human immunodeficiency virus [HIV] infection status (principal)
CPT/HCPCS: 36415; 80053; 85025; 86359; 86360; 86803; 87536

== ENCOUNTER 2024-10-03 10:20 | Outpatient (REF) | payer OTHER, SELFPAY ==
--- OUTSIDE RECORDS SUMMARY | 2023-09-27 08:20 | XMS_ITS ---
Author Organization [facility] Address 10 [facility] [address] [place] [address] Care Team Providers Care Real Estate Transaction Manager Name Role Phone Cecilia UMAÑA, Adele Primary Care Provider Negrita Micah Shirley Jr Unavailable REASON FOR VISIT erosive esophagitis Encounters Encounter Location Date Provider Diagnosis [facility] [place] Out[place] [address] [place], [place] [phone] 09/27/2023 Micah Olsen Jr Abn findings-GI tract R93.3 Assessments Encounter Date Diagnosis (ICD Code) Assessment Notes Treatment Notes Treatment Clinical Notes Section Notes 09/27/2023 Abn findings-GI tract (ICD-10 - R93.3) Plan Of Treatment Next Appt Details Provider Name:Micah low Jr, 11/19/2024 01:35:00 PM, [address] [facility], Suite [facility], [place], [address], Progress Notes * ANNE CARIASADOB:[birth year] (69 yo F)Acc No.[id number]:09/27/2023 EGD/MAC Patient: ROBERT OROSCO Provider: Reji Olsen MD :1955 A ge:68 Y S ex:Female Date:09/27/2023 Address:[address] [place] [address] Pcp:Adele Brooks MD Subjective: * Chief Complaints: [...] 0 09/27/2023 Generated for Chelsey mejia/Nader/Laurenitting on: 10/03/2024 11:24 AM EDT
--- OUTSIDE RECORDS SUMMARY | 2024-10-03 11:25 | XMS_ITS | Encounter Summary ---
Author Organization [facility] Address [address] [place] [address] Phone Care Team Providers Care Napkin Machine Operator Name Role Phone Unknown, Unknown Primary Care Provider Liam east Encounter Details Date Type Department Care Team (Latest Contact Info) Description 03/28/2019 Ancillary Orders [facility] [address] [place] [address] Reji Jo, DO [address] [place] [address] Chest pain, unspecified type; Dizziness Social History Tobacco Use Types Packs/Day Years Used Date Smoking Tobacco: Never Assessed Comments Unknown Sex and Gender Information Value Date Recorded Sex Assigned at Not on file Legal Sex Female 10:40 AM EST Gender Identity Not on file Sexual Orientation Not on file documented as of this encounter Plan of Treatment Not on file documented as of this encounter Results * Holter Monitor 24 Hours (03/28/2019 2:15 PM EST) Anatomical Region Laterality Modality Heart Other Narrative 03/28/2019 2:28 PM EST 24-hour monitor: The baseline rhythm is sinus with a minimum heart rate of 64, maximum of 128, average 87 bpm. There are no long pauses. Occasional PACs and PVCs present. There is no diary submitted. There are no patient event markers. Impression: Normal 24-hour monitor. No diary submitted. No patient event markers. Procedure Note Shahram Crews MD - 03/28/2019 24-hour monitor: The baseline rhythm is sinus with a minimum heart rate of64, maximum of 128, average 87 bpm. There are no long pauses. OccasionalPACs and PVCs present. There is no diary submitted. There are no patientevent markers. Impression: Normal 24-hour monitor. No diary submitted. No patient eventmarkers. Reji Jo DO [facility] ORDER[facility] S Final Result documented in this encounter Visit Diagnoses Diagnosis Chest pain, unspecified type Dizziness Dizziness and giddiness Chest pain, unspecified type Dizziness Dizziness and giddiness documented in this encounter Care Teams Napkin Machine Operator Relationship Specialty Start Date End Date Unknown, Unknown, MD PCP - General 03/28/19 documented as of this encounter Additional Source Comments The information contained in this document represents components of the legal health record. It is not the complete legal health record.[facility]
[2024-10-03 12:14] LABS: Alanine Aminotransferase 22 U/L (0-31); Albumin Level 4.2 g/dL (3.5-5.0); Alkaline Phosphatase 93 U/L (39-117); Anion Gap 8 (12-20); Aspartate Amino Transferase 20 U/L (5-31); Blood Urea Nitrogen 16 mg/dL (9-16); Calcium 9.1 mg/dL (8.4-10.2); Carbon Dioxide 27 mmol/L (22-29); Chloride 112 mmol/L (96-108); Estimated Glomerular Filt Rate > 60; Potassium 3.6 mmol/L (3.3-5.1); Sodium 143 mmol/L (135-145); Total Protein 7.2 g/dL (6.5-8.0)
== END 2024-10-03 10:21 | disposition home or self-care (01) ==
LOC: HO.LAB 10:20
PROVIDERS: PCP Family Medicine; Visit Provider Student in an Organized Health Care Education/Training Program
DX: Z51.81 Encounter for therapeutic drug level monitoring (principal); Z79.620 Long term (current) use of immunosuppressive biologic; M81.0 Age-related osteoporosis without current pathological fracture; E55.9 Vitamin D deficiency, unspecified
CPT/HCPCS: 36415; 80053; 82306

== ENCOUNTER 2024-10-04 08:31 | Outpatient (REF) | payer OTHER, SELFPAY ==
--- OUTSIDE RECORDS SUMMARY | 2023-09-27 08:20 | XMS_ITS ---
Author Organization [facility] Address 10 [facility] [address] [place] [address] Care Team Providers Care Funeral Assistant Name Role Phone Cecilia UMAÑA, Adele Primary Care Provider Negrita Micah Shirley Jr Unavailable [phone] REASON FOR VISIT erosive esophagitis Encounters Encounter Location Date Provider Diagnosis [facility] [place] [address] [place], [place] [phone] 09/27/2023 Micah Olsen Jr Abn findings-GI tract R93.3 Assessments Encounter Date Diagnosis (ICD Code) Assessment Notes Treatment Notes Treatment Clinical Notes Section Notes 09/27/2023 Abn findings-GI tract (ICD-10 - R93.3) Plan Of Treatment Next Appt Details Provider Name:Micah low Jr, 11/19/2024 01:35:00 PM, [address] [facility], Suite [facility], [place], [address], Progress Notes * ANNE CARIASADOB:[birth year] (69 yo F)Acc No.[id number]:09/27/2023 EGD/MAC Patient: ROBERT OROSCO Provider: Reji Olsen MD :1955 A ge:68 Y S ex:Female Date:09/27/2023 Address:[address] [place] [address] Pcp:Adele Brooks MD Subjective: * Chief Complaints: [...] Pending * Provider: Reji Olsen MD Date: 09/27/2023 Generated for Chelsey mejia/Nader/Laurenitting on: 10/04/2024 08:54 AM EDT
--- OUTSIDE RECORDS SUMMARY | 2024-10-04 08:54 | XMS_ITS | Encounter Summary ---
Author Organization [facility] Address [address] [place] [address] Phone Care Team Providers Care Water Sponger Name Role Phone Unknown, Unknown Primary Care Provider Liam east Encounter Details Date Type Department Care Team (Latest Contact Info) Description 03/28/2019 Ancillary Orders [facility] [address] [place] [address] Reji Jo, DO [address] [place] [address] Chest pain, unspecified type; Dizziness Social History [...] giddiness documented in this encounter Care Teams Water Sponger Relationship Specialty Start Date End Date Unknown, Unknown, MD PCP - General 03/28/19 documented as of this encounter Additional Source Comments The information contained in this document represents components of the legal health record. It is not the complete legal health record.[facility]
[2024-10-09 23:33] LABS: Collagen Type I C-Telopeptide 281 pg/mL (see note)
== END 2024-10-04 08:32 | disposition home or self-care (01) ==
LOC: HO.LAB 08:31
PROVIDERS: PCP Family Medicine; Visit Provider Student in an Organized Health Care Education/Training Program
DX: Z51.81 Encounter for therapeutic drug level monitoring (principal); M81.0 Age-related osteoporosis without current pathological fracture; E55.9 Vitamin D deficiency, unspecified; Z79.620 Long term (current) use of immunosuppressive biologic
CPT/HCPCS: 36415; 82523

== ENCOUNTER 2024-10-09 13:03 | Outpatient (AMB) | payer OTHER, SELFPAY ==
--- OUTSIDE RECORDS SUMMARY | 2023-09-27 08:20 | XMS_ITS ---
Author Organization [facility] Address 10 [facility] [address] [place] [address] Care Team Providers Care Drug Worker Name Role Phone Cecilia UMAÑA, Adele Primary Care Provider Negrita Micah Shirley Jr Unavailable REASON FOR VISIT erosive esophagitis Encounters Encounter Location Date Provider Diagnosis [facility] [place] [place] Out[place] [address] [place], [place] [phone] 09/27/2023 Micah Olsen Jr Abn findings-GI tract R93.3 Assessments Encounter Date Diagnosis (ICD Code) Assessment Notes Treatment Notes Treatment Clinical Notes Section Notes 09/27/2023 Abn findings-GI tract (ICD-10 - R93.3) Plan Of Treatment Next Appt Details Provider Name:Micah low Jr, 11/19/2024 01:35:00 PM, 10 [facility], Suite [facility], [place], [address], Progress Notes * ANGELITO CARIASB:[birth year] (69 yo F)Acc No.[id number]:09/27/2023 EGD/MAC Patient: ROBERT OROSCO Provider: Reji Olsen MD :1955 A ge:68 Y S ex:Female Date:09/27/2023 Address:[address] [place] [address] Pcp:Adele Brooks MD Subjective: * Chief Complaints: [...] Date: 09/27/2023 Generated for Chelsey mejia/Nader/Laurenitting on: 10/09/2024 01:50 PM EDT
--- NOTE | 2024-10-09 13:14 | A.OFFVIS_ITS ---
Intake Visit Reasons: pelvic pain Information Interpreted: non-clinical & clinical (soto/ macarena) Allergies No Known Allergies Allergy (Verified 05/07/24 12:14) HPI Comments Details: Presenting complaining pelvic cramping of 2 weeks' duration associated with vaginal discharge with no itching or odor no vaginal bleeding, urine frequency and incontinence but no GI symptoms. [facility] Medical History Polyarticular osteoarthritis Encounter for monitoring denosumab therapy Right shoulder pain Benign neoplastic disease Myositis Cyst of Bartholin's gland duct Renal calculi Gastritis Anxiety Hypertension HIV (human immunodeficiency virus infection) Depression GERD (gastroesophageal reflux disease) Osteoporosis Surgical History Hx of tubal ligation Hx of cholecystectomy Hx of colonoscopy Hx of appendectomy Social History Household Members: None Housing: Apartment Do you presently have visiting nurse or other home services: No Alcohol intake: never Patient Tobacco Use Status: Former Tobacco user Years Smoked: quit 11 years ago Second Hand Smoke Exposure: No service: No Current occupational status: disabled Current occupation: rt handed Female Reproductive History Menstrual Age of Menarche: 14 Review of Systems Const All systems reviewed & are unremarkable except as noted in HPI and below Physical Exam General: Yes no CVA tenderness External Female Exam: normal external appearance and normal appearance of the urethra Speculum Exam - Vagina: normal appearance of the vagina, normal palpation, no lesions and no masses Speculum Exam - Cervix: normal appearance of the cervix, normal palpation, no lesions, no masses and nontender Bimanual exam- vagina & uterus: normal bimanual exam, normal palpation, uterine size normal, normal palpation, uterine shape normal, No Cervical tenderness present and non-tender Bimanual Exam- Adnexa, other: normal adnexae Back/Spine/Pelvis Back: no CVA tenderness Assessment & Plan Assessment & Plan (1) Pelvic pain: Comment: Vaginal discharge Code(s): R10.2 - Pelvic and perineal pain Category: Medical Plan: Urine dip was negative. Urine culture sent. GC/CT with BV panel taken. Pelvic ultrasound ordered. If GC/CT and BV panel is negative and vaginal discharge is persistent, will consider endometrial sampling to rule out endometrial pathology. Instructions given the patient is schedule an ultrasound follow-up appointment within 2 weeks. All questions answered, the patient verbalized understanding Orders: Orders US pelvic and transvaginal Today R10.2 - Pelvic and perineal pain Coding Level of Care Code Est Pt Level 3 (30800) Diagnoses Pelvic pain R10.2
--- OUTSIDE RECORDS SUMMARY | 2024-10-09 13:50 | XMS_ITS | Encounter Summary ---
Author Organization [facility] Address [address] [place] [address] Phone Care Team Providers Care Blending Technician Name Role Phone Unknown, Unknown Primary Care Provider Liam east Encounter Details Date Type Department Care Team (Latest Contact Info) Description 03/28/2019 Ancillary Orders [facility] [address] [place] [address] Reji Jo, DO [address] [place] [address] Chest pain, unspecified type; Dizziness Social History [...] giddiness documented in this encounter Care Teams Blending Technician Relationship Specialty Start Date End Date Unknown, Unknown, MD PCP - General 03/28/19 documented as of this encounter Additional Source Comments The information contained in this document represents components of the legal health record. It is not the complete legal health record.[facility]
== END 2024-10-09 13:44 | disposition home or self-care (01) ==
LOC: HO.HWS 13:03
PROVIDERS: PCP Family Medicine; Visit Provider Obstetrics & Gynecology
DX: R10.2 Pelvic and perineal pain (principal)
CPT/HCPCS: 99213

== ENCOUNTER 2024-10-09 13:03 | Outpatient (REF) | payer OTHER, SELFPAY ==
[2024-10-09 15:29] LABS: Bacterial Vaginosis PCR NEGATIVE (Negative); Candida Group PCR NOT DETECTED (Not Detect); Candida glab krusei PCR NOT DETECTED (Not Detect); Trichomonas vaginalis PCR NOT DETECTED (Not Detect)
[2024-10-09 15:59] LABS: CT PCR NOT DETECTED (Not Detect.); NG PCR NOT DETECTED (Not Detect.)
== END 2024-10-09 13:04 | disposition home or self-care (01) ==
LOC: HO.LNP 13:03
PROVIDERS: PCP Family Medicine; Visit Provider Obstetrics & Gynecology
DX: R10.2 Pelvic and perineal pain (principal); N89.8 Other specified noninflammatory disorders of vagina; Z11.3 Encounter for screening for infections with a predominantly sexual mode of transmission; Z11.8 Encounter for screening for other infectious and parasitic diseases; Z98.51 Tubal ligation status
CPT/HCPCS: 58100; 81515; 87491; 87591; 99212

== ENCOUNTER 2024-10-10 09:20 | Outpatient (REF) | payer OTHER, SELFPAY ==
--- OUTSIDE RECORDS SUMMARY | 2023-09-27 08:20 | XMS_ITS ---
Author Organization [facility] Address 10 [facility] [address] [place] [address] Care Team Providers Care Scrap Carrier Name Role Phone Cecilia UMAÑA, Adele Primary Care Provider Negrita Micah Shirley Jr Unavailable [phone] REASON FOR VISIT erosive esophagitis Encounters Encounter Location Date Provider Diagnosis [facility] [place] Out[place] [address] [place], [place] [phone] 09/27/2023 Micah Olsen Jr Abn findings-GI tract R93.3 Assessments Encounter Date Diagnosis (ICD Code) Assessment Notes Treatment Notes Treatment Clinical Notes Section Notes 09/27/2023 Abn findings-GI tract (ICD-10 - R93.3) Plan Of Treatment Next Appt Details Provider Name:Micah low Jr, 11/19/2024 01:35:00 PM, [address] [facility], Suite [facility], [place], [address], Progress Notes * ANGELITO CARIASB:[birth year] (69 yo F)Acc No.[id number]:09/27/2023 EGD/MAC Patient: ROBERT OROSCO Provider: Reji Olsen MD :1955 A ge:68 Y S ex:Female Date:09/27/2023 Address:[address] [place] [address] Pcp:Adele Brooks MD Subjective: * Chief Complaints: [...] 0 09/27/2023 Generated for Chelsey mejia/Nader/Laurenitting on: 10/10/2024 11:42 AM EDT
--- OUTSIDE RECORDS SUMMARY | 2024-10-10 11:42 | XMS_ITS | Encounter Summary ---
Author Organization [facility] Address [address] [place] [address] Phone Care Team Providers Care Automatic Developer Name Role Phone Unknown, Unknown Primary Care Provider Liam east Encounter Details Date Type Department Care Team (Latest Contact Info) Description 03/28/2019 Ancillary Orders [facility] [address] [place] [address] Reji Jo, DO [address] [place] [address] Chest pain, unspecified type; Dizziness Social History [...] giddiness documented in this encounter Care Teams Automatic Developer Relationship Specialty Start Date End Date Unknown, Unknown, MD PCP - General 03/28/19 documented as of this encounter Additional Source Comments The information contained in this document represents components of the legal health record. It is not the complete legal health record.[facility]
== END 2024-10-10 09:21 | disposition home or self-care (01) ==
LOC: HO.LNP 09:20
PROVIDERS: Visit Provider Obstetrics & Gynecology
DX: R10.2 Pelvic and perineal pain (principal)
CPT/HCPCS: 87086

== ENCOUNTER 2024-10-17 14:32 | Outpatient (AMB) | payer OTHER, SELFPAY ==
--- OUTSIDE RECORDS SUMMARY | 2023-09-27 08:20 | XMS_ITS ---
Author Organization [facility] Address 10 [facility] [address] [place] [address] Care Team Providers Care Sole Dyer Name Role Phone Cecilia UMAÑA, Adele Primary Care Provider Negrita Micah Shirley Jr Unavailable REASON FOR VISIT erosive esophagitis Encounters Encounter Location Date Provider [place] [facility] [address] [place], [place] [phone] 09/27/2023 Micah Olsen Jr Abn findings-GI tract R93.3 Assessments Encounter Date Diagnosis (ICD Code) Assessment Notes Treatment Notes Treatment Clinical Notes Section Notes 09/27/2023 Abn findings-GI tract (ICD-10 - R93.3) Plan Of Treatment Next Appt Details Provider Name:Micah low Jr, 11/19/2024 01:35:00 PM, [address] [facility], Suite [facility], [place], [address], Progress Notes * ANNE CARIASADOB:[birth year] (69 yo F)Acc No.[id number]:09/27/2023 EGD/MAC Patient: ROBERT OROSCO Provider: Reji Olsen MD :1955 A ge:68 Y S ex:Female Date:09/27/2023 Address:[address] [place] [address] Pcp:Adele Brooks MD Subjective: * Chief Complaints: [...] 09/27/2023 Generated for Chelsey mejia/Nader/Laurenitting on: 0 10/17/2024 02:58 PM EDT
--- OUTSIDE RECORDS SUMMARY | 2024-10-17 14:59 | XMS_ITS | Encounter Summary ---
Author Organization [facility] Address [address] [place] [address] Phone Care Team Providers Care Bullet Assembly Press Operator Name Role Phone Unknown, Unknown Primary Care Provider Liam east Encounter Details Date Type Department Care Team (Latest Contact Info) Description 03/28/2019 Ancillary Orders [facility] [address] [place] [address] Reji Jo, DO [address] [place] [address] Chest pain, unspecified type; Dizziness Social History [...] giddiness documented in this encounter Care Teams Bullet Assembly Press Operator Relationship Specialty Start Date End Date Unknown, Unknown, MD PCP - General 03/28/19 documented as of this encounter Additional Source Comments The information contained in this document represents components of the legal health record. It is not the complete legal health record.[facility]
--- NOTE | 2024-10-17 15:04 | A.OFFVIS_ITS ---
Vital Signs 10/17/24 15:07 Height 5 ft 1 in Weight 153 lb BMI 28.9 BP 140/90 H Blood Pressure Location Rt brachial Position Sitting Pulse 81 Pulse Source Pulse Oximeter Pulse Oximetry (%) 99 Oxygen Delivery Method Room Air Intake Visit Reasons: Osteoporosis follow up &prolia inj Intake Note: Presents today for Osteoporosis/injection follow up and test results. Patients states that joint pain has gotten worse since the prolia. Pt daughter also states that pt was supposed to get a bone density and she has not had one done so she does not know if the mrdication is actually working or not. Accompanied by: Daughter Allergies No Known Allergies Allergy (Verified 10/17/24 15:07) Medication List - Last Reconciled 10/17/24 by Sharifa Funez MD albuterol sulfate 90 mcg/actuation 2 puffs inhalation Q4-6H PRN atorvastatin 20 mg PO DAILY fyafolztx-fqdxgobs-aroquta ala 50-200-25 mg (Biktarvy) 1 tab PO DAILY chlorhexidine gluconate 0.12% 15 mL PO BID cholecalciferol (vitamin D3) 25 mcg PO DAILY diclofenac sodium 1% topical losartan 25 mg PO DAILY ondansetron 4 mg PO Q8H PRN HPI Comments Details: Patient is a 68-year-old female with HIV on Biktarvy, hyperlipidemia, hypertension, osteoporosis and fibromyalgia here today for follow up. Interval History: Patient last seen 04/17/24 with me. - On Prolia 60mg every 6 months for osteoporosis - C/o whole body pain especially her neck radiating down to her hands. She also complains of bilateral hand pain and bilateral elbow pain. - Recommended topical diclofenac gel Today - On Prolia 60mg every 6 months for osteoporosis - C/o of neck pain and low back pain Rheumatologic History: Osteoporosis: Alendronate [id number], stopped due to GERD 12/2018 T score fem neck -2.6, Prolia started Fibromyalgia Current Rheumatology Medication(s): Prolia 60 mg every 6 months [facility] Medical History Polyarticular osteoarthritis Encounter for monitoring denosumab therapy Right shoulder pain Benign neoplastic disease Myositis Cyst of Bartholin's gland duct Renal calculi Gastritis Anxiety Hypertension HIV (human immunodeficiency virus infection) Depression GERD (gastroesophageal reflux disease) Osteoporosis Surgical History Hx of tubal ligation Hx of cholecystectomy Hx of colonoscopy Hx of appendectomy Social History Household Members: None Housing: Apartment Do you presently have visiting nurse or other home services: No Alcohol intake: never Patient Tobacco Use Status: Former Tobacco user Years Smoked: quit 11 years ago Second Hand Smoke Exposure: No service: No Current occupational status: disabled Current occupation: rt handed Female Reproductive History Menstrual Age of Menarche: 14 Review of Systems Const Details: as noted in HPI Physical Exam Exam Exam: Vital signs reviewed Physical Examination CONSTITUITIONAL Patient alert and cooperative. Well appearing and in no apparent painful distress MSK Hands * Right Hand: Able to make a fist. No swelling or tenderness to palpation of these joints. * Left Hand: Able to make a fist. No swelling or tenderness to palpation of these joints. * Herbedens nodes noted bilaterally Wrists * Right Wrist: Full ROM. 70 degrees of wrist flexion, 80 degrees of wrist extension. No swelling or TTP * Left Wrist: Full ROM. 70 degrees of wrist flexion, 80 degrees of wrist extension. No swelling or TTP Elbows * Right Elbow: Full ROM. No swelling or TTP. No TTP of the medial and lateral epicondyles * Left Elbow: Full ROM. No swelling or TTP. No TTP of the medial and lateral epicondyles Shoulders * Decreased ROM bilaterally Knees * Right knee: Full ROM. No swelling noted. No TTP of the knee joint lie or pes anserine bursa * Left knee: Full ROM. No swelling noted. No TTP of the knee joint lie or pes anserine bursa. Ankles * Right ankle: Good ankle dorsiflexion and plantar flexion. No swelling. No TTP of the ankle joint * Left ankle: Good ankle dorsiflexion and plantar flexion. No swelling. No TTP of the ankle joint Feet * Right foot: Negative squeeze test * Left foot: Negative squeeze test Tender points? * Tenderness to palpation of the bilateral trapezius, supraspinatus, anterior costochondral junctions, bilateral suboccipital muscle insertions Very tense muscles in the neck, not able to get her ear to the other shoulder bilaterally SKIN No rashes Vital Signs: Last Vital Signs Pulse 81 10/17/24 15:07 BP 140/90 H 10/17/24 15:07 Pulse Ox 99 10/17/24 15:07 Oxygen Delivery Method Room Air 10/17/24 15:07 BMI result Body Mass Index 28.9 Office Meds Prolia 60 mg/mL subcutaneous syringe Performing Provider: Sharifa Funez MD Performing Location: [facility] Administered by: Sharifa Funez MD on 10/17/24 16:54 Dose Route Admin Location Dispensed Lot Number Expiration Date NDC [employer] 60 mg subcut 1 mL [id number] AMGEN Total Dispensed Waste 1 mL 0 % Results Reviewed Results Reviewed: Laboratory Tests 07/23/24 10/03/24 10:09 10:33 WBC 6.5 RBC 4.82 Hgb 14.6 Hct 44.0 Plt Count 270 Sodium 143 Potassium 3.6 Chloride 112 H Carbon Dioxide 27 BUN 16 Creatinine 0.69 AST 20 ALT 22 Alkaline Phosphatase 93 25-OH Vitamin D Total 54.4 DEXA 08/2022 FINDINGS: AP SPINE L1-L4: Current: BMD 1.058 g/cm2, Z-score 0.5, T-score -1.0, normal, 6.2% increase from previous, 6.2% increase from baseline (<5% change is not significant). Prior: BMD 0.996 g/cm2. Baseline: BMD 0.996 g/cm2. LEFT FEMUR, NECK: Current: BMD 0.709 g/cm2, Z-score -0.9, T-score -2.4, osteopenia. Prior: BMD 0.748 g/cm2. Baseline: BMD 0.749 g/cm2. LEFT FEMUR, TOTAL: Current: BMD 0.754 g/cm2, Z-score -0.8, T-score -2.0, osteopenia, 7.0% decrease from previous, 7.0% decrease from baseline (<5% change is not significant). Prior: BMD 0.811 g/cm2. Baseline: BMD 0.811 g/cm2. Assessment & Plan Assessment & Plan (1) Osteoporosis: Comment: Alendronate [id number], stopped due to GERD 12/2018 T score fem neck -2.6, Prolia started DEXA 08/2022: AP spine -1.0, Left femur neck -2.4, Left femur total -2.0 Code(s): M81.0 - Age-related osteoporosis without current pathological fracture Category: Medical Qualifiers: Osteoporosis type: age-related Presence of current pathological fracture: without current pathological fracture Qualified Code(s): M81.0 - Age- related osteoporosis without current pathological fracture Plan: #Osteoporosis Patient is a 69-year-old female with osteoporosis without pathological fracture. Status post Prolia injection today. Plan - Continue vitamin D supplementation - Encourage weight bearing exercises and stretches - RTC 6 months - Labs before visit: CMP, Vitamin D (2) Fibromyalgia: Code(s): M79.7 - Fibromyalgia Category: Medical Plan: #Fibromyalgia Symptoms stable today no evidence of tender points but patient does report whole-body pains. Discussed the importance stretching and activity with patient Of note patient did have bilateral tender medial epicondyles consistent with medial epicondylitis and I discussed that this is likely related to her lack of stretching and recommended stretching for this. I also recommended topical diclofenac that can be applied to the areas. Plan - Topical diclofenac to desired areas - Light movement and exercise - follow up PT ordered by pain management (3) Polyarticular osteoarthritis: Code(s): M15.9 - Polyosteoarthritis, unspecified Category: Medical Plan: #Polyarticular OA Patient with polyarticular OA which is contributing to her widespread pains. I discussed this with her and recommended topical diclofenac up to 4 times a day for the affected joints Plan - Topical diclofenac 1% qid (4) Encounter for monitoring denosumab therapy: Code(s): Z51.81 - Encounter for therapeutic drug level monitoring; Z79.620 - group home (current) use of immunosuppressive biologic Category: Medical Plan: #Long-term use of Denosumab Discussed with patient the risks and benefits of denosumab (Prolia) for the management of their osteoporosis Benefits include improved bone density, decreased fracture risk Risks include rapid bone loss if denosumab stopped, osteonecrosis of the jaw especially in patients with poor oral hygiene/diabetes/use of glucocorticoids/age greater than 65 years, atypical femoral fractures, injection site reactions. Mild increased risk of infections due to RANKL on T helper cells, increased risk of hypocalcemia especially in CKD patients Keep vitamin-D at least 35 ng/mL Advised to delay non emergent dental procedures to toward the end of the 6 month cycle and if they plan to stop denosumab would need to continue antiresorptive to maintain the effects of denosumabe Plan I spent 20 minutes reviewing the record and labs, taking a history, examining the patient, discussing the treatment plan and documenting in the medical record Orders: Orders XR DEXA axial skeleton Today M81.0 - Age-related osteoporosis without current pathological fracture AMB Denosumab Injection Patient Supplied Today M81.0 - Age-related osteoporosis without current pathological fracture Coding Level of Care Code Est Pt Level 3 (89052) Complex EM visit Add On G2211 Diagnoses Age-related osteoporosis without current pathological fracture M81.0 Osteoporosis type: age-related Presence of current pathological fracture: without current pathological fracture Fibromyalgia M79.7 Polyarticular osteoarthritis M15.9 Encounter for monitoring denosumab therapy Z51.81; Z79.620
[2024-10-17 15:07] VITALS: BP 140/90; PULSE 81; O2SAT 99; BMI 28.9
== END 2024-10-17 15:59 | disposition home or self-care (01) ==
LOC: HO.RHES 14:32
PROVIDERS: PCP Family Medicine; Visit Provider Student in an Organized Health Care Education/Training Program
DX: M81.0 Age-related osteoporosis without current pathological fracture (principal); M79.7 Fibromyalgia; M15.9 Polyosteoarthritis, unspecified; Z51.81 Encounter for therapeutic drug level monitoring; Z79.620 Long term (current) use of immunosuppressive biologic
CPT/HCPCS: 99213; G2211

== ENCOUNTER → 2024-10-17 14:32 | Outpatient (BNVA) | payer OTHER, SELFPAY | PROVIDERS: PCP Family Medicine; Visit Provider Student in an Organized Health Care Education/Training Program | DX: M81.0 Age-related osteoporosis without current pathological fracture (principal); M79.7 Fibromyalgia; M15.9 Polyosteoarthritis, unspecified; Z51.81 Encounter for therapeutic drug level monitoring; Z79.620 Long term (current) use of immunosuppressive biologic | CPT/HCPCS: 96372; 99212; J0897 ==

== ENCOUNTER 2024-10-18 13:04 | Outpatient (REF) | payer OTHER, SELFPAY ==
--- OUTSIDE RECORDS SUMMARY | 2023-09-27 08:20 | XMS_ITS ---
Author Organization [facility] Address 10 [facility] [address] [place] [address] Care Team Providers Care Tug Boat Captain Name Role Phone Cecilia UMAÑA, Adele Primary Care Provider Negrita Micah Shirley Jr Unavailable [phone] REASON FOR VISIT erosive esophagitis Encounters Encounter Location Date Provider Diagnosis [facility] [place] Outpatient [address] [place], [place] [phone] 09/27/2023 Micah Olsen Jr Abn findings-GI tract R93.3 Assessments Encounter Date Diagnosis (ICD Code) Assessment Notes Treatment Notes Treatment Clinical Notes Section Notes 09/27/2023 Abn findings-GI tract (ICD-10 - R93.3) Plan Of Treatment Next Appt Details Provider Name:Micah low Jr, 11/19/2024 01:35:00 PM, [address] [facility], Suite [facility], [place], [address], Progress Notes * ANNE CARIASADOB:[birth year] (69 yo F)Acc No.[id number]:09/27/2023 EGD/MAC Patient: ROBERT OROSCO Provider: Reji Olsen MD :1955 A ge:68 Y S ex:Female Date:09/27/2023 Address:[address] [place] [address] Pcp:Adele Brooks MD Subjective: * Chief Complaints: [...] 09/27/2023 Generated for Chelsey mejia/Nader/Laurenitting on: 0 10/18/2024 01:08 PM EDT
--- NOTE | ~2024-10-18 | US_ITS ---
EXAMINATION: US PELVIS CLINICAL INFORMATION: Pelvic pain. Postmenopausal. COMPARISON: June 05, [address] abdomen and pelvis dated October 22, 2021.. TECHNIQUE: Ultrasound of the pelvis is performed using both transabdominal and transvaginal transducers along with Doppler. Transvaginal imaging is performed due to inadequate visualization transabdominally. FINDINGS: Uterus: The uterus is in retroversion flexion and measures 6 x 3 x 5 cm. The double wall endometrial thickness is 5 mm. There is a 2.3 cm heterogeneous predominantly isoechoic soft tissue lesion in the fundus of the uterus.. Adnexa: Right adnexa is not identified. No gross free fluid in the cul-de-sac. Left ovary measures 3 x 2 x 3 cm. Volume: 6 cc. Focal 8 mm hyperechoic abnormality with posterior echogenic shadowing. There is flow on color Doppler interrogation. US/US pelvic and transvaginal IMPRESSION: 2.3 cm uterine fibroid. Borderline up to normal limits 5 mm endometrial stripe. Probable calcification left adnexa. Right ovary is not identified. Previous CT dated October 22, 2021 demonstrated multiple partially calcified uterine fibroids and a retroversion flexion uterus. Electronically signed by: Marco Antonio Delgado MD 10/18/2024 02:07 PM EDT
--- OUTSIDE RECORDS SUMMARY | 2024-10-18 13:09 | XMS_ITS | Encounter Summary ---
Author Organization [facility] Address [address] [place] [address] Phone Care Team Providers Care Database Admin Name Role Phone Unknown, Unknown Primary Care Provider Liam east Encounter Details Date Type Department Care Team (Latest Contact Info) Description 03/28/2019 Ancillary Orders [facility] [address] [place] [address] Reji Jo, DO [address] [place] [address] Chest pain, unspecified type; Dizziness Social History [...] giddiness documented in this encounter Care Teams Database Admin Relationship Specialty Start Date End Date Unknown, Unknown, MD PCP - General 03/28/19 documented as of this encounter Additional Source Comments The information contained in this document represents components of the legal health record. It is not the complete legal health record.[facility]
== END 2024-10-18 13:05 | disposition home or self-care (01) ==
LOC: HO.HMGCX 13:04
PROVIDERS: PCP Family Medicine; Visit Provider Obstetrics & Gynecology
DX: R10.2 Pelvic and perineal pain (principal)
CPT/HCPCS: 76830; 76856

== ENCOUNTER → 2024-10-18 13:20 | Outpatient (BNV) | payer OTHER, SELFPAY | PROVIDERS: PCP Family Medicine; Visit Provider Radiology Diagnostic Radiology | DX: D25.9 Leiomyoma of uterus, unspecified (principal) | CPT/HCPCS: 76830; 76856 ==

== ENCOUNTER 2024-10-25 08:12 | Outpatient (REF) | payer OTHER, SELFPAY | END 2024-10-25 08:13 | disposition home or self-care (01) | LOC: HO.LNP 08:12 | PROVIDERS: PCP Family Medicine; Visit Provider Obstetrics & Gynecology | DX: D25.9 Leiomyoma of uterus, unspecified (principal); R93.89 Abnormal findings on diagnostic imaging of other specified body structures | CPT/HCPCS: 58100; 88305; 99212 ==

== ENCOUNTER 2024-10-25 08:12 | Outpatient (AMB) | payer OTHER, SELFPAY ==
--- OUTSIDE RECORDS SUMMARY | 2023-09-27 08:20 | XMS_ITS ---
Author Organization [facility] Address 10 [facility] [address] [place] [address] Care Team Providers Care Director Peoplesoft Name Role Phone Cecilia UMAÑA, Adele Primary Care Provider Negrita Micah Shirley Jr Unavailable [phone] REASON FOR VISIT erosive esophagitis Encounters Encounter Location Date Provider Diagnosis [facility] [place] Outpatient [address] [place], [place] [phone] 09/27/2023 Micah Olsen Jr Abn findings-GI tract R93.3 Assessments Encounter Date Diagnosis (ICD Code) Assessment Notes Treatment Notes Treatment Clinical Notes Section Notes 09/27/2023 Abn findings-GI tract (ICD-10 - R93.3) Plan Of Treatment Next Appt Details Provider Name:Micah low Jr, 11/19/2024 01:35:00 PM, [address] [facility], [address], [place], [address], Progress Notes * ANNE CARIASADOB:[birth year] (69 yo F)Acc No.[id number]:09/27/2023 EGD/MAC Patient: ROBERT OROSCO Provider: Reji Olsen MD :1955 A ge:68 Y S ex:Female Date:09/27/2023 Address:[address] [place] [address] Pcp:Adele Brooks MD Subjective: * Chief Complaints: [...] 09/27/2023 Generated for Chelsey mejia/Nader/Laurenitting on: 0 10/25/2024 08:15 AM EDT
--- NOTE | 2024-10-25 08:14 | MHC.OFFVIS ---
Vital Signs 10/25/24 08:18 10/25/24 08:56 Height 5 ft 1 in Weight 150 lb BMI 28.3 BP 160/92 H 150/90 H Intake Visit Reasons: ultrasound follow up/? emb Fretted Instrument Repairer Required: Yes Fretted Instrument Repairer Language: Onsite Case Manager Services: Fretted Instrument Repairer Present (in person) Fretted Instrument Repairer Name: Allie BURRELL Information Interpreted: non-clinical & clinical Air Reduction Equipment Operator: Air Reduction Equipment Operator Present (Allie BURRELL) Accompanied by: Self / Same As Patient Allergies No Known Allergies Allergy (Verified 10/25/24 08:19) Post menopausal: Yes HPI Comments Details: Presenting for ultrasound follow-up done recently which showed the following: Uterus: The uterus is in retroversion flexion and measures 6 x 3 x 5 cm. The double wall endometrial thickness is 5 mm. There is a 2.3 cm heterogeneous predominantly isoechoic soft tissue lesion in the fundus of the uterus.. Adnexa: Right adnexa is not identified. No gross free fluid in the cul-de-sac. Left ovary measures 3 x 2 x 3 cm. Volume: 6 cc. Focal 8 mm hyperechoic abnormality with posterior echogenic shadowing. There is flow on color Doppler interrogation. [facility] Medical History Polyarticular osteoarthritis Encounter for monitoring denosumab therapy Right shoulder pain Benign neoplastic disease Myositis Cyst of Bartholin's gland duct Renal calculi Gastritis Anxiety Hypertension HIV (human immunodeficiency virus infection) Depression GERD (gastroesophageal reflux disease) Osteoporosis Surgical History Hx of tubal ligation Hx of cholecystectomy Hx of colonoscopy Hx of appendectomy Social History Household Members: None Housing: Apartment Do you presently have visiting nurse or other home services: No Alcohol intake: never Patient Tobacco Use Status: Former Tobacco user Years Smoked: quit 11 years ago Second Hand Smoke Exposure: No service: No Current occupational status: disabled Current occupation: rt handed Female Reproductive History Menstrual Age of Menarche: 14 control method: permanent sterilization Physical Exam Vital Signs: Last Vital Signs BP 160/92 H 10/25/24 08:18 BMI result Body Mass Index 28.3 Office Procedures Endometrial Biopsy Details: The patient was counseled regarding the indication and benefits of endometrial sampling to rule out endometrial pathology including not limited to endometrial hyperplasia or endometrial cancer and others; The alternatives (Either do nothing vs. hysteroscopy D&C) & the risks were discussed with the patient including but not limited: pain, uterine perforation, bleeding, infection, possible injury to bladder, bowel, ureter, possible need for blood transfusion with all its possible risks. The patient verbalized understanding all questions answered and signed consent. The patient was placed into the dorsal lithotomy position; a speculum was inserted in the vagina. Using aseptic technique for the procedure, the cervix was cleansed with Betadine. The anterior lip of the cervix was grasped with a single tooth tenaculum. The uterus was sounded to 7 cm with a 4 mm Pipelle was used. Tissues samples were obtained and placed in formalin, in a patient labeled container and sent to the pathology department. At the end of the procedure, there was minimal bleeding noted The patient tolerated the procedure well and was discharged in good condition with the following instructions: Nothing in the vagina until the bleeding stops. No sex until the bleeding stops, to call if any of the following occurs: fever (>100.4), flu-like symptoms, abdominal pain, heavy bleeding, four smelling vaginal discharge. The patient was instructed to schedule a Follow up appointment in 2 weeks to discuss pathology results of the biopsy and treatment options. This note was generated with a voice recognition program. Some errors may have been overlooked during the review of this note. Sometimes these errors may affect the content or meaning of a given sentence. [id number] Biopsy Assessment & Plan Assessment & Plan (1) Uterine myoma: Code(s): D25.9 - Leiomyoma of uterus, unspecified Category: Medical Plan: Discussed with the patient the findings on pelvic ultrasound & the risk of myosarcoma; in addition reviewed with the patient that malignancy and pre malignancy cannot be ruled out without hysterectomy for pathological evaluation ; furthermore, explained to the patient the limitation of pelvic ultrasound and endometrial biopsy in the setting. Discussed with the patient the options of treatment including expectant management versus hysterectomy; the pros and cons, risks benefits of each approach were discussed with the patient including the fact that in cases of myosarcoma, surgical treatment can lead to early diagnosis and positively affects the prognosis; after further discussion, the patient decided to proceed with expectant management. Will repeat pelvic ultrasound periodically. Instructions given to patient to call in case any of the following occurs: pressure symptoms, abnormal uterine bleeding, pelvic pain; and to schedule a 3 months pelvic ultrasound (order placed) and a follow-up appointment . All questions answered, the patient verbalized understanding and agreed with the plan . (2) Thickened endometrium: Code(s): R93.89 - Abnormal findings on diagnostic imaging of other specified body structures Category: Medical Plan: Discussed with the patient endometrial thickness above 4 mm in menopause , the differential diagnosis of a thickened endometrium includes but not limited to endometrial polyp, hyperplasia or carcinoma. Explained to the patient that endometrial each thickness is less predictive of endometrial neoplasia in asymptomatic patients, i.e. those without postmenopausal uterine bleeding. The sensitivity and specificity for detecting endometrial carcinoma at an endometrial thickness of >= 5mm was 83 and 72 percent, respectively; this is lower than in patients with bleeding. Studies have shown that postmenopausal patients without uterine bleeding who had an endometrial thickness >11 mm had an endometrial carcinoma risk of 6.7 percent; this risk is similar to postmenopausal patients with bleeding and an endometrial thickness >5 mm. Recommended endometrial sampling to rule endometrial pathology via either office endometrial biopsy or diagnostic hysteroscopy/D&C with possible polypectomy/myomectomy. All pros and cons, risks and benefits of each approach were discussed with the patient, the patient decided to proceed with endometrial biopsy. EMB done, see procedure note Orders: Orders AMB Endometrial Biopsy Today R93.89 - Abnormal findings on diagnostic imaging of other specified body structures US pelvic and transvaginal 3 Months D25.9 - Leiomyoma of uterus, unspecified Coding Level of Care Code Est Pt Level 3 (50412) Procedure Only Diagnoses Uterine myoma D25.9 Thickened endometrium R93.89 CPT Codes Endometrial Biopsy - CPT: 76363-Xvpsdgihmfo Biopsy ([id number])
--- OUTSIDE RECORDS SUMMARY | 2024-10-25 08:16 | XMS_ITS | Encounter Summary ---
Author Organization [facility] Address [address] [place] [address] Phone Care Team Providers Care Starch Factory Laborer Name Role Phone Unknown, Unknown Primary Care Provider Liam east Encounter Details Date Type Department Care Team (Latest Contact Info) Description 03/28/2019 Ancillary Orders [facility] [address] [place] [address] Reji Jo, DO [address] [place] [address] Chest pain, unspecified type; Dizziness Social History [...] giddiness documented in this encounter Care Teams Starch Factory Laborer Relationship Specialty Start Date End Date Unknown, Unknown, MD PCP - General 03/28/19 documented as of this encounter Additional Source Comments The information contained in this document represents components of the legal health record. It is not the complete legal health record.[facility]
[2024-10-25 08:18] VITALS: BP 160/92; BMI 28.3
[2024-10-25 08:56] VITALS: BP 150/90
== END 2024-10-25 09:21 | disposition home or self-care (01) ==
PROVIDERS: PCP Family Medicine; Visit Provider Obstetrics & Gynecology
DX: D25.9 Leiomyoma of uterus, unspecified (principal); R93.89 Abnormal findings on diagnostic imaging of other specified body structures
CPT/HCPCS: 58100; 99213

== ENCOUNTER 2024-10-29 14:36 | Outpatient (AMB) | payer OTHER, SELFPAY ==
--- OUTSIDE RECORDS SUMMARY | 2023-09-27 08:20 | XMS_ITS ---
Author Organization [facility] Address 10 [facility] [address] [place] [address] Care Team Providers Care Physical Integration Practitioner Name Role Phone Cecilia UMAÑA, Adele Primary Care Provider Negrita Micah Shirley Jr Unavailable [phone] REASON FOR VISIT erosive esophagitis Encounters Encounter Location Date Provider Diagnosis [facility] [place] [address] [place], [place] [phone] 09/27/2023 Micah Olsen Jr Abn findings-GI tract R93.3 Assessments Encounter Date Diagnosis (ICD Code) Assessment Notes Treatment Notes Treatment Clinical Notes Section Notes 09/27/2023 Abn findings-GI tract (ICD-10 - R93.3) Plan Of Treatment Next Appt Details Provider Name:Micah low Jr, 11/19/2024 01:35:00 PM, 10 [facility], Suite [facility], [place], [address], Progress Notes * ANNE CARIASADOB:[birth year] (69 yo F)Acc No.[id number]:09/27/2023 EGD/MAC Patient: ROBERT OROSCO Provider: Reji Olsen MD :1955 A ge:68 Y S ex:Female Date:09/27/2023 Address:[address] [place] [address] Pcp:Adele Brooks MD Subjective: * Chief Complaints: [...] 09/27/2023 Generated for Chelsey mejia/Nader/Laurenitting on: 0 10/29/2024 03:18 PM EDT
[2024-10-29 14:51] VITALS: BMI 28.3
--- NOTE | 2024-10-29 14:51 | MHC.OFFVIS ---
Vital Signs 10/29/24 14:51 Height 5 ft 1 in Weight 150 lb BMI 28.3 Intake Visit Reasons: pre op hysteroscopy Database Coordinator Required: Yes Database Coordinator Language: Arm Maker Services: Database Coordinator Present (in person) Database Coordinator Name: Allie BURRELL Information Interpreted: non-clinical & clinical Oral And Maxillofacial Surgery: Oral And Maxillofacial Surgery Present Accompanied by: Self / Same As Patient Allergies No Known Allergies Allergy (Verified 10/29/24 14:52) Is last menstrual period known: Yes Last menstrual period: 01/10/20 Post menopausal: No Patient : No Do you need a note to return to daycare/school/sports/work: Yes (for surgery on tuesday) HPI Comments Details: Presenting for ultrasound follow-up regarding pelvic pain with vaginal discharge and EMB follow-up. GC/CT with BV panel were negative. Pelvic ultrasound showed the following: Uterus: The uterus is in retroversion flexion and measures 6 x 3 x 5 cm. The double wall endometrial thickness is 5 mm. There is a 2.3 cm heterogeneous predominantly isoechoic soft tissue lesion in the fundus of the uterus.. Adnexa: Right adnexa is not identified. No gross free fluid in the cul-de-sac. Left ovary measures 3 x 2 x 3 cm. Volume: 6 cc. Focal 8 mm hyperechoic abnormality with posterior echogenic shadowing. There is flow on color Doppler interrogation. Pathology of endometrial biopsy done last visit showed the following: Endometrium, biopsy: Predominantly mucin and few fragments of benign endocervical glands; no endometrial tissue seen; negative for squamous intraepithelial lesion. COMMENT: Note is made of the patient's thickened endometrium on imaging. Recommend additional sampling if clinically appropriate [facility] Medical History Polyarticular osteoarthritis Encounter for monitoring denosumab therapy Right shoulder pain Benign neoplastic disease Myositis Cyst of Bartholin's gland duct Renal calculi Gastritis Anxiety Hypertension HIV (human immunodeficiency virus infection) Depression GERD (gastroesophageal reflux disease) Osteoporosis Surgical History Hx of tubal ligation Hx of cholecystectomy Hx of colonoscopy Hx of appendectomy Social History Household Members: None Housing: Apartment Do you presently have visiting nurse or other home services: No Alcohol intake: never Patient Tobacco Use Status: Former Tobacco user Years Smoked: quit 11 years ago Second Hand Smoke Exposure: No service: No Current occupational status: disabled Current occupation: rt handed Female Reproductive History Menstrual Age of Menarche: 14 Date of last menstrual period: 01/10/20 Total pregnancies: 2 Full term: 2 Review of Systems Card Reports as per HPI and Reports no additional complaints Resp Reports as per HPI and Reports no additional complaints GI Reports as per HPI and Reports no additional complaints Reports as per HPI Physical Exam Vital Signs: BMI result Body Mass Index 28.3 Const General: cooperative, healthy appearing and comfortable Resp Effort & Inspection: normal respiratory effort Auscultation: clear to auscultation bilaterally Percussion: percussion normal Cardio Palpation: normal PMI Rate: regular rate Rhythm: regular rhythm Heart sounds: no murmurs and no rubs Peripheral pulses: Peripheral pulses 2+ throughout GI Inspection: Yes normal to inspection Palpation (GI): Soft to palpation, nontender, no guarding, not rigid and No hepatosplenomegaly present Percussion: Yes normal to percussion Auscultation: normal bowel sounds Rectal Exam - Female: deferred Assessment & Plan Assessment & Plan (1) Uterine myoma: Code(s): D25.9 - Leiomyoma of uterus, unspecified Category: Medical Plan: Discussed with the patient the findings on pelvic ultrasound & the risk of myosarcoma; in addition reviewed with the patient that malignancy and pre malignancy cannot be ruled out without hysterectomy for pathological evaluation ; furthermore, explained to the patient the limitation of pelvic ultrasound and endometrial biopsy in the setting. Discussed with the patient the options of treatment including expectant management versus hysterectomy; the pros and cons, risks benefits of each approach were discussed with the patient including the fact that in cases of myosarcoma, surgical treatment can lead to early diagnosis and positively affects the prognosis; after further discussion, the patient decided to proceed with expectant management. Will repeat pelvic ultrasound periodically. Instructions given to patient to call in case any of the following occurs: pressure symptoms, abnormal uterine bleeding, pelvic pain; and to schedule a six-months pelvic ultrasound (order placed) and a follow-up appointment . All questions answered, the patient verbalized understanding and agreed with the plan . (2) Thickened endometrium: Comment: HIV+ Code(s): R93.89 - Abnormal findings on diagnostic imaging of other specified body structures Category: Medical Plan: Discussed with the patient the results of pathology showing no endometrial tissue. Recommended to the patient that the next step is an endometrial sampling via hysteroscopy D&C possible polypectomy versus endometrial biopsy to r/o endometrial pathology including hyperplasia or cancer. All the pros and cons risks and benefits of each approach were discussed with the patient, endometrial biopsy being less invasive, office procedure with less sensitivity and inability diagnose a polyp and removal versus hysteroscopy done under anesthesia more invasive more sensitive to endometrial cancer and possibility of diagnosing and endometrial polyp with the possibility of polypectomy. All questions were answered pt verbalized understanding and decided to proceed with hysteroscopy D&C possible polypectomy/myomectomy. Discussed with the patient the procedure , all benefits and risks including but not limited to inability to complete the procedure , insufficient endometrial tissue for a complete evaluation of the endometrial cavity , bleeding, infection, possible need for blood transfusion with all its risk ( HIV,syphilis, Hepatitis, anaphylaxis shock, others..), injury to bladder, rectum, possible need for laparoscopy/laparotomy or hysterectomy. The patient verbalized understanding and signed the consent. Instructions given the patient to stay NPO after midnight the day prior to the procedure and to take only the specific medication (s) discussed the morning of the surgical procedure and to schedule a 2 week postoperative appointment (3) Calcification of ovary: Code(s): N83.8 - Other noninflammatory disorders of ovary, fallopian tube and broad ligament Category: Medical Plan: Discussed with the patient the finding on ultrasound calcification of the ovaries , the main limitation of transvaginal ultrasonography alone as a diagnostic tool to distinguish benign from malignant masses relates to its lack of specificity and low positive predictive value for cancer. The differential diagnosis discussed with the patient includes the following but not limited to: benign and malignant gynecological and non-gynecological causes. Discussed with the patient options of treatment , including laparoscopy ovarian cystectomy/oophorectomy vs. expectant management with repeat US in repeating pelvic US in six-month from previous US. If the ovarian complex cyst is persistent larger and / or more complex looking, will refer to gynecologic Oncology. All pros, cons, risks and benefits of each approach were discussed with the patient including but not limited to a delay in the diagnosis and treatment of ovarian cancer affecting the prognosis; The patient decided to go ahead with expectant management. Instructions given the patient to schedule a sick months follow-up ultrasound appointment. All questions were answered & the patient verbalized understanding and agreed with the plan. Orders: Orders US pelvic and transvaginal 6 Months D25.9 - Leiomyoma of uterus, unspecified Coding Level of Care Code Est Pt Level 3 (83966) Diagnoses Uterine myoma D25.9 Thickened endometrium R93.89 Calcification of ovary N83.8
--- OUTSIDE RECORDS SUMMARY | 2024-10-29 15:18 | XMS_ITS | Encounter Summary ---
Author Organization [facility] Address [address] [place] [address] Phone Care Team Providers Care Processor Inspector Name Role Phone Unknown, Unknown Primary Care Provider Liam east Encounter Details Date Type Department Care Team (Latest Contact Info) Description 03/28/2019 Ancillary Orders [facility] [address] [place] [address] Reji Jo, DO [address] [place] [address] Chest pain, unspecified type; Dizziness Social History [...] giddiness documented in this encounter Care Teams Processor Inspector Relationship Specialty Start Date End Date Unknown, Unknown, MD PCP - General 03/28/19 documented as of this encounter Additional Source Comments The information contained in this document represents components of the legal health record. It is not the complete legal health record.[facility]
== END 2024-10-29 15:31 | disposition home or self-care (01) ==
LOC: HO.HWS 14:36
PROVIDERS: PCP Family Medicine; Visit Provider Obstetrics & Gynecology
DX: D25.9 Leiomyoma of uterus, unspecified (principal); R93.89 Abnormal findings on diagnostic imaging of other specified body structures; N83.8 Other noninflammatory disorders of ovary, fallopian tube and broad ligament
CPT/HCPCS: 99213

== ENCOUNTER → 2024-10-29 14:36 | Outpatient (BNVA) | payer OTHER, SELFPAY | PROVIDERS: PCP Family Medicine; Visit Provider Obstetrics & Gynecology | DX: N83.8 Other noninflammatory disorders of ovary, fallopian tube and broad ligament (principal); D25.9 Leiomyoma of uterus, unspecified; R93.89 Abnormal findings on diagnostic imaging of other specified body structures | CPT/HCPCS: 99212 ==

== ENCOUNTER 2024-11-02 07:16 | Day surgery (SDC) | payer OTHER, SELFPAY ==
--- OUTSIDE RECORDS SUMMARY | 2023-09-27 08:20 | XMS_ITS ---
Author Organization [facility] Address 10 [facility] [address] [place] [address] Care Team Providers Care Precision Agronomist Name Role Phone Cecilia UMAÑA, Adele Primary Care Provider Negrita Micah Shirley Jr Unavailable [phone] REASON FOR VISIT erosive esophagitis Encounters Encounter Location Date Provider Diagnosis [facility] [place] [address] [place], [place] [phone] 09/27/2023 Micah Olsen Jr Abn findings-GI tract R93.3 Assessments Encounter Date Diagnosis (ICD Code) Assessment Notes Treatment Notes Treatment Clinical Notes Section Notes 09/27/2023 Abn findings-GI tract (ICD-10 - R93.3) Plan Of Treatment Next Appt Details Provider Name:Micah low Jr, 11/19/2024 01:35:00 PM, 10 [facility], Suite [facility], [place], [address], Progress Notes * ANNE CARIASADOB:[birth year] (69 yo F)Acc No.[id number]:09/27/2023 EGD/MAC Patient: ROBERT OROSCO Provider: Reji Olsen MD :1955 A ge:68 Y S ex:Female Date:09/27/2023 Address:[address] [place] [address] Pcp:Adele Brooks MD Subjective: * Chief Complaints: [...] 09/27/2023 Generated for Chelsey mejia/Nader/Laurenitting on: 0 10/30/2024 01:42 PM EDT
--- OUTSIDE RECORDS SUMMARY | 2024-10-30 13:43 | XMS_ITS | Encounter Summary ---
Author Organization [facility] Address [address] [place] [address] Phone Care Team Providers Care Record Tester Name Role Phone Unknown, Unknown Primary Care Provider Liam east Encounter Details Date Type Department Care Team (Latest Contact Info) Description 03/28/2019 Ancillary Orders [facility] [address] [place] [address] Reji Jo, DO [address] [place] [address] Chest pain, unspecified type; Dizziness Social History [...] giddiness documented in this encounter Care Teams Record Tester Relationship Specialty Start Date End Date Unknown, Unknown, MD PCP - General 03/28/19 documented as of this encounter Additional Source Comments The information contained in this document represents components of the legal health record. It is not the complete legal health record.[facility]
[2024-11-02 07:37] VITALS: BP 150/67; PULSE 79; RESP 16; TEMP 36.4; O2SAT 96
[2024-11-02 07:55] VITALS: BMI 28.9
[2024-11-02] MEDS: Lactated Ringers 1,000 ML 100 ML IVCONT (08:12)
--- NOTE | 2024-11-02 08:39 | HO.ANESPROP2 ---
Documented by User: Maria Elena Day NP 10/31/24 12:40 HPI - Anesthesia Eval Consult details Narrative: 69yo F for D&C Hysteroscopy possible myomectomy,possible polypectomy PMFSH Active Problems Active Problems: All Active Problems Calcification of ovary (Acute) Thickened endometrium (Acute) Uterine myoma (Acute) Pelvic pain (Acute) Acromioclavicular joint arthritis (Acute) Benign paroxysmal positional vertigo, bilateral (Acute) Osteoarthritis of right shoulder (Acute) Dizziness (Acute) Polyarticular osteoarthritis (Acute) Encounter for monitoring denosumab therapy (Acute) Neck pain (Acute) Headache (Acute) Vertigo (Acute) Blurred vision (Acute) Ataxia (Acute) Carpal tunnel syndrome of left wrist (Acute) Carpal tunnel syndrome of right wrist (Acute) Cervical spondylosis (Acute) Neural foraminal stenosis of cervical spine (Acute) Bilateral carpal tunnel syndrome (Acute) Well woman exam (Acute) Endocervical polyp (Acute) Right shoulder pain (Acute) Fibromyalgia (Acute) Lumbar degenerative disc disease (Acute) Hypertension (Acute) HIV (human immunodeficiency virus infection) (Acute) Osteoporosis (Acute) Past Medical History Medical History Polyarticular osteoarthritis Encounter for monitoring denosumab therapy Right shoulder pain Benign neoplastic disease Myositis Cyst of Bartholin's gland duct Renal calculi Gastritis Anxiety Hypertension HIV (human immunodeficiency virus infection) Depression GERD (gastroesophageal reflux disease) Osteoporosis Family History Family history of problems with anesthesia: No Surgical History Surgical History Hx of tubal ligation Hx of cholecystectomy Hx of colonoscopy Hx of appendectomy History of Problems with Anesthesia: No Social History Social History Household Members: None Housing: Apartment Do you presently have visiting nurse or other home services: No Alcohol intake: never Patient Tobacco Use Status: Former Tobacco user Years Smoked: quit 11 years ago Second Hand Smoke Exposure: No Advance Directives: No Advance Directives Information Provided: Yes service: No Current occupational status: disabled Current occupation: rt handed Meds Allergies Allergy/AdvReac Type Severity Reaction Status Date / Time No Known Allergies Allergy Verified 10/29/24 14:52 Home Medications ?Medication ?Instructions ?Recorded ?Confirmed ?Last Taken ?Type bictegravir 50 mg-emtricitabine 1 tab PO DAILY 01/24/20 10/17/24 Unknown History 200 mg-tenofovir alafenam 25 mg tablet (Biktarvy) albuterol sulfate 90 mcg/actuation 2 puff inhalation Q4-6H PRN 01/31/20 10/17/24 Unknown History aerosol inhaler Shortness Of Breath Or Wheezing atorvastatin 20 mg tablet 20 mg PO DAILY 03/20/24 10/17/24 Unknown History chlorhexidine gluconate 0.12 % 15 ml PO BID 03/20/24 10/17/24 Unknown History mouthwash cholecalciferol (vitamin D3) 25 25 mcg PO DAILY 03/20/24 10/17/24 Unknown History mcg (1,000 unit) tablet ondansetron 4 mg disintegrating 4 mg PO Q8H PRN Nausea And Vomiting 03/20/24 10/17/24 Unknown History tablet diclofenac sodium 1 % topical gel topical 04/23/24 10/17/24 Unknown History losartan 50 mg tablet 50 mg PO DAILY 11/02/24 11/02/24 11/02/24 07:00 History Exam Pertinent Lab Results Pertinent Lab Results: Laboratory Tests 07/23/24 10/03/24 10:09 10:33 WBC 6.5 Hgb 14.6 Hct 44.0 Plt Count 270 Sodium 143 Potassium 3.6 Chloride 112 H Carbon Dioxide 27 BUN 16 Creatinine 0.69 Narrative Narrative: EKG 03/2024 Vent. Rate : 98 BPM Atrial Rate : 98 BPM P-R Int : 156 ms QRS Dur : 78 ms QT Int : 356 ms P-R-T Axes : 55 0 24 degrees QTcB Int : 454 ms Normal sinus rhythm Possible Left atrial enlargement Inferior infarct , age undetermined Abnormal ECG When compared with ECG of 07-Sep-2019 14:02, No significant changes seen Assessment and Plan Assessment Anesthesia Assessment: Chart Reviewed Final Anesthetic Review Family History of Problems with Anesthesia: No History of Problems with Anesthesia: No Documented by User: Kaylin Mendoza DO 11/02/24 08:47 PMFSH Past Medical History Medical History Polyarticular osteoarthritis Encounter for monitoring denosumab therapy Right shoulder pain Benign neoplastic disease Myositis Cyst of Bartholin's gland duct Renal calculi Gastritis Anxiety Hypertension HIV (human immunodeficiency virus infection) Depression GERD (gastroesophageal reflux disease) Osteoporosis Family History Family history of problems with anesthesia: No Surgical History Surgical History Hx of tubal ligation Hx of cholecystectomy Hx of colonoscopy Hx of appendectomy History of Problems with Anesthesia: No Social History Social History Household Members: None Housing: Apartment Do you presently have visiting nurse or other home services: No Alcohol intake: never Patient Tobacco Use Status: Former Tobacco user Years Smoked: quit 11 years ago Second Hand Smoke Exposure: No Advance Directives: No Advance Directives Information Provided: Yes service: No Current occupational status: disabled Current occupation: rt handed Meds Allergies Allergy/AdvReac Type Severity Reaction Status Date / Time No Known Allergies Allergy Verified 10/29/24 14:52 Home Medications ?Medication ?Instructions ?Recorded ?Confirmed ?Last Taken ?Type bictegravir 50 mg-emtricitabine 1 tab PO DAILY 01/24/20 10/17/24 Unknown History 200 mg-tenofovir alafenam 25 mg tablet (Biktarvy) albuterol sulfate 90 mcg/actuation 2 puff inhalation Q4-6H PRN 01/31/20 10/17/24 Unknown History aerosol inhaler Shortness Of Breath Or Wheezing atorvastatin 20 mg tablet 20 mg PO DAILY 03/20/24 10/17/24 Unknown History chlorhexidine gluconate 0.12 % 15 ml PO BID 03/20/24 10/17/24 Unknown History mouthwash cholecalciferol (vitamin D3) 25 25 mcg PO DAILY 03/20/24 10/17/24 Unknown History mcg (1,000 unit) tablet ondansetron 4 mg disintegrating 4 mg PO Q8H PRN Nausea And Vomiting 03/20/24 10/17/24 Unknown History tablet diclofenac sodium 1 % topical gel topical 04/23/24 10/17/24 Unknown History losartan 50 mg tablet 50 mg PO DAILY 11/02/24 11/02/24 11/02/24 07:00 History Exam Exam Date and Time: 11/02/24 0840 Height,Weight and Vital Signs: Height 5 ft 1 in Weight 69.5 kg Vital Signs Temperature 97.6 F 11/02/24 07:37 Pulse Rate 79 11/02/24 07:37 Respiratory Rate 16 11/02/24 07:37 Blood Pressure 150/67 H 11/02/24 07:37 Pulse Oximetry 96 11/02/24 07:37 Oxygen Delivery Method Room Air 11/02/24 07:37 Temperature 97.6 F 11/02/24 07:37 Pulse Rate 79 11/02/24 07:37 Respiratory Rate 16 11/02/24 07:37 Blood Pressure 150/67 H 11/02/24 07:37 Pulse Oximetry 96 11/02/24 07:37 Oxygen Delivery Method Room Air 11/02/24 07:37 Airway Mallampati Class: II TM Dist: <=3cm Neck ROM: Full Loose/Missing/Broken Teeth: No (several missing molars but patient denies any loose or broken teeth) Heart: S1S2 Lungs: CTAB Assessment and Plan Assessment Anesthesia Assessment: Anesthesia Plan Discussed and Chart Reviewed Final Anesthetic Review Family History of Problems with Anesthesia: No History of Problems with Anesthesia: No NPO: Yes ASA Class: III Final Preanesthetic Review: No Changes in Pt Med Stat, Meds/Allgs Chart Reviewed, Consent Obtained/Reviewed (diplomatic interpreter at bedside for translation) and Anes Risks/Benef Reviewed Patient Risk: Low Procedure Risk: Low Anesthetic Plan Anesthetic Plan: GA and Agree w/ Assess. and Plan Disposition: Standard PACU
--- NOTE | 2024-11-02 09:14 | MHC.SHP ---
Pre-Procedural Eval Section A - 24 Hr Update-Section A only Date of Service: 11/02/24 The patient is an INPATIENT: No Changes since office visit: No Cold of Flu in the past 2 weeks, No New Medical Problems, No Changes in Medication and No Patient answered all questions The patient has been examined within 24 hours of the surgical procedure. The History & Physical has been completed within 30 days and I have reviewed it.: Yes Section B - Complete if H&P > 30 days Chief Complaint: Abnormal findings on diagnostic imaging Allergies: Allergies Allergy/AdvReac Type Severity Reaction Status Date / Time No Known Allergies Allergy Verified 10/29/24 14:52 Plan Diagnosis/Plan: Unchanged I have reviewed the history and physical and performed a pertinent physical examination on my patient. No changes have occurred unless specified. Time Spent With Patient Time: Total time managing care of this patient today ____ minutes.
--- NOTE | 2024-11-02 09:46 | P.BOP_ITS ---
Brief Operative Note Date of Service: 11/02/24 Pre-op diagnosis: Thick endometrium Post-op diagnosis: same (Normal endometrial cavity) Procedure: Hysteroscopy D&C Surgeon: Edward Mcguire MD Anesthesia: GLMA Was an Group [employer]itness Department Head used for this Procedure?: No Estimated blood loss (mL): 0 Pathology: other (Endometrial Scrapping. ) Condition: stable Disposition: PACU
--- NOTE | 2024-11-02 09:49 | P.OP_ITS ---
Operative Note Operative Note Date of Service: 11/02/24 Narrative: Preop Diagnosis: Thick endometrium Operation: Diagnostic Hysteroscopy, Dilataion & Curettage Post Op Diagnosis: Normal endometrial cavity QBL: Minimal Anesthesia: GLMA Surgeon: Edward Mcguire MD Senior Radiation Therapist: None Complication: None Pathology: Endometrial Scrapings Procedure: The patient was put in the dorsal lithotomy position, scrubbed, and draped in the usual manner. A sterile speculum was inserted in the patient's va zain. The anterior lip of the cervix was grasped with a single tooth tenaculum. The cervix was dilated up to 5 mm, then the scope was inserted in the patient's uterus. Inspection revealed Normal endometrial cavity. The Myosure Reach device was used; the scope was removed from the endometrial cavity , sharp curettings was carried on with minimal to moderate amount of tissues retrieved. At the end of the procedure, all instruments were taken out of the patient uterine and vaginal cavity. The single tooth tenaculum was removed and homeostasis was assured using pressure,. The patient tolerated the procedure well and was transferred to the PACU in a stable condition.
[2024-11-02 09:50] VITALS: BP 121/57; PULSE 84; RESP 12; TEMP 36.1; O2SAT 97
[2024-11-02 09:55] VITALS: BP 125/57; PULSE 74; RESP 13; O2SAT 100
[2024-11-02 10:00] VITALS: BP 126/57; PULSE 74; RESP 22; O2SAT 100
[2024-11-02 10:05] VITALS: BP 125/59; PULSE 74; RESP 14; O2SAT 96
[2024-11-02 10:20] VITALS: BP 135/60; PULSE 74; RESP 14; TEMP 36.1; O2SAT 96
== END 2024-11-02 10:44 | disposition home or self-care (01) ==
PROVIDERS: PCP Family Medicine; Visit Provider Obstetrics & Gynecology
PROC: 0UDB8ZZ Extraction of Endometrium, Via Natural or Artificial Opening Endoscopic (ICD-10-PCS; CPT 58558; principal; 2024-11-02 09:50)
DX: R93.89 Abnormal findings on diagnostic imaging of other specified body structures (principal); N83.8 Other noninflammatory disorders of ovary, fallopian tube and broad ligament; N75.0 Cyst of Bartholin's gland; B20 Human immunodeficiency virus [HIV] disease; I10 Essential (primary) hypertension; M60.9 Myositis, unspecified; M81.0 Age-related osteoporosis without current pathological fracture; N20.0 Calculus of kidney; D25.9 Leiomyoma of uterus, unspecified; F32.A Depression, unspecified; F41.9 Anxiety disorder, unspecified; Z79.899 Other long term (current) drug therapy; Z98.51 Tubal ligation status; Z90.49 Acquired absence of other specified parts of digestive tract; Z87.891 Personal history of nicotine dependence
CPT/HCPCS: 58558; 88305; J1100; J1885; J2003; J2250; J2405; J2704; J3010

== ENCOUNTER → 2024-11-02 07:16 | Outpatient (BNV) | payer OTHER, SELFPAY | PROVIDERS: PCP Family Medicine; Visit Provider Obstetrics & Gynecology | DX: N85.00 Endometrial hyperplasia, unspecified (principal) | CPT/HCPCS: 58558 ==

== ENCOUNTER 2024-11-06 13:19 | Outpatient (REF) | payer OTHER, SELFPAY ==
--- OUTSIDE RECORDS SUMMARY | 2023-09-27 08:20 | XMS_ITS ---
Author Organization [facility] Address 10 [facility] [address] [place] [address] Care Team Providers Care Change Director Name Role Phone Cecilia UMAÑA, Adele Primary Care Provider Negrita Micah Shirley Jr Unavailable REASON FOR VISIT erosive esophagitis Encounters Encounter Location Date Provider Diagnosis [facility] [place] [address] [place], [place] [phone] 09/27/2023 Micah Olsen Jr Abn findings-GI tract R93.3 Assessments Encounter Date Diagnosis (ICD Code) Assessment Notes Treatment Notes Treatment Clinical Notes Section Notes 09/27/2023 Abn findings-GI tract (ICD-10 - R93.3) Plan Of Treatment Next Appt Details Provider Name:Micah low Jr, 11/19/2024 01:35:00 PM, [address] [facility], Suite [facility], [place], [address], Progress Notes * ANNE CARIASADOB:[birth year] (69 yo F)Acc No.[id number]:09/27/2023 EGD/MAC Patient: ROBERT OROSCO Provider: Reji Olsen MD :1955 A ge:68 Y S ex:Female Date:09/27/2023 Address:[address] [place] [address] Pcp:Adele Brooks MD Subjective: * Chief Complaints: [...] 09/27/2023 Generated for Chelsey mejia/Nader/Laurenitting on: 0 11/06/2024 12:33 PM EDT
--- OUTSIDE RECORDS SUMMARY | 2024-11-06 14:11 | XMS_ITS | Encounter Summary ---
Author Organization [facility] Address [address] [place] [address] Phone Care Team Providers Care Spinner Hand Name Role Phone Unknown, Unknown Primary Care Provider Liam east Encounter Details Date Type Department Care Team (Late st Contact Info) Description 05/04/2018 Ancillary Orders [facility] [address] [place] [address] Reji Jo, [address] [place] [address] Dizziness Social History Tobacco Use Types Packs/Day [...] encounter Results * Holter Monitor 24 Hours (05/04/2018 8:57 AM EST) Anatomical Region Laterality Modality Heart Other Narrative 05/04/2018 12:43 PM EST 24-hour monitor: Baseline rhythm is sinus. Minimum heart rate is 68, maximum 137, average 96 bpm. Rare PACs and PVCs present. There was no diary included. There were no patient event markers. Impression: Normal 24-hour monitor. No symptoms reported. Procedure Note Shahram Crews MD - 05/04/2018 24-hour monitor: Baseline rhythm is sinus. Minimum heart rate is 68,maximum 137, average 96 bpm. Rare PACs and PVCs present. There was nodiary included. There were no patient event markers. Impression: Normal 24-hour monitor. No symptoms reported. Reji Jo DO [facility] ORDER[facility] S Final Result documented in this encounter Visit Diagnoses Diagnosis Dizziness Dizziness and giddiness Dizziness Dizziness and giddiness documented in this encounter Care Teams Spinner Hand Relationship Specialty Start Date End Date Unknown, Unknown, MD PCP - General 03/28/19 documented as of this encounter Additional Source Comments The information contained in this document represents components of the legal health record. It is not the complete legal health record.[facility]
--- OUTSIDE RECORDS SUMMARY | 2024-11-06 14:11 | XMS_ITS | Clinical Summary ---
Author Organization [facility] Address [address] [place] [address] Phone Care Team Providers Care Flat Locker Name Role Phone Unknown, Unknown Primary Care Provider Liam east Social History Tobacco Use Types Packs/Day Years Used Date Smoking Tobacco: Never Assessed Education Answer Date Recorded Are you interested in more education? Not on luis a e 07/09/2022 Are you concerned about learning? Not on file 07/09/2022 No 07/09/2022 No 07/09/2022 Digital Access Answer Date Recorded No 08/10/2022 No 08/10/2022 No 08/10/2022 Reliable internet access at home? Not on file 08/10/2022 Device with a working camera? Not on file Comments Unknown Sex and Gender Information Value Date Recorded Sex Assigned at Not on file Legal Sex Female 10:40 AM EST Gender Identity Not on file Sexual Orientation Not on file Plan of Treatment Not on file Medical Devices Not on file Insurance [facility] C3 ACO C3 ACO C[address] [place] [address] [place] [address] C3 ACO C3 ACO C3 ACO C3 ACO C3 ACO [facility] C3 ACO Care Teams Flat Locker Relationship Specialty Start Date End Date Unknown, Unknown, PCP - General 03/28/19 Additional Source Comments The information contained in this document represents components of the legal health record. It is not the complete legal health record.[facility]
--- OUTSIDE RECORDS SUMMARY | 2024-11-06 14:11 | XMS_ITS | Encounter Summary ---
Author Organization [facility] Address [address] [place] [address] Phone Care Team Providers Care Extension Forester Name Role Phone Unknown, Unknown Primary Care Provider Liam east Encounter Details Date Type Department Care Team (Late st Contact Info) Description 03/28/2019 Ancillary Orders Non-Invasive Cardiology [address] [place] [address] Reji Jo, DO [address] [place] [address] Chest pain, unspecified type; Dizziness Social History [...] on file documented as of this encounter Visit Diagnoses Diagnosis Chest pain, unspecified type Dizziness Dizziness and giddiness documented in this encounter Care Teams Extension Forester Relationship Specialty Start Date End Date Unknown, Unknown, PCP - General 03/28/19 documented as of this encounter Additional Source Comments The information contained in this document represents components of the legal health record. It is not the complete legal health record.[facility]
--- OUTSIDE RECORDS SUMMARY | 2024-11-06 14:11 | XMS_ITS | Patient Health Record ---
Author Organization [facility] Address [address] [place] [address] Care Team Providers Care Ticket Agent Name Role Phone Adele Brooks MD Primary Care Provider Micah Contreras Jr Unavailable Allergies No Known Allergies Reason For Referral No Information Medications Medication [...] 6 months Active Biktarvy 50-200-25 MG TOME BERE TABLETA T ODOS LOS D? Oral Once [...] Problem Status W/U Status Risk Notes Problem 037089689 Colon cancer screening (Z12.11) Active confirmed Problem 470228157 Generalized abdominal pain (R10.84) Active confirmed Problem 47892536 Rectal pain (K62.89) Active confirmed Problem 76382071 Dysphagia, unspecified type (R13.10) Active confirmed Problem 374487677 GERD without esophagitis (K21.9) Active confirmed Problem 70280199 Change in bowel function (R19.8) Active confirmed Plan Of Treatment Pending Test Test Name [...] 01/02/2020 Next Appt Details Provider Name:Micah low , 11/19/2024 01:35:00 PM, [address], [address], [place], [address], Insurance Providers Payer Name Payer Address Payer Phone Subscriber Number Group Number Insured Name Patient Relationship to Insured Coverage Start Date Coverage End Date [facility] [address] Attn Claims MINOO Thomas [id number] ROBERT CARIAS Self - patient is the insured Medical (General) History Medical History History ICD Code Gastroesophageal reflux dise ase, EGD 02/05/20, no H. pylori or Rosenberg's esophagus. Anxiety/depression HIV infection hypertension kidney stones myositis Colonoscopy 02/01/20, tubular adenomas x 2, five-year followup Surgical History Surgery Date(Month/Year) appendectomy 06/01/2012 cholecystectomy 06/01/2012 tubal ligation 06/01/2012 left breast lumpectomy 1995
--- OUTSIDE RECORDS SUMMARY | 2024-11-06 14:11 | XMS_ITS | Encounter Summary ---
Author Organization [facility] Address [address] [place] [address] Phone Care Team Providers Care Fruit Thinner Machine Operator Name Role Phone Unknown, Unknown Primary Care Provider Liam east Encounter Details Date Type Department Care Team (Latest Contact Info) Description 03/28/2019 Ancillary Orders [facility] [address] [place] [address] Reji Jo, DO [address] [place] [address] Chest pain, unspecified type; Dizziness Social History [...] giddiness documented in this encounter Care Teams Fruit Thinner Machine Operator Relationship Specialty Start Date End Date Unknown, Unknown, MD PCP - General 03/28/19 documented as of this encounter Additional Source Comments The information contained in this document represents components of the legal health record. It is not the complete legal health record.[facility]
[2024-11-06 16:53] LABS: Anion Gap 14 (12-20); Blood Urea Nitrogen 18 mg/dL (9-16); Calcium 9.7 mg/dL (8.4-10.2); Carbon Dioxide 26 mmol/L (22-29); Chloride 107 mmol/L (96-108); Estimated Glomerular Filt Rate > 60; Potassium 4.6 mmol/L (3.3-5.1); Sodium 142 mmol/L (135-145)
== END 2024-11-06 13:20 | disposition home or self-care (01) ==
LOC: HO.HHCL 13:19
PROVIDERS: PCP Family Medicine; Visit Provider Family Medicine
DX: I10 Essential (primary) hypertension (principal)
CPT/HCPCS: 36415; 80048

== ENCOUNTER 2024-11-07 11:53 | Outpatient (REF) | payer OTHER, SELFPAY ==
--- OUTSIDE RECORDS SUMMARY | 2023-09-27 08:20 | XMS_ITS ---
Author Organization [facility] Address 10 [facility] [address] [place] [address] Care Team Providers Care Bar Host Name Role Phone Cecilia UMAÑA, Adele Primary Care Provider Negrita Micah Shirley Jr Unavailable REASON FOR VISIT erosive esophagitis Encounters Encounter Location Date Provider Diagnosis [facility] [address] [place], [place] [phone] 09/27/2023 Micah Olsen Jr Abn findings-GI tract R93.3 Assessments Encounter Date Diagnosis (ICD Code) Assessment Notes Treatment Notes Treatment Clinical Notes Section Notes 09/27/2023 Abn findings-GI tract (ICD-10 - R93.3) Plan Of Treatment Next Appt Details Provider Name:Micah low Jr, 11/19/2024 01:35:00 PM, [address] [facility], Suite [facility], [place], [address], Progress Notes * ANNE CARIASADOB:[birth year] (69 yo F)Acc No.[id number]:09/27/2023 EGD/MAC Patient: ROBERT OROSCO Provider: Reji Olsen MD :1955 A ge:68 Y S ex:Female Date:09/27/2023 Address:[address] [place] [address] Pcp:Adele Brooks MD Subjective: * Chief Complaints: [...] 09/27/2023 Generated for Chelsey mejia/Nader/Laurenitting on: 0 11/07/2024 12:41 PM EDT
--- OUTSIDE RECORDS SUMMARY | 2024-11-07 12:41 | XMS_ITS | Encounter Summary ---
Author Organization [facility] Address [address] [place] [address] Phone Care Team Providers Care Globe Changer Name Role Phone Unknown, Unknown Primary Care Provider Liam east Encounter Details Date Type Department Care Team (Latest Contact Info) Description 03/28/2019 Ancillary Orders [facility] [address] [place] [address] Reji Jo, DO [address] [place] [address] Chest pain, unspecified type; Dizziness Social History [...] giddiness documented in this encounter Care Teams Globe Changer Relationship Specialty Start Date End Date Unknown, Unknown, MD PCP - General 03/28/19 documented as of this encounter Additional Source Comments The information contained in this document represents components of the legal health record. It is not the complete legal health record.[facility]
--- OUTSIDE RECORDS SUMMARY | 2024-11-07 12:41 | XMS_ITS | Patient Health Record ---
Author Organization [facility] Address [address] [place] [address] Care Team Providers Care Teaching Artist Name Role Phone Adele Brooks MD Primary Care Provider Micah Cotnreras Jr Unavailable [phone] Allergies No Known Allergies Reason For Referral [...] Problem Status W/U Status Risk Notes Problem [id number] Colon cancer screening (Z12.11) Active confirmed Problem 057799530 Generalized abdominal pain (R10.84) Active confirmed Problem 53762704 Rectal pain (K62.89) Active confirmed Problem 42217657 Dysphagia, unspecified type (R13.10) Active confirmed Problem 234511448 GERD without esophagitis (K21.9) Active confirmed Problem 92505982 Change in bowel function (R19.8) Active confirmed [...] Name:Micah low , 11/19/2024 01:35:00 PM, [address], [address], [place], [address], Insurance Providers Payer Name Payer Address Payer Phone Subscriber Number Group Number Insured Name Patient Relationship to Insured Coverage Start Date Coverage End Date [facility] [address] Attn Claims MINOO Thomas [id number] ROBERT CARIAS Self - patient is the [...]
--- OUTSIDE RECORDS SUMMARY | 2024-11-07 12:41 | XMS_ITS | Encounter Summary ---
Author Organization [facility] Address [address] [place] [address] Phone Care Team Providers Care Sap Pi Developer Name Role Phone Unknown, Unknown Primary Care Provider Liam east Encounter Details Date Type Department Care Team (Late st Contact Info) Description 03/28/2019 Ancillary Orders Non-Invasive Cardiology [address] [place] [address] Reji Jo, DO [address] [place] [address] Chest pain, unspecified type; Dizziness Social History [...] giddiness documented in this encounter Care Teams Sap Pi Developer Relationship Specialty Start Date End Date Unknown, Unknown, PCP - General 03/28/19 documented as of this encounter Additional Source Comments The information contained in this document represents components of the legal health record. It is not the complete legal health record.[facility]
--- OUTSIDE RECORDS SUMMARY | 2024-11-07 12:41 | XMS_ITS | Encounter Summary ---
Author Organization [facility] Address [address] [place] [address] Phone Care Team Providers Care Boiler Operator Helper Name Role Phone Unknown, Unknown Primary Care Provider Liam east Encounter Details Date Type Department Care Team (Late st Contact Info) Description 05/04/2018 Ancillary Orders [facility] [address] [place] [address] Reji Jo, [address] [place] [address] Dizziness Social History Tobacco Use Types Packs/Day [...] giddiness documented in this encounter Care Teams Boiler Operator Helper Relationship Specialty Start Date End Date Unknown, Unknown, MD PCP - General 03/28/19 documented as of this encounter Additional Source Comments The information contained in this document represents components of the legal health record. It is not the complete legal health record.[facility]
--- OUTSIDE RECORDS SUMMARY | 2024-11-07 12:42 | XMS_ITS | Clinical Summary ---
Author Organization [facility] Address [address] [place] [address] Phone Care Team Providers Care Habitat Management Coordinator Name Role Phone Unknown, Unknown Primary Care [...] file Medical Devices Not on file Insurance [facility] C3 ACO C3 ACO C[address] [place] [address] [place] [address] C3 ACO C3 ACO C3 ACO C3 ACO C3 ACO [facility] C3 ACO Care Teams Habitat Management Coordinator Relationship Specialty Start Date End Date Unknown, Unknown, PCP - General 03/28/19 Additional Source Comments The information contained in this document represents components of the legal health record. It is not the complete legal health record.[facility]
== END 2024-11-07 11:54 | disposition home or self-care (01) ==
LOC: HO.MAMMO 11:53
PROVIDERS: PCP Family Medicine; Visit Provider Family Medicine
DX: Z12.31 Encounter for screening mammogram for malignant neoplasm of breast (principal)
CPT/HCPCS: 77063; 77067

== ENCOUNTER → 2024-11-07 12:15 | Outpatient (BNV) | payer OTHER, SELFPAY | PROVIDERS: PCP Family Medicine; Visit Provider Radiology Body Imaging | DX: Z12.31 Encounter for screening mammogram for malignant neoplasm of breast (principal) | CPT/HCPCS: 77063; 77067 ==

== ENCOUNTER 2024-11-15 11:42 | Outpatient (AMB) | payer OTHER, SELFPAY ==
--- OUTSIDE RECORDS SUMMARY | 2023-09-27 08:20 | XMS_ITS ---
Author Organization [facility] Address 10 [facility] [address] [place] [address] Care Team Providers Care Laborer Salvage Name Role Phone Cecliia UMAÑA, Adele Primary Care Provider Negrita Micah Shirley Jr Unavailable REASON FOR VISIT erosive esophagitis Encounters Encounter Location Date Provider Diagnosis [facility] [place] [address] [place], [place] [phone] 09/27/2023 Micah Olsen Jr Abn findings-GI tract R93.3 Assessments Encounter Date Diagnosis (ICD Code) Assessment Notes Treatment Notes Treatment Clinical Notes Section Notes 09/27/2023 Abn findings-GI tract (ICD-10 - R93.3) Plan Of Treatment Next Appt Details Provider Name:Micah low Jr, 11/19/2024 01:35:00 PM, [address] [facility], Suite [facility], [place], [address], Progress Notes * ANNE CARIASADOB:[birth year] (69 yo F)Acc No.[id number]:09/27/2023 EGD/MAC Patient: ROBERT OROSCO Provider: Reji Olsen MD :1955 A ge:68 Y S ex:Female Date:09/27/2023 Address:[address] [place] [address] Pcp:Adele Brooks MD Subjective: * Chief Complaints: [...] 09/27/2023 Generated for Chelsey mejia/Nader/Laurenitting on: 0 11/15/2024 01:22 PM EDT
--- NOTE | 2024-11-15 11:43 | MHC.OFFVIS ---
Intake Visit Reasons: post op Washing Machine Loader And Puller Required: Yes Washing Machine Loader And Puller Language: Tie Inspector Services: Washing Machine Loader And Puller Present (in person) Washing Machine Loader And Puller Name: ASHANTI Lugo Information Interpreted: non-clinical & clinical Sulfonation Equipment Operator: Sulfonation Equipment Operator Present (ASHANTI Lugo) Accompanied by: Sister Allergies No Known Allergies Allergy (Verified 11/15/24 11:45) HPI Comments Details: The patient is presenting post hysteroscopy D&C no complaints minimal vaginal bleeding no feverishness chills or abdominal pain. The pathology showed the following: Labeled endometrium, curettage : Predominantly blood, mucin, scant fragments of endocervical glands and spindled reactive stroma; negative for atypia hyperplasia or malignancy (see comment). COMMENT: No definite endometrial glandular epithelium is identified. Clinical and imaging correlation is advised [facility] Medical History Polyarticular osteoarthritis Encounter for monitoring denosumab therapy Right shoulder pain Benign neoplastic disease Myositis Cyst of Bartholin's gland duct Renal calculi Gastritis Anxiety Hypertension HIV (human immunodeficiency virus infection) Depression GERD (gastroesophageal reflux disease) Osteoporosis Surgical History Hx of tubal ligation Hx of cholecystectomy Hx of colonoscopy Hx of appendectomy Social History Household Members: None Housing: Apartment Do you presently have visiting nurse or other home services: No Alcohol intake: never Patient Tobacco Use Status: Former Tobacco user Years Smoked: quit 11 years ago Second Hand Smoke Exposure: No service: No Current occupational status: disabled Current occupation: rt handed Female Reproductive History Menstrual Age of Menarche: 14 Review of Systems Const All systems reviewed & are unremarkable except as noted in HPI and below Reports as per HPI and Reports no additional complaints GI Reports no additional complaints Reports no additional complaints Assessment & Plan Assessment & Plan (1) Thickened endometrium: Comment: HIV+ Code(s): R93.89 - Abnormal findings on diagnostic imaging of other specified body structures Category: Medical Plan: Discussed with the patient intraoperative finding in the pathology showing no evidence of endometrial tissue, explained to the patient the endometrial pathology including hyperplasia and/or malignancy has not been ruled out. Will refer the patient to [facility] for further management. All questions answered, the patient verbalized understanding Coding Level of Care Code Est Pt Level 3 (72588) Diagnoses Thickened endometrium R93.89
--- OUTSIDE RECORDS SUMMARY | 2024-11-15 13:22 | XMS_ITS | Encounter Summary ---
Author Organization [facility] Address [address] [place] [address] Phone Care Team Providers Care Test Tube Maker Name Role Phone Unknown, Unknown Primary Care Provider Liam east Encounter Details Date Type Department Care Team (Latest Contact Info) Description 03/28/2019 Ancillary Orders [facility] [address] [place] [address] Reji Jo, DO [address] [place] [address] Chest pain, unspecified type; Dizziness Social History [...] giddiness documented in this encounter Care Teams Test Tube Maker Relationship Specialty Start Date End Date Unknown, Unknown, MD PCP - General 03/28/19 documented as of this encounter Additional Source Comments The information contained in this document represents components of the legal health record. It is not the complete legal health record.[facility]
--- OUTSIDE RECORDS SUMMARY | 2024-11-15 13:22 | XMS_ITS | Patient Health Record ---
Author Organization [facility] Address [address] [place] [address] Care Team Providers Care Invoicing Specialist Name Role Phone Adele Brooks MD Primary Care Provider Micah Contreras Jr Unavailable [phone] Allergies No Known Allergies Reason For Referral [...] Problem Status W/U Status Risk Notes Problem 340423500 Colon cancer screening (Z12.11) Active confirmed Problem 649058226 Generalized abdominal pain (R10.84) Active confirmed Problem 94004382 Rectal pain (K62.89) Active confirmed Problem 84523000 Dysphagia, unspecified type (R13.10) Active confirmed Problem 641559692 GERD without esophagitis (K21.9) Active confirmed Problem 80212089 Change in bowel function (R19.8) Active confirmed [...] Name:Micah low , 11/19/2024 01:35:00 PM, [address], [address], [place], [address], Insurance Providers Payer Name Payer Address Payer Phone Subscriber Number Group Number Insured Name Patient Relationship to Insured Coverage Start Date Coverage End Date [facility] [address] Attn Claims MINOO Thomas [id number] ROBERT CARIAS Self - patient is the [...]
--- OUTSIDE RECORDS SUMMARY | 2024-11-15 13:22 | XMS_ITS | Encounter Summary ---
Author Organization [facility] Address [address] [place] [address] Phone Care Team Providers Care Playground Attendant Name Role Phone Unknown, Unknown Primary Care Provider Liam east Encounter Details Date Type Department Care Team (Late st Contact Info) Description 05/04/2018 Ancillary Orders [facility] [address] [place] [address] Reji Jo, [address] [place] [address] Dizziness Social History Tobacco Use Types Packs/Day [...] giddiness documented in this encounter Care Teams Playground Attendant Relationship Specialty Start Date End Date Unknown, Unknown, MD PCP - General 03/28/19 documented as of this encounter Additional Source Comments The information contained in this document represents components of the legal health record. It is not the complete legal health record.[facility]
--- OUTSIDE RECORDS SUMMARY | 2024-11-15 13:23 | XMS_ITS | Encounter Summary ---
Author Organization [facility] Address [address] [place] [address] Phone Care Team Providers Care Physical Trainer Name Role Phone Unknown, Unknown Primary Care Provider Liam east Encounter Details Date Type Department Care Team (Late st Contact Info) Description 03/28/2019 Ancillary Orders [facility] [address] [place] [address] Reji Jo, DO [address] [place] [address] Chest pain, unspecified type; Dizziness Social History [...] giddiness documented in this encounter Care Teams Physical Trainer Relationship Specialty Start Date End Date Unknown, Unknown, PCP - General 03/28/19 documented as of this encounter Additional Source Comments The information contained in this document represents components of the legal health record. It is not the complete legal health record.[facility]
--- OUTSIDE RECORDS SUMMARY | 2024-11-15 13:23 | XMS_ITS | Clinical Summary ---
Author Organization [facility] Address [address] [place] [address] Phone Care Team Providers Care Senior Linux Systems Engineer Name Role Phone Unknown, Unknown Primary Care [...] file Medical Devices Not on file Insurance [facility] C3 ACO C3 [place]CO [place] [address] [place] [address] C3 ACO C3 ACO C3 ACO C3 ACO C3 ACO [facility] C3 ACO Care Teams Senior Linux Systems Engineer Relationship Specialty Start Date End Date Unknown, Unknown, PCP - General 03/28/19 Additional Source Comments The information contained in this document represents components of the legal health record. It is not the complete legal health record.[facility]
== END 2024-11-15 12:10 | disposition home or self-care (01) ==
LOC: HO.HWS 11:42
PROVIDERS: PCP Family Medicine; Visit Provider Obstetrics & Gynecology
DX: R93.89 Abnormal findings on diagnostic imaging of other specified body structures (principal)
CPT/HCPCS: 99213

== ENCOUNTER → 2024-11-15 11:42 | Outpatient (BNVA) | payer OTHER, SELFPAY | PROVIDERS: PCP Family Medicine; Visit Provider Obstetrics & Gynecology | DX: R93.89 Abnormal findings on diagnostic imaging of other specified body structures (principal) | CPT/HCPCS: 99212 ==

== ENCOUNTER 2024-12-04 09:54 | Outpatient (REF) | payer OTHER, SELFPAY ==
--- OUTSIDE RECORDS SUMMARY | 2023-09-27 08:20 | XMS_ITS ---
Author Organization [facility] Address [address] [place] [address] Care Team Providers Care Resourcing Consultant Name Role Phone Cecilia UMAÑA, Adele Primary Care Provider Negrita Micah Shirley Jr Unavailable [phone] REASON FOR VISIT erosive esophagitis Encounters Encounter Location Date Provider Diagnosis [facility] [place] Out[place] [address] [place] [phone] 09/27/2023 Micah Olsen Jr Abn findings-GI tract R93.3 Assessments Encounter Date Diagnosis (ICD Code) Assessment Notes Treatment Notes Treatment Clinical Notes Section Notes 09/27/2023 Abn findings-GI tract (ICD-10 - R93.3) Plan Of Treatment Next Appt Details Provider Name:Micah low Jr, 12/11/2024 10:00:00 AM, [address] [place] [address], [phone], Progress Notes * ANNE CARIASADOB:[birth year] (69 yo F)Acc No.[id number]:09/27/2023 EGD/MAC Patient: ROBERT OROSCO Provider: Reji Olsen MD :1955 A ge:68 Y S ex:Female Date:09/27/2023 Address:[address] [place] [address] , [place], [place] Pcp:Adele Brooks MD Subjective: * Chief Complaints: [...] 09/27/2023 Generated for Chelsey mejia/Nader/Laurenitting on: 0 12/04/2024 11:54 AM EDT
--- NOTE | ~2024-12-04 | MM_ITS ---
EXAMINATION: BONE DENSITOMETRY CLINICAL INDICATION: Age-related osteopenia.. COMPARISON: 08/19/2022, 01/31/2020, 12/22/2017 and first bone density 07/04/2009. TECHNIQUE: Using a [employer] dual-energy x-ray absorptiometry was performed of the lumbar spine and left femoral neck. The images are of good technical quality. Summary results are attached. FINDINGS: AP SPINE L1-L4: BMD 1.074 g/cm2, Z-score 0.7, T-score -0.9, LEFT FEMUR, NECK: BMD 0.936 g/cm2, Z-score 0.8, T-score -0.7, LEFT FEMUR, TOTAL: BMD 0.844 g/cm2, Z-score 0.0, T-score -1.3, IDENTIFIED RISK FACTORS: None listed. HISTORY OF FRACTURE: None listed. MEDICATIONS: None listed. MM/XR DEXA axial skeleton IMPRESSION: 1. DIAGNOSIS: Normal bone density based on the lowest T-score value of 0.0 in the left femoral neck applying World Health Organization criteria. 2. 10-YEAR FRACTURE RISK PREDICTION, FRAX: 4.4% 3. Treatment Recommendations: NOF guidelines recommend consideration for treatment in postmenopausal women and men age 50 and older presenting with the following: -A hip or vertebral (clinical or morphometric) fracture. -T-score less than or equal to -2.5 at the femoral neck or spine after appropriate evaluation to exclude secondary causes. -Low bone mass at the hip or spine and a 10-year fracture probability by FRAX of greater than or equal to 3% for hip fracture or greater than or equal to 20% for major osteoporotic fracture based on the [place] adapted WHO algorithm. 4. The bone density has improved over time since 2010 exam. FUTURE SCAN RECOMMENDATION: People with diagnosed cases of osteoporosis or at high risk for fracture should have regular bone mineral density tests. For patients eligible for Medicare, routine testing is allowed once every 2 years. The testing frequency can be increased to one year for patients who have rapidly progressing disease, those who are receiving or discontinuing medical therapy to restore bone mass, or have additional risk factors. Electronically signed by: Yeyo Collado MD 12/04/2024 04:32 PM EDT
--- OUTSIDE RECORDS SUMMARY | 2024-12-04 11:55 | XMS_ITS | Encounter Summary ---
Author Organization [facility] Address [address] [place] [address] Phone Care Team Providers Care Administrator Name Role Phone Unknown, Unknown Primary Care Provider Liam east Encounter Details Date Type Department Care Team (Latest Contact Info) Description 03/28/2019 Ancillary Orders [facility] [address] [place] [address] Reji Jo, DO [address] [place] [address] Chest pain, unspecified type; Dizziness Social History [...] giddiness documented in this encounter Care Teams Administrator Relationship Specialty Start Date End Date Unknown, Unknown, MD PCP - General 03/28/19 documented as of this encounter Additional Source Comments The information contained in this document represents components of the legal health record. It is not the complete legal health record.[facility]
--- OUTSIDE RECORDS SUMMARY | 2024-12-04 11:55 | XMS_ITS | Encounter Summary ---
Author Organization [facility] Address [address] [place] [address] Phone Care Team Providers Care Pump Erector Name Role Phone Unknown, Unknown Primary Care Provider Liam east Encounter Details Date Type Department Care Team (Late st Contact Info) Description 05/04/2018 Ancillary Orders [facility] [address] [place] [address] Reji Jo, [address] [place] [address] Dizziness Social History Tobacco Use Types Packs/Day [...] giddiness documented in this encounter Care Teams Pump Erector Relationship Specialty Start Date End Date Unknown, Unknown, MD PCP - General 03/28/19 documented as of this encounter Additional Source Comments The information contained in this document represents components of the legal health record. It is not the complete legal health record.[facility]
--- OUTSIDE RECORDS SUMMARY | 2024-12-04 11:55 | XMS_ITS | Patient Health Record ---
Author Organization [facility] Address [address] [place] [address] Care Team Providers Care Sales Agent Business Services Name Role Phone Adele Brooks MD Primary [...] Once a day for 30 day(s) Not-Taking A26-Oftted 1 MG as directed Orally Active amLODIPine [...] Problem Screening for malignant neoplasm of colon (672754433) Encounter for screening for malignant neoplasm of colon (Z12.11) Active confirmed Problem 627096920 Generalized abdominal pain (R10.84) Active confirmed Problem 44527222 Rectal pain (K62.89) Active confirmed Problem 83287196 Dysphagia, unspecified type (R13.10) Active confirmed Problem 842351163 GERD without esophagitis (K21.9) Active confirmed Problem 59164210 Change in bowel function (R19.8) Active confirmed Vital Signs Heart Rate 84 /min 11/19/2024 Temperature 98.8 degrees Fahrenheit 11/19/2024 Blood pressure diastolic 01 mm Hg 11/19/2024 Height 61 in 11/19/2024 Blood pressure systolic 001 mm Hg 11/19/2024 Weight 154.8 lbs 11/19/2024 BMI 29.25 kg/m2 11/19/2024 Encounters Encounter Location Date Provider Diagnosis [facility] [address] [place] [phone] 11/19/2024 Micah Olsen Jr Encounter for screening [...] Provider Name:Micah low , 12/11/2024 10:00:00 AM, [address] [place] [address] , [place], [place], [phone], Insurance Providers Payer Name Payer Address Payer Phone Subscriber Number Group Number Insured Name Patient Relationship to Insured Coverage Start Date Coverage End Date [facility] [address] Attn Claims MINOO Thomas [id number] ROBERT CARIAS Self - patient is the [...]
--- OUTSIDE RECORDS SUMMARY | 2024-12-04 11:55 | XMS_ITS | Clinical Summary ---
Author Organization [facility] Address [address] [place] [address] Phone Care Team Providers Care Heel Edge Inker Machine Name Role Phone Unknown, Unknown Primary Care [...] HEALTH C3 ACO C3 ACO [address] [place] [place] [address] C3 ACO C3 ACO C3 ACO C3 ACO C3 ACO [facility] C3 ACO Care Teams Heel Edge Inker Machine Relationship Specialty Start Date End Date Unknown, Unknown, PCP - General 03/28/19 Additional Source Comments The information contained in this document represents components of the legal health record. It is not the complete legal health record.[facility]
--- OUTSIDE RECORDS SUMMARY | 2024-12-04 11:55 | XMS_ITS | Encounter Summary ---
Author Organization [facility] Address [address] [place] [address] Phone Care Team Providers Care Recreational Programs Director Name Role Phone Unknown, Unknown Primary Care Provider Liam east Encounter Details Date Type Department Care Team (Late st Contact Info) Description 03/28/2019 Ancillary Orders Non-Invasive Cardiology [address] [place] [address] Reji Jo, DO [address] [place] [address] Chest pain, unspecified type; Dizziness Social History [...] giddiness documented in this encounter Care Teams Recreational Programs Director Relationship Specialty Start Date End Date Unknown, Unknown, PCP - General 03/28/19 documented as of this encounter Additional Source Comments The information contained in this document represents components of the legal health record. It is not the complete legal health record.[facility]
== END 2024-12-04 09:55 | disposition home or self-care (01) ==
LOC: HO.MAMMO 09:54
PROVIDERS: PCP Family Medicine; Visit Provider Student in an Organized Health Care Education/Training Program
DX: M81.0 Age-related osteoporosis without current pathological fracture (principal)
CPT/HCPCS: 77080

== ENCOUNTER → 2024-12-04 10:30 | Outpatient (BNV) | payer OTHER, SELFPAY | PROVIDERS: PCP Family Medicine; Visit Provider Radiology Diagnostic Radiology | DX: E28.39 Other primary ovarian failure (principal) | CPT/HCPCS: 77080 ==

== ENCOUNTER 2024-12-11 08:09 | Day surgery (SDC) | payer OTHER, SELFPAY ==
--- OUTSIDE RECORDS SUMMARY | 2023-09-27 08:20 | XMS_ITS ---
Author Organization [facility] Address [address] [place] [address] Care Team Providers Care Onyx Chip Terrazzo Worker Name Role Phone Cecilia UMAÑA, Adele Primary Care Provider Negrita Micah Shirley Jr Unavailable REASON FOR VISIT erosive esophagitis Encounters Encounter Location Date Provider Diagnosis [facility] [place] [address] [place] [phone] 09/27/2023 Micah Olsen Jr Abn findings-GI tract R93.3 Assessments Encounter Date Diagnosis (ICD Code) Assessment Notes Treatment Notes Treatment Clinical Notes Section Notes 09/27/2023 Abn findings-GI tract (ICD-10 - R93.3) Plan Of Treatment Next Appt Details Provider Name:Micah low Jr, 12/11/2024 10:00:00 AM, [address] [place] [address], [phone], Progress Notes * ANNE CARIASADOB:[birth year] (69 yo F)Acc No.[id number]:09/27/2023 EGD/MAC Patient: ROBERT OROSCO Provider: Reji Olsen MD :1955 A ge:68 Y S ex:Female Date:09/27/2023 Address:[address] [place] [address] , [place], [place] Pcp:Adele Brooks MD Subjective: * Chief Complaints: * 1 . Erosive esophagitis. * Medical History: Objective: * Vitals: Assessment: * Assessment: 1. A bn findings-GI tract - R93.3 (Primary) Plan: * Treatment: * Procedure Codes: 4 5380 COLONOSCOPY AND BIOPSY * * The named appointment provid er may or may not be the originator of this progress note, and it is not deemed complete until electronically signed by the appointment provider. Sign off status: Pending * Provider: Reji Olsen MD Date: 0 09/27/2023 Generated for Chelsey mejia/Nader/Laurenitting on: 0 11/26/2024 09:08 PM EDT
--- OUTSIDE RECORDS SUMMARY | 2024-11-26 21:09 | XMS_ITS | Clinical Summary ---
Author Organization [facility] Address [address] [place] [address] Phone Care Team Providers Care Personalized Living Assistant Name Role Phone Unknown, Unknown Primary Care [...] Medical Devices Not on file Insurance [facility] C3 ACO C3 [place]CO [place] [place] [address] [place] [address] C3 ACO C3 ACO C3 ACO C3 ACO C3 ACO [facility] C3 ACO Care Teams Personalized Living Assistant Relationship Specialty Start Date End Date Unknown, Unknown, PCP - General 03/28/19 Additional Source Comments The information contained in this document represents components of the legal health record. It is not the complete legal health record.[facility]
--- OUTSIDE RECORDS SUMMARY | 2024-11-26 21:09 | XMS_ITS | Encounter Summary ---
Author Organization [facility] Address [address] [place] [address] Phone Care Team Providers Care Foreign Food Specialty Cook Name Role Phone Unknown, Unknown Primary Care Provider Liam east Encounter Details Date Type Department Care Team (Latest Contact Info) Description 03/28/2019 Ancillary Orders [facility] [address] [place] [address] Reji Jo, DO [address] [place] [address] Chest pain, unspecified type; Dizziness Social History [...] giddiness documented in this encounter Care Teams Foreign Food Specialty Cook Relationship Specialty Start Date End Date Unknown, Unknown, MD PCP - General 03/28/19 documented as of this encounter Additional Source Comments The information contained in this document represents components of the legal health record. It is not the complete legal health record.[facility]
--- OUTSIDE RECORDS SUMMARY | 2024-11-26 21:09 | XMS_ITS | Patient Health Record ---
Author Organization [facility] Address [address] [place] [address] Care Team Providers Care Stoneworking Belt Sander Name Role Phone Adele Brooks MD Primary Care Provider Micah Contreras Jr Unavailable Allergies No Known Allergies Reason For Referral No Information Medications Medication SIG (Take, Route, Frequency, Duration) Notes Start Date End Date Status Biktarvy 50-200-25 MG TOME BERE TABLETA T ODOS LOS D? Oral Once a day Active Prolia 60 MG/ML as directed Subcutaneous 1 injection every 6 months Active Losartan Potassium 50 MG 1 tablet Orally Once a day Active Multivitamin Adults - as directed Orally Active Cyclobenzaprine HCl 10 MG 1 tablet as ne eded Orally Three times a day Not-Taking Atorvastatin Calcium 20 MG 1 tablet Oral ly Once a day Active Flonase 50 MCG/DOSE 1 spray in each nostril Nasally Once a day for 30 day(s) Not-Taking J81-Dpryqr 1 MG as directed Orally Active amLODIPine Besylate 2.5 MG 1 tablet Oral ly Once a day Not-Taking Tylenol PRN Active Omeprazole 40 MG TOME 1 CAPSULA POR V IA ORAL TODOS LOS GASPAR 30 MINUTOS BEFORE MORNING MEAL FOR 30 DAYS for 90 Active Calcium & Vit D3 Bone Health Active Albuterol Sulfate HFA Active Immunizations Vaccine Route Administration Date Status Comme nts Influenza Unknown 12/21/2017 Administered Influenza Unknown 12/19/2019 Administered Influenza Unknown 01/13/2022 Administered Social History Tobacco Use: Social History Observation Description Date Details (start date - stop date) Never Smoker NA - NA Tobacco Control (Standard) Question Answer Notes Tobacco use: Nonsmoker AUDIT-C (Standard) Question Answer Notes Did you have a drink containing alcohol in the p ast year? No Points 0 Interpretation Negative Problems Problem Type SNOMED Code ICD Code Onset Dates Problem Status W/U Status Risk Notes Problem Screening for malignant neoplasm of colon (051220235) Encounter for screening for malignant neoplasm of colon (Z12.11) Active confirmed Problem 499316177 Generalized abdominal pain (R10.84) Active confirmed Problem 51679833 Rectal pain (K62.89) Active confirmed Problem 07899211 Dysphagia, unspecified type (R13.10) Active confirmed Problem 416996909 GERD without esophagitis (K21.9) Active confirmed Problem 24136748 Change in bowel function (R19.8) Active confirmed Vital Signs Heart Rate 84 /min 11/19/2024 Temperature 98.8 degrees Fahrenheit 11/19/2024 Blood pressure diastolic 01 mm Hg 11/19/2024 Height 61 in 11/19/2024 Blood pressure systolic 001 mm Hg 11/19/2024 Weight 154.8 lbs 11/19/2024 BMI 29.25 kg/m2 11/19/2024 Encounters Encounter Location Date Provider Diagnosis [facility] [address] [place] [phone] 11/19/2024 Micah Olsen Jr Encounter for screening for malignant neoplasm of colon Z12.11 ; GERD without esophagitis K21.9 and Generalized abdominal pain R10.84 Assessments Encounter Date Diagnosis (ICD Code) Assessment Notes Treatment Notes Treatment Clinical Notes Section Notes 11/19/2024 Encounter for screening for malignant neoplasm of colon (ICD-10 - Z12.11) We discussed colonoscopy today. We discussed risks and benefits of the procedure today. She understands these and agrees to proceed. This will be scheduled at her convenience.Nik ruiz symptoms are under good control and she will continue omeprazole 40 mg daily. We discussed diet, lifestyle modifications, and weight management regarding the treatment of reflux. We will review her imaging studies and laboratory studies that have been done for her abdominal pain and if she has persistent symptoms, she may need further evaluation pending review of her studies. Follow-up will be after the colonoscopy. 11/19/2024 GERD without esophagitis (ICD-10 - K21.9) We discussed colonoscopy today. We discussed risks and benefits of the procedure today. She understands these and agrees to proceed. This will be scheduled at her convenience.Nik ruiz symptoms are under good control and she will continue omeprazole 40 mg daily. We discussed diet, lifestyle modifications, and weight management regarding the treatment of reflux. We will review her imaging studies and laboratory studies that have been done for her abdominal pain and if she has persistent symptoms, she may need further evaluation pending review of her studies. Follow-up will be after the colonoscopy. 11/19/2024 Generalized abdominal pain (ICD-10 - R10.84) We discussed colonoscopy today. We discussed risks and benefits of the procedure today. She understands these and agrees to proceed. This will be scheduled at her convenience.Nik ruiz symptoms are under good control and she will continue omeprazole 40 mg daily. We discussed diet, lifestyle modifications, and weight management regarding the treatment of reflux. We will review her imaging studies and laboratory studies that have been done for her abdominal pain and if she has persistent symptoms, she may need further evaluation pending review of her studies. Follow-up will be after the colonoscopy. Plan Of Treatment Pending Test Test Name Order Date LIVER PROFILE 03/10/2022 LIPASE 03/10/2022 CRP 03/10/2022 CBC w/o DIFF 03/10/2022 SED RATE (ESR) 03/10/2022 XR BARIUM SWALLOW-ESOPHAGUS 08/25/2023 XR BARIUM SWALLOW-ESOPHAGUS 07/21/2011 XR BARIUM SWALLOW-ESOPHAGUS 05/24/2018 XR BARIUM SWALLOW-ESOPHAGUS 01/20/2022 Future Test Test Name Order Date COLONOSCOPY 07/21/2011 UPPER GI ENDOSCOPY 08/02/2012 UPPER GI ENDOSCOPY 04/01/2017 COLONOSCOPY 04/01/2017 UPPER GI ENDOSCOPY 01/02/2020 COLONOSCOPY 01/02/2020 COLONOSCOPY 11/19/2024 Next Appt Details Provider Name:Micah low , 12/11/2024 10:00:00 AM, [address] [place] [address] , [place], [place], [phone], Insurance Providers Payer Name Payer Address Payer Phone Subscriber Number Group Number Insured Name Patient Relationship to Insured Coverage Start Date Coverage End Date [facility] [address] Attn Claims MINOO Thomas [id number] ROBERT CARIAS Self - patient is the insured Medical (General) History Medical History History ICD Code Gastroesophageal reflux dise ase, EGD 10/04 normal, no H. pylori or Rosenberg's esophagus. Anxiety/depression HIV infection hypertension kidney stones myositis Colonoscopy 02/01/20, tubular adenomas x 2, five-year followup 2 uterine biopsies having right sided ab dominal pain Surgical History Surgery Date(Month/Year) left breast lumpectomy 1994 tubal ligation 06/01/2012 cholecystectomy 06/01/2012 appendectomy 06/01/2012
--- OUTSIDE RECORDS SUMMARY | 2024-11-26 21:09 | XMS_ITS | Encounter Summary ---
Author Organization [facility] Address [address] [place] [address] Phone Care Team Providers Care Taste Tester Name Role Phone Unknown, Unknown Primary Care Provider Liam east Encounter Details Date Type Department Care Team (Late st Contact Info) Description 05/04/2018 Ancillary Orders [facility] [address] [place] [address] Reji Jo, [address] [place] [address] Dizziness Social History Tobacco Use Types Packs/Day [...] giddiness documented in this encounter Care Teams Taste Tester Relationship Specialty Start Date End Date Unknown, Unknown, MD PCP - General 03/28/19 documented as of this encounter Additional Source Comments The information contained in this document represents components of the legal health record. It is not the complete legal health record.[facility]
--- OUTSIDE RECORDS SUMMARY | 2024-11-26 21:09 | XMS_ITS | Encounter Summary ---
Author Organization [facility] Address [address] [place] [address] Phone Care Team Providers Care Shuttle Spotter Name Role Phone Unknown, Unknown Primary Care Provider Liam east Encounter Details Date Type Department Care Team (Late st Contact Info) Description 03/28/2019 Ancillary Orders [facility]-In[facility] Cardiology [address] [place] [address] Reji Jo, DO [address] [place] [address] Chest pain, unspecified type; Dizziness Social History [...] giddiness documented in this encounter Care Teams Shuttle Spotter Relationship Specialty Start Date End Date Unknown, Unknown, PCP - General 03/28/19 documented as of this encounter Additional Source Comments The information contained in this document represents components of the legal health record. It is not the complete legal health record.[facility]
[2024-12-07 13:06] VITALS: BMI 29.1
--- NOTE | 2024-12-10 09:08 | HO.ANESPROP2 ---
Documented by User: Maria Elena Day NP 12/10/24 09:10 HPI - Anesthesia Eval Consult details Narrative: 69yo F for Colonoscopy PMFSH Active Problems Active Problems: All Active Problems Calcification of ovary (Acute) Thickened endometrium (Acute) Uterine myoma (Acute) Pelvic pain (Acute) Acromioclavicular joint arthritis (Acute) Benign paroxysmal positional vertigo, bilateral (Acute) Osteoarthritis of right shoulder (Acute) Dizziness (Acute) Neck pain (Acute) Headache (Acute) Vertigo (Acute) Blurred vision (Acute) Ataxia (Acute) Carpal tunnel syndrome of left wrist (Acute) Carpal tunnel syndrome of right wrist (Acute) Cervical spondylosis (Acute) Neural foraminal stenosis of cervical spine (Acute) Bilateral carpal tunnel syndrome (Acute) Well woman exam (Acute) Endocervical polyp (Acute) Fibromyalgia (Acute) Lumbar degenerative disc disease (Acute) Polyarticular osteoarthritis (Acute) Encounter for monitoring denosumab therapy (Acute) Right shoulder pain (Acute) Hypertension (Acute) HIV (human immunodeficiency virus infection) (Acute) Osteoporosis (Acute) Past Medical History Medical History Polyarticular osteoarthritis Encounter for monitoring denosumab therapy Right shoulder pain Benign neoplastic disease Myositis Cyst of Bartholin's gland duct Renal calculi Gastritis Anxiety Hypertension HIV (human immunodeficiency virus infection) Depression GERD (gastroesophageal reflux disease) Osteoporosis Family History Family history of problems with anesthesia: No Surgical History Surgical History History of lumpectomy of left breast History of esophagogastroduodenoscopy (EGD) Hx of tubal ligation Hx of cholecystectomy Hx of colonoscopy Hx of appendectomy History of Problems with Anesthesia: No Social History Social History Household Members: None Housing: Apartment Do you presently have visiting nurse or other home services: No Alcohol intake: never Patient Tobacco Use Status: Former Tobacco user Years Smoked: quit 11 years ago Second Hand Smoke Exposure: No Have you been hit, kicked, punched, or otherwise hurt by someone within the past year? If so, by whom?: No Are you DNR?: No Advance Directives: No Advance Directives Information Provided: Yes Poor oral hygiene: Yes service: No Current occupational status: disabled Current occupation: rt handed Meds Allergies Allergy/AdvReac Type Severity Reaction Status Date / Time No Known Allergies Allergy Verified 12/11/24 08:56 Home Medications ?Medication ?Instructions ?Recorded ?Confirmed ?Last Taken ?Type bictegravir 50 mg-emtricitabine 1 tab PO DAILY 01/24/20 12/07/24 Unknown History 200 mg-tenofovir alafenam 25 mg tablet (Biktarvy) albuterol sulfate 90 mcg/actuation 2 puff inhalation Q4-6H PRN 01/31/20 12/07/24 Unknown History aerosol inhaler Shortness Of Breath Or Wheezing atorvastatin 20 mg tablet 20 mg PO DAILY 03/20/24 12/07/24 Unknown History cholecalciferol (vitamin D3) 25 25 mcg PO DAILY 03/20/24 12/07/24 Unknown History mcg (1,000 unit) tablet losartan 50 mg tablet 50 mg PO DAILY 11/02/24 12/07/24 11/02/24 07:00 History calcium 500 mg (as 1 tab PO DAILY 12/07/24 12/07/24 Unknown History carbonate)-vitamin D3 3.125 mcg (125 unit) tablet cyanocobalamin (vitamin B-12) tab PO 12/07/24 Unknown History denosumab 60 mg/mL subcutaneous 60 mg subcut [id number] 12/07/24 12/07/24 Unknown History syringe (Prolia) fluticasone propionate 50 1 spray intranasal DAILY 12/07/24 12/07/24 Unknown History mcg/actuation nasal spray,suspension multivitamin 1 tab PO DAILY 12/07/24 12/07/24 Unknown History omeprazole 40 mg capsule,delayed 40 mg PO QAM 12/07/24 12/07/24 Unknown History release Exam Height,Weight and Vital Signs: Height 5 ft 1 in Weight 69.853 kg Assessment and Plan Assessment Anesthesia Assessment: Chart Reviewed Final Anesthetic Review Family History of Problems with Anesthesia: No History of Problems with Anesthesia: No Documented by User: Sheela Coronel MD 12/11/24 09:27 [facility] Past Medical History Medical History Polyarticular osteoarthritis Encounter for monitoring denosumab therapy Right shoulder pain Benign neoplastic disease Myositis Cyst of Bartholin's gland duct Renal calculi Gastritis Anxiety Hypertension HIV (human immunodeficiency virus infection) Depression GERD (gastroesophageal reflux disease) Osteoporosis Surgical History Surgical History History of lumpectomy of left breast History of esophagogastroduodenoscopy (EGD) Hx of tubal ligation Hx of cholecystectomy Hx of colonoscopy Hx of appendectomy Social History Social History Household Members: None Housing: Apartment Do you presently have visiting nurse or other home services: No Alcohol intake: never Patient Tobacco Use Status: Former Tobacco user Years Smoked: quit 11 years ago Second Hand Smoke Exposure: No Have you been hit, kicked, punched, or otherwise hurt by someone within the past year? If so, by whom?: No Are you DNR?: No Advance Directives: No Advance Directives Information Provided: Yes Poor oral hygiene: Yes service: No Current occupational status: disabled Current occupation: rt handed Meds Allergies Allergy/AdvReac Type Severity Reaction Status Date / Time No Known Allergies Allergy Verified 12/11/24 08:56 Home Medications ?Medication ?Instructions ?Recorded ?Confirmed ?Last Taken ?Type bictegravir 50 mg-emtricitabine 1 tab PO DAILY 01/24/20 12/07/24 Unknown History 200 mg-tenofovir alafenam 25 mg tablet (Biktarvy) albuterol sulfate 90 mcg/actuation 2 puff inhalation Q4-6H PRN 01/31/20 12/07/24 Unknown History aerosol inhaler Shortness Of Breath Or Wheezing atorvastatin 20 mg tablet 20 mg PO DAILY 03/20/24 12/07/24 Unknown History cholecalciferol (vitamin D3) 25 25 mcg PO DAILY 03/20/24 12/07/24 Unknown History mcg (1,000 unit) tablet losartan 50 mg tablet 50 mg PO DAILY 11/02/24 12/07/24 11/02/24 07:00 History calcium 500 mg (as 1 tab PO DAILY 12/07/24 12/07/24 Unknown History carbonate)-vitamin D3 3.125 mcg (125 unit) tablet cyanocobalamin (vitamin B-12) tab PO 12/07/24 Unknown History denosumab 60 mg/mL subcutaneous 60 mg subcut [id number] 12/07/24 12/07/24 Unknown History syringe (Prolia) fluticasone propionate 50 1 spray intranasal DAILY 12/07/24 12/07/24 Unknown History mcg/actuation nasal spray,suspension multivitamin 1 tab PO DAILY 12/07/24 12/07/24 Unknown History omeprazole 40 mg capsule,delayed 40 mg PO QAM 12/07/24 12/07/24 Unknown History release Exam Airway Mallampati Class: II TM Dist: >3cm Neck ROM: Full Heart: rrr Lungs: cta Assessment and Plan Assessment Anesthesia Assessment: Anesthesia Plan Discussed Final Anesthetic Review NPO: Yes ASA Class: II Final Preanesthetic Review: No Changes in Pt Med Stat, Meds/Allgs Chart Reviewed, Consent Obtained/Reviewed and Anes Risks/Benef Reviewed Patient Risk: Low Procedure Risk: Low Anesthetic Plan Anesthetic Plan: MAC: Disposition: Standard PACU
[2024-12-11 08:52] VITALS: BP 141/64; PULSE 91; RESP 18; TEMP 36.4; O2SAT 96
[2024-12-11] MEDS: Lactated Ringers 1,000 ML 100 ML IVCONT (08:52)
[2024-12-11 08:54] VITALS: BMI 28.7
--- NOTE | 2024-12-11 09:51 | MHC.SHP ---
Pre-Procedural Eval Section A - 24 Hr Update-Section A only Date of Service: 12/11/24 Section B - Complete if H&P > 30 days Chief Complaint: screening Details of Present Illness: see H&P no changes Relevant Family History (Specify if Yes): No Relevant Social History: None Present Medications: see Short Stay Collaborative assessment Medical History: No relevant PMH History of Previous Operations: No relevant previous surgery Allergies: Allergies Allergy/AdvReac Type Severity Reaction Status Date / Time No Known Allergies Allergy Verified 12/11/24 08:56 Review of Systems Sugical H&P ROS: Negative: Constitution, Cardiovascular, Respiratory, Neurological, Psychiatric, Hem-Onc, Allergic/Immunologic, Gastrointestinal, Genitourinary, Musculoskeletal, Integumentary, Endocrine and Eyes/Ears/Nose/Throat Exam Surgical H&P Exam: Normal: HEENT, Normal: Heart, Normal: Lungs, Normal: Extremities, Normal: Abdomen, Normal: Skin and Normal: Neurological Plan Diagnosis/Plan: Unchanged I have reviewed the history and physical and performed a pertinent physical examination on my patient. No changes have occurred unless specified. Time Spent With Patient Time: Total time managing care of this patient today ____ minutes.
[2024-12-11 10:40] VITALS: BP 96/43; PULSE 102; RESP 16; TEMP 36.2; O2SAT 97
[2024-12-11 10:55] VITALS: BP 124/67; PULSE 79; RESP 16; O2SAT 96
[2024-12-11 11:10] VITALS: BP 134/65; PULSE 65; RESP 16; TEMP 36.4; O2SAT 98
--- NOTE | 2024-12-11 11:29 | OP_ITS ---
DATE OF SERVICE: 12/11/2024 SURGEON: Micah Olsen MD INDICATIONS: Colon cancer screening. PREOPERATIVE DIAGNOSIS: POSTOPERATIVE DIAGNOSIS: PROCEDURE PERFORMED: Colonoscopy to the terminal ileum with biopsy. ESTIMATED BLOOD LOSS: COMPLICATIONS: ANESTHESIA: Monitored anesthesia care. ASSISTANTS: SPECIMENS: DESCRIPTION OF PROCEDURE: The history and physical performed. The risks and benefits of the procedure were explained to the patient. Informed consent was obtained. The patient was placed in the left lateral decubitus position. A digital rectal exam was performed and was found to be normal. The Olympus pediatric video colonoscope was introduced into the rectum and advanced to the cecum. The cecum was identified by transillumination, palpation, and identification of ileocecal valve. Examination was performed. The scope was removed. She tolerated the procedure well and was returned to recovery area in stable condition. FINDINGS: The terminal ileum was examined and appeared normal. The visualized colonic mucosa was normal. The quality of prep was good. A single polyp measuring less than 5 mm was identified in the right colon, removed with the forceps. No other polyps were identified. Retroflexed examination was normal. There were internal hemorrhoids. There was mild sigmoid diverticulosis. IMPRESSION: Colon polyp. RECOMMENDATION: Followup the biopsy results. MD HARJEET Bradshaw/FRANCISCO / [id number]
== END 2024-12-11 11:35 | disposition home or self-care (01) ==
PROVIDERS: PCP Family Medicine; Visit Provider Internal Medicine Gastroenterology
PROC: 0DJD8ZZ Inspection of Lower Intestinal Tract, Via Natural or Artificial Opening Endoscopic (ICD-10-PCS; CPT 45378; principal; 2024-12-11 10:00)
DX: Z12.11 Encounter for screening for malignant neoplasm of colon (principal); Z86.0101 Personal history of adenomatous and serrated colon polyps; Z80.0 Family history of malignant neoplasm of digestive organs; D12.2 Benign neoplasm of ascending colon; K57.30 Diverticulosis of large intestine without perforation or abscess without bleeding; K64.8 Other hemorrhoids; K21.9 Gastro-esophageal reflux disease without esophagitis; R10.84 Generalized abdominal pain; I10 Essential (primary) hypertension; B20 Human immunodeficiency virus [HIV] disease; M60.9 Myositis, unspecified; N20.0 Calculus of kidney; F41.8 Other specified anxiety disorders; Z79.899 Other long term (current) drug therapy; Z90.49 Acquired absence of other specified parts of digestive tract; Z98.890 Other specified postprocedural states; Z87.891 Personal history of nicotine dependence
CPT/HCPCS: 45380; 88305; J2003; J2704; J3010

== ENCOUNTER 2024-12-21 08:38 | Outpatient (REF) | payer OTHER, SELFPAY ==
[2024-12-21 11:14] LABS: MANUAL DIFF FLAG NO
[2024-12-21 11:50] LABS: Hematocrit 44.3 % (37.0-47.0); Hemoglobin 14.7 g/dl (12.0-16.0); Imm Gran Abs Auto 0.03 X10*3/uL (0.00-0.03); Imm Gran Pct Auto 0.4 % (0.0-0.4); Lymphocytes Absolute Auto 2.3 X10*3/uL (1.2-4.9); Mean Corpuscular HGB Conc 33.2 g/dl (31.0-35.0); Mean Corpuscular Hemoglobin 30.2 pg (27.0-33.0); Mean Corpuscular Volume 91.2 fL (80.0-98.0); NRBC Abs Auto 0.000 X10*3/uL (0.0-0.012); NRBC Pct Auto 0.0 /100WBC (0.0-0.2); Platelet Count 276 X10*3/uL (160-400); Red Blood Count 4.86 X10*6/uL (4.20-5.50); White Blood Count 6.9 X10*3/uL (4.8-10.8)
[2024-12-21 12:12] LABS: Alanine Aminotransferase 15 U/L (0-31); Albumin Level 4.2 g/dL (3.5-5.0); Alkaline Phosphatase 99 U/L (39-117); Anion Gap 10 (12-20); Aspartate Amino Transferase 18 U/L (5-31); Blood Urea Nitrogen 14 mg/dL (9-16); Calcium 8.8 mg/dL (8.4-10.2); Carbon Dioxide 25 mmol/L (22-29); Chloride 111 mmol/L (96-108); Cholesterol 172 mg/dL (<200); Estimated Glomerular Filt Rate > 60; HDL Cholesterol 54 mg/dL (>40); Potassium 3.8 mmol/L (3.3-5.1); Sodium 142 mmol/L (135-145); Total Protein 7.1 g/dL (6.5-8.0); Triglycerides 145 mg/dL (<150)
[2024-12-21 12:16] LABS: HBS Num1 29.34 mIU/mL (0-7.99); HBsAGNum1 0.55 S/CO (0.00-0.99); Hepatitis B Surface Antigen Negative (Negative); ~HepC Num1 0.14 S/CO (0.00-0.79); ~Hepatitis B Surface Antibody REACTIVE (Nonreactive); ~Hepatitis C Antibody Nonreactive (Nonreactive)
[2024-12-21 12:41] LABS: Reflex LDLD? No
[2024-12-24 09:23] LABS: HIV RNA PCR Qn Copies <20 DETECTED copies/mL (NOT DETECTED); HIV RNA PCR Qn Log Copies <1.30 DETECTED (NOT DETECTED)
[2024-12-24 11:18] LABS: TS Negative Control Passed; TS Panel A 0; TS Panel B 0; TS Positive Control Passed; TSpotTB Negative (Negative)
[2024-12-26 14:19] LABS: Absolute CD3 Count 1479 cells/uL (840-3060); Absolute CD8 Count 537 cells/uL (180-1170); Percent CD3 Cells 78 % (57-85); Percent CD8 Cells 28 % (12-42)
== END 2024-12-21 08:39 | disposition home or self-care (01) ==
LOC: HO.HHCL 08:38
PROVIDERS: PCP Family Medicine; Visit Provider Student in an Organized Health Care Education/Training Program
DX: Z13.1 Encounter for screening for diabetes mellitus (principal); Z13.6 Encounter for screening for cardiovascular disorders; Z11.1 Encounter for screening for respiratory tuberculosis; Z21 Asymptomatic human immunodeficiency virus [HIV] infection status
CPT/HCPCS: 80053; 80061; 83036; 85025; 86359; 86360; 86481; 86592; 86706; 86803; 87340; 87536; 87661

== ENCOUNTER 2025-01-25 10:32 | Outpatient (REF) | payer OTHER, SELFPAY ==
--- NOTE | ~2025-01-25 | US_ITS ---
EXAMINATION: US PELVIS CLINICAL INFORMATION: D25.9 - Leiomyoma of uterus, unspecified COMPARISON: October 18, 2024 TECHNIQUE: Ultrasound of the pelvis is performed using both transabdominal and transvaginal transducers along with Doppler. Transvaginal imaging is performed due to inadequate visualization transabdominally. FINDINGS: Uterus: The uterus is retroflexed and measures 8.2 x 2.8 x 3.8 cm. The double wall endometrial thickness is 4 mm. Again seen is a heterogeneous mass in the anterior fundus of the uterus measuring 2.3 x 1.8 x 2.2 cm, previously 2.1 x 2.3 x 1.8 cm. Adnexa: Right ovary: Not demonstrated Left ovary measures 2.4 x 1.9 x 2.2 cm cm. There is focal central calcific density with posterior acoustic shadowing measuring up to 7 mm. US/US pelvic and transvaginal IMPRESSION: Stable anterior fundal leiomyoma. Electronically signed by: Sánchez Montemayor MD 01/25/2025 12:12 PM [facility]
== END 2025-01-25 10:33 | disposition home or self-care (01) ==
LOC: HO.US 10:32
PROVIDERS: PCP Family Medicine; Visit Provider Obstetrics & Gynecology
DX: D25.9 Leiomyoma of uterus, unspecified (principal)
CPT/HCPCS: 76830; 76856

== ENCOUNTER → 2025-01-25 10:34 | Outpatient (BNV) | payer OTHER, SELFPAY | PROVIDERS: PCP Family Medicine; Visit Provider Radiology Diagnostic Radiology | DX: D25.1 Intramural leiomyoma of uterus (principal) | CPT/HCPCS: 76830; 76856 ==

== ENCOUNTER 2025-02-27 11:07 | Outpatient (AMB) | payer OTHER, SELFPAY ==
--- OUTSIDE RECORDS SUMMARY | 2023-09-27 07:20 | XMS_ITS ---
Author Organization [facility] Address [address] [place] [address] [place] [address] Care Team Providers Care Flight Radio Operator Name Role Phone Cecilia UMAÑA, Adele Primary Care Provider Negrita Micah Shirley Jr Unavailable [phone] REASON FOR VISIT erosive esophagitis Encounters Encounter Location Date Provider Diagnosis [facility] [place] Outpatient [address] [place], [place] [phone] 09/27/2023 Micah Olsen Jr Abn findings-GI tract R93.3 Assessments Encounter Date Diagnosis (ICD Code) Assessment Notes Treatment Notes Treatment Clinical Notes Section Notes 09/27/2023 Abn findings-GI tract (ICD-10 - R93.3) Plan Of Treatment Next Appt Details Provider Name:Micah low Jr, 12/26/2025 01:15:00 PM, [address] [place] [address], Suite [facility], [place], [address], Progress Notes * ANNE CARIASADOB:[birth year] (69 yo F)Acc No.[id number]:09/27/2023 EGD/MAC Patient: ROBERT OROSCO Provider: Reji Olsen MD :1955 A ge:68 Y S ex:Female Date:09/27/2023 Address:[address] [place] [address] Pcp:Adele Brooks MD Subjective: * Chief Complaints: * E rosive esophagitis Assessment: * Assessment: 1. A bn findings-GI tract - R93.3 (Primary) Plan: * Procedure Codes: 4 5380 COLONOSCOPY AND BIOPSY Billing Information: * Procedure Codes: 51913 COLONOSCOPY AND BIOPSY. * The named appointment provid er may or may not be the originator of this progress note, and it is not deemed complete until electronically signed by the appointment provider. Sign off status: Pending * Provider: Reji Olsen MD Date: 0 09/27/2023 Generated for Chelsey mejia/Nader/Laurenitting on: 1 04/30/2024 02:46 PM EST
--- OUTSIDE RECORDS SUMMARY | 2024-12-11 05:00 | XMS_ITS ---
Author Organization [facility] Address [address] [facility] [address] [place] [id number] Care Team Providers Care Film Developing Machine Operator Name Role Phone Cecilia UMAÑA, Adele Primary Care Provider Negrita asadilaMicah Sun Jr Unavailable [phone] REASON FOR VISIT screening Encounters Encounter Location Date Provider Diagnosis [facility] Outpatient [address] [place], [place] [id number] 12/11/2024 Micah Olsen Jr Plan Of Treatment Next Appt Details Provider Name:Micah low Jr, 12/26/2025 01:15:00 PM, [address] [facility], [address], [place], [address], Progress Notes * ANGELITO CARIASB:[birth year] (69 yo F)Acc No.[id number]:12/11/2024 COLON WITH MAC Patient: ROBERT OROSCO Provider: Reji Olsen MD :[id number] A ge:69 Y S ex:Female Date:12/11/2024 Address:[address] [place] [address] Pcp:Adele Brooks MD Subjective: * Chief Complaints: * S creening * The named appointment provid er may or may not be the originator of this progress note, and it is not deemed complete until electronically signed by the appointment provider. Sign off status: Pending * Provider: Reji Olsen MD Date: 0 12/11/2024 Generated for Chelsey mejia/Nader/eTransmitting on: 1 04/30/2024 02:46 PM EST
--- NOTE | 2025-02-27 11:32 | MHC.OFFVIS ---
Vital Signs 02/27/25 11:35 Height 5 ft 1 in Weight 149 lb BMI 28.2 BP 146/92 H Intake Visit Reasons: Us Follow up/German mcguire Executive Wellness Programs Director Required: Yes Executive Wellness Programs Director Language: Ingredient Scaler Helper Services: Executive Wellness Programs Director Present (in person) Executive Wellness Programs Director Name: Allie BURRELL Information Interpreted: non-clinical & clinical Accompanied by: Self / Same As Patient Allergies No Known Allergies Allergy (Verified 02/27/25 11:37) Post menopausal: Yes HPI Comments Details: The patient is presenting for ultrasound follow-up regarding myoma identified on previous ultrasound seen in 11/05. No complaints no pelvic pressure or bleeding or any other concerns. 01/26/2025 Pelvic ultrasound showed the following: Uterus: The uterus is retroflexed and measures 8.2 x 2.8 x 3.8 cm. The double wall endometrial thickness is 4 mm. Again seen is a heterogeneous mass in the anterior fundus of the uterus measuring 2.3 x 1.8 x 2.2 cm, previously 2.1 x 2.3 x 1.8 cm. Adnexa: Right ovary: Not demonstrated Left ovary measures 2.4 x 1.9 x 2.2 cm cm. There is focal central calcific density with posterior acoustic shadowing measuring up to 7 mm. US/US pelvic and transvaginal IMPRESSION: Stable anterior fundal leiomyoma PFSH Medical History Polyarticular osteoarthritis Encounter for monitoring denosumab therapy Right shoulder pain Benign neoplastic disease Myositis Cyst of Bartholin's gland duct Renal calculi Gastritis Anxiety Hypertension HIV (human immunodeficiency virus infection) Depression GERD (gastroesophageal reflux disease) Osteoporosis Surgical History History of lumpectomy of left breast History of esophagogastroduodenoscopy (EGD) Hx of tubal ligation Hx of cholecystectomy Hx of colonoscopy Hx of appendectomy Social History Household Members: None Housing: Apartment Do you presently have visiting nurse or other home services: No Alcohol intake: never Patient Tobacco Use Status: Former Tobacco user Years Smoked: quit 11 years ago Second Hand Smoke Exposure: No service: No Current occupational status: disabled Current occupation: rt handed Female Reproductive History Menstrual Age of Menarche: 14 Review of Systems Const All systems reviewed & are unremarkable except as noted in HPI and below Reports as per HPI and Reports no additional complaints GI Reports no additional complaints Reports no additional complaints Physical Exam Vital Signs: Last Vital Signs BP 146/92 H 02/27/25 11:35 BMI result Body Mass Index 28.2 Assessment & Plan Assessment & Plan (1) Uterine myoma: Code(s): D25.9 - Leiomyoma of uterus, unspecified Category: Medical Plan: Discussed with the patient the findings on pelvic ultrasound & the risk of myosarcoma; in addition reviewed with the patient that malignancy and pre malignancy cannot be ruled out without hysterectomy for pathological evaluation ; furthermore, explained to the patient the limitation of pelvic ultrasound and endometrial biopsy in the setting. Discussed with the patient the options of treatment including expectant management versus hysterectomy; the pros and cons, risks benefits of each approach were discussed with the patient including the fact that in cases of myosarcoma, surgical treatment can lead to early diagnosis and positively affects the prognosis; after further discussion, the patient decided to proceed with expectant management. Will repeat pelvic ultrasound periodically. Instructions given to patient to call in case any of the following occurs: pressure symptoms, abnormal uterine bleeding, pelvic pain; and to schedule a 12 months pelvic ultrasound (order placed) and a follow-up appointment . All questions answered, the patient verbalized understanding and agreed with the plan . Orders: Orders US pelvic and transvaginal Today D25.9 - Leiomyoma of uterus, unspecified Coding Level of Care Code Est Pt Level 3 (33576) Diagnoses Uterine myoma D25.9
[2025-02-27 11:35] VITALS: BP 146/92; BMI 28.2
--- OUTSIDE RECORDS SUMMARY | 2025-02-27 14:46 | XMS_ITS | Encounter Summary ---
Author Organization [facility] Address [address] [place] [address] Phone Care Team Providers Care Rock Loader Name Role Phone Unknown, Unknown Primary Care Provider Liam east Encounter Details Date Type Department Care Team (Late st Contact Info) Description 03/28/2019 Ancillary Orders [facility] Non-In[facility] Cardiology [address] [place] [address] Reji Jo, DO [address] [place] [address] Chest pain, unspecified type; Dizziness Social History [...] giddiness documented in this encounter Care Teams Rock Loader Relationship Specialty Start Date End Date Unknown, Unknown, PCP - General 03/28/19 documented as of this encounter Additional Source Comments The information contained in this document represents components of the legal health record. It is not the complete legal health record.[facility]
--- OUTSIDE RECORDS SUMMARY | 2025-02-27 14:46 | XMS_ITS | Encounter Summary ---
Author Organization [facility] Address [address] [facility] [address] [place] [address] Phone Care Team Providers Care Earth Sciences Professor Name Role Phone Unknown, Unknown Primary Care Provider Liam east Encounter Details Date Type Department Care Team (Late st Contact Info) Description 05/04/2018 Ancillary Orders [facility] [address] [place] [address] Reji Jo, [address] [place] [address] Dizziness Social History Tobacco Use Types Packs/Day [...] 24-hour monitor. No symptoms reported. Procedure Note Shahrma Crews MD - 05/04/2018 24-hour monitor: Baseline [...] giddiness documented in this encounter Care Teams Earth Sciences Professor Relationship Specialty Start Date End Date Unknown, Unknown, MD PCP - General 03/28/19 documented as of this encounter Additional Source Comments The information contained in this document represents components of the legal health record. It is not the complete legal health record.[facility]
--- OUTSIDE RECORDS SUMMARY | 2025-02-27 14:46 | XMS_ITS | Encounter Summary ---
Author Organization [facility] Address [address] [facility] [address] [place] [address] Phone Care Team Providers Care Casting Director Name Role Phone Unknown, Unknown Primary Care Provider Laim east Encounter Details Date Type Department Care Team (Latest Contact Info) Description 03/28/2019 Ancillary Orders [facility] [address] [place] [address] Reji Jo, DO [address] [place] [address] Chest pain, unspecified type; Dizziness Social History [...] giddiness documented in this encounter Care Teams Casting Director Relationship Specialty Start Date End Date Unknown, Unknown, MD PCP - General 03/28/19 documented as of this encounter Additional Source Comments The information contained in this document represents components of the legal health record. It is not the complete legal health record.[facility]
--- OUTSIDE RECORDS SUMMARY | 2025-02-27 14:46 | XMS_ITS | Patient Health Record ---
Author Organization [facility] Address [address] [place] [address] Care Team Providers Care Rug Frame Mounter Name Role Phone Adele Brooks MD Primary Care Provider Micah Contreras Jr Unavailable [phone] Allergies No Known Allergies Results Component Value Reference Range Notes Pathology Reviewed date:12/13/2024 01:20:19 PM Interpretation: Performing Lab:[facility], [address] [place] [address] Notes/Report: Reason For Referral No Information Medications Medication SIG (Take, Route, Frequency, Duration) Notes Start Date End Date Status Biktarvy 50-200-25 MG Tablet TOME BERE TABLETA TODOS LOS D? Oral Once a day Active Prolia 60 MG/ML Solution Prefilled Syringe as directed Subcutaneous 1 injection every 6 months Active Losartan Potassium 50 MG Tablet 1 tablet Orally Once a day Active Multivitamin Adults - Tablet as directed Orally Active Cyclobenzaprine HCl 10 MG Tablet 1 tablet as needed Orally Three times a day Not-Taking/PRN Atorvastatin Calcium 20 MG Tablet 1 tablet Orally Once a day Active Flonase 50 MCG/DOSE Inhaler 1 spray in each nostril Nasally Once a day; Duration: 30 day(s) Not-Taking/PRN [id number] 1 MG Tablet Chewable as directed Orally Active amLODIPine Besylate 2.5 MG Tablet 1 tablet Orally Once a day Not-Taking/PRN Tylenol PRN Active Omeprazole 40 MG Capsule Delayed Release TOME 1 CAPSULA POR VIA ORAL TODOS LOS GASPAR 30 MINUTOS BEFORE MORNING MEAL FOR 30 DAYS; Duration: 90 Active Calcium & Vit D3 Bone Health Active Albuterol Sulfate HFA Active Immunizations Vaccine Route Administration Date Status Comme nts Influenza Unknown 12/21/2017 Administered Influenza Unknown 12/19/2019 Administered Influenza Unknown 01/13/2022 Administered Social History Tobacco Use: Social History Observation Description Date Details (start date - stop date) Never Smoker NA - NA Social History Drug/Alcohol: Social Info Question Answer Notes AUDIT-C (Standard) Did you have a drink containing alcohol in the past year? No Points 0 Interpretation Negative Tobacco Use: Social Info Question Answer Notes Tobacco Control (Standard) Tobacco use: Nonsmoker Additional Details Category Social Info Options Details Miscellaneous: Marital status: Single Occupation: Home.disabled Problems Problem Type SNOMED Code ICD Code Onset Dates Problem Status W/U Status Risk Notes Problem Screening for malignant neoplasm of colon (381542044) Encounter for screening for malignant neoplasm of colon (Z12.11) Active confirmed Problem Generalized abdominal pain (914726427) Generalized abdominal pain (R10.84) Active confirmed Problem Rectal pain (26390596) Rectal pain (K62.89) Active confirmed Problem Dysphagia (73338689) Dysphagia, unspecified type (R13.10) Active confirmed Problem Gastroesophageal reflux disease (849638566) GERD without esophagitis (K21.9) Active confirmed Problem Altered bowel function (69204828) Change in bowel function (R19.8) Active confirmed Vital Signs Heart Rate 84 /min 11/19/2024 Temperature 98.8 degrees Fahrenheit 11/19/2024 Blood pressure diastolic 01 mm Hg 11/19/2024 Height 61 in 11/19/2024 Blood pressure systolic 001 mm Hg 11/19/2024 Weight 154.8 lbs 11/19/2024 BMI 29.25 kg/m2 11/19/2024 Encounters Encounter Location Date Provider Diagnosis [facility] [place] Outpatient [address] [place] [address] [id number] 12/11/2024 Micah Olsen Jr [facility] [address] [place] [phone] 11/19/2024 Micah Olsen Jr Encounter for screening for malignant neoplasm of colon Z12.11 ; GERD without esophagitis K21.9 and Generalized abdominal pain R10.84 [facility] [address] [place] [phone] 12/13/2024 Micah Olsen Jr Assessments Encounter Date Diagnosis (ICD Code) Assessment Notes Treatment Notes Treatment Clinical Notes Section Notes 11/19/2024 GERD without esophagitis (ICD-10 - K21.9) [...] Follow-up will be after the colonoscopy. 11/19/2024 Encounter for screening for malignant neoplasm [...] COLONOSCOPY 11/19/2024 Next Appt Details Provider Name:Micah Murdock Baironmanuel iqbald , 12/26/2025 01:15:00 PM, [address] [facility], [address], [place], [address], Insurance Providers Payer Name Payer Address Payer Phone Subscriber Number Group Number Insured Name Patient Relationship to Insured Coverage Start Date Coverage End Date [facility] [address] Attn Claims [id number] ROBERT CARIAS Self - patient is the insured Medical (General) History Medical History History ICD Code Gastroesophageal reflux dise ase, EGD 10/04 normal, no H. pylori or Rosenberg's esophagus. Anxiety/depression HIV infection hypertension kidney stones myositis Colonoscopy 02/01/20, tubular adenomas x 2, five-year followup 2 uterine biopsies having right sided ab dominal pain Surgical History Surgery Date(Month/Year) appendectomy 06/01/2012 cholecystectomy 06/01/2012 tubal ligation 06/01/2012 left breast lumpectomy 1994
--- OUTSIDE RECORDS SUMMARY | 2025-02-27 14:46 | XMS_ITS | Clinical Summary ---
Author Organization [facility] Address [address] [facility] [address] [place] [id number] Phone Care Team Providers Care Furnace Caretaker Name Role Phone Unknown, Unknown Primary Care [...] file Medical Devices Not on file Insurance [facility] C3 ACO C3 ACO [address] [place] [address] [place] [address] C3 ACO C3 ACO C3 ACO C3 ACO C3 ACO [facility] C3 ACO Care Teams Furnace Caretaker Relationship Specialty Start Date End Date Unknown, Unknown, PCP - General 03/28/19 Additional Source Comments The information contained in this document represents components of the legal health record. It is not the complete legal health record.[facility]
== END 2025-02-27 11:45 | disposition home or self-care (01) ==
LOC: HO.HWS 11:08
PROVIDERS: PCP Family Medicine; Visit Provider Obstetrics & Gynecology
DX: D25.9 Leiomyoma of uterus, unspecified (principal)
CPT/HCPCS: 99213

== ENCOUNTER → 2025-02-27 11:07 | Outpatient (BNVA) | payer OTHER, SELFPAY | PROVIDERS: PCP Family Medicine; Visit Provider Obstetrics & Gynecology | DX: D25.9 Leiomyoma of uterus, unspecified (principal); Z98.51 Tubal ligation status | CPT/HCPCS: 99212 ==